=== PATIENT | female | born 1935 | race Caucasian/White ===

== ENCOUNTER → 2017-01-03 | Day surgery (SDC) | payer MEDICARE, OTHER ==
--- NOTE | 2017-01-03 08:25 | US ---
EXAMINATION TYPE: US chest DATE OF EXAM: 01/03/2017 `8:10 AM COMPARISON: XRay CLINICAL HISTORY: J91.8 Pleural effusion. Marking EXAM MEASUREMENTS: Right Pleural Effusion fluid pocket: 9.5 cm, with lung floating midway through tissue. Free fluid p ocket 2.1 cm to floating lung. Right skin to fluid thickness: 3.9 cm Right side marked for possible thoracentesis outside the dept. Pulmonologists are able to review the images in the patient?s EMR. Lung seen 4.5 cm from skinline Minimal pleural fluid on the left. IMPRESSIONS: Bilateral pleural effusion.
--- NOTE | 2017-01-03 08:50 | XR ---
EXAMINATION TYPE: XR chest 1V portable DATE OF EXAM: 01/03/2017 8:46 AM COMPARISON: NONE HISTORY: Post right thoracentesis TECHNIQUE: Single frontal view of the chest is obtained. FINDINGS: Small bilateral effusions greater on the right no definite sizable pneumothorax. Heart siz e stable. Arthropathy of the shoulders. IMPRESSION: 1. Interval reduction in pleural effusion with no definite sizable pneumothorax.
[2017-01-03 08:53] VITALS: BP 125/98; PULSE 100; RESP 16; TEMP 98.1
--- NOTE | 2017-01-03 09:14 | PCN ---
DATE OF PROCEDURE: INDICATION: Pleural effusion. A time-out was completed verifying correct patient, procedure, site, positioning, and implant (s) or special equipment if applicable. Ultrasound guidance was used and appropriate fluid pocket was identified and marked. Patient was positioned, prepped and draped in usual sterile fashion. Lidocaine was used to anesthetize the area. A Thoracentesis catheter was introduced into the right pleural space and fluid was removed. Blood loss was none. A chest x-ray was ordered to evaluate for pneumothorax. Total Fluid Removed: 900 mL Color of Fluid: Turbid, dark yellowish effusion. Patient tolerated the procedure well and there were no complications. No bedside complications. No bleeding.
[2017-01-03 12:40] LABS: RBC, Body Fluid 1450 /uL
[2017-01-03 17:47] LABS: Glucose, BF Source Pleural Fluid; LDH, Body Fluid Source Pleural Fluid; T. Protein, Body Fluid Source Pleural Fluid; Total Protein, Body Fluid 2500 mg/dL
== END ==
LOC: RADUSWWP 07:12
PROVIDERS: ATTEND Internal Medicine Critical Care Medicine
DX: J90 Pleural effusion, not elsewhere classified (principal); Z87.891 Personal history of nicotine dependence; I10 Essential (primary) hypertension; E78.5 Hyperlipidemia, unspecified; E11.9 Type 2 diabetes mellitus without complications; Z79.84 Long term (current) use of oral hypoglycemic drugs; K21.9 Gastro-esophageal reflux disease without esophagitis; H40.9 Unspecified glaucoma; G25.0 Essential tremor; E66.9 Obesity, unspecified; Z68.41 Body mass index [BMI] 40.0-44.9, adult; Z79.82 Long term (current) use of aspirin; Z79.51 Long term (current) use of inhaled steroids; Z79.899 Other long term (current) drug therapy
CPT/HCPCS: 32554; 71010; 76604; 82945; 83615; 84157; 87070; 87205; 88108; 88305; 89050

== ENCOUNTER → 2017-01-11 | Outpatient (CLI) | payer MEDICARE, OTHER ==
--- NOTE | 2017-01-11 08:07 | CT ---
EXAMINATION TYPE: CT chest w con DATE OF EXAM: 01/11/2017 COMPARISON: NONE HISTORY: Pleural effusion CT DLP: 441.6 mGycm Automated exposure control for dose reduction was used. CONTRAST: CT scan of the chest is performed with IV Contrast, patient injected with 80 mL of Visipaque 320. FINDINGS: There is a moderate right-sided pleural effusion is smaller left-sided pleural effusion. Th ere is some atelectatic change present in the right middle lobe. There is a questionable, 10.7 mm spi culated lesion in the medial aspect of the left upper lobe best seen on image 7. No other parenchymal lesion is seen. There is no significant axillary, internal mammary, mediastinal or hilar adenopathy. The heart is mildly enlarged. There is no pericardial fluid. There is an ill-defined, 2 cm lesion in the superior aspect of the spleen. There is a small splenule in the splenic hilum. There is extensive retrocrural adenopathy. 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 At the level of the renal arteries, the lymph node mass measures 11.3 cm a nd is displacing the aorta anteriorly and encasing the aorta. There is moderate hypertrophic spondylosis and degenerative change within the spine. IMPRESSION: 1. EXTENSIVE RETROCRURAL AND PARA-AORTIC ADENOPATHY SUSPICIOUS FOR LYMPHOMA. 2. LESION WITHIN THE UPPER POLE OF THE SPLEEN IS OF UNCERTAIN ETIOLOGY. SPLENIC ULTRASOUND MAY BE WOR THWHILE. 3. BILATERAL PLEURAL EFFUSIONS, LARGER ON THE RIGHT THAN THE LEFT. 4. CARDIOMEGALY. 5. QUESTIONABLE 10.7 MM LESION IN THE MEDIAL ASPECT OF THE LEFT UPPER LOBE. 6. DEGENERATIVE CHANGES WITHIN THE SPINE.
== END | disposition home or self-care (01) ==
LOC: RADCTMAIN 06:42
PROVIDERS: ATTEND Internal Medicine Critical Care Medicine
DX: J90 Pleural effusion, not elsewhere classified (principal); R59.0 Localized enlarged lymph nodes; I51.7 Cardiomegaly
CPT/HCPCS: 82565; 84520; 71260; 36415; Q9967

== ENCOUNTER 2017-01-16 12:19 | Inpatient (IN) | payer MEDICARE, OTHER ==
--- NOTE | 2017-01-16 14:27 | ED ---
General Adult HPI - General Chief complaint: Shortness of Breath Stated complaint: Difficulty Breathing Time Seen by Provider: 01/16/17 14:07 Source: patient, family, RN notes reviewed Mode of arrival: ambulatory Limitations: no limitations - History of Present Illness Initial comments: Patient is a pleasant 81-year-old female presenting to emergency department complaining of shortness of breath. Onset of symptoms was over the past week or so. Patient has had symptoms over the past couple months altogether. Patient did have thoracentesis done by Dr. Remy Whitten in 2 weeks ago. Patient did get better following this however symptoms have returned. Patient states her thoracocentesis was not concerning for cancerous and is unclear what the cause was. No chest pain. Patient is mild cough with occasional yellow sputum. - Related Data Home Medications Medication Instructions Recorded Confirmed Atorvastatin [Lipitor] 10 mg PO DAILY 01/03/17 01/16/17 Celecoxib [CeleBREX] 200 mg PO DAILY 01/03/17 01/16/17 Indapamide 2.5 mg PO DAILY 01/03/17 01/16/17 Latanoprost Ophth [Xalatan 0.005%] 1 drops BOTH EYES HS 01/03/17 01/16/17 Omeprazole 20 mg PO DAILY 01/03/17 01/16/17 Propranolol HCl [Propranolol HCl 120 mg PO DAILY 01/03/17 01/16/17 ER] amLODIPine BESYLATE/BENAZEPRIL 1 cap PO BID 01/03/17 01/16/17 [amLODIPine BESYLATE/BENAZEPRIL 5-20 mg] glipiZIDE XL [Glucotrol Xl] 5 mg PO DAILY 01/03/17 01/16/17 metFORMIN HCL [Metformin HCl] 500 mg PO BID 01/03/17 01/16/17 Aspirin EC [Ecotrin Low Dose] 81 mg PO HS 01/16/17 01/16/17 Calcium Carbonate/Vitamin D3 1 tab PO DAILY 01/16/17 01/16/17 [Calcium 600-Vit D3 400 Caplet] Multivitamins, Thera [Multivitamin 1 tab PO DAILY 01/16/17 01/16/17 (formulary)] Allergies Allergy/AdvReac Type Severity Reaction Status Date / Time No Known Allergies Allergy Verified 01/16/17 13:59 Review of Systems ROS Statement: Those systems with pertinent positive or pertinent negative responses have been documented in the HPI. ROS Other: All systems not noted in ROS Statement are negative. Constitutional: Denies: fever, chills Eyes: Denies: eye pain ENT: Denies: ear pain Respiratory: Reports: cough, dyspnea Cardiovascular: Denies: chest pain Endocrine: Denies: fatigue Gastrointestinal: Denies: abdominal pain Genitourinary: Denies: urgency Musculoskeletal: Denies: as per HPI Skin: Denies: rash Neurological: Denies: weakness Past Medical History Past Medical History: Diabetes Mellitus, Hypertension, Rheumatoid Arthritis (RA) Additional Past Medical History / Comment(s): tremors History of Any Multi-Drug Resistant Organisms: None Reported Past Surgical History: Joint Replacement, Tubal Ligation Additional Past Surgical History / Comment(s): bilateral knees, thoracentesis Past Psychological History: No Psychological Hx Reported Smoking Status: Former smoker Past Alcohol Use History: None Reported Past Drug Use History: None Reported General Exam Limitations: no limitations General appearance: alert, in no apparent distress Head exam: Present: atraumatic Eye exam: Present: normal appearance, PERRL ENT exam: Present: normal oropharynx Neck exam: Present: normal inspection Respiratory exam: Present: decreased breath sounds (Bilateral bases) Cardiovascular Exam: Present: irregular rhythm GI/Abdominal exam: Present: soft. Absent: tenderness Extremities exam: Present: normal inspection. Absent: pedal edema, calf tenderness Neurological exam: Present: alert Psychiatric exam: Present: normal affect, normal mood Skin exam: Present: normal color Course Vital Signs 01/16/17 01/16/17 01/16/17 12:35 13:14 14:34 Temperature 97.9 F Pulse Rate 89 81 Respiratory 20 26 H 24 Rate Blood Pressure 138/63 143/82 O2 Sat by Pulse 89 L 97 Oximetry EKG Findings - EKG Comments: EKG Findings:: A. fib with rate of 85. QRS 74. QT 336. QTc 39. Normal axis. Normal QRS. Normal ST-T. Medical Decision Making - Medical Decision Making Patient reevaluated and resting comfortably in bed. Patient updated on results and plan. Case discussed in detail with Dr. mcdaniel, who will admit for DrTommy romero'll. Cardiology and Dr. bishop will be consult. - Lab Data Result diagrams: 01/16/17 13:30 01/16/17 13:30 Lab Results 01/16/17 01/16/17 01/16/17 Range/Units 13:30 13:30 13:30 WBC 9.5 (3.8-10.6) k/uL RBC 4.62 (3.80-5.40) m/uL Hgb 14.5 (11.4-16.0) gm/dL Hct 42.9 (34.0-46.0) % MCV 93.0 (80.0-100.0) fL MCH 31.4 (25.0-35.0) pg MCHC 33.7 (31.0-37.0) g/dL RDW 13.3 (11.5-15.5) % Plt Count 303 (150-450) k/uL Neutrophils % 73 % Lymphocytes % 12 % Monocytes % 8 % Eosinophils % 5 % Basophils % 0 % Neutrophils # 6.9 (1.3-7.7) k/uL Lymphocytes # 1.1 (1.0-4.8) k/uL Monocytes # 0.7 (0-1.0) k/uL Eosinophils # 0.5 (0-0.7) k/uL Basophils # 0.0 (0-0.2) k/uL PT (9.0-12.0) sec INR (<1.1) APTT (22.0-30.0) sec Sodium 141 (137-145) mmol/L Potassium 5.3 H (3.5-5.1) mmol/L Chloride 107 (98-107) mmol/L Carbon Dioxide 26 (22-30) mmol/L Anion Gap 8 mmol/L BUN 27 H (7-17) mg/dL Creatinine 1.10 H (0.52-1.04) mg/dL Est GFR (MDRD) Af Amer 58 (>60 ml/min/1.73 sqM) Est GFR (MDRD) Non-Af 48 (>60 ml/min/1.73 sqM) Glucose 86 (74-99) mg/dL Calcium 10.3 H (8.4-10.2) mg/dL Total Bilirubin 0.6 (0.2-1.3) mg/dL AST 24 (14-36) U/L ALT 30 (9-52) U/L Alkaline Phosphatase 64 (38-126) U/L Total Creatine Kinase 21 L (30-135) U/L CK-MB (CK-2) 0.3 (0.0-2.4) ng/mL CK-MB (CK-2) Rel Index 1.4 Troponin I <0.012 (0.000-0.034) ng/mL NT-Pro-B Natriuret Pep pg/mL Total Protein 6.8 (6.3-8.2) g/dL Albumin 3.9 (3.5-5.0) g/dL 01/16/17 01/16/17 Range/Units 13:30 13:30 WBC (3.8-10.6) k/uL RBC (3.80-5.40) m/uL Hgb (11.4-16.0) gm/dL Hct (34.0-46.0) % MCV (80.0-100.0) fL MCH (25.0-35.0) pg MCHC (31.0-37.0) g/dL RDW (11.5-15.5) % Plt Count (150-450) k/uL Neutrophils % % Lymphocytes % % Monocytes % % Eosinophils % % Basophils % % Neutrophils # (1.3-7.7) k/uL Lymphocytes # (1.0-4.8) k/uL Monocytes # (0-1.0) k/uL Eosinophils # (0-0.7) k/uL Basophils # (0-0.2) k/uL PT 12.0 (9.0-12.0) sec INR 1.2 (<1.1) APTT 24.7 (22.0-30.0) sec Sodium (137-145) mmol/L Potassium (3.5-5.1) mmol/L Chloride (98-107) mmol/L Carbon Dioxide (22-30) mmol/L Anion Gap mmol/L BUN (7-17) mg/dL Creatinine (0.52-1.04) mg/dL Est GFR (MDRD) Af Amer (>60 ml/min/1.73 sqM) Est GFR (MDRD) Non-Af (>60 ml/min/1.73 sqM) Glucose (74-99) mg/dL Calcium (8.4-10.2) mg/dL Total Bilirubin (0.2-1.3) mg/dL AST (14-36) U/L ALT (9-52) U/L Alkaline Phosphatase (38-126) U/L Total Creatine Kinase (30-135) U/L CK-MB (CK-2) (0.0-2.4) ng/mL CK-MB (CK-2) Rel Index Troponin I (0.000-0.034) ng/mL NT-Pro-B Natriuret Pep 2220 pg/mL Total Protein (6.3-8.2) g/dL Albumin (3.5-5.0) g/dL - Radiology Data Radiology results: image reviewed (Chest x-ray shows right greater than left effusion.) Disposition Clinical Impression: Pleural effusion, New onset atrial fibrillation Disposition: ADMITTED IP TO THIS HOSP Referrals: Jennyfer Meyers, [Primary Care Provider] - 1-2 days
[2017-01-16 14:37] LABS: Basophils % (A) 0 %; CH 31.2; CHCM 33.7; Eosinophils # (A) 0.5 k/uL (0-0.7); Eosinophils % (A) 5 %; HCT 42.9 % (34.0-46.0); HDW 2.33; HGB 14.5 gm/dL (11.4-16.0); Luc # (Auto) 0.23; Luc % (Auto) 2; Lymphocytes # (A) 1.1 k/uL (1.0-4.8); Lymphocytes % (A) 12 %; MCH 31.4 pg (25.0-35.0); MCHC 33.7 g/dL (31.0-37.0); Mean Platelet Volume 7.5; Monocytes # (A) 0.7 k/uL (0-1.0); Monocytes % (A) 8 %; Neutrophils # (A) 6.9 k/uL (1.3-7.7); Neutrophils % (A) 73 %; RBC 4.62 m/uL (3.80-5.40); RDW 13.3 % (11.5-15.5); WBC 9.5 k/uL (3.8-10.6); WBC (Perox) 9.46
[2017-01-16 14:45] LABS: INR 1.2 (<1.1); Partial Thromboplastin Time 24.7 sec (22.0-30.0)
[2017-01-16 14:49] LABS: Calcium 10.3 mg/dL (8.4-10.2); Potassium 5.3 mmol/L (3.5-5.1); Total Bilirubin 0.6 mg/dL (0.2-1.3); Total Protein 6.8 g/dL (6.3-8.2)
[2017-01-16 14:58] LABS: Creatine Kinase 21 U/L (30-135)
--- NOTE | 2017-01-16 14:59 | XR ---
EXAMINATION TYPE: XR chest 2V DATE OF EXAM: 01/16/2017 HISTORY: difficulty breathing. REFERENCE: Previous study dated 01/03/2017. FINDINGS: There is a worsening right pleural effusion. Heart size is obscured. I suspect a tiny left effusion. There is some scarring or atelectasis in the left upper lobe. IMPRESSION: 1. WORSENING RIGHT-SIDED EFFUSION. 2. SCARRING VERSUS ATELECTASIS, LEFT UPPER LOBE. 3. TINY LEFT-SIDED EFFUSION.
[2017-01-16 15:11] LABS: Creatine Kinase MB 0.3 ng/mL (0.0-2.4); Troponin I <0.012 ng/mL (0.000-0.034)
[2017-01-16] MEDS ORDERED: ASPIRIN 325 MG TAB PO STA (16:32)
[2017-01-16] MEDS: FUROSEMIDE 10 MG/ML 4 ML VIAL IV SCH ×2 (17:56→20:38)
[2017-01-16] MEDS: NITROGLYCERIN OINT 1 INCH/GM PACKET TOPICAL SCH ×2 (18:03→20:47)
[2017-01-16] MEDS ORDERED: HEPARIN SODIUM,PORCINE 5,000 UNIT/ML 1 ML VIAL IV ONE (18:57)
[2017-01-16] MEDS ORDERED: HEPARIN SODIUM,PORCINE 5,000 UNIT/ML 1 ML VIAL IV PRN (18:57)
[2017-01-16] MEDS: HEPARIN SODIUM,PORCINE/D5W PMX 25,000 UNIT in DEXTROSE/WATER 1 500ML.BAG IV SCH (19:47)
[2017-01-16] MEDS: LATANOPROST 0.005% OPHTH DROPS 2.5 ML BTL BOTH EYES SCH (20:38)
[2017-01-16] MEDS: LISINOPRIL 20 MG TAB PO SCH (20:38)
[2017-01-16] MEDS: amLODIPine 5 MG TAB PO SCH (20:38)
[2017-01-16] MEDS: metFORMIN 500 MG TAB PO SCH (20:38)
[2017-01-16 20:51] LABS: Glucose,Whole Blood 117 mg/dL (75-99)
[2017-01-16 20:53] LABS: Basophils % (A) 0 %; CH 31.1; CHCM 33.1; Eosinophils # (A) 0.4 k/uL (0-0.7); Eosinophils % (A) 5 %; HCT 41.9 % (34.0-46.0); HDW 2.31; HGB 13.9 gm/dL (11.4-16.0); Luc # (Auto) 0.25; Luc % (Auto) 3; Lymphocytes % (A) 12 %; MCH 31.3 pg (25.0-35.0); MCHC 33.1 g/dL (31.0-37.0); MCV 94.5 fL (80.0-100.0); Mean Platelet Volume 7.3; Monocytes # (A) 0.8 k/uL (0-1.0); Monocytes % (A) 9 %; Neutrophils # (A) 6.1 k/uL (1.3-7.7); Neutrophils % (A) 71 %; RBC 4.43 m/uL (3.80-5.40); RDW 13.2 % (11.5-15.5); WBC 8.6 k/uL (3.8-10.6); WBC (Perox) 9.01
[2017-01-16 20:59] LABS: INR 1.1 (<1.1); Partial Thromboplastin Time 24.9 sec (22.0-30.0); Prothrombin Time 11.1 sec (9.0-12.0)
[2017-01-17 05:38] LABS: Glucose,Whole Blood 65 mg/dL (75-99)
[2017-01-17 06:05] LABS: Glucose,Whole Blood 87 mg/dL (75-99)
[2017-01-17] MEDS: PANTOPRAZOLE 40 MG TABLET PO SCH (06:33)
[2017-01-17 06:40] LABS: Basophils % (A) 0 %; CHCM 32.6; Eosinophils # (A) 0.6 k/uL (0-0.7); Eosinophils % (A) 8 %; HCT 39.1 % (34.0-46.0); HDW 2.28; HGB 12.8 gm/dL (11.4-16.0); Luc # (Auto) 0.25; Luc % (Auto) 4; Lymphocytes % (A) 14 %; MCH 31.5 pg (25.0-35.0); MCHC 32.9 g/dL (31.0-37.0); MCV 95.8 fL (80.0-100.0); Mean Platelet Volume 7.1; Monocytes # (A) 0.6 k/uL (0-1.0); Monocytes % (A) 8 %; Neutrophils # (A) 4.8 k/uL (1.3-7.7); Neutrophils % (A) 67 %; RBC 4.08 m/uL (3.80-5.40); RDW 13.3 % (11.5-15.5); WBC 7.2 k/uL (3.8-10.6)
[2017-01-17] MEDS: FUROSEMIDE 10 MG/ML 4 ML VIAL IV SCH ×3 (08:28→19:49)
[2017-01-17] MEDS: NITROGLYCERIN OINT 1 INCH/GM PACKET TOPICAL SCH ×4 (08:35→21:44)
[2017-01-17] MEDS: LISINOPRIL 20 MG TAB PO SCH ×2 (08:36→19:49)
[2017-01-17] MEDS: metFORMIN 500 MG TAB PO SCH (08:36)
[2017-01-17] MEDS: ATORVASTATIN 10 MG TAB PO SCH (08:36)
[2017-01-17] MEDS: amLODIPine 5 MG TAB PO SCH ×2 (08:36→19:50)
[2017-01-17] MEDS: PROPRANOLOL LA 60 MG CAP.SA.24H PO SCH (08:36)
[2017-01-17] MEDS: INDAPAMIDE 2.5 MG TAB PO SCH (08:37)
--- NOTE | 2017-01-17 09:23 | CONS ---
DATE OF CONSULTATION: 01/17/2017 CHIEF COMPLAINT: Shortness of breath. Sheila is a 81-year-old lady with history of hypertension, dyslipidemia, [id number]-qeyyvryks diabetes, who presented to the hospital complaining of progressively worsening shortness of breath of a few week's duration. She was investigated as outpatient with chest x-ray and was found to have a right-sided pleural effusion. She underwent thoracentesis and the fluid was negative for malignancy. She had a CT scan of the chest that showed mediastinal lymphadenopathy, pleural effusion, and mild cardiomegaly. She comes into hospital complaining of worsening shortness of breath. She complains of moderate to severe intensity dyspnea that comes on with exertion. There is no evidence of PND or leg edema. There is no prior history of congestive heart failure. There is no history of sustained palpitations, dizziness, or syncope. On this admission she was found to be in atrial fibrillation with controlled ventricular rate. BNP is elevated. Her clinical presentation is consistent with acute onset congestive heart failure. It is unclear whether it is systolic or diastolic at this time, but will obtain a 2-D echo to assess her LV function. She is being treated with intravenous diuretics, beta blockers, WISAM inhibitors, and intravenous heparin. If she is covered for normal anticoagulants, I am going to put her on Eliquis 5 mg b.i.d. Obtain a 2-D echo to assess her LV function. Chest x-rays shows significant right-sided pleural effusion. We will see if this improves with diuretics, if not she may need another attempt at thoracentesis. Past medical history is significant for hypertension, diabetes, dyslipidemia. Medications: 1. Aspirin. 2. Metformin 500 b.i.d. 3. Glucotrol XL 5 mg daily. 4. Lotrel. 5. Inderal LA. 6. Celebrex. 7. Lipitor. ALLERGIES: There are no known drug allergies. FAMILY HISTORY: Negative for premature coronary artery disease. SOCIAL HISTORY: Negative for current smoking, EtOH abuse or drug abuse. REVIEW OF SYSTEMS: HEENT: Unremarkable. CARDIAC: As described above. RESPIRATORY: As described above. GI: Negative. GENITOURINARY: Negative. ALLERGY/IMMUNOLOGY: Negative. SKIN: Negative. MUSCULOSKELETAL: Significant for arthritis. PSYCHOSOCIAL: Negative. ENDOCRINE: Negative. CONSTITUTIONAL: Negative. ONCOLOGICAL: Negative. The rest of the system review is not relevant. On exam, patient is comfortable at rest. O2 sat is 92% on 2 liters. Heart rate is 90 beats per minute, blood pressure is 125/71, respirations 18. Chest exam reveals diminished air entry at the right base. Heart exam reveals first and second heart sounds, irregular rhythm. No murmur. Abdomen is soft. Exam of the extremities did not reveal any edema. Peripheral pulses are palpable. Labs show that the creatinine is 1.1. Potassium is 5.3. Troponin is negative. BNP is elevated at 2220. ASSESSMENT: 1. Acute onset shortness of breath secondary to new onset congestive heart failure with right-sided pleural effusion. 2. Persistent atrial fibrillation, new onset. 3. Hypertension. 4. Dyslipidemia. 5. Noninsulin-dependent diabetes. PLAN: Will treat the patient with IV Lasix. Continue the beta blockers. Intravenous heparin if she is covered for the normal anticoagulants, we will start those maybe tomorrow once we get a sense of whether she is going to improve with diuresis or not. If not, she may need another thoracentesis. Heart rate is well controlled on beta nereida. We will leave her on the IV heparin. I will obtain a 2-D echo to evaluate her LV function. We will obtain a TSH on her.
--- NOTE | 2017-01-17 10:20 | HP ---
DATE OF ADMISSION: 01/16/2017 PRESENTING COMPLAINT: Short of breath. HISTORY OF PRESENTING COMPLAINT: This is a very pleasant female 81-year-old patient of Dr. Jennyfer Meyers whose chronic stable medical conditions include diabetes, hyperlipidemia, hypertension, rheumatoid arthritis. Patient has a diagnosis of pleural effusion, exact cause is unknown. She did have thoracentesis done by Dr. Ferrer about 2 weeks ago, again currently short of breath and now presents yet again with pleural effusion. She was due to get tapped. Patient denies losing any obvious weight and her appetite has not been too good. Denies any fever or cough. Just simply short of breath. REVIEW OF SYSTEMS: CONSTITUTIONAL: Weak, tired, loss of appetite. HEENT: None. RESPIRATORY: As above. CARDIOVASCULAR: None. GASTROINTESTINAL: Occasional constipation. GENITOURINARY: None. MUSCULOSKELETAL: Pain in multiple joints. Dermatological: None. HEMATOLOGICAL: None. LYMPHATICS: None. PSYCHIATRY: None. NEUROLOGICAL: None. PAST MEDICAL HISTORY: Diabetes, hyperlipidemia, hypertension, and rheumatoid arthritis, tremors. PAST SURGICAL HISTORY: Joint replacement, bilateral knees thoracenteses, cataract surgery. SOCIAL HISTORY: Does not smoke. No alcohol. . FAMILY HISTORY: Congestive heart failure, diabetes, hypertension. HOME MEDICATIONS: 1. Aspirin 81 mg a day. 2. Xalatan 0.005% one drop to both eyes at bedtime. 3. Metformin 5 mg p.o. b.i.d. 4. Glucotrol XL 5 mg p.o. daily. 5. Amlodipine. 6. Benazepril 5 mg p.o. b.i.d. 7. Propranolol ER 120 mg p.o. daily. 8. Omeprazole 20 mg p.o. daily. 9. Multivitamin 1 tablet p.o. daily. 10. Indapamide 2.5 p.o. daily. 11. Celebrex 200 mg p.o. daily. 12. Calcium 600 to 400, 1 tablet p.o. daily. 13. Lipitor 10 mg p.o. daily. ALLERGIES: None. On examination, temperature 97, pulse 76, respirations 18, blood pressure 140/76, pulse ox 95 on 2 liters. GENERAL APPEARANCE: Well built, BMI of 39.5 lying in bed, tired -appearing. EYES: Pupils equal. Conjunctivae normal. HEENT: External appearance of nose and ears normal. Oral cavity normal. NECK: JVD possibly raised. Mass not palpable. RESPIRATORY: Effort increased. LUNGS: Diminished breath sounds on the right side. CARDIOVASCULAR: Heart sounds irregular. Minimal edema. ABDOMEN: Soft, nontender. Liver and spleen not palpable. LYMPHATIC: No lymph nodes palpable in neck or axillae. PSYCHIATRY: Alert and oriented x3. Mood and affect normal. NEUROLOGICAL: Pupils equal. Cranial nerves grossly intact. Power and sensation are grossly intact. INVESTIGATIONS: White count 9.5, hemoglobin 14.5, potassium 5.3, BUN 27, creatinine 1.10. Troponin negative. ProBNP 2220. Chest x-ray shows worsening right-sided pleural effusion. ASSESSMENT: 1. Right pleural effusion, cause unknown, recurrent. Patient had pleural fluid tapped two weeks ago by Dr. Ferrer. 2. Diabetes mellitus, type II, on oral hypoglycemic. 3. Essential hypertension. 4. Hyperlipidemia. 5. Rheumatoid arthritis. 6. Obesity, body mass index 39.5. 7. Atrial fibrillation, rate controlled. PLAN: At this point the patient but on IV heparin. Home medications are reviewed. Will order a 2-D echocardiogram. Patient is being set up for thoracentesis. Care was discussed with the patient.
[2017-01-17] MEDS ORDERED: RX INFO: IV CONTRAST WAS GIVEN 1 EACH MISC MISCELLANE PRN (10:23)
[2017-01-17] MEDS: MULTIVITAMINS, THERA 1 EACH TAB PO SCH (10:58)
[2017-01-17] MEDS: ASPIRIN 325 MG TAB PO SCH (10:58)
[2017-01-17 11:38] LABS: Calcium 9.8 mg/dL (8.4-10.2); Potassium 4.5 mmol/L (3.5-5.1)
[2017-01-17 11:42] LABS: Hemoglobin A1C 5.1 % (4.2-6.1)
[2017-01-17 11:49] LABS: Glucose,Whole Blood 60 mg/dL (75-99)
[2017-01-17 12:02] LABS: Basophils # (A) 0.1 k/uL (0-0.2); Basophils % (A) 1 %; CHCM 32.2; Eosinophils # (A) 0.4 k/uL (0-0.7); Eosinophils % (A) 6 %; HCT 39.2 % (34.0-46.0); HDW 2.28; Luc # (Auto) 0.17; Luc % (Auto) 3; Lymphocytes # (A) 0.8 k/uL (1.0-4.8); Lymphocytes % (A) 12 %; MCH 32.1 pg (25.0-35.0); MCHC 33.1 g/dL (31.0-37.0); MCV 96.8 fL (80.0-100.0); Mean Platelet Volume 7.5; Monocytes # (A) 0.6 k/uL (0-1.0); Monocytes % (A) 8 %; Neutrophils # (A) 4.9 k/uL (1.3-7.7); Neutrophils % (A) 71 %; RBC 4.05 m/uL (3.80-5.40); RDW 13.2 % (11.5-15.5); WBC 6.9 k/uL (3.8-10.6); WBC (Perox) 7.38
[2017-01-17 12:23] LABS: Glucose,Whole Blood 67 mg/dL (75-99)
[2017-01-17 12:25] LABS: Glucose,Whole Blood 62 mg/dL (75-99)
[2017-01-17 12:30] LABS: Glucose,Whole Blood 64 mg/dL (75-99)
[2017-01-17 12:38] LABS: INR 1.2 (<1.1); Prothrombin Time 12.1 sec (9.0-12.0)
[2017-01-17 13:11] LABS: Glucose,Whole Blood 105 mg/dL (75-99)
[2017-01-17 13:11] LABS: Glucose,Whole Blood 63 mg/dL (75-99)
--- NOTE | 2017-01-17 13:16 | P.CNPUL ---
History of Present Illness Consult date: 01/17/17 Reason for consult: dyspnea, pleural effusion History of present illness: This is a 81-year-old female patient, diabetic along with hypertension and hyperlipidemia and essential tremors, was initially referred to me in mid December for increased shortness of breath that started approximately 4 weeks prior to that. The patient had seen her primary care physician and she was found to have a large right-sided pleural effusion and for that reason she got referred to me. The patient had increased cough and congestion and some wheezing in addition. She was having exertional dyspnea even with mild to moderate amount of activity. She had some mild orthopnea. She also complained of increased lower eczematous swelling. No pleurisy. No hemoptysis. No nausea or vomiting. Appetite was poor. She had no previous history of congestion heart failure. She had remote history of smoking. She was started by her primary care physician on Advair Diskus with no significant improvement. No history of DVT. Nausea pulmonary embolism. No malignancy. No valvular heart disease. Echocardiogram that was done in [facility] recently showed a normal left ventricular function without any segmental wall motion abnormalities and the patient's ejection fraction was 55-60% and right ventricular systolic pressure was around 55-60. The patient's proBNP level was 276. Liver function tests were within normal limits. Creatinine was mildly impaired at 1.2. I performed a thoracentesis on the patient's right lung and evacuated approximately a liter of fluid. Based on the fluid analysis, the patient's fluid LDH was 70 and the fluid protein was 2.5 and this was suggestive of the changes date. The fluid cytology came back negative for malignancy. Meanwhile, the patient had a condition of the right-sided pleural effusion. I ordered a CAT scan of the chest which confirmed the presence of a moderate-sized right-sided pleural effusion, a small left-sided pleural effusion , atelectatic changes in the right midlung however there was extensive retrocrural adenopathy and there was a conglomerate lymph node mass measuring 6.4 cm in size displacing the aorta anteriorly. At the level of the renal arteries, lymph node mass measured 11.3 cm in size and displacing the aorta and encasing the aorta. Based on that, there was a concern of an underlying lymphoma. Review of Systems All systems: negative Constitutional: Denies chills, Denies fever Eyes: denies blurred vision, denies pain Ears, nose, mouth and throat: Denies headache, Denies sore throat Cardiovascular: Reports decreased exercise tolerance, Reports dyspnea on exertion, Reports shortness of breath Respiratory: Reports dyspnea Gastrointestinal: Denies abdominal pain, Denies diarrhea, Denies nausea, Denies vomiting Genitourinary: Denies dysuria, Denies hematuria Musculoskeletal: Denies myalgias Integumentary: Denies pruritus, Denies rash Neurological: Denies numbness, Denies weakness Psychiatric: Denies anxiety, Denies depression Endocrine: Denies fatigue, Denies weight change Past Medical History Past Medical History: Diabetes Mellitus, Hyperlipidemia, Hypertension, Rheumatoid Arthritis (RA) Additional Past Medical History / Comment(s): Obesity, diabetes mellitus, bilateral pleural effusion more so on the right, glucoma, acid reflux, hyperlipidemia, essential tremors History of Any Multi-Drug Resistant Organisms: None Reported Past Surgical History: Joint Replacement, Tubal Ligation Additional Past Surgical History / Comment(s): bilateral knees, thoracentesis, Cataract Surgery Past Anesthesia/Blood Transfusion Reactions: No Reported Reaction Past Psychological History: No Psychological Hx Reported Smoking Status: Former smoker Past Alcohol Use History: None Reported Past Drug Use History: None Reported - Past Family History Mother Family Medical History: Congestive Heart Failure (CHF), Diabetes Mellitus, Eye Disorder, Hypertension, Osteoarthritis (OA) Father Family Medical History: Cancer Medications and Allergies Home Medications Medication Instructions Recorded Confirmed Type Atorvastatin [Lipitor] 10 mg PO DAILY 01/03/17 01/16/17 History Celecoxib [CeleBREX] 200 mg PO DAILY 01/03/17 01/16/17 History Indapamide 2.5 mg PO DAILY 01/03/17 01/16/17 History Latanoprost Ophth [Xalatan 0.005%] 1 drops BOTH EYES HS 01/03/17 01/16/17 History Omeprazole 20 mg PO DAILY 01/03/17 01/16/17 History Propranolol HCl [Propranolol HCl 120 mg PO DAILY 01/03/17 01/16/17 History ER] amLODIPine BESYLATE/BENAZEPRIL 1 cap PO BID 01/03/17 01/16/17 History [amLODIPine BESYLATE/BENAZEPRIL 5-20 mg] glipiZIDE XL [Glucotrol Xl] 5 mg PO DAILY 01/03/17 01/16/17 History metFORMIN HCL [Metformin HCl] 500 mg PO BID 01/03/17 01/16/17 History Aspirin EC [Ecotrin Low Dose] 81 mg PO AC-SUPPER 01/16/17 01/16/17 History Calcium Carbonate/Vitamin D3 1 tab PO DAILY 01/16/17 01/16/17 History [Calcium 600-Vit D3 400 Caplet] Multivitamins, Thera [Multivitamin 1 tab PO DAILY 01/16/17 01/16/17 History (formulary)] Allergies Allergy/AdvReac Type Severity Reaction Status Date / Time No Known Allergies Allergy Verified 01/16/17 13:59 Physical Exam Vitals: Vital Signs Temp Pulse Pulse Resp BP BP Pulse Ox 01/17/17 04:00 97.0 F L 92 18 146/84 92 L 01/16/17 23:35 78 18 01/16/17 23:16 78 18 125/71 92 L 01/16/17 20:00 79 16 01/16/17 19:39 96.8 F L 79 16 128/91 94 L 01/16/17 18:58 97.0 F L 76 18 148/76 95 01/16/17 18:05 97.0 F L 76 18 148/76 95 01/16/17 17:32 97.9 F 73 16 117/58 97 01/16/17 16:00 74 18 109/66 95 01/16/17 15:00 78 18 133/58 97 01/16/17 14:34 24 01/16/17 14:00 88 20 110/77 01/16/17 13:14 81 26 H 143/82 97 Intake and Output 01/16/17 01/17/17 01/17/17 22:59 06:59 14:59 Intake Total 114.333 200 Output Total 300 900 Balance -300 -785.667 200 Intake: Intake, IV Titration 114.333 Amount Heparin Sodium,Porcine/ 114.333 D5w Pmx 25,000 unit In Dextrose/Water 1 500ml. bag @ 10.207 UNITS/KG/HR 20 mls/hr IV .Q24H [facility] Rx #:[id number] Oral 200 Output: Urine 300 900 Other: Weight 97.976 kg 97.6 kg The patient appeared well nourished and normally developed. Vital signs as documented. Head exam is unremarkable. No scleral icterus or corneal arcus noted. Neck is without jugular venous distension, thyromegaly, or carotid bruits. Carotid upstrokes are brisk bilaterally. Lungs are diminished bilaterally as patient the right lung base along with some dullness to percussion. No wheezes or rhonchi.. Cardiac exam reveals the PMI to be normally sized and situated. Rhythm is regular. First and second heart sounds normal. No murmurs, rubs or gallops. Abdominal exam reveals normal bowel sounds , no masses, no organomegaly and no aortic enlargement. There is no abdominal distention. There is no ascites. There is no inguinal lymphadenopathy. Extremities are nonedematous and both femoral and pedal pulses are normal. Results - Laboratory Findings CBC and BMP: 01/17/17 08:54 01/17/17 08:54 PT/INR, D-dimer PT 12.1 sec (9.0-12.0) H 01/17/17 08:54 INR 1.2 (<1.1) 01/17/17 08:54 Abnormal lab findings: Abnormal Labs 01/16/17 01/16/17 01/16/17 13:30 13:30 20:50 Lymphocytes # PT APTT Potassium 5.3 H BUN 27 H Creatinine 1.10 H POC Glucose (mg/dL) 117 H Calcium 10.3 H Total Creatine Kinase 21 L 01/17/17 01/17/17 01/17/17 00:43 05:35 08:54 Lymphocytes # PT APTT 125.8 H* 42.5 H Potassium BUN Creatinine POC Glucose (mg/dL) 65 L Calcium Total Creatine Kinase 01/17/17 01/17/17 01/17/17 08:54 08:54 08:54 Lymphocytes # 0.8 L PT 12.1 H APTT Potassium BUN 32 H Creatinine 1.34 H POC Glucose (mg/dL) Calcium Total Creatine Kinase 01/17/17 01/17/17 01/17/17 11:45 12:03 12:24 Lymphocytes # PT APTT Potassium BUN Creatinine POC Glucose (mg/dL) 60 L 67 L 62 L Calcium Total Creatine Kinase 01/17/17 12:25 Lymphocytes # PT APTT Potassium BUN Creatinine POC Glucose (mg/dL) 64 L Calcium Total Creatine Kinase - Diagnostic Findings CT scan - chest: image reviewed Assessment and Plan Plan: Assessment 1 bilateral pleural effusion larger on the right. The patient underwent a diagnostic and therapeutic thoracentesis approximately 2 weeks ago and the fluid analysis is suggestive more so a transudate. The fluid cytology was negative for malignancy. Nevertheless the patient had recurrence and recuperation of the pleural effusion most on the right that is causing significant shortness of breath. 2 mass/lymph node conglomeration, intra-abdominal, para-aortic, retrocrural, suspicious for an underlying malignancy. The patient has a fairly large lymph node conglomeration this could potentially represent an underlying lymphoma 3 obesity 4 exertional dyspnea secondary to above 5 diabetes mellitus type 2 6 chronic renal insufficiency, stage III disease 7 hyperlipidemia 8 essential tremors Plan The patient is being diuresis with IV Lasix regarding the lateral pleural effusions. Rule out underlying CHF and repeat echocardiogram. Cardiology consultation. Obtain a CAT scan of the abdomen and pelvis regarding the intra- abdominal lymphadenopathy. There is a suspicion for lymphoma. May need a surgical consultation and this will largely depend on the CAT scan of the abdomen and pelvis results. We'll continue to follow.
[2017-01-17] MEDS ORDERED: SODIUM CHLORIDE 0.9% 1,000 ML in EMPTY BAG 1 BAG IV ONE (13:53)
[2017-01-17] MEDS: IOHEXOL 350 MG/ML 25 ML BOTTLE (ORAL USE) PO PRN ×2 (14:00→14:43)
[2017-01-17 15:35] VITALS: BMI 39.3
--- NOTE | 2017-01-17 16:20 | CT ---
EXAMINATION TYPE: CT abdomen pelvis w con DATE OF EXAM: 01/17/2017 REFERENCE: NONE HISTORY: abdominal LN HISTORY: Abdominal pain. REFERENCE: NONE CT DLP: 1498.00 mGy Automated exposure control for dose reduction was used. TECHNIQUE: Helical acquisition through the abdomen and pelvis was obtained following the oral ingesti on of with Oral Contrast and following intravenous administration of 80 mL of Visipaque 320. The data was reformatted in axial, coronal and sagittal projections. FINDINGS: There are bilateral effusions, greater on the right than the left. There is atelectatic ch alesha in the right middle lobe. Heart is enlarged. There is coronary artery and other vascular calcifi cations. Within the abdomen, the liver, spleen and gallbladder appear normal. There are faceted gallstones within the gallbladder and proximal common bile duct. The adrenal glands are unremarkable. Both kidneys demonstrate function and appear morphologically normal. The pancreas is unremarkable. There is extensive retrocrural, para-aortic paracaval adenopathy. Conglomerate lymph node mass at the level of the lower pole of the kidneys measures 10.5 x 4.7 cm. There is additional mesenteric adenop athy. There is no iliac or significant inguinal adenopathy. Uterus is unremarkable. The left ovary is normal. There is a 1.3 cm cyst involving the right ovary. There are scattered diverticula throughout the sigmoid colon. There is no radiographic evidence of di verticulitis. The appendix is normal. Small bowel loops appear normal. There is a ventral hernia containing fat only with a 3.4 cm mouth. No free fluid and no free air is seen. There is extensive degenerative disc disease and hypertrophic spondylosis throughout the spine. IMPRESSION: 1. BILATERAL EFFUSIONS, GREATER ON THE RIGHT THAN THE LEFT. 2. ATELECTATIC CHANGE, RIGHT MIDDLE LOBE. 3. CHOLELITHIASIS. 4. EXTENSIVE RETROCRURAL, PARA-AORTIC AND MESENTERIC ADENOPATHY. CONSIDER LYMPHOMA. 5. UNCOMPLICATED DIVERTICULOSIS OF THE LEFT SIDE OF THE COLON. 6. VENTRAL HERNIA CONTAINING FAT ONLY WITH A MOUTH MEASURING 3.4 CM. 7. EXTENSIVE DEGENERATIVE CHANGE WITHIN THE SPINE.
[2017-01-17 17:01] LABS: Glucose,Whole Blood 54 mg/dL (75-99)
[2017-01-17 17:17] LABS: Glucose,Whole Blood 174 mg/dL (75-99)
[2017-01-17] MEDS: ASPIRIN 81 MG CHEW PO SCH (17:28)
[2017-01-17] MEDS: HEPARIN SODIUM,PORCINE/D5W PMX 25,000 UNIT in DEXTROSE/WATER 1 500ML.BAG IV SCH (19:47)
[2017-01-17] MEDS: LATANOPROST 0.005% OPHTH DROPS 2.5 ML BTL BOTH EYES SCH (19:50)
[2017-01-17 20:59] LABS: Glucose,Whole Blood 90 mg/dL (75-99)
--- NOTE | 2017-01-17 22:01 | P.PN ---
Progress Note - Text DATE OF SERVICE: 01/17/2017 PRESENTING COMPLAINT: Shortness of breath INTERVAL HISTORY: This patient has recurrent pleural effusions . On exam, she is awake alert sitting in the bed, tolerating her diet, ambulatory in the room and ocrmier ways. Does not appear distressed in any way. REVIEW OF SYSTEMS: Done for constitutional ,cardiovascular, GI, pulmonary with relevant findings as above. CURRENT MEDICATIONS Norvasc, Lasix, aspirin, Glucotrol, Lozol, Zestril. PHYSICAL EXAM: VITAL SIGNS: Temperature 97.8, pulse 90, respirations 18, blood pressure 138/81 , oxygen saturation 93% on 2 L. GENERAL APPEARANCE: Average build. Lying in bed, not in distress. EYES: Pupils equal. Conjunctiva normal. NECK: JVD not raised. Mass not palpable. RESPIRATORY: Respiratory effort normal. Lungs diminished bilaterally. CARDIOVASCULAR: First and second sounds normal. No edema. ABDOMEN: Soft. Liver and spleen not palpable. No tenderness. No mass palpable. PSYCHIATRY: Alert and oriented x3. Mood and affect normal. NEUROLOGICAL: Cranial nerves grossly intact. No facial asymmetry. Power and sensation grossly intact INVESTIGATIONS: INR 1.2, sodium 141, potassium 4.5, BUNs 32, creatinine 1.34 ASSESSMENT: 1. Right pleural effusion, cause unknown, recurrent. Patient had pleural fluid tapped [address] Ferrer. 2. Diabetes mellitus type 2, on oral hypoglycemics. 3. Essential hypertension. 4. Hyperlipidemia. 5. Rheumatoid arthritis. 6. Obesity body mass index of 39.5. 7. Atrial fibrillation, controlled rate. PLAN: Receive a 2-D echocardiogram and thoracentesis with pulmonology. We'll continue with current medication and treatment plan. 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 Aaron
[2017-01-18 06:15] LABS: Glucose,Whole Blood 72 mg/dL (75-99)
[2017-01-18 06:38] LABS: Basophils % (A) 0 %; CH 31.1; Eosinophils # (A) 0.6 k/uL (0-0.7); Eosinophils % (A) 8 %; HCT 40.3 % (34.0-46.0); HDW 2.19; HGB 12.7 gm/dL (11.4-16.0); Luc # (Auto) 0.17; Luc % (Auto) 3; Lymphocytes # (A) 0.9 k/uL (1.0-4.8); Lymphocytes % (A) 14 %; MCH 30.8 pg (25.0-35.0); MCHC 31.5 g/dL (31.0-37.0); MCV 97.7 fL (80.0-100.0); Mean Platelet Volume 7.1; Monocytes # (A) 0.6 k/uL (0-1.0); Monocytes % (A) 9 %; Neutrophils # (A) 4.5 k/uL (1.3-7.7); Neutrophils % (A) 66 %; RBC 4.13 m/uL (3.80-5.40); RDW 13.6 % (11.5-15.5); WBC 6.8 k/uL (3.8-10.6)
[2017-01-18] MEDS: PANTOPRAZOLE 40 MG TABLET PO SCH (06:44)
[2017-01-18 06:50] LABS: Calcium 9.4 mg/dL (8.4-10.2); Potassium 4.2 mmol/L (3.5-5.1)
[2017-01-18] MEDS: amLODIPine 5 MG TAB PO SCH ×2 (07:27→21:58)
[2017-01-18] MEDS: ASPIRIN 325 MG TAB PO SCH (07:28)
[2017-01-18] MEDS: ATORVASTATIN 10 MG TAB PO SCH (07:28)
[2017-01-18] MEDS: INDAPAMIDE 2.5 MG TAB PO SCH (07:28)
[2017-01-18] MEDS: LISINOPRIL 20 MG TAB PO SCH ×2 (07:28→21:58)
[2017-01-18] MEDS: PROPRANOLOL LA 60 MG CAP.SA.24H PO SCH (07:29)
[2017-01-18] MEDS: MULTIVITAMINS, THERA 1 EACH TAB PO SCH (07:29)
[2017-01-18] MEDS: NITROGLYCERIN OINT 1 INCH/GM PACKET TOPICAL SCH ×4 (07:29→21:58)
[2017-01-18] MEDS: ASPIRIN 81 MG CHEW PO SCH (07:39)
--- NOTE | 2017-01-18 08:50 | PN ---
DATE OF SERVICE: 01/17/2017 ATTENDING NOTE: This patient was seen and examined by me earlier today. Patient presented with recurrent pleural effusion on the right side in 3 days. Earlier discussed with Dr. Ferrer. CT scan of the abdomen and pelvis was ordered that is showing quite a bit of intra-abdominal lymphadenopathy. Earlier today the patient was pending repeat thoracentesis. On examination, LUNGS: Decreased breath sounds. CARDIOVASCULAR: First and second sounds normal. PSYCH: Alert and oriented x3. INVESTIGATIONS: CT scan results noted. ASSESSMENT: Recurrent pleural effusion, suspect underlying lymphoma. PLAN: Consult Dr. Shea. We will determined based on CAT scan what would be the best approach to get a biopsy of the lymph nodes biopsy. I reviewed the note of my nurse practitioner, Ms. Tineo, discussed additional findings as per her notes.
--- NOTE | 2017-01-18 11:49 | P.PN ---
Subjective Principal diagnosis: CHF, atrial fibrillation This is a 81-year-old female with history of hypertension, hyperlipidemia, diabetes, who presented to the hospital with symptoms of progressively worsening shortness of breath. As an outpatient, patient did undergo a thoracentesis within the past couple of weeks by Dr. Ferrer. It was negative for malignancy, she had a CT of the chest that showed mediastinal lymphadenopathy, pleural effusion and mild cardiomegaly. Echocardiogram with Doppler study that was performed at [facility] recently revealed an ejection fraction of 55-60% and RVSP 55-60. EKG on admission also showed atrial fibrillation which appears to be new for this patient. We did check to see if the patient has coverage for [employer], she is covered but we will refrain from initiating that until we know for sure whether or not repeat thoracentesis and will need to be performed. Overall the patient states she doesn't feel well this morning, she does state that her breathing is mildly improved. Continues to be in atrial fibrillation with a controlled ventricular response, on IV heparin. Blood pressure this morning 122/60. CBC normal. Potassium 4.2 , BUN 34, creatinine 1.3. BNP level 1240. CT of the abdomen and pelvis performed here revealed bilateral effusions greater on the right than the left, atelectatic change in the right middle lobe, cholelithiasis, extensive retrocrural, para-aortic and mesenteric adenopathy. Objective - Vital Signs Vital signs: Vital Signs Temp 96.9 F L 01/18/17 07:30 Pulse 77 01/18/17 07:30 Resp 18 01/18/17 07:30 BP 123/59 01/18/17 07:30 Pulse Ox 92 L 01/18/17 07:30 Intake & Output 01/17/17 01/18/17 01/18/17 18:59 06:59 18:59 Intake Total 5289.165 2622.849 Output Total 2550 Balance 1001.776 -1456.151 Weight 97.6 kg 99.2 kg Intake: Intake, IV Titration 479.222 8884.849 Amount Heparin Sodium,Porcine/ 241.776 43.849 D5w Pmx 25,000 unit In Dextrose/Water 1 500ml. bag @ 10.207 UNITS/KG/HR 20 mls/hr IV .Q24H [facility] Rx #:[id number] Sodium Chloride 0.9% 1, 1050 000 ml In Empty Bag 1 bag @ 1 ML/KG/HR 97.6 mls/hr IV .[id number] Rx#: [id number] Oral 760 Output: Urine 2550 Other: # Voids 1 # Bowel Movements 1 - Exam PHYSICAL EXAMINATION: HEENT: Head is atraumatic, normocephalic. Pupils equal, round. Neck is supple. There is no elevated jugular venous pressure. HEART EXAMINATION: Heart S1 and S2 irregularly irregular a systolic murmur is heard. CHEST EXAMINATION: Lungs reveal diminished air entry to bilateral bases. ABDOMEN: Soft, nontender. Bowel sounds are heard. No organomegaly noted. EXTREMITIES: 2+ peripheral pulses with no evidence of peripheral edema and no calf tenderness noted. NEUROLOGIC patient is awake, alert and oriented -3. . - Labs CBC & Chem 7: 01/18/17 05:55 01/18/17 05:55 Labs: Abnormal Lab Results - Last 24 Hours (Table) 01/17/17 01/17/17 01/17/17 Range/Units 08:54 08:54 08:54 Lymphocytes # 0.8 L (1.0-4.8) k/uL PT 12.1 H (9.0-12.0) sec APTT (22.0-30.0) sec Carbon Dioxide (22-30) mmol/L BUN 32 H (7-17) mg/dL Creatinine 1.34 H (0.52-1.04) mg/dL Glucose (74-99) mg/dL POC Glucose (mg/dL) (75-99) mg/dL 01/17/17 01/17/17 01/17/17 Range/Units 11:45 12:03 12:24 Lymphocytes # (1.0-4.8) k/uL PT (9.0-12.0) sec APTT (22.0-30.0) sec Carbon Dioxide (22-30) mmol/L BUN (7-17) mg/dL Creatinine (0.52-1.04) mg/dL Glucose (74-99) mg/dL POC Glucose (mg/dL) 60 L 67 L 62 L (75-99) mg/dL 01/17/17 01/17/17 01/17/17 Range/Units 12:25 12:48 13:07 Lymphocytes # (1.0-4.8) k/uL PT (9.0-12.0) sec APTT (22.0-30.0) sec Carbon Dioxide (22-30) mmol/L BUN (7-17) mg/dL Creatinine (0.52-1.04) mg/dL Glucose (74-99) mg/dL POC Glucose (mg/dL) 64 L 63 L 105 H (75-99) mg/dL 01/17/17 01/17/17 01/17/17 Range/Units 16:32 16:56 17:15 Lymphocytes # (1.0-4.8) k/uL PT (9.0-12.0) sec APTT 54.4 H (22.0-30.0) sec Carbon Dioxide (22-30) mmol/L BUN (7-17) mg/dL Creatinine (0.52-1.04) mg/dL Glucose (74-99) mg/dL POC Glucose (mg/dL) 54 L 174 H (75-99) mg/dL 01/18/17 01/18/17 01/18/17 Range/Units 05:55 05:55 05:55 Lymphocytes # 0.9 L (1.0-4.8) k/uL PT (9.0-12.0) sec APTT 67.9 H (22.0-30.0) sec Carbon Dioxide 31 H (22-30) mmol/L BUN 34 H (7-17) mg/dL Creatinine 1.38 H (0.52-1.04) mg/dL Glucose 63 L (74-99) mg/dL POC Glucose (mg/dL) (75-99) mg/dL 01/18/17 Range/Units 06:12 Lymphocytes # (1.0-4.8) k/uL PT (9.0-12.0) sec APTT (22.0-30.0) sec Carbon Dioxide (22-30) mmol/L BUN (7-17) mg/dL Creatinine (0.52-1.04) mg/dL Glucose (74-99) mg/dL POC Glucose (mg/dL) 72 L (75-99) mg/dL Assessment and Plan (1) Chronic a-fib Status: Acute (2) Bilateral pleural effusion Status: Acute (3) Diabetes Status: Acute (4) HTN (hypertension) Status: Acute (5) Hyperlipemia Status: Acute (6) Essential tremor Status: Acute (7) Diastolic CHF, acute on chronic Status: Acute Plan: From cardiology's perspective, we'll recommend to continue current dose of IV Lasix. We will continue the IV heparin, patient does have coverage for Eliquis but we will not initiate this until we know for sure whether or not a repeat thoracentesis will be performed. DNP note has been reviewed, I agree with a documented findings and plan of care. Patient was seen and examined.
--- NOTE | 2017-01-18 12:01 | ECHOF ---
Referral Reason:afib MEASUREMENTS -------- HEIGHT: 157.5 cm WEIGHT: 97.5 kg BP: 146/84 RVIDd: 2.9 cm (< 3.3) IVSd: 1.3 cm (0.6 - 1.1) LVIDd: 4.0 cm (3.9 - 5.3) LVPWd: 1.3 cm (0.6 - 1.1) IVSs: 1.6 cm LVIDs: 2.6 cm LVPWs: 1.6 cm LAESV Index (A-L): 21.70 ml/m Ao Diam: 3.1 cm (2.0 - 3.7) AV Cusp: 0.9 cm (1.5 - 2.6) LA Diam: 4.6 cm (2.7 - 3.8) MV EXCURSION: 15.271 mm (> 18.000) MV EF SLOPE: 95 mm/s (70 - 150) EPSS: 0.6 cm AV maxP.98 mmHg AV meanP.29 mmHg RAP: 5.00 mmHg RVSP: 34.22 mmHg FINDINGS -------- Atrial fibrillation. This was a technically adequate study. There is mild concentric left ventricular hypertrophy. Overall left ventricular systolic function is normal with, an EF between 55 - 60 %. The right ventricle is normal in size and function. Normal LA size by volume 22+/-6 ml/m2. The right atrium is normal in size. There is mild aortic valve sclerosis. There is no evidence of aortic regurgitation. There is no evidence of aortic stenosis. Peak/mean gradient across the Aortic Valve is 15.98mmHg / 9.29mmHg. Assymetric septal hypertrophy noted. The mitral valve leaflets are mildly thickened. Mild mitral annular calcification present. There is trace to mild mitral regurgitation. Trace tricuspid regurgitation present. There is no evidence of pulmonary hypertension. The right ventricular systolic pressure, as measured by Doppler, is 34.22mmHg. The pulmonic valve is normal. The aortic root size is normal. Normal inferior vena cava with normal inspiratory collapse consistent with estimated right atrial pressure of 5 mmHg. Echo free space may represent effusion or a pericardial fat pad. There is no pericardial effusion. CONCLUSIONS -------- 1. Atrial fibrillation. 2. The mitral valve leaflets are mildly thickened. 3. Mild mitral annular calcification present. 4. There is trace to mild mitral regurgitation. 5. Trace tricuspid regurgitation present. 6. There is no evidence of pulmonary hypertension. 7. The right ventricular systolic pressure, as measured by Doppler, is 34.22mmHg. 8. The aortic root size is normal. 9. Echo free space may represent effusion or a pericardial fat pad. 10. There is no pericardial effusion. 11. There is mild concentric left ventricular hypertrophy. 12. Overall left ventricular systolic function is normal with, an EF between 55 - 60 %. 13. Normal LA size by volume 22+/-6 ml/m2. 14. There is mild aortic valve sclerosis. 15. There is no evidence of aortic regurgitation. 16. There is no evidence of aortic stenosis. 17. Peak/mean gradient across the Aortic Valve is 15.98mmHg / 9.29mmHg. 18. Assymetric septal hypertrophy noted. ACADEMIC SUPPORT ASSISTANT: Ramon Stephenson RDCS
[2017-01-18 12:03] LABS: Glucose,Whole Blood 81 mg/dL (75-99)
--- NOTE | 2017-01-18 15:56 | P.GSCN ---
History of Present Illness Consult date: 01/18/17 Reason for Consult: Left supraclavicular lymph node excision History of present illness: 81-year-old female being seen by surgical service at the request of the attending for left supraclavicular lymph node excision as part of the workup for intra-abdominal lymphadenopathy. . Patient has a past medical history significant for hypertension, hyperlipidemia, diabetes, presented with progressive symptomatic shortness of breath. Patient's been followed in the outpatient setting by pulmonology and did undergo 2 weeks prior thoracentesis . Of the fluid was negative for malignancy. Patient was followed up with a CAT scan of the chest which did show mediastinal lymphadenopathy. Additionally patient had an echocardiogram obtained showed an ejection fraction 55-60%. On admission patient's 12-lead EKG did show atrial fibrillation this was a new onset patient's currently being followed by cardiology and pulmonology service. Currently patient is on IV heparin anticoagulation being determined by cardiology service. Review of Systems Essentially unremarkable except as mentioned in the present illness Past Medical History Past Medical History: Diabetes Mellitus, Hyperlipidemia, Hypertension, Rheumatoid Arthritis (RA) Additional Past Medical History / Comment(s): Obesity, diabetes mellitus, bilateral pleural effusion more so on the right, glucoma, acid reflux, hyperlipidemia, essential tremors History of Any Multi-Drug Resistant Organisms: None Reported Past Surgical History: Joint Replacement, Tubal Ligation Additional Past Surgical History / Comment(s): bilateral knees, thoracentesis, Cataract Surgery Past Anesthesia/Blood Transfusion Reactions: No Reported Reaction Past Psychological History: No Psychological Hx Reported Smoking Status: Former smoker Past Alcohol Use History: None Reported Past Drug Use History: None Reported - Past Family History Mother Family Medical History: Congestive Heart Failure (CHF), Diabetes Mellitus, Eye Disorder, Hypertension, Osteoarthritis (OA) Father Family Medical History: Cancer Medications and Allergies Home Medications Medication Instructions Recorded Confirmed Type Atorvastatin [Lipitor] 10 mg PO DAILY 01/03/17 01/16/17 History Celecoxib [CeleBREX] 200 mg PO DAILY 01/03/17 01/16/17 History Indapamide 2.5 mg PO DAILY 01/03/17 01/16/17 History Latanoprost Ophth [Xalatan 0.005%] 1 drops BOTH EYES HS 01/03/17 01/16/17 History Omeprazole 20 mg PO DAILY 01/03/17 01/16/17 History Propranolol HCl [Propranolol HCl 120 mg PO DAILY 01/03/17 01/16/17 History ER] amLODIPine BESYLATE/BENAZEPRIL 1 cap PO BID 01/03/17 01/16/17 History [amLODIPine BESYLATE/BENAZEPRIL 5-20 mg] glipiZIDE XL [Glucotrol Xl] 5 mg PO DAILY 01/03/17 01/16/17 History metFORMIN HCL [Metformin HCl] 500 mg PO BID 01/03/17 01/16/17 History Aspirin EC [Ecotrin Low Dose] 81 mg PO AC-SUPPER 01/16/17 01/16/17 History Calcium Carbonate/Vitamin D3 1 tab PO DAILY 01/16/17 01/16/17 History [Calcium 600-Vit D3 400 Caplet] Multivitamins, Thera [Multivitamin 1 tab PO DAILY 01/16/17 01/16/17 History (formulary)] Allergies Allergy/AdvReac Type Severity Reaction Status Date / Time No Known Allergies Allergy Verified 01/16/17 13:59 Surgical - Exam Vital Signs Temp Pulse Resp BP Pulse Ox 97.9 F 89 20 138/63 89 L 01/16/17 12:35 01/16/17 12:35 01/16/17 12:35 01/16/17 12:35 01/16/17 12:35 GENERAL APPEARANCE: 81-year-old female sitting up in a chair pleasant cooperative oriented 3 is alert, , in no acute distress. VITAL SIGNS: Reviewed HEENT: Head is normocephalic and atraumatic. Pupils are equal and reactive. The nares are patent. Oropharynx is clear without lesions. NECK: Supple without lymphadenopathy. Traches midline. HEART: S1, S2. Irregular LUNGS: No crackles or wheezes are heard. No shortness of breath noted ABDOMEN: Soft, nontender, nondistended with good bowel sounds. No peritoneal signs. No palpable organomegaly or masses. EXTREMITIES: Normal skin color and turgor. No cyanosis, rash, ulceration, clubbing or edema. Radial pedal pulses are 2/4 bilaterally. NEUROLOGICAL: No focal deficits. Strength and sensation are grossly intact. Results - Labs 01/18/17 05:55 01/18/17 05:55 Abnormal Lab Results - Last 24 Hours (Table) 01/17/17 01/17/17 01/17/17 Range/Units 16:32 16:56 17:15 Lymphocytes # (1.0-4.8) k/uL APTT 54.4 H (22.0-30.0) sec Carbon Dioxide (22-30) mmol/L BUN (7-17) mg/dL Creatinine (0.52-1.04) mg/dL Glucose (74-99) mg/dL POC Glucose (mg/dL) 54 L 174 H (75-99) mg/dL 01/18/17 01/18/17 01/18/17 Range/Units 05:55 05:55 05:55 Lymphocytes # 0.9 L (1.0-4.8) k/uL APTT 67.9 H (22.0-30.0) sec Carbon Dioxide 31 H (22-30) mmol/L BUN 34 H (7-17) mg/dL Creatinine 1.38 H (0.52-1.04) mg/dL Glucose 63 L (74-99) mg/dL POC Glucose (mg/dL) (75-99) mg/dL 01/18/17 Range/Units 06:12 Lymphocytes # (1.0-4.8) k/uL APTT (22.0-30.0) sec Carbon Dioxide (22-30) mmol/L BUN (7-17) mg/dL Creatinine (0.52-1.04) mg/dL Glucose (74-99) mg/dL POC Glucose (mg/dL) 72 L (75-99) mg/dL Diabetes panel 01/18/17 Range/Units 05:55 Sodium 141 (137-145) mmol/L Potassium 4.2 (3.5-5.1) mmol/L Chloride 102 (98-107) mmol/L Carbon Dioxide 31 H (22-30) mmol/L BUN 34 H (7-17) mg/dL Creatinine 1.38 H (0.52-1.04) mg/dL Glucose 63 L (74-99) mg/dL Calcium 9.4 (8.4-10.2) mg/dL Calcium panel 01/18/17 Range/Units 05:55 Calcium 9.4 (8.4-10.2) mg/dL Pituitary panel 01/18/17 Range/Units 05:55 Sodium 141 (137-145) mmol/L Potassium 4.2 (3.5-5.1) mmol/L Chloride 102 (98-107) mmol/L Carbon Dioxide 31 H (22-30) mmol/L BUN 34 H (7-17) mg/dL Creatinine 1.38 H (0.52-1.04) mg/dL Glucose 63 L (74-99) mg/dL Calcium 9.4 (8.4-10.2) mg/dL Adrenal panel 01/18/17 Range/Units 05:55 Sodium 141 (137-145) mmol/L Potassium 4.2 (3.5-5.1) mmol/L Chloride 102 (98-107) mmol/L Carbon Dioxide 31 H (22-30) mmol/L BUN 34 H (7-17) mg/dL Creatinine 1.38 H (0.52-1.04) mg/dL Glucose 63 L (74-99) mg/dL Calcium 9.4 (8.4-10.2) mg/dL Assessment and Plan Plan: Impression Recurrent pleural effusions lymphoma not ruled out Type 2 diabetes Essential hypertension Hyperlipidemia Atrial fibrillation controlled ventricular response CAT scan abdomen and pelvis shows intraabdominal lymphadenopatthy Plan Will proceed with a left supraclavicular lymph node excision as part of workup to rule out lymphoma tomorrow January [address] rodrigues Continue with the recommendations per consulting services Continue medical management or the medicine service Thank you for this kind referral and the opportunity participate in the care of your patient depending on progress further recommendations will be made The above dictated assessment and findings were discussed with dr rodrigues . Impression and the plan of care have been dictated as directed. Unique Nath nurse practitioner acting as a scribe for dr rodrigues
--- NOTE | 2017-01-18 16:23 | P.PN ---
Subjective This is a 81-year-old female patient, diabetic along with hypertension and hyperlipidemia and essential tremors, was initially referred to me in mid December for increased shortness of breath that started approximately 4 weeks prior to that. The patient had seen her primary care physician and she was found to have a large right-sided pleural effusion and for that reason she got referred to me. The patient had increased cough and congestion and some wheezing in addition. She was having exertional dyspnea even with mild to moderate amount of activity. She had some mild orthopnea. She also complained of increased lower eczematous swelling. No pleurisy. No hemoptysis. No nausea or vomiting. Appetite was poor. She had no previous history of congestion heart failure. She had remote history of smoking. She was started by her primary care physician on Advair Diskus with no significant improvement. No history of DVT. Nausea pulmonary embolism. No malignancy. No valvular heart disease. Echocardiogram that was done in [facility] recently showed a normal left ventricular function without any segmental wall motion abnormalities and the patient's ejection fraction was 55-60% and right ventricular systolic pressure was around 55-60. The patient's proBNP level was 276. Liver function tests were within normal limits. Creatinine was mildly impaired at 1.2. I performed a thoracentesis on the patient's right lung and evacuated approximately a liter of fluid. Based on the fluid analysis, the patient's fluid LDH was 70 and the fluid protein was 2.5 and this was suggestive of the changes date. The fluid cytology came back negative for malignancy. Meanwhile, the patient had a condition of the right-sided pleural effusion. I ordered a CAT scan of the chest which confirmed the presence of a moderate-sized right-sided pleural effusion, a small left-sided pleural effusion , atelectatic changes in the right midlung however there was extensive retrocrural adenopathy and there was a conglomerate lymph node mass measuring 6.4 cm in size displacing the aorta anteriorly. At the level of the renal arteries, lymph node mass measured 11.3 cm in size and displacing the aorta and encasing the aorta. Based on that, there was a concern of an underlying lymphoma. The patient is seen again today in follow-up 01/18/2017 on the selective care unit. She is currently awake and alert and in no acute distress. She does have dyspnea on minimal exertion. Stable as compared to yesterday. She is maintaining O2 saturations in the mid 90s on 2 L/m per nasal cannula. She's been afebrile. She has been seen by surgical services and the plan is for left supra clavicular lymph node removal for diagnosis to be performed tomorrow. Objective - Vital Signs Vital signs: Vital Signs Temp 96.3 F L 01/18/17 11:50 Pulse 75 01/18/17 11:50 Resp 18 01/18/17 11:50 BP 105/66 01/18/17 11:50 Pulse Ox 94 L 01/18/17 11:50 Intake & Output 01/17/17 01/18/17 01/18/17 18:59 06:59 18:59 Intake Total 1420.062 1841.849 237 Output Total 2550 75 Balance 1001.776 -1456.151 162 Weight 97.6 kg 99.2 kg Intake: Intake, IV Titration 389.223 2595.849 Amount Heparin Sodium,Porcine/ 241.776 43.849 D5w Pmx 25,000 unit In Dextrose/Water 1 500ml. bag @ 10.207 UNITS/KG/HR 20 mls/hr IV .Q24H [facility] Rx #:[id number] Sodium Chloride 0.9% 1, 1050 000 ml In Empty Bag 1 bag @ 1 ML/KG/HR 97.6 mls/hr IV .[id number] ONE Rx#: [id number] Oral 760 237 Output: Urine 2550 75 Other: # Voids 1 # Bowel Movements 1 - Exam The patient appeared well nourished and normally developed. Vital signs as documented. Head exam is unremarkable. No scleral icterus or corneal arcus noted. Neck is without jugular venous distension, thyromegaly, or carotid bruits. There is a palpable left supraclavicular lymph node noted. Carotid upstrokes are brisk bilaterally. Lungs are diminished bilaterally as patient the right lung base along with some dullness to percussion. No wheezes or rhonchi.. Cardiac exam reveals the PMI to be normally sized and situated. Rhythm is regular. First and second heart sounds normal. No murmurs, rubs or gallops. Abdominal exam reveals normal bowel sounds, no masses, no organomegaly and no aortic enlargement. There is no abdominal distention. There is no ascites. There is no inguinal lymphadenopathy. Extremities are nonedematous and both femoral and pedal pulses are normal. - Labs CBC & Chem 7: 01/18/17 05:55 01/18/17 05:55 Labs: Abnormal Lab Results - Last 24 Hours (Table) 01/17/17 01/17/17 01/17/17 Range/Units 16:32 16:56 17:15 Lymphocytes # (1.0-4.8) k/uL APTT 54.4 H (22.0-30.0) sec Carbon Dioxide (22-30) mmol/L BUN (7-17) mg/dL Creatinine (0.52-1.04) mg/dL Glucose (74-99) mg/dL POC Glucose (mg/dL) 54 L 174 H (75-99) mg/dL 01/18/17 01/18/17 01/18/17 Range/Units 05:55 05:55 05:55 Lymphocytes # 0.9 L (1.0-4.8) k/uL APTT 67.9 H (22.0-30.0) sec Carbon Dioxide 31 H (22-30) mmol/L BUN 34 H (7-17) mg/dL Creatinine 1.38 H (0.52-1.04) mg/dL Glucose 63 L (74-99) mg/dL POC Glucose (mg/dL) (75-99) mg/dL 01/18/17 Range/Units 06:12 Lymphocytes # (1.0-4.8) k/uL APTT (22.0-30.0) sec Carbon Dioxide (22-30) mmol/L BUN (7-17) mg/dL Creatinine (0.52-1.04) mg/dL Glucose (74-99) mg/dL POC Glucose (mg/dL) 72 L (75-99) mg/dL Assessment and Plan Plan: Assessment 1 bilateral pleural effusion larger on the right. The patient underwent a diagnostic and therapeutic thoracentesis approximately 2 weeks ago and the fluid analysis is suggestive more so a transudate. The fluid cytology was negative for malignancy. Nevertheless the patient had recurrence and recuperation of the pleural effusion most on the right that is causing significant shortness of breath. 2 mass/lymph node conglomeration, intra-abdominal, para-aortic, retrocrural, suspicious for an underlying malignancy. The patient has a fairly large lymph node conglomeration this could potentially represent an underlying lymphoma area. Also, there is a enlarged left supraclavicular lymph node. 3 obesity 4 exertional dyspnea secondary to above 5 diabetes mellitus type 2 6 chronic renal insufficiency, stage III disease 7 hyperlipidemia 8 essential tremors Plan: The patient was seen and evaluated by Dr. Ferrer. The plan is for surgical services to remove the left supraclavicular lymph node for diagnosis of suspected lymphoma. We may also perform a right sided thoracentesis tomorrow to get her some relief of her dyspnea. She had been maintained on diuretics in the interim. We will continue to follow.
--- NOTE | 2017-01-18 16:42 | US ---
EXAMINATION TYPE: st tissue head/neck DATE OF EXAM: 01/18/2017 COMPARISON: NONE CLINICAL HISTORY: cervical lymphadenopathy. Fullness in neck felt by physician Right lateral neck = multiple lymph nodes seen, largest was 1.0cm Left lateral neck = 3.9cm enlarged lymph node seen IMPRESSION: There is demonstration of a 10 x 5 mm lymph node on the right side laterally. There are other smaller lymph nodes on the right side. On the left side there is a dominant solid mass consistent with an enlarged lymph node that measures 4 x 3.5 cm. Thyroid gland was not evaluated on this exam.
[2017-01-18 17:00] LABS: Glucose,Whole Blood 101 mg/dL (75-99)
--- NOTE | 2017-01-18 17:08 | P.PN ---
Progress Note - Text DATE OF SERVICE: 01/18/2017 PRESENTING COMPLAINT: Shortness of breath INTERVAL HISTORY: This patient presented with recurrent pleural effusions. And she is awake alert sitting in bed, tolerating her diet, ambulatory in the room and [address]orm[address] ways complaints of some tenderness in the midepigastric area. No distress. REVIEW OF SYSTEMS: Done for constitutional ,cardiovascular, GI, pulmonary with relevant findings as above. CURRENT MEDICATIONS: Norvasc, Lasix, aspirin, Glucotrol, Lozol, Zestril. PHYSICAL EXAM: VITAL SIGNS: Temperature: 96.9 pulse 77, respiratory rate 18, blood pressure 123 /59, oxygen saturation 92% on 2 L. GENERAL APPEARANCE: Obese, Lying in bed, calm cooperative. EYES: Pupils equal. Conjunctiva normal. NECK: JVD not raised. Mass not palpable. RESPIRATORY: Respiratory effort mildly short of breath at rest l. Lungs diminished breath sounds to the bases right lung field more so than left. CARDIOVASCULAR: First and second sounds normal. No edema. ABDOMEN: Soft. Tenderness to the midepigastric area, Liver and spleen not palpable. No mass palpable. PSYCHIATRY: Alert and oriented x3. Mood and affect normal. NEUROLOGICAL: Cranial nerves grossly intact. No facial asymmetry. Power and sensation grossly intact INVESTIGATIONS: BUNs 34, creatinine 1.38. Accu-Cheks noted ASSESSMENT: 1. Right pleural effusion, cause unknown, recurrent. Patient has plan pleural effusion tapped [address] Ferrer, possible thoracentesis tomorrow. 2. Diabetes mellitus type 2, on oral hypoglycemics. 3. Essential hypertension. 4. Hyperlipidemia. 5. Rheumatoid arthritis. 6. Obesity body mass index of 39.5. 7. Atrial fibrillation, controlled rate. PLAN: Possible right-sided thoracentesis tomorrow. Surgical services planned for supraclavicular clavicular lymph node removal tomorrow as well to rule out lymphoma. Cardiology remains on consult we'll continue IV Lasix and IV heparin. Hematology oncology also on consult. DIRECTOR OF MARKETING statement: Patient was seen and examined by nurse practitioner Codie Tineo in all elements of the case discussed with attending is Dr. Aaron 01/18/2017
--- NOTE | 2017-01-18 17:10 | P.CONS ---
History of Present Illness - Reason for Consult Consult date: 01/18/17 retroperitoneal adenopathy Requesting physician: Malcom Aaron - Chief Complaint Progressive SOB - History of Present Illness Ms. Palacio is a very pleasant female pt who we have been asked to see regarding retroperitoneal adenopathy. Pt presented to the hospital with c/o progressive SOB for the last 1-2 months, she had throacentesis about 2 weeks ago -pathology negative for malignancy-and did have some improvement in symptoms but they progressed over the last week again so she came back to hospital. She has occasional yellow sputum but no hemoptysis, denies fevers, she thinks she may have lost about 5lbs, denies any acute changes in appetite, nausea, vomiting , she has some epigastric discomfort, denies heartburn, dysuria, hematuria, diarrhea or constipation, denies back pain or leg swelling. CXR showed progressive right pleural effusion and she is being followed by Pulmonary, being medically managed at this time, ECHO was done and revealed A-fib so she is on heparin drip, being managed by Cardiology, CT AP done for abd pain and 10.5 x 4.7cm conglomeration of lymph nodes was found. Review of Systems All systems: negative Constitutional: Reports as per HPI Past Medical History Past Medical History: Diabetes Mellitus, Hyperlipidemia, Hypertension, Rheumatoid Arthritis (RA) Additional Past Medical History / Comment(s): Obesity, diabetes mellitus, bilateral pleural effusion more so on the right, glucoma, acid reflux, hyperlipidemia, essential tremors History of Any Multi-Drug Resistant Organisms: None Reported Past Surgical History: Joint Replacement, Tubal Ligation Additional Past Surgical History / Comment(s): bilateral knees, thoracentesis, Cataract Surgery Past Anesthesia/Blood Transfusion Reactions: No Reported Reaction Past Psychological History: No Psychological Hx Reported Smoking Status: Former smoker Past Alcohol Use History: None Reported Past Drug Use History: None Reported - Past Family History Mother Family Medical History: Congestive Heart Failure (CHF), Diabetes Mellitus, Eye Disorder, Hypertension, Osteoarthritis (OA) Father Family Medical History: Cancer Medications and Allergies Home Medications Medication Instructions Recorded Confirmed Type Atorvastatin [Lipitor] 10 mg PO DAILY 01/03/17 01/16/17 History Celecoxib [CeleBREX] 200 mg PO DAILY 01/03/17 01/16/17 History Indapamide 2.5 mg PO DAILY 01/03/17 01/16/17 History Latanoprost Ophth [Xalatan 0.005%] 1 drops BOTH EYES HS 01/03/17 01/16/17 History Omeprazole 20 mg PO DAILY 01/03/17 01/16/17 History Propranolol HCl [Propranolol HCl 120 mg PO DAILY 01/03/17 01/16/17 History ER] amLODIPine BESYLATE/BENAZEPRIL 1 cap PO BID 01/03/17 01/16/17 History [amLODIPine BESYLATE/BENAZEPRIL 5-20 mg] glipiZIDE XL [Glucotrol Xl] 5 mg PO DAILY 01/03/17 01/16/17 History metFORMIN HCL [Metformin HCl] 500 mg PO BID 01/03/17 01/16/17 History Aspirin EC [Ecotrin Low Dose] 81 mg PO AC-SUPPER 01/16/17 01/16/17 History Calcium Carbonate/Vitamin D3 1 tab PO DAILY 01/16/17 01/16/17 History [Calcium 600-Vit D3 400 Caplet] Multivitamins, Thera [Multivitamin 1 tab PO DAILY 01/16/17 01/16/17 History (formulary)] Allergies Allergy/AdvReac Type Severity Reaction Status Date / Time No Known Allergies Allergy Verified 01/16/17 13:59 Physical Exam Vitals: Vital Signs Temp Pulse Resp BP Pulse Ox 01/18/17 11:50 96.3 F L 75 18 105/66 94 L 01/18/17 07:30 96.9 F L 77 18 123/59 92 L 01/18/17 03:15 83 14 01/18/17 03:14 97.2 F L 83 14 119/59 90 L 01/18/17 00:00 84 18 01/17/17 23:59 84 18 107/43 92 L 01/17/17 19:44 62 18 01/17/17 19:36 96.8 F L 62 18 138/58 95 Intake and Output 01/18/17 01/18/17 01/18/17 06:59 14:59 22:59 Intake Total 1050 237 Output Total 2200 75 Balance -1150 162 Intake: Intake, IV Titration 1050 Amount Sodium Chloride 0.9% 1, 1050 000 ml In Empty Bag 1 bag @ 1 ML/KG/HR 97.6 mls/hr IV .[id number] ONE Rx#: [id number] Oral 237 Output: Urine 2200 75 Other: Weight 99.2 kg - Constitutional General appearance: cooperative, no acute distress, obese - EENT Eyes: anicteric sclerae, EOMI, normal appearance ENT: hearing grossly normal, normal oropharynx - Neck left supraclavicular lymph node palpated, 2-3 cm, firm, fixed Neck: lymphadenopathy - Respiratory Respiratory: bilateral: diminished - Cardiovascular Heart sounds: normal: S1, S2 leg Peripheral Edema: bilateral: None - Gastrointestinal General gastrointestinal: normal bowel sounds, soft, tenderness (epigastric and LUQ), umbilical hernia - Integumentary Integumentary: normal - Neurologic Neurologic: CNII-XII intact - Musculoskeletal Musculoskeletal: strength equal bilaterally - Psychiatric Psychiatric: A&O x's 3, appropriate affect, intact judgment & insight Results CBC & Chem 7: 01/18/17 05:55 01/18/17 05:55 Labs: Abnormal Lab Results - Last 24 Hours (Table) 01/17/17 01/17/17 01/17/17 Range/Units 16:32 16:56 17:15 Lymphocytes # (1.0-4.8) k/uL APTT 54.4 H (22.0-30.0) sec Carbon Dioxide (22-30) mmol/L BUN (7-17) mg/dL Creatinine (0.52-1.04) mg/dL Glucose (74-99) mg/dL POC Glucose (mg/dL) 54 L 174 H (75-99) mg/dL 01/18/17 01/18/17 01/18/17 Range/Units 05:55 05:55 05:55 Lymphocytes # 0.9 L (1.0-4.8) k/uL APTT 67.9 H (22.0-30.0) sec Carbon Dioxide 31 H (22-30) mmol/L BUN 34 H (7-17) mg/dL Creatinine 1.38 H (0.52-1.04) mg/dL Glucose 63 L (74-99) mg/dL POC Glucose (mg/dL) (75-99) mg/dL 01/18/17 Range/Units 06:12 Lymphocytes # (1.0-4.8) k/uL APTT (22.0-30.0) sec Carbon Dioxide (22-30) mmol/L BUN (7-17) mg/dL Creatinine (0.52-1.04) mg/dL Glucose (74-99) mg/dL POC Glucose (mg/dL) 72 L (75-99) mg/dL Comments: ECHO report reviewed CT scan - abdomen: report reviewed CT scan - pelvis: report reviewed Assessment and Plan (1) Lymphadenopathy Narrative/Plan: Retroperitoneal on imaging, palpable node in left supraclavicular area. Concerning for malignant process, lymphoma is high on differential. Surgery consulted, discussed case with Surgical [employer]LEMAN and requested LN excision and specimen to be sent fresh for flow cytometry. Await path/cytology results Status: Acute
[2017-01-18 20:53] LABS: Glucose,Whole Blood 160 mg/dL (75-99)
[2017-01-18] MEDS: LATANOPROST 0.005% OPHTH DROPS 2.5 ML BTL BOTH EYES SCH (21:58)
[2017-01-18] MEDS: HEPARIN SODIUM,PORCINE/D5W PMX 25,000 UNIT in DEXTROSE/WATER 1 500ML.BAG IV SCH (21:59)
[2017-01-19] MEDS: HEPARIN SODIUM,PORCINE/D5W PMX 25,000 UNIT in DEXTROSE/WATER 1 500ML.BAG IV SCH (04:55)
[2017-01-19 06:02] LABS: Glucose,Whole Blood 66 mg/dL (75-99)
[2017-01-19 06:30] LABS: Basophils % (A) 0 %; CHCM 31.6; Eosinophils # (A) 0.4 k/uL (0-0.7); Eosinophils % (A) 6 %; HCT 39.3 % (34.0-46.0); HDW 2.19; HGB 12.1 gm/dL (11.4-16.0); Luc # (Auto) 0.21; Luc % (Auto) 3; Lymphocytes % (A) 15 %; MCH 30.3 pg (25.0-35.0); MCHC 30.7 g/dL (31.0-37.0); MCV 98.6 fL (80.0-100.0); Mean Platelet Volume 7.1; Monocytes # (A) 0.7 k/uL (0-1.0); Monocytes % (A) 11 %; Neutrophils # (A) 4.2 k/uL (1.3-7.7); Neutrophils % (A) 65 %; RBC 3.99 m/uL (3.80-5.40); RDW 13.5 % (11.5-15.5); WBC 6.5 k/uL (3.8-10.6); WBC (Perox) 6.72
[2017-01-19 06:32] LABS: Glucose,Whole Blood 68 mg/dL (75-99)
[2017-01-19 06:34] LABS: Glucose,Whole Blood 112 mg/dL (75-99)
[2017-01-19 06:38] LABS: Calcium 9.1 mg/dL (8.4-10.2); INR 1.1 (<1.1); Partial Thromboplastin Time 41.1 sec (22.0-30.0); Potassium 4.4 mmol/L (3.5-5.1); Prothrombin Time 10.7 sec (9.0-12.0)
[2017-01-19] MEDS: PANTOPRAZOLE 40 MG TABLET PO SCH (06:46)
[2017-01-19] MEDS: NITROGLYCERIN OINT 1 INCH/GM PACKET TOPICAL SCH ×4 (08:19→23:26)
--- NOTE | 2017-01-19 11:33 | XR ---
EXAMINATION TYPE: XR chest 1V portable DATE OF EXAM: 01/19/2017 HISTORY: post thoracentesis. REFERENCE: Previous study dated 01/16/2017. FINDINGS: The patient has taken a relatively poor inspiration. There is a decrease in amount of pleur al fluid on the right. I do not see evidence of pneumothorax. Heart size is obscured. There appears t o be increased fluid on the left. IMPRESSION: I DO NOT SEE A POSTTHORACENTESIS COMPLICATION.
--- NOTE | 2017-01-19 12:04 | P.PN ---
Subjective Principal diagnosis: CHF, atrial fibrillation This is a 81-year-old female with history of hypertension, hyperlipidemia, diabetes, who presented to the hospital with symptoms of progressively worsening shortness of breath. As an outpatient, patient did undergo a thoracentesis within the past couple of weeks by Dr. Ferrer. It was negative for malignancy, she had a CT of the chest that showed mediastinal lymphadenopathy, pleural effusion and mild cardiomegaly. Echocardiogram with Doppler study that was performed at [facility] recently revealed an ejection fraction of 55-60% and RVSP 55-60. EKG on admission also showed atrial fibrillation which appears to be new for this patient. We did check to see if the patient has coverage for Eliquis, she is covered but we will refrain from initiating that until we know for sure whether or not repeat thoracentesis and will need to be performed. Overall the patient states she doesn't feel well this morning, she does state that her breathing is mildly improved. Continues to be in atrial fibrillation with a controlled ventricular response, on IV heparin. Blood pressure this morning 122/60. CBC normal. Potassium 4.2 , BUN 34, creatinine 1.3. BNP level 1240. CT of the abdomen and pelvis performed here revealed bilateral effusions greater on the right than the left, atelectatic change in the right middle lobe, cholelithiasis, extensive retrocrural, para-aortic and mesenteric adenopathy. 01/19/2017 Patient was seen and examined this morning, feeling better overall. Breathing is much improved. IV Lasix was discontinued and patient was not reinitiated on by mouth Lasix, we will start her on by mouth Lasix today. Patient is scheduled today to undergo biopsy and excision of the clavicular lymph node. She will also undergo thoracentesis today by Dr. Ferrer. Following that the patient will be initiated on Eliquis and she may be able to be discharged home. A follow-up appointment will be made in 4-[address] Norman in the office. Objective - Vital Signs Vital signs: Vital Signs Temp 98.3 F 01/19/17 04:00 Pulse 71 01/19/17 04:00 Resp 20 01/19/17 04:00 BP 99/49 01/19/17 04:00 Pulse Ox 95 01/19/17 04:00 Intake & Output 01/18/17 01/19/1701/19/17 18:59 06:59 18:59 Intake Total 237 36.4 Output Total 75 300 Balance 162 -263.6 Weight 99 kg Intake: IV 36.4 Heparin Sodium,Porcine/ 36.4 D5w Pmx 25,000 unit In Dextrose/Water 1 500ml. bag @ 10.207 UNITS/KG/HR 20 mls/hr IV .Q24H [facility] Rx #:[id number] Oral 237 Output: Urine 75 300 Other: Voiding Method Bedside Commode # Voids 1 - Exam PHYSICAL EXAMINATION: HEENT: Head is atraumatic, normocephalic. Pupils equal, round. Neck is supple. There is no elevated jugular venous pressure. HEART EXAMINATION: Heart S1 and S2 irregularly irregular a systolic murmur is heard. CHEST EXAMINATION: Lungs reveal diminished air entry to bilateral bases. ABDOMEN: Soft, nontender. Bowel sounds are heard. No organomegaly noted. EXTREMITIES: 2+ peripheral pulses with no evidence of peripheral edema and no calf tenderness noted. NEUROLOGIC patient is awake, alert and oriented -3. . - Labs CBC & Chem 7: 01/19/17 06:13 01/19/17 06:13 Labs: Abnormal Lab Results - Last 24 Hours (Table) 01/18/17 01/18/17 01/19/17 Range/Units 16:54 20:51 06:00 MCHC (31.0-37.0) g/dL APTT (22.0-30.0) sec Carbon Dioxide (22-30) mmol/L BUN (7-17) mg/dL Creatinine (0.52-1.04) mg/dL Glucose (74-99) mg/dL POC Glucose (mg/dL) 101 H 160 H 66 L (75-99) mg/dL 01/19/17 01/19/17 01/19/17 Range/Units 06:13 06:13 06:13 MCHC 30.7 L (31.0-37.0) g/dL APTT 41.1 H (22.0-30.0) sec Carbon Dioxide 31 H (22-30) mmol/L BUN 36 H (7-17) mg/dL Creatinine 1.50 H (0.52-1.04) mg/dL Glucose 66 L (74-99) mg/dL POC Glucose (mg/dL) (75-99) mg/dL 01/19/17 01/19/17 Range/Units 06:17 06:33 MCHC (31.0-37.0) g/dL APTT (22.0-30.0) sec Carbon Dioxide (22-30) mmol/L BUN (7-17) mg/dL Creatinine (0.52-1.04) mg/dL Glucose (74-99) mg/dL POC Glucose (mg/dL) 68 L 112 H (75-99) mg/dL Assessment and Plan (1) Chronic a-fib Status: Acute (2) Bilateral pleural effusion Status: Acute (3) Diabetes Status: Acute (4) HTN (hypertension) Status: Acute (5) Hyperlipemia Status: Acute (6) Essential tremor Status: Acute (7) Diastolic CHF, acute on chronic Status: Acute Plan: From cardiology's perspective, once the thoracentesis and biopsy have been performed, we will start the patient on her Eliquis. We will start the patient on oral Lasix today as well. She may be able to be discharged home from cardiology's perspective, to follow-up with Dr. Norman in the office in 4-5 weeks. DNP note has been reviewed, I agree with a documented findings and plan of care. Patient was seen and examined.
[2017-01-19 12:10] LABS: Glucose,Whole Blood 121 mg/dL (75-99)
--- NOTE | 2017-01-19 12:19 | PN ---
DATE OF SERVICE: 01/18/2017 ATTENDING NOTE: This patient was seen and examined by me today. Reviewed the note of my nurse practitioner, Ms. Tineo, and discussed initial findings as below. Patient was admitted with recurrent pleural effusion. CT of the abdomen is showing very prominent lymph nodes. I talked to ( ) from general surgery for a lymph node biopsy, could be exploratory laparotomy to do that. Patient also got some Lasix, to which she responded. On examination, blood pressure 120/59. LUNGS: Decreased breath sounds on the right side. Minimal edema. PSYCH: Awake. ASSESSMENT: 1. Right pleural effusion, recurrent, differential includes lymphoma. 2. Diabetes mellitus type 2. PLAN: Keep a close eye at the patient's renal function. The patient is on IV heparin. Await for the procedure to be done. Discussed with Dr. Ferrer too, and the patient.
[2017-01-19] MEDS ORDERED: LACTATED RINGERS 1,000 ML IV ONE ×2 (12:22→15:57)
--- NOTE | 2017-01-19 12:23 | P.PN ---
Subjective This is a 81-year-old female patient, diabetic along with hypertension and hyperlipidemia and essential tremors, was initially referred to me in mid December for increased shortness of breath that started approximately 4 weeks prior to that. The patient had seen her primary care physician and she was found to have a large right-sided pleural effusion and for that reason she got referred to me. The patient had increased cough and congestion and some wheezing in addition. She was having exertional dyspnea even with mild to moderate amount of activity. She had some mild orthopnea. She also complained of increased lower eczematous swelling. No pleurisy. No hemoptysis. No nausea or vomiting. Appetite was poor. She had no previous history of congestion heart failure. She had remote history of smoking. She was started by her primary care physician on Advair Diskus with no significant improvement. No history of DVT. Nausea pulmonary embolism. No malignancy. No valvular heart disease. Echocardiogram that was done in [facility] recently showed a normal left ventricular function without any segmental wall motion abnormalities and the patient's ejection fraction was 55-60% and right ventricular systolic pressure was around 55-60. The patient's proBNP level was 276. Liver function tests were within normal limits. Creatinine was mildly impaired at 1.2. I performed a thoracentesis on the patient's right lung and evacuated approximately a liter of fluid. Based on the fluid analysis, the patient's fluid LDH was 70 and the fluid protein was 2.5 and this was suggestive of the changes date. The fluid cytology came back negative for malignancy. Meanwhile, the patient had a condition of the right-sided pleural effusion. I ordered a CAT scan of the chest which confirmed the presence of a moderate-sized right-sided pleural effusion, a small left-sided pleural effusion , atelectatic changes in the right midlung however there was extensive retrocrural adenopathy and there was a conglomerate lymph node mass measuring 6.4 cm in size displacing the aorta anteriorly. At the level of the renal arteries, lymph node mass measured 11.3 cm in size and displacing the aorta and encasing the aorta. Based on that, there was a concern of an underlying lymphoma. The patient is seen again today in follow-up 01/18/2017 on the selective care unit. She is currently awake and alert and in no acute distress. She does have dyspnea on minimal exertion. Stable as compared to yesterday. She is maintaining O2 saturations in the mid 90s on 2 L/m per nasal cannula. She's been afebrile. She has been seen by surgical services and the plan is for left supra clavicular lymph node removal for diagnosis to be performed tomorrow. The patient is seen again today in follow-up 01/19/2017 on the selective care unit. She is awake and alert in no acute distress. She continues to have some dyspnea with minimal exertion. She was seen and evaluated by Dr. Ferrer who performed a right-sided thoracentesis removing 900 mL some fluid today. The fluid will be sent for flow cytometry. Postprocedure chest x-ray did not reveal any complications. No pneumothorax. We'll send this for fluid for cytometry she is scheduled to undergo a biopsy of the left supraclavicular lymph node today. Objective - Vital Signs Vital signs: Vital Signs Temp 98.3 F 01/19/17 04:00 Pulse 71 01/19/17 04:00 Resp 20 01/19/17 04:00 BP 99/49 01/19/17 04:00 Pulse Ox 95 01/19/17 04:00 Intake & Output 01/18/17 01/19/17 01/19/17 18:59 06:59 18:59 Intake Total 237 36.4 Output Total 75 300 Balance 162 -263.6 Weight 99 kg Intake: IV 36.4 Heparin Sodium,Porcine/ 36.4 D5w Pmx 25,000 unit In Dextrose/Water 1 500ml. bag @ 10.207 UNITS/KG/HR 20 mls/hr IV .Q24H [facility] Rx #:[id number] Oral 237 Output: Urine 75 300 Other: Voiding Method Bedside Commode # Voids 1 - Exam The patient appeared well nourished and normally developed. Vital signs as documented. Head exam is unremarkable. No scleral icterus or corneal arcus noted. Neck is without jugular venous distension, thyromegaly, or carotid bruits. There is a palpable left supraclavicular lymph node noted. Carotid upstrokes are brisk bilaterally. Lungs are diminished bilaterally as patient the right lung base along with some dullness to percussion. No wheezes or rhonchi.. Cardiac exam reveals the PMI to be normally sized and situated. Rhythm is regular. First and second heart sounds normal. No murmurs, rubs or gallops. Abdominal exam reveals normal bowel sounds, no masses, no organomegaly and no aortic enlargement. There is no abdominal distention. There is no ascites. There is no inguinal lymphadenopathy. Extremities are nonedematous and both femoral and pedal pulses are normal. - Labs CBC & Chem 7: 01/19/17 06:13 01/19/17 06:13 Labs: Abnormal Lab Results - Last 24 Hours (Table) 01/18/17 01/18/17 01/19/17 Range/Units 16:54 20:51 06:00 MCHC (31.0-37.0) g/dL APTT (22.0-30.0) sec Carbon Dioxide (22-30) mmol/L BUN (7-17) mg/dL Creatinine (0.52-1.04) mg/dL Glucose (74-99) mg/dL POC Glucose (mg/dL) 101 H 160 H 66 L (75-99) mg/dL 01/19/17 01/19/17 01/19/17 Range/Units 06:13 06:13 06:13 MCHC 30.7 L (31.0-37.0) g/dL APTT 41.1 H (22.0-30.0) sec Carbon Dioxide 31 H (22-30) mmol/L BUN 36 H (7-17) mg/dL Creatinine 1.50 H (0.52-1.04) mg/dL Glucose 66 L (74-99) mg/dL POC Glucose (mg/dL) (75-99) mg/dL 01/19/17 01/19/17 01/19/17 Range/Units 06:17 06:33 11:56 MCHC (31.0-37.0) g/dL APTT (22.0-30.0) sec Carbon Dioxide (22-30) mmol/L BUN (7-17) mg/dL Creatinine (0.52-1.04) mg/dL Glucose (74-99) mg/dL POC Glucose (mg/dL) 68 L 112 H 121 H (75-99) mg/dL Assessment and Plan Plan: Assessment 1 bilateral pleural effusion larger on the right. The patient underwent a diagnostic and therapeutic thoracentesis approximately 2 weeks ago and the fluid analysis is suggestive more so a transudate. The fluid cytology was negative for malignancy. Nevertheless the patient had recurrence and recuperation of the pleural effusion most on the right that is causing significant shortness of breath. We did go ahead and perform a right-sided thoracentesis today 01/19/17. 900mls of fluid was removed. 2 mass/lymph node conglomeration, intra-abdominal, para-aortic, retrocrural, suspicious for an underlying malignancy. The patient has a fairly large lymph node conglomeration this could potentially represent an underlying lymphoma area. Also, there is a enlarged left supraclavicular lymph node. 3 obesity 4 exertional dyspnea secondary to above 5 diabetes mellitus type 2 6 chronic renal insufficiency, stage III disease 7 hyperlipidemia 8 essential tremors Plan: The patient was seen and evaluated by Dr. Ferrer. A right-sided thoracentesis was performed today. 900 mls of fluid was removed. We'll send the fluid for flow cytometry. The plan is for surgical services to remove the left supraclavicular lymph node for diagnosis of suspected lymphoma later today. She is cleared for discharge from the pulmonary standpoint and will follow-up with her in our office in 1-2 weeks' time and repeat a chest x-ray done. She and her are both encouraged to call sooner with any recurrence of symptoms or other questions or concerns.
[2017-01-19] MEDS: APIXABAN 5 MG TAB PO SCH ×2 (12:53→21:11)
[2017-01-19] MEDS ORDERED: PHENYLEPHRINE-0.9% NACL SYG 1 MG/10 ML SYRINGE ONE (14:31)
[2017-01-19] MEDS ORDERED: ceFAZolin 1,000 MG VIAL ONE (14:31)
[2017-01-19] MEDS ORDERED: LIDOCAINE 1% INJ 10MG/ML (20 ML MDV) ONE (14:31)
[2017-01-19] MEDS ORDERED: SODIUM CHLORIDE 0.9% 50 ML with ceFAZolin 1,000 MG IV ONE ×2 (14:31)
[2017-01-19] MEDS ORDERED: SUCCINYLCHOLINE CHLORIDE 100 MG/5 ML SYR IV ONE (14:31)
[2017-01-19] MEDS ORDERED: MIDAZOLAM 2 MG/2 ML VIAL ONE (14:31)
[2017-01-19] MEDS ORDERED: PROPOFOL 10 MG/ML 20 ML VIAL IV ONE (14:31)
[2017-01-19] MEDS ORDERED: fentaNYL (PF) 50 MCG/ML 2 ML AMP ONE (14:31)
[2017-01-19] MEDS ORDERED: SODIUM CHLORIDE 0.9% 100 ML BAG ONE (14:31)
[2017-01-19] MEDS ORDERED: BUPIVACAIN-EPI 0.25%-1:200,000 30 ML VIAL SQ ONE (15:11)
[2017-01-19] MEDS: MULTIVITAMINS, THERA 1 EACH TAB PO SCH (15:23)
[2017-01-19] MEDS: ASPIRIN 325 MG TAB PO SCH (15:24)
[2017-01-19] MEDS ORDERED: ALBUTEROL NEBULIZED 2.5 MG/3 ML INHALATION ONE (16:10)
--- NOTE | 2017-01-19 16:30 | P.OP ---
Date of Procedure: 01/19/17 Preoperative Diagnosis: Diffuse lymphadenopathy with palpable cervical lymph nodes Postoperative Diagnosis: Diffuse lymphadenopathy with palpable cervical lymph nodes Procedure(s) Performed: Incisional biopsy of left supraclavicular lymph node Implants: Anesthesia: RAIMUNDO Surgeon: Lia Brand Pathology: other Condition: stable Disposition: PACU Indications for Procedure: Operative Findings: Patient multiple palpable lymph nodes in the neck. She last 4 cm matted area of lymph nodes in the left supraclavicular region was palpable. None on dissection this was found to be right underneath the transverse head of the omohyoid. It extended medially and deeply lying over the jugular and carotid vessels. Sinemet 4 cm x 4 cm x 3 cm. A 2 cm x 2 x 5 cm x 1.5 cm tissue sample was removed from this mass Mass was adherent to deeper structures \ Description of Procedure: Patient is a 81-year-old lady who came in with shortness of breath and was diagnosed as having a pleural effusion for which she went to thoracentesis. She also was found to have diffuse lymphadenopathy with cervical lymph nodes being palpable. Due to the concern of this being a lymphoma she was recommended supraclavicular lymph node biopsy. After holding the heparin for her atrial fibrillation for 24 hours the patient was consented for supraclavicular lymph node biopsy. She was a definite preoperative operating holding area questions were answered. She was taken the operating room placed in supine position given general anesthesia with endotracheal intubation. Shoulder was placed allowing extension of the neck and appropriate positioning of the neck. The patient was prepped and draped in the usual sterile surgical fashion. Appropriate timeout was called. After infiltration with local anesthesia a transverse incision in the skin crease was made with the help of a scalpel and deepened skin and subcutaneous tissue with the help of electrocautery. Platysma was incised and cervical fascia was dissected free. A wide margin was retracted out of the way under which this mass was found. Blunt dissection was performed around it as exposing enough of the matted lymph nodes to be able to incise. Left cautery was used to remove a 2.5 cm x 2 cm x 1.5 cm tissue sample. The mass itself was deeply adherent to structures around it and was lying over the blood vessels. Since the mass was so adherent decision was made just into this incision biopsy and not to do anything further or excised the whole mass. Electrocautery was used to secure the hemostasis. Subcutanus tissues were closed in layers with 2 and 3-0 Vicryl. Skin was closed from a Maxon. After dressing and pressure dressing was applied. Patient procedure well there were no complications she was extubated and taken to recovery room in stable condition. I recommend holding the heparin until tomorrow morning. After which she may be started on liquids. She may be discharged in the morning.
[2017-01-19 16:31] LABS: Glucose,Whole Blood 90 mg/dL (75-99)
--- NOTE | 2017-01-19 16:32 | P.DS ---
Providers Date of admission: 01/16/17 16:32 Date of discharge: 01/19/2017 Expected date of discharge: 01/19/17 Attending physician: Malcom Aaron Consults: 01/16/17 16:32 Consult Physician Routine Consulting Provider: Keesha Ferrer Consult Reason/Comments: Pleural effusion Do you want consulting provider notified?: Yes Consult Physician Routine Consulting Provider: Yobany Cote Consult Reason/Comments: a fib, chf Do you want consulting provider notified?: Yes 01/17/17 21:49 Consult Physician Routine Consulting Provider: Eugene Shea Consult Reason/Comments: intraabdominal lymphadenopathy Do you want consulting provider notified?: Yes 01/18/17 09:33 Consult Physician Routine Consulting Provider: Lia Brand Consult Reason/Comments: left supraclavicular lymph node excision. Specimen fresh for flow cytometr Do you want consulting provider notified?: Yes Primary care physician: Jennyfer Meyers [facility] Course: FINAL DIAGNOSES: 1. Right pleural effusion, cause unknown, recurrent. Patient has plan pleural effusion tapped [address] Ferrre, possible thoracentesis tomorrow. 2. Acute congestive heart failure secondary to diastolic dysfunction secondary to hypertension 2. Diabetes mellitus type 2, on oral hypoglycemics. 4. Hypoglycemia secondary to oral antidiabetic agent. 3. Essential hypertension secondary to kidney disease 4. Hyperlipidemia. 5. Rheumatoid arthritis. 6. Obesity body mass index of 39.5. 7. Atrial fibrillation, controlled rate. 8. Essential tremor 9. Acute renal failure secondary to diuresis Hospital course: This is 81-year-old female who presented with recurrent pleural effusions requiring thoracentesis. Had been seen by Dr. Mcknight in the office 3 weeks ago and was tapped at that time. She was seen in the office again and had a redemonstration of these pleural effusions and she was sent to the hospital for therapeutic thoracentesis. She received Lasix, oxygen. Also noted to have lymphadenopathy, hematology oncology consulted, lymph node biopsy performed. Thoracentesis to the right lung also completed today. BUN and creatinine noted to be elevated, Celebrex stopped. Postprocedure, patient feels good, tolerating her diet, breathing easier, ambulatory in the room. Plan is to discharge patient home today. Patient seen and examined by nurse practitioner Codie Tineo in all elements of the case discussed with attending Dr. Aaron. Procedures: PROCEDURES: Lymph node biopsy, thoracentesis 900 mL's of fluid extracted. Plan - Discharge Summary New Discharge Prescriptions: New oxyCODONE-APAP 5-325MG [Percocet 5-325 mg] 1 tab PO Q6HR PRN #30 tab PRN Reason: Pain Apixaban [Eliquis] 5 mg PO BID #60 tab Continue metFORMIN HCL [Metformin HCl] 500 mg PO BID amLODIPine BESYLATE/BENAZEPRIL [amLODIPine BESYLATE/BENAZEPRIL 5-20 mg] 1 cap PO BID Propranolol HCl [Propranolol HCl ER] 120 mg PO DAILY Omeprazole 20 mg PO DAILY Latanoprost Ophth [Xalatan 0.005%] 1 drops BOTH EYES HS Indapamide 2.5 mg PO DAILY Atorvastatin [Lipitor] 10 mg PO DAILY Multivitamins, Thera [Multivitamin (formulary)] 1 tab PO DAILY Calcium Carbonate/Vitamin D3 [Calcium 600-Vit D3 400 Caplet] 1 tab PO DAILY Aspirin EC [Ecotrin Low Dose] 81 mg PO AC-SUPPER Discontinued glipiZIDE XL [Glucotrol Xl] 5 mg PO DAILY Celecoxib [CeleBREX] 200 mg PO DAILY Discharge Medication List Atorvastatin [Lipitor] 10 mg PO DAILY 01/03/17 [History] Indapamide 2.5 mg PO DAILY 01/03/17 [History] Latanoprost Ophth [Xalatan 0.005%] 1 drops BOTH EYES HS 01/03/17 [History] Omeprazole 20 mg PO DAILY 01/03/17 [History] Propranolol HCl [Propranolol HCl ER] 120 mg PO DAILY 01/03/17 [History] amLODIPine BESYLATE/BENAZEPRIL [amLODIPine BESYLATE/BENAZEPRIL 5-20 mg] 1 cap PO BID 01/03/17 [History] metFORMIN HCL [Metformin HCl] 500 mg PO BID 01/03/17 [History] Aspirin EC [Ecotrin Low Dose] 81 mg PO AC-SUPPER 01/16/17 [History] Calcium Carbonate/Vitamin D3 [Calcium 600-Vit D3 400 Caplet] 1 tab PO DAILY 01/27 [History] Multivitamins, Thera [Multivitamin (formulary)] 1 tab PO DAILY 01/16/17 [History ] Apixaban [Eliquis] 5 mg PO BID #60 tab 01/19/17 [Rx] oxyCODONE-APAP 5-325MG [Percocet 5-325 mg] 1 tab PO Q6HR PRN #30 tab 01/19/17 [ Rx] Follow up Appointment(s)/Referral(s): Eugene Shea MD [STAFF PHYSICIAN] - 01/26/17 9:30 am Jennyfer Meyers DO [Primary Care Provider] - 1-2 days (Please call and schedule follow up during normal business hours. ) [facility], [NON-STAFF] - Med Norman MD [STAFF PHYSICIAN] - 02/27/17 3:15 pm Keesha Ferrer MD [STAFF PHYSICIAN] - 02/14/17 1:00 pm Ambulatory/Diagnostic Orders: Basic Metabolic Panel [LAB.AMB] Location: Determined By Patient Complete Blood Count w/diff [LAB.AMB] Location: Determined By Patient Patient Instructions/Handouts: Atrial Fibrillation (DC), Thoracentesis (DC), Pleural Effusion (DC), Lymph Node Biopsy (DC) Activity/Diet/Wound Care/Special Instructions: 30 day free supply of Eliquis filled in OP pharmacy.
[2017-01-19] MEDS ORDERED: BENZOCAINE/MENTHOL LOZENG 1 EACH LOZENGE MUCOUS MEM PRN (16:57)
[2017-01-19 17:32] LABS: Glucose,Whole Blood 97 mg/dL (75-99)
[2017-01-19] MEDS: PROPRANOLOL LA 60 MG CAP.SA.24H PO SCH (17:57)
[2017-01-19] MEDS: ATORVASTATIN 10 MG TAB PO SCH (17:57)
[2017-01-19] MEDS: INDAPAMIDE 2.5 MG TAB PO SCH (17:57)
[2017-01-19] MEDS: LISINOPRIL 20 MG TAB PO SCH ×2 (17:58→21:11)
[2017-01-19] MEDS: amLODIPine 5 MG TAB PO SCH ×2 (17:58→21:11)
[2017-01-19 19:49] LABS: RBC, Body Fluid 4000 /uL
[2017-01-19] MEDS: LATANOPROST 0.005% OPHTH DROPS 2.5 ML BTL BOTH EYES SCH (21:10)
[2017-01-19] MEDS: ASPIRIN 81 MG CHEW PO SCH (21:11)
[2017-01-19 21:19] LABS: Glucose,Whole Blood 157 mg/dL (75-99)
[2017-01-19 22:59] VITALS: RESP 18
--- NOTE | 2017-01-19 23:07 | PCN ---
DATE OF PROCEDURE: THORACENTESIS Indication: Pleural effusion. A time-out was completed verifying correct patient, procedure, site, positioning, and implant (s) or special equipment if applicable. Ultrasound guidance was not used and appropriate fluid pocket was identified and marked. Patient was positioned, prepped and draped in usual sterile fashion. Lidocaine was used to anesthetize the area. A Thoracentesis catheter was introduced into the pleural space and fluid was removed. Blood loss was none. A chest x-ray was ordered to evaluate for pneumothorax. Total Fluid Removed: 1 L Color of Fluid: Fluid was/was not sent for appropriate laboratory tests. Patient tolerated the procedure well and there were no complications. This was done without ultrasound markings. This was done on right side. Total fluid removed: Was around 1 liter. No bedside complications or bleeding. At this point, chest x-ray showed no evidence of pneumothorax.
[2017-01-20 00:46] LABS: T. Protein, Body Fluid Source Pleural Fluid; Total Protein, Body Fluid 2360 mg/dL
[2017-01-20 00:55] LABS: LDH, Body Fluid Source Pleural Fluid
[2017-01-20] MEDS ORDERED: ACETAMINOPHEN TAB 325 MG TAB PO PRN (04:03)
[2017-01-20 05:29] VITALS: PULSE 79
[2017-01-20 06:17] LABS: Glucose,Whole Blood 119 mg/dL (75-99)
[2017-01-20 06:17] LABS: Basophils % (A) 0 %; CH 30.9; Eosinophils # (A) 0.2 k/uL (0-0.7); Eosinophils % (A) 3 %; HCT 36.4 % (34.0-46.0); HDW 2.12; HGB 11.7 gm/dL (11.4-16.0); Luc # (Auto) 0.18; Luc % (Auto) 3; Lymphocytes # (A) 0.7 k/uL (1.0-4.8); Lymphocytes % (A) 10 %; MCH 31.1 pg (25.0-35.0); MCHC 32.1 g/dL (31.0-37.0); MCV 96.9 fL (80.0-100.0); Mean Platelet Volume 7.2; Monocytes # (A) 0.7 k/uL (0-1.0); Monocytes % (A) 9 %; Neutrophils # (A) 5.1 k/uL (1.3-7.7); Neutrophils % (A) 74 %; RBC 3.75 m/uL (3.80-5.40); RDW 13.4 % (11.5-15.5); WBC 6.9 k/uL (3.8-10.6); WBC (Perox) 7.71
[2017-01-20 06:26] LABS: Calcium 9.3 mg/dL (8.4-10.2); Potassium 4.8 mmol/L (3.5-5.1)
[2017-01-20] MEDS: amLODIPine 5 MG TAB PO SCH (08:44)
[2017-01-20] MEDS: APIXABAN 5 MG TAB PO SCH (08:45)
[2017-01-20] MEDS: ATORVASTATIN 10 MG TAB PO SCH (08:45)
[2017-01-20] MEDS: LISINOPRIL 20 MG TAB PO SCH (08:45)
[2017-01-20] MEDS: PROPRANOLOL LA 60 MG CAP.SA.24H PO SCH (08:46)
[2017-01-20] MEDS: INDAPAMIDE 2.5 MG TAB PO SCH (08:46)
[2017-01-20] MEDS: NITROGLYCERIN OINT 1 INCH/GM PACKET TOPICAL SCH ×2 (08:47→11:21)
--- NOTE | 2017-01-20 10:50 | P.PN ---
Progress Note - Text Patient is 81-year-old female who underwent has a left cervical lymph node incisional biopsy. The procedure went well without any issues. The wound itself is covered with dressing and is clean dry and intact morning. She's not complaining of any pain. She is having some shortness of breath and is on oxygen. On examination she is afebrile vital signs stable with nasal cannula oxygen. The dressing was not taken down and the wound was clean dry and intact. Assessment and plan: patient is status post incisional biopsy of the lymph nodes. She's tolerated the procedure well and no apparent complication she may be discharged home from the surgical standpoint and to follow-up in my clinic in a week's time.
[2017-01-20 11:04] VITALS: BP 116/56; TEMP 97.2
[2017-01-20] MEDS: MULTIVITAMINS, THERA 1 EACH TAB PO SCH (11:21)
--- NOTE | 2017-01-20 11:56 | P.PN ---
Subjective Principal diagnosis: CHF, atrial fibrillation This is a 81-year-old female with history of hypertension, hyperlipidemia, diabetes, who presented to the hospital with symptoms of progressively worsening shortness of breath. As an outpatient, patient did undergo a thoracentesis within the past couple of weeks by Dr. Ferrer. It was negative for malignancy, she had a CT of the chest that showed mediastinal lymphadenopathy, pleural effusion and mild cardiomegaly. Echocardiogram with Doppler study that was performed at [facility] recently revealed an ejection fraction of 55-60% and RVSP 55-60. EKG on admission also showed atrial fibrillation which appears to be new for this patient. We did check to see if the patient has coverage for Eliquis, she is covered but we will refrain from initiating that until we know for sure whether or not repeat thoracentesis and will need to be performed. Overall the patient states she doesn't feel well this morning, she does state that her breathing is mildly improved. Continues to be in atrial fibrillation with a controlled ventricular response, on IV heparin. Blood pressure this morning 122/60. CBC normal. Potassium 4.2 , BUN 34, creatinine 1.3. BNP level 1240. CT of the abdomen and pelvis performed here revealed bilateral effusions greater on the right than the left, atelectatic change in the right middle lobe, cholelithiasis, extensive retrocrural, para-aortic and mesenteric adenopathy. 01/19/2017 Patient was seen and examined this morning, feeling better overall. Breathing is much improved. IV Lasix was discontinued and patient was not reinitiated on by mouth Lasix, we will start her on by mouth Lasix today. Patient is scheduled today to undergo biopsy and excision of the clavicular lymph node. She will also undergo thoracentesis today by Dr. Ferrer. Following that the patient will be initiated on Eliquis and she may be able to be discharged home. A follow-up appointment will be made in 4-[address] Norman in the office. 01/20/2017 She was seen and examined this morning, feeling well overall. Anticipating discharge home today. Objective - Vital Signs Vital signs: Vital Signs Temp 97.2 F L 01/20/17 08:00 Pulse 79 01/20/17 08:00 Resp 18 01/20/17 08:00 BP 116/56 01/20/17 08:00 Pulse Ox 93 L 01/20/17 08:00 Intake & Output 01/19/17 01/20/17 01/20/17 18:59 06:59 18:59 Intake Total 1737 2600 Output Total 405 300 Balance 1332 2600 -300 Weight 99.7 kg Intake: IV 1500 Oral 237 2600 Output: Urine 400 300 Estimated Blood Loss 5 Other: Voiding Method Bedside Commode Bedside Commode Bedside Commode # Voids 1 2 - Exam PHYSICAL EXAMINATION: HEENT: Head is atraumatic, normocephalic. Pupils equal, round. Neck is supple. There is no elevated jugular venous pressure. HEART EXAMINATION: Heart S1 and S2 irregularly irregular a systolic murmur is heard. CHEST EXAMINATION: Lungs reveal improvement in air entry to bilateral bases. ABDOMEN: Soft, nontender. Bowel sounds are heard. No organomegaly noted. EXTREMITIES: 2+ peripheral pulses with no evidence of peripheral edema and no calf tenderness noted. NEUROLOGIC patient is awake, alert and oriented -3. . - Labs CBC & Chem 7: 01/20/17 05:33 01/20/17 05:33 Labs: Abnormal Lab Results - Last 24 Hours (Table) 01/19/17 01/19/17 01/20/17 Range/Units 11:56 20:59 05:33 RBC 3.75 L (3.80-5.40) m/uL Lymphocytes # 0.7 L (1.0-4.8) k/uL BUN (7-17) mg/dL Creatinine (0.52-1.04) mg/dL Glucose (74-99) mg/dL POC Glucose (mg/dL) 121 H 157 H (75-99) mg/dL 01/20/17 01/20/17 Range/Units 05:33 06:16 RBC (3.80-5.40) m/uL Lymphocytes # (1.0-4.8) k/uL BUN 30 H (7-17) mg/dL Creatinine 1.17 H (0.52-1.04) mg/dL Glucose 112 H (74-99) mg/dL POC Glucose (mg/dL) 119 H (75-99) mg/dL Assessment and Plan (1) Chronic a-fib Status: Acute (2) Bilateral pleural effusion Status: Acute (3) Diabetes Status: Acute (4) HTN (hypertension) Status: Acute (5) Hyperlipemia Status: Acute (6) Essential tremor Status: Acute (7) Diastolic CHF, acute on chronic Status: Acute Plan: From cardiology's perspective, patient may be able to be discharged home once cleared by the primary. We'll make her follow-up appointment to see Dr. Del Toro back in the office post discharge. DNP note has been reviewed, I agree with a documented findings and plan of care. Patient was seen and examined.
--- NOTE | 2017-01-20 12:58 | P.PN ---
Subjective This is a 81-year-old female patient, diabetic along with hypertension and hyperlipidemia and essential tremors, was initially referred to me in mid December for increased shortness of breath that started approximately 4 weeks prior to that. The patient had seen her primary care physician and she was found to have a large right-sided pleural effusion and for that reason she got referred to me. The patient had increased cough and congestion and some wheezing in addition. She was having exertional dyspnea even with mild to moderate amount of activity. She had some mild orthopnea. She also complained of increased lower eczematous swelling. No pleurisy. No hemoptysis. No nausea or vomiting. Appetite was poor. She had no previous history of congestion heart failure. She had remote history of smoking. She was started by her primary care physician on Advair Diskus with no significant improvement. No history of DVT. Nausea pulmonary embolism. No malignancy. No valvular heart disease. Echocardiogram that was done in [facility] recently showed a normal left ventricular function without any segmental wall motion abnormalities and the patient's ejection fraction was 55-60% and right ventricular systolic pressure was around 55-60. The patient's proBNP level was 276. Liver function tests were within normal limits. Creatinine was mildly impaired at 1.2. I performed a thoracentesis on the patient's right lung and evacuated approximately a liter of fluid. Based on the fluid analysis, the patient's fluid LDH was 70 and the fluid protein was 2.5 and this was suggestive of the changes date. The fluid cytology came back negative for malignancy. Meanwhile, the patient had a condition of the right-sided pleural effusion. I ordered a CAT scan of the chest which confirmed the presence of a moderate-sized right-sided pleural effusion, a small left-sided pleural effusion , atelectatic changes in the right midlung however there was extensive retrocrural adenopathy and there was a conglomerate lymph node mass measuring 6.4 cm in size displacing the aorta anteriorly. At the level of the renal arteries, lymph node mass measured 11.3 cm in size and displacing the aorta and encasing the aorta. Based on that, there was a concern of an underlying lymphoma. The patient is seen again today in follow-up 01/18/2017 on the selective care unit. She is currently awake and alert and in no acute distress. She does have dyspnea on minimal exertion. Stable as compared to yesterday. She is maintaining O2 saturations in the mid 90s on 2 L/m per nasal cannula. She's been afebrile. She has been seen by surgical services and the plan is for left supra clavicular lymph node removal for diagnosis to be performed tomorrow. The patient is seen again today in follow-up 01/19/2017 on the selective care unit. She is awake and alert in no acute distress. She continues to have some dyspnea with minimal exertion. She was seen and evaluated by Dr. Ferrer who performed a right-sided thoracentesis removing 900 mL some fluid today. The fluid will be sent for flow cytometry. Postprocedure chest x-ray did not reveal any complications. No pneumothorax. We'll send this for fluid for cytometry she is scheduled to undergo a biopsy of the left supraclavicular lymph node today. Patient is seen again today 01/20/2017 in follow-up on the selective care unit. She did undergo a right-sided thoracentesis yesterday with 900 and muscles of fluid removed. She had subsequently undergone a left supraclavicular lymph node biopsy as well. She is presently sitting up in bed she is awake and alert in no acute distress. She is anxious to go home. She is still requiring 4 L of oxygen per nasal cannula to maintain O2 saturations in the 90s. She was not oxygen dependent prior to her arrival here. Her follow-up chest x-ray did show a decrease amount of pleural fluid on the right however there is still some fluid there as well as the left lung base. This is what is most likely the cause her high oxygen requirements. Unfortunately, the fluid will most likely continue to return. We are suspicious of probable lymphoma. Objective - Vital Signs Vital signs: Vital Signs Temp 97.2 F L 01/20/17 08:00 Pulse 79 01/20/17 08:00 Resp 18 01/20/17 08:00 BP 116/56 01/20/17 08:00 Pulse Ox 93 L 01/20/17 08:00 Intake & Output 01/19/17 01/20/17 01/20/17 18:59 06:59 18:59 Intake Total 1737 2600 Output Total 405 300 Balance 1332 2600 -300 Weight 99.7 kg Intake: IV 1500 Oral 237 2600 Output: Urine 400 300 Estimated Blood Loss 5 Other: Voiding Method Bedside Commode Bedside Commode Bedside Commode # Voids 1 2 - Exam The patient appeared well nourished and normally developed. Vital signs as documented. Head exam is unremarkable. No scleral icterus or corneal arcus noted. Neck is without jugular venous distension, thyromegaly, or carotid bruits. There is a palpable left supraclavicular lymph node noted. Carotid upstrokes are brisk bilaterally. Lungs are diminished bilaterally as patient the right lung base along with some dullness to percussion. No wheezes or rhonchi.. Cardiac exam reveals the PMI to be normally sized and situated. Rhythm is regular. First and second heart sounds normal. No murmurs, rubs or gallops. Abdominal exam reveals normal bowel sounds, no masses, no organomegaly and no aortic enlargement. There is no abdominal distention. There is no ascites. There is no inguinal lymphadenopathy. Extremities are nonedematous and both femoral and pedal pulses are normal. - Labs CBC & Chem 7: 01/20/17 05:33 01/20/17 05:33 Labs: Abnormal Lab Results - Last 24 Hours (Table) 01/19/17 01/20/17 01/20/17 Range/Units 20:59 05:33 05:33 RBC 3.75 L (3.80-5.40) m/uL Lymphocytes # 0.7 L (1.0-4.8) k/uL BUN 30 H (7-17) mg/dL Creatinine 1.17 H (0.52-1.04) mg/dL Glucose 112 H (74-99) mg/dL POC Glucose (mg/dL) 157 H (75-99) mg/dL 01/20/17 Range/Units 06:16 RBC (3.80-5.40) m/uL Lymphocytes # (1.0-4.8) k/uL BUN (7-17) mg/dL Creatinine (0.52-1.04) mg/dL Glucose (74-99) mg/dL POC Glucose (mg/dL) 119 H (75-99) mg/dL Assessment and Plan Plan: Assessment 1 bilateral pleural effusion larger on the right. The patient underwent a diagnostic and therapeutic thoracentesis approximately 2 weeks ago and the fluid analysis is suggestive more so a transudate. The fluid cytology was negative for malignancy. Nevertheless the patient had recurrence and recuperation of the pleural effusion most on the right that is causing significant shortness of breath. We did go ahead and perform a right-sided thoracentesis today 01/19/17. 900mls of fluid was removed. 2 mass/lymph node conglomeration, intra-abdominal, para-aortic, retrocrural, suspicious for an underlying malignancy. The patient has a fairly large lymph node conglomeration this could potentially represent an underlying lymphoma area. She did undergo a left supra clavicular lymph node biopsy and 2016. 3 obesity 4 exertional dyspnea secondary to above 5 diabetes mellitus type 2 6 chronic renal insufficiency, stage III disease 7 hyperlipidemia 8 essential tremors Plan: The patient was seen and evaluated by Dr. Ferrer. She does continue to require 4 L of nasal cannula oxygen to maintain O2 saturations in the 90s. She continues with small to moderate bilateral pleural effusions. Unfortunately the fluid will most likely keep returning. We'll await diagnosis from the lymph node biopsy. She is anxious to go home. She could go home with home oxygen in follow-up in our office in 1 week's time.
--- NOTE | 2017-01-20 15:01 | P.DS ---
Providers Date of admission: 01/16/17 16:32 Expected date of discharge: 01/20/17 Attending physician: Malcom Aaron Consults: 01/16/17 16:32 Consult Physician Routine Consulting Provider: Keesha Ferrer Consult Reason/Comments: Pleural effusion Do you want consulting provider notified?: Yes Consult Physician Routine Consulting Provider: Yobany Cote Consult Reason/Comments: a fib, chf Do you want consulting provider notified?: Yes 01/17/17 21:49 Consult Physician Routine Consulting Provider: Eugene Shea Consult Reason/Comments: intraabdominal lymphadenopathy Do you want consulting provider notified?: Yes 01/18/17 09:33 Consult Physician Routine Consulting Provider: Lia Brand Consult Reason/Comments: left supraclavicular lymph node excision. Specimen fresh for flow cytometr Do you want consulting provider notified?: Yes Primary care physician: Jennyfer Meyers [facility] Course: FINAL DIAGNOSES: 1. Right pleural effusion, cause unknown, recurrent s/p thoracentesis. 2. Acute congestive heart failure secondary to diastolic dysfunction secondary to hypertension 2. Diabetes mellitus type 2, on oral hypoglycemics. 4. Hypoglycemia secondary to oral antidiabetic agent. 3. Essential hypertension secondary to kidney disease 4. Hyperlipidemia. 5. Rheumatoid arthritis. 6. Obesity body mass index of 39.5. 7. Persistent Atrial fibrillation, controlled rate, on eliquis. 8. Essential tremor 9. Acute renal failure secondary to diuresis HOSPITAL COURSE: This is 81-year-old female who presented with recurrent pleural effusions requiring thoracentesis. Had been seen by Dr. Mcknight in the office 3 weeks ago and was tapped at that time. She was seen in the office again and had a redemonstration of these pleural effusions and she was sent to the hospital for therapeutic thoracentesis. She received Lasix, oxygen. CT scan of the abdomen and pelvis revealed lymphadenopathy, Dr Shea of hematology oncology consulted, because suspect. Therefore, a lymph node biopsy performed. Thoracentesis to the right lung also completed. BUN and creatinine noted to be elevated 36 and 1.50 respectively, Celebrex stopped and dieuresis held, and Creatinine 1.17 BUN 30 improved. Postprocedure, patient feels good, tolerating her diet, breathing easier, ambulatory in the room. Plan is to discharge patient home today. Patient seen and examined by nurse practitioner Codie Tineo in all elements of the case discussed with attending Dr. Aaron. Procedures: PROCEDURES: Supraclavicular Lymph node biopsy done by Dr Brand, thoracentesis 900 mL's of fluid obtained, performed by Dr Ferrer. Patient Condition at Discharge: Stable Plan - Discharge Summary New Discharge Prescriptions: New oxyCODONE-APAP 5-325MG [Percocet 5-325 mg] 1 tab PO Q6HR PRN #30 tab PRN Reason: Pain Apixaban [Eliquis] 5 mg PO BID #60 tab Continue metFORMIN HCL [Metformin HCl] 500 mg PO BID amLODIPine BESYLATE/BENAZEPRIL [amLODIPine BESYLATE/BENAZEPRIL 5-20 mg] 1 cap PO BID Propranolol HCl [Propranolol HCl ER] 120 mg PO DAILY Omeprazole 20 mg PO DAILY Latanoprost Ophth [Xalatan 0.005%] 1 drops BOTH EYES HS Indapamide 2.5 mg PO DAILY Atorvastatin [Lipitor] 10 mg PO DAILY Multivitamins, Thera [Multivitamin (formulary)] 1 tab PO DAILY Calcium Carbonate/Vitamin D3 [Calcium 600-Vit D3 400 Caplet] 1 tab PO DAILY Aspirin EC [Ecotrin Low Dose] 81 mg PO AC-SUPPER Discontinued glipiZIDE XL [Glucotrol Xl] 5 mg PO DAILY Celecoxib [CeleBREX] 200 mg PO DAILY Discharge Medication List Atorvastatin [Lipitor] 10 mg PO DAILY 01/03/17 [History] Indapamide 2.5 mg PO DAILY 01/03/17 [History] Latanoprost Ophth [Xalatan 0.005%] 1 drops BOTH EYES HS 01/03/17 [History] Omeprazole 20 mg PO DAILY 01/03/17 [History] Propranolol HCl [Propranolol HCl ER] 120 mg PO DAILY 01/03/17 [History] amLODIPine BESYLATE/BENAZEPRIL [amLODIPine BESYLATE/BENAZEPRIL 5-20 mg] 1 cap PO BID 01/03/17 [History] metFORMIN HCL [Metformin HCl] 500 mg PO BID 01/03/17 [History] Aspirin EC [Ecotrin Low Dose] 81 mg PO AC-SUPPER 01/16/17 [History] Calcium Carbonate/Vitamin D3 [Calcium 600-Vit D3 400 Caplet] 1 tab PO DAILY 01/27 [History] Multivitamins, Thera [Multivitamin (formulary)] 1 tab PO DAILY 01/16/17 [History ] Apixaban [Eliquis] 5 mg PO BID #60 tab 01/19/17 [Rx] oxyCODONE-APAP 5-325MG [Percocet 5-325 mg] 1 tab PO Q6HR PRN #30 tab 01/19/17 [ Rx] Follow up Appointment(s)/Referral(s): Eugene Shea MD [STAFF PHYSICIAN] - 01/26/17 9:30 am Jennyfer Meyers DO [Primary Care Provider] - 1-2 days (Please call and schedule follow up during normal business hours. ) [facility], [NON-STAFF] - Med Norman MD [STAFF PHYSICIAN] - 02/27/17 3:15 pm Keesha Ferrer MD [STAFF PHYSICIAN] - 02/14/17 1:00 pm Ambulatory/Diagnostic Orders: Basic Metabolic Panel [LAB.AMB] Location: Determined By Patient Complete Blood Count w/diff [LAB.AMB] Location: Determined By Patient Patient Instructions/Handouts: Atrial Fibrillation (DC), Thoracentesis (DC), Pleural Effusion (DC), Lymph Node Biopsy (DC) Activity/Diet/Wound Care/Special Instructions: 30 day free supply of Eliquis filled in OP pharmacy. Discharge Disposition: HOME SELF-CARE
--- NOTE | 2017-01-20 15:17 | P.PN ---
Progress Note - Text DATE OF SERVICE: 01/19/2017 PRESENTING COMPLAINT: Shortness of breath INTERVAL HISTORY: This patient presented with recurrent pleural effusions. And she is awake alert sitting in bed, tolerating her diet, ambulatory in the room and corm[address] ways complaints of some tenderness in the midepigastric area. Patient awaiting thoracentesis and lymph node biopsy. No distress. REVIEW OF SYSTEMS: Done for constitutional ,cardiovascular, GI, pulmonary with relevant findings as above. CURRENT MEDICATIONS: Norvasc, Lasix, aspirin, Glucotrol, Lozol, Zestril. PHYSICAL EXAM: VITAL SIGNS: Temperature: 96.9 pulse 77, respiratory rate 18, blood pressure 123 /59, oxygen saturation 92% on 2 L. GENERAL APPEARANCE: Obese, Lying in bed, calm cooperative. EYES: Pupils equal. Conjunctiva normal. NECK: JVD not raised. Mass not palpable. RESPIRATORY: Respiratory effort mildly short of breath at rest l. Lungs diminished breath sounds to the bases right lung field more so than left. CARDIOVASCULAR: First and second sounds normal. No edema. ABDOMEN: Soft. Tenderness to the midepigastric area, Liver and spleen not palpable. No mass palpable. PSYCHIATRY: Alert and oriented x3. Mood and affect normal. NEUROLOGICAL: Cranial nerves grossly intact. No facial asymmetry. Power and sensation grossly intact INVESTIGATIONS: BUNs 34, creatinine 1.38. Accu-Cheks noted ASSESSMENT: 1. Right pleural effusion, cause unknown, recurrent. Patient has plan pleural effusion tapped [address] Ferrer, possible thoracentesis tomorrow. 2. Diabetes mellitus type 2, on oral hypoglycemics. 3. Essential hypertension. 4. Hyperlipidemia. 5. Rheumatoid arthritis. 6. Obesity body mass index of 39.5. 7. Atrial fibrillation, EF of 55-60%, rate controlled. PLAN: Possible right-sided thoracentesis today. Surgical services planned for supraclavicular clavicular lymph node removal today as well to rule out lymphoma. Cardiology remains on consult we'll continue IV Lasix and IV heparin. Hematology oncology also on consult. STONE RUBBER statement: Patient was seen and examined by nurse practitioner Codie Tineo in all elements of the case discussed with attending is Dr. Aaron
--- NOTE | 2017-01-20 18:04 | PN ---
DATE OF SERVICE: 01/19/2017 PRESENTING COMPLAINT: Short of breath. INTERVAL HISTORY: This is a patient with recurrent pleural effusion, status post thoracentesis today, awaiting a lymph node biopsy. is at the bedside. Review of systems done for constitutional, cardiovascular, GI, pulmonary; relevant findings as above. Current medications are reviewed. On examination, temperature 96.9, pulse 58, respirations 18, blood pressure 116/70, pulse ox 94% on 2L. GENERAL APPEARANCE: Sitting up, not in distress. EYES: Pupils equal. Conjunctivae normal. NECK: JVD not raised palpable. RESPIRATORY: Effort normal. LUNGS: Slightly decreased breath sounds. CARDIOVASCULAR: First and second sounds normal. No edema. ABDOMEN: Soft, nontender. Liver and spleen not palpable. PSYCHIATRY: Alert and oriented x3. Mood and affect normal. INVESTIGATIONS: White count 6.5, hemoglobin 12.1. Potassium 4.4. BUN 36, creatinine 1.5. ASSESSMENT: 1. Recurrent right pleural effusion, suspect could be lymphoma. 2. Diabetes mellitus type 2 on oral hypoglycemics. 3. Essential hypertension. 4. Hyperlipidemia. 5. Rheumatoid arthritis. 6. Obesity, body mass index of 39.5. 7. Persistent atrial fibrillation, rate controlled. 8. Acute renal failure from diuresis. 9. Hypoglycemia from oral hypoglycemic. PLAN: Initially patient was to be discharged, but then Surgery wants to watch the patient. Patient's Celebrex will be held off because of renal function and also patient's Glucotrol will be held off because of low sugars. Care was discussed with the patient and . Awaiting lymph node biopsy.
--- NOTE | 2017-01-21 18:33 | DS ---
DATE OF ADMISSION: 01/16/2017 DATE OF DISCHARGE: 01/20/2017 Attending note: This patient was seen and examined by me today. I reviewed the discharge summary of my nurse practitioner Ms. Tineo. Discussed. This patient with recurrent pleural effusion status post thoracentesis. Strongly suspected to have lymphoma as per the CT scan. Supra( ) lymph node biopsies was done by Dr. Brand. The patient will follow as an outpatient. Patient also had acute renal failure. The creatinine did drop back again after the Lasix was discontinued. Suspected to underlying congestive heart failure with diastolic dysfunction, ejection fraction 55% to 60%. Care of discussed with patient and . Questions were answered. On exam, lungs decreased breath sounds. CARDIOVASCULAR: Heart sounds irregular. More details in my RD MANAGER discharge note.
== END 2017-01-20 15:47 | disposition home health service (06) | DRG 264 ==
LOC: EC 12:19 → 6SEL 16:32
PROVIDERS: ADMIT Hospitalist; ATTEND Hospitalist
PROC: 0W993ZZ Drainage of Right Pleural Cavity, Percutaneous Approach (ICD-10-PCS; 2017-01-19)
PROC: 07B20ZX Excision of Left Neck Lymphatic, Open Approach, Diagnostic (ICD-10-PCS; principal; 2017-01-19 07:30)
DX: I13.0 Hypertensive heart and chronic kidney disease with heart failure and stage 1 through stage 4 chronic kidney disease, or unspecified chronic kidney disease (principal); N17.9 Acute kidney failure, unspecified; J90 Pleural effusion, not elsewhere classified; I48.1 Persistent atrial fibrillation; E11.22 Type 2 diabetes mellitus with diabetic chronic kidney disease; E11.649 Type 2 diabetes mellitus with hypoglycemia without coma; C85.91 Non-Hodgkin lymphoma, unspecified, lymph nodes of head, face, and neck; I48.2 Chronic atrial fibrillation; G25.0 Essential tremor; I50.33 Acute on chronic diastolic (congestive) heart failure; E78.5 Hyperlipidemia, unspecified; E66.9 Obesity, unspecified; K21.9 Gastro-esophageal reflux disease without esophagitis; K80.20 Calculus of gallbladder without cholecystitis without obstruction; M06.9 Rheumatoid arthritis, unspecified; N18.3 Chronic kidney disease, stage 3 (moderate); T50.2X5A Adverse effect of carbonic-anhydrase inhibitors, benzothiadiazides and other diuretics, initial encounter; Z68.39 Body mass index [BMI] 39.0-39.9, adult; Z79.82 Long term (current) use of aspirin; Z79.84 Long term (current) use of oral hypoglycemic drugs; Z79.899 Other long term (current) drug therapy; Z82.49 Family history of ischemic heart disease and other diseases of the circulatory system; Z87.891 Personal history of nicotine dependence; R59.0 Localized enlarged lymph nodes
CPT/HCPCS: 36415; 71010; 71020; 74177; 76536; 80048; 80053; 82550; 82553; 83036; 83615; 83880; 84157; 84484; 85025; 85610; 85730; 88305; 88341; 88342; 89050; 93005; 93306; 99285

== ENCOUNTER → 2017-01-29 | Outpatient (CLI) | payer MEDICARE, OTHER ==
[2017-01-29 14:11] LABS: Blood Urea Nitrogen 28 mg/dL (7-17); Non-African American GFR(MDRD) 53 (>60 ml/min/1.73 sqM)
--- NOTE | 2017-01-29 15:56 | CT ---
EXAMINATION TYPE: CT abdomen pelvis w con DATE OF EXAM: 01/29/2017 REFERENCE: Previous study dated 01/17/2017. HISTORY: R10.9 abd/pel pain HISTORY: Generalized pain with history of lymphoma REFERENCE: NONE CT DLP: 1891.3 mGy Automated exposure control for dose reduction was used. TECHNIQUE: Helical acquisition through the abdomen and pelvis was obtained following the oral ingesti on of with Oral Contrast and following intravenous administration of 80 mL of Omnipaque 300. The data was reformatted in axial, coronal and sagittal projections. FINDINGS: There are enlarging, bilateral effusions, greater on the right than the left. There is ass ociated atelectatic change, worse on the right and the left. The heart is not enlarged. There is calc ification of the mitral annulus. Retrocrural lymph node mass encompassing the aorta which previously measured 6.1 x 4.1 cm now measure s 6.7 x 3.7 cm. Periaortic and pericaval adenopathy which previously measured 10.3 x 4.2 cm now measu res 10.9 x 4.2 cm. There is no significant iliac or inguinal adenopathy. There is a ring calcified, 1.7 cm gallstone in the neck of the gallbladder. The liver and spleen are otherwise unremarkable. The liver is normal in size. The spleen is unremarkable. Both adrenal glands are normal. Both kidneys demonstrate function and appear morphologically normal. The pancreas is unremarkable. There is a periumbilical hernia containing fat only with a 1.7 cm mouth. The bladder is unremarkable. The uterus is unremarkable. The left ovary is unremarkable. The right ovary is not seen with certaint y. There is extensive diverticulosis of the sigmoid colon with scattered diverticula elsewhere along the left side of the colon. There is no radiographic evidence of diverticulitis. The appendix is not vis ualized. Small bowel loops are normal. There is no free fluid and no free air. There is degenerative change within the hips bilaterally. There is extensive degenerative disc diseas e with vacuum phenomena present at T12-L1, L3-4, L4-5 and L5-S1. There is minor wedging of the T11 ve rtebral body which appears chronic. There is hypertrophic spondylosis in the dorsal spine. There is f acet arthropathy in the lower lumbar spine. No bony destructive lesion is seen.. There is minor wedgi ng IMPRESSION: 1. REASONABLY STABLE RETROCRURAL AND RETROPERITONEAL ADENOPATHY. 2. CHOLELITHIASIS. 3. UNCOMPLICATED DIVERTICULOSIS OF THE COLON. 4. ENLARGING PLEURAL EFFUSIONS. 5. PERIUMBILICAL HERNIA CONTAINING FAT ONLY WITH A MOUTH MEASURING 1.7 CM. 6. DEGENERATIVE CHANGES IN THE HIPS AND SPINE.
== END | disposition home or self-care (01) ==
LOC: RADCTMAIN 13:20
PROVIDERS: ATTEND Internal Medicine Critical Care Medicine
DX: K80.20 Calculus of gallbladder without cholecystitis without obstruction (principal); J90 Pleural effusion, not elsewhere classified; R59.9 Enlarged lymph nodes, unspecified; K42.9 Umbilical hernia without obstruction or gangrene; K57.30 Diverticulosis of large intestine without perforation or abscess without bleeding; M47.9 Spondylosis, unspecified
CPT/HCPCS: 82565; 84520; 74177; 36415; Q9967

== ENCOUNTER 2017-02-05 14:08 | Inpatient (IN) | payer MEDICARE, OTHER ==
--- NOTE | 2017-02-05 15:03 | ED ---
General Adult HPI - General Chief complaint: Shortness of Breath Stated complaint: Diff breathing Time Seen by Provider: 02/05/17 14:31 Source: patient, family, RN notes reviewed, old records reviewed Mode of arrival: wheelchair Limitations: physical limitation - History of Present Illness Initial comments: This is a 81-year-old male the ER. ER for evaluation. Patient presented here today for evaluation of shortness of breath. Patient has multifactorial causes for shortness of breath, no chest pain, patient does have history of fluid on her lungs, states this is a similar issue as she has now. Denies any chest pain , denies any abdominal pain. No back pain. Patient is currently scheduled for chemotherapy, states she gets his fluid are lungs in the past and has needed to have thoracentesis or draining of the fluid off her lungs. No fevers cough or congestion. No change in medications - Related Data Home Medications Medication Instructions Recorded Confirmed Atorvastatin [Lipitor] 10 mg PO DAILY 01/03/17 02/05/17 Indapamide 2.5 mg PO DAILY 01/03/17 02/05/17 Latanoprost Ophth [Xalatan 0.005%] 1 drops BOTH EYES HS 01/03/17 02/05/17 Omeprazole 20 mg PO DAILY 01/03/17 02/05/17 Propranolol HCl [Propranolol HCl 120 mg PO DAILY 01/03/17 02/05/17 ER] amLODIPine BESYLATE/BENAZEPRIL 1 cap PO BID 01/03/17 02/05/17 [amLODIPine BESYLATE/BENAZEPRIL 5-20 mg] metFORMIN HCL [Metformin HCl] 500 mg PO BID 01/03/17 02/05/17 Aspirin EC [Ecotrin Low Dose] 81 mg PO AC-SUPPER 01/16/17 02/05/17 Calcium Carbonate/Vitamin D3 1 tab PO DAILY 01/16/17 02/05/17 [Calcium 600-Vit D3 400 Caplet] Multivitamins, Thera [Multivitamin 1 tab PO DAILY 01/16/17 02/05/17 (formulary)] Previous Rx's Medication Instructions Recorded Apixaban [Eliquis] 5 mg PO BID #60 tab 01/19/17 Allergies Allergy/AdvReac Type Severity Reaction Status Date / Time No Known Allergies Allergy Verified 02/05/17 15:07 Review of Systems ROS Statement: Those systems with pertinent positive or pertinent negative responses have been documented in the HPI. ROS Other: All systems not noted in ROS Statement are negative. Past Medical History Past Medical History: Cancer, Diabetes Mellitus, Hyperlipidemia, Hypertension, Rheumatoid Arthritis (RA) Additional Past Medical History / Comment(s): Obesity, diabetes mellitus, bilateral pleural effusion more so on the right, glucoma, acid reflux, hyperlipidemia, essential tremors, lymphoma History of Any Multi-Drug Resistant Organisms: None Reported Past Surgical History: Joint Replacement, Tubal Ligation Additional Past Surgical History / Comment(s): bilateral knees, thoracentesis, Cataract Surgery Past Anesthesia/Blood Transfusion Reactions: No Reported Reaction Past Psychological History: No Psychological Hx Reported Smoking Status: Former smoker Past Alcohol Use History: None Reported Past Drug Use History: None Reported - Past Family History Mother Family Medical History: Congestive Heart Failure (CHF), Diabetes Mellitus, Eye Disorder, Hypertension, Osteoarthritis (OA) Father Family Medical History: Cancer General Exam Limitations: physical limitation General appearance: alert, in no apparent distress Head exam: Present: atraumatic, normocephalic, normal inspection Eye exam: Present: normal appearance, PERRL, EOMI. Absent: scleral icterus, conjunctival injection, periorbital swelling ENT exam: Present: normal exam, mucous membranes moist Neck exam: Present: normal inspection. Absent: tenderness, meningismus, lymphadenopathy Respiratory exam: Present: normal lung sounds bilaterally. Absent: respiratory distress, wheezes, rales, rhonchi, stridor Cardiovascular Exam: Present: regular rate, normal rhythm, normal heart sounds. Absent: systolic murmur, diastolic murmur, rubs, gallop, clicks GI/Abdominal exam: Present: soft, normal bowel sounds. Absent: distended, tenderness, guarding, rebound, rigid Extremities exam: Present: normal inspection, full ROM, normal capillary refill. Absent: tenderness, pedal edema, joint swelling, calf tenderness Back exam: Present: normal inspection Neurological exam: Present: alert, oriented X3, CN II-XII intact Psychiatric exam: Present: normal affect, normal mood Skin exam: Present: warm, dry, intact, normal color. Absent: rash Course Vital Signs 02/05/17 14:10 Temperature 97.9 F Pulse Rate 78 Respiratory 20 Rate Blood Pressure 112/60 O2 Sat by Pulse 94 L Oximetry - Reevaluation(s) Reevaluation #1: 02/05/17 15:41 Patient with no real clinical improvement, no pain EKG Findings - EKG Comments: EKG Findings:: EKG shows atrial fibrillation rate of 79, QRS 70, QTC 378 Medical Decision Making - Medical Decision Making History 21-year-old here for evaluation of shortness of breath, patient with significant source of breath is with exertion and laying down, patient has bilateral pleural effusions, does follow with pulmonology regarding that. Patient also scheduled to have chemotherapy, patient be admitted for continued evaluation and treatment, - Lab Data Result diagrams: 02/05/17 14:52 02/05/17 14:52 Lab Results 02/05/17 02/05/17 Range/Units 14:52 14:52 WBC 8.7 (3.8-10.6) k/uL RBC 3.87 (3.80-5.40) m/uL Hgb 11.8 (11.4-16.0) gm/dL Hct 38.3 (34.0-46.0) % MCV 98.9 (80.0-100.0) fL MCH 30.6 (25.0-35.0) pg MCHC 30.9 L (31.0-37.0) g/dL RDW 13.2 (11.5-15.5) % Plt Count 257 (150-450) k/uL Neutrophils % 76 % Lymphocytes % 9 % Monocytes % 7 % Eosinophils % 5 % Basophils % 0 % Neutrophils # 6.6 (1.3-7.7) k/uL Lymphocytes # 0.8 L (1.0-4.8) k/uL Monocytes # 0.6 (0-1.0) k/uL Eosinophils # 0.5 (0-0.7) k/uL Basophils # 0.0 (0-0.2) k/uL Sodium 140 (137-145) mmol/L Potassium 5.3 H (3.5-5.1) mmol/L Chloride 103 (98-107) mmol/L Carbon Dioxide 31 H (22-30) mmol/L Anion Gap 6 mmol/L BUN 43 H (7-17) mg/dL Creatinine 1.03 (0.52-1.04) mg/dL Est GFR (MDRD) Af Amer >60 (>60 ml/min/1.73 sqM) Est GFR (MDRD) Non-Af 52 (>60 ml/min/1.73 sqM) Glucose 122 H (74-99) mg/dL Calcium 9.3 (8.4-10.2) mg/dL Magnesium 1.6 (1.6-2.3) mg/dL Total Bilirubin 0.6 (0.2-1.3) mg/dL AST 22 (14-36) U/L ALT 26 (9-52) U/L Alkaline Phosphatase 51 (38-126) U/L Total Protein 6.4 (6.3-8.2) g/dL Albumin 3.6 (3.5-5.0) g/dL - Radiology Data Radiology results: report reviewed (Chest x-ray shows significant pleural effusions), image reviewed Disposition Clinical Impression: Systolic CHF, acute on chronic, Bilateral pleural effusion Disposition: ADMITTED IP TO THIS [facility] Condition: Fair Referrals: Jennyfer Meyers DO [Primary Care Provider] - 1-2 days
--- NOTE | 2017-02-05 15:15 | XR ---
EXAMINATION TYPE: XR chest 2V DATE OF EXAM: 02/05/2017 COMPARISON: 01/19/2017 HISTORY: Shortness of breath FINDINGS: Noted is pulmonary venous congestion with scattered infiltrates. There is also cardiomegaly and small effusions. IMPRESSION: Findings suggest congestive failure however basilar pneumonia is not excluded. Follow-up until resolu tion is recommended. Clinical correlation and progress studies are recommended.
[2017-02-05 15:20] LABS: Basophils % (A) 0 %; CH 31.1; CHCM 31.6; Eosinophils # (A) 0.5 k/uL (0-0.7); Eosinophils % (A) 5 %; HCT 38.3 % (34.0-46.0); HDW 2.26; HGB 11.8 gm/dL (11.4-16.0); Luc # (Auto) 0.19; Luc % (Auto) 2; Lymphocytes # (A) 0.8 k/uL (1.0-4.8); Lymphocytes % (A) 9 %; MCH 30.6 pg (25.0-35.0); MCHC 30.9 g/dL (31.0-37.0); MCV 98.9 fL (80.0-100.0); Mean Platelet Volume 7.8; Monocytes # (A) 0.6 k/uL (0-1.0); Monocytes % (A) 7 %; Neutrophils # (A) 6.6 k/uL (1.3-7.7); Neutrophils % (A) 76 %; RBC 3.87 m/uL (3.80-5.40); RDW 13.2 % (11.5-15.5); WBC 8.7 k/uL (3.8-10.6); WBC (Perox) 9.11
[2017-02-05 15:28] LABS: ALT 26 U/L (9-52); AST 22 U/L (14-36); Alkaline Phosphatase 51 U/L (38-126); Anion Gap 6 mmol/L; Blood Urea Nitrogen 43 mg/dL (7-17); Calcium 9.3 mg/dL (8.4-10.2); Carbon Dioxide 31 mmol/L (22-30); Chloride 103 mmol/L (98-107); Glucose 122 mg/dL (74-99); Magnesium 1.6 mg/dL (1.6-2.3); Non-African American GFR(MDRD) 52 (>60 ml/min/1.73 sqM); Potassium 5.3 mmol/L (3.5-5.1); Sodium 140 mmol/L (137-145); Total Bilirubin 0.6 mg/dL (0.2-1.3); Total Protein 6.4 g/dL (6.3-8.2)
[2017-02-05 15:49] LABS: Creatine Kinase <20 U/L (30-135)
[2017-02-05 16:02] LABS: INR 1.1 (<1.1); Prothrombin Time 11.2 sec (9.0-12.0)
[2017-02-05 16:03] LABS: Creatine Kinase MB 0.3 ng/mL (0.0-2.4); Troponin I <0.012 ng/mL (0.000-0.034)
[2017-02-05] MEDS: FUROSEMIDE 10 MG/ML 4 ML VIAL IV SCH ×2 (17:14→23:37)
[2017-02-05 20:26] LABS: Glucose,Whole Blood 169 mg/dL (75-99)
[2017-02-05] MEDS ORDERED: LATANOPROST 0.005% OPHTH DROPS 2.5 ML BTL BOTH EYES SCH (21:00)
[2017-02-05] MEDS: amLODIPine 5 MG TAB PO SCH (21:28)
[2017-02-05] MEDS: metFORMIN 500 MG TAB PO SCH (21:28)
[2017-02-05] MEDS: APIXABAN 5 MG TAB PO SCH (21:28)
[2017-02-05] MEDS: ATORVASTATIN 10 MG TAB PO SCH (21:28)
[2017-02-05] MEDS: LISINOPRIL 20 MG TAB PO SCH (21:28)
[2017-02-05] MEDS: INSULIN LISPRO (humaLOG) 300 UNIT/3 ML VIAL SQ SCH (21:33)
[2017-02-06 07:06] LABS: Glucose,Whole Blood 109 mg/dL (75-99)
[2017-02-06] MEDS ORDERED: PANTOPRAZOLE 40 MG TABLET PO SCH (07:30)
[2017-02-06 08:46] VITALS: RESP 18
[2017-02-06] MEDS ORDERED: INDAPAMIDE 2.5 MG TAB PO SCH (09:00)
[2017-02-06] MEDS: INSULIN LISPRO (humaLOG) 300 UNIT/3 ML VIAL SQ SCH ×2 (09:00→12:55)
[2017-02-06] MEDS ORDERED: PROPRANOLOL LA 60 MG CAP.SA.24H PO SCH (09:00)
[2017-02-06] MEDS ORDERED: ENOXAPARIN 40 MG/0.4 ML SYRINGE SQ SCH (09:00)
[2017-02-06] MEDS ORDERED: CALCIUM CARB-VIT D 500MG-200UN 1 EACH TAB PO SCH (09:00)
[2017-02-06] MEDS: amLODIPine 5 MG TAB PO SCH (09:04)
[2017-02-06] MEDS: LISINOPRIL 20 MG TAB PO SCH (09:05)
[2017-02-06] MEDS: FUROSEMIDE 10 MG/ML 4 ML VIAL IV SCH (09:05)
[2017-02-06] MEDS: metFORMIN 500 MG TAB PO SCH (09:05)
[2017-02-06] MEDS: ATORVASTATIN 10 MG TAB PO SCH (09:05)
[2017-02-06] MEDS: APIXABAN 5 MG TAB PO SCH (09:06)
[2017-02-06 09:55] LABS: Hemoglobin A1C 5.6 % (4.2-6.1)
--- NOTE | 2017-02-06 11:35 | P.CNPUL ---
History of Present Illness Consult date: 02/06/17 Reason for consult: dyspnea, pleural effusion History of present illness: 81-year-old female patient who was recently diagnosed having non-Hodgkin's lymphoma. The patient was initially referred to me for progressive shortness of breath and she was found to have pleural effusion initially on the right and subsequently the stable bilateral. Her echocardiogram that showed no 70 significant heart failure. The patient had a preserved LV function with an ejection fraction of 55-60% and a right-sided systolic pulmonary artery pressure of 55-60 without any significant wall motion abnormalities or valvular heart disease. The patient also had history of diabetes hypertension and hyperlipidemia and essential tremors. I performed an initial diagnostic and therapeutic thoracentesis on the right and subsequently the fluid via cannulated. The second thoracentesis was done on 01/16/2017. Note that the initial thoracentesis that was done showed no evidence of any malignancy and the pleural fluid cytology was negative yet no flow cytometry was done. Upon subsequent follow-up, a CAT scan of the chest and abdomen and pelvis was done and the patient was found to have significant intra-abdominal lymphadenopathy. 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 The patient was referred to oncology and the patient was supposed to start treatment with Rituxan on outpatient basis. However, over the past 24 hours she became progressively more short of breath and for that reason she presents to the hospital. Chest x-ray was repeated and it showed recurrence and enlargement of the bilateral pleural effusion more so on the right. I performed a bedside thoracentesis and total of 7 50 mL of pleural fluid was aspirated. The patient is feeling much better for now. In fact she is requesting to get released home. No chest pain. No fever. No chills. No sputum production. No hemoptysis. The procedure was done without any complication. In fact this is the patient's third thoracentesis. I discussed the findings with Dr. queen. We'll send the fluid for flow cytometry. This likely that this may be a lymphomatous effusion in the lungs bilaterally. She also has some edema in lower extremities and she is on IV Lasix. The patient was taken indapamide on outpatient basis. Review of Systems All systems: negative Constitutional: Denies chills, Denies fever Eyes: denies blurred vision, denies pain Ears, nose, mouth and throat: Denies headache, Denies sore throat Cardiovascular: Denies chest pain, Denies shortness of breath Respiratory: Denies cough Gastrointestinal: Denies abdominal pain, Denies diarrhea, Denies nausea, Denies vomiting Genitourinary: Denies dysuria, Denies hematuria Musculoskeletal: Denies myalgias Integumentary: Denies pruritus, Denies rash Neurological: Denies numbness, Denies weakness Psychiatric: Denies anxiety, Denies depression Endocrine: Denies fatigue, Denies weight change Past Medical History Past Medical History: Atrial Fibrillation, Cancer, Diabetes Mellitus, GERD/ Reflux, Hyperlipidemia, Hypertension, Rheumatoid Arthritis (RA) Additional Past Medical History / Comment(s): Obesity, recurrent bilateral pleural effusion, CHF with diastolic dysfunction secondary pulmonary hypertension, previous thoracentesis of the right lung, non-Hodgkin's lymphoma, diabetes mellitus type 2, hypertension, hyperlipidemia, rheumatoid arthritis, paroxysmal atrial fibrillation, essential tremors History of Any Multi-Drug Resistant Organisms: None Reported Past Surgical History: Joint Replacement, Tubal Ligation Additional Past Surgical History / Comment(s): bilateral knees, thoracentesis, Cataract Surgery Past Anesthesia/Blood Transfusion Reactions: No Reported Reaction Past Psychological History: No Psychological Hx Reported Smoking Status: Former smoker Past Alcohol Use History: None Reported Past Drug Use History: None Reported - Past Family History Mother Family Medical History: Congestive Heart Failure (CHF), Diabetes Mellitus, Eye Disorder, Hypertension, Osteoarthritis (OA) Father Family Medical History: Cancer Medications and Allergies Home Medications Medication Instructions Recorded Confirmed Type Atorvastatin [Lipitor] 10 mg PO DAILY 01/03/17 02/05/17 History Indapamide 2.5 mg PO DAILY 01/03/17 02/05/17 History Latanoprost Ophth [Xalatan 0.005%] 1 drops BOTH EYES HS 01/03/17 02/05/17 History Omeprazole 20 mg PO DAILY 01/03/17 02/05/17 History Propranolol HCl [Propranolol HCl 120 mg PO DAILY 01/03/17 02/05/17 History ER] amLODIPine BESYLATE/BENAZEPRIL 1 cap PO BID 01/03/17 02/05/17 History [amLODIPine BESYLATE/BENAZEPRIL 5-20 mg] metFORMIN HCL [Metformin HCl] 500 mg PO BID 01/03/17 02/05/17 History Aspirin EC [Ecotrin Low Dose] 81 mg PO AC-SUPPER 01/16/17 02/05/17 History Calcium Carbonate/Vitamin D3 1 tab PO DAILY 01/16/17 02/05/17 History [Calcium 600-Vit D3 400 Caplet] Multivitamins, Thera [Multivitamin 1 tab PO DAILY 01/16/17 02/05/17 History (formulary)] Allergies Allergy/AdvReac Type Severity Reaction Status Date / Time No Known Allergies Allergy Verified 02/05/17 15:07 Physical Exam Vitals: Vital Signs Temp Pulse Pulse Resp BP BP Pulse Ox 02/06/17 07:00 97.4 F L 101 H 18 118/55 95 02/05/17 23:35 85 16 02/05/17 21:45 96.8 F L 85 16 113/69 93 L 02/05/17 16:13 97.1 F L 79 17 137/64 97 02/05/17 14:10 97.9 F 78 20 112/60 94 L Intake and Output 02/05/17 02/06/17 02/06/17 22:59 06:59 14:59 Intake Total 200 Balance 200 Intake: Oral 200 Other: # Voids 2 3 1 Weight 102.512 kg 100.5 kg Head exam was generally normal. There was no scleral icterus or corneal arcus. Mucous membranes were moist.Neck was supple and without jugular venous distension, thyromegaly, or carotid bruits. Carotids were easily palpable bilaterally. There was no adenopathy. The patient has a palpable left supraclavicular lymph node and the surgical biopsy site is dry clean and intact at this point. Lung sounds are diminished in lung bases bilaterally and there is also dullness to percussion.Cardiac exam revealed the PMI to be normally situated and sized. The rhythm was regular and no extrasystoles were noted during several minutes of auscultation. The first and second heart sounds were normal and physiologic splitting of the second heart sound was noted. There were no murmurs, rubs, clicks, or gallops.Abdominal exam revealed normal bowel sounds. The abdomen was soft, non-tender, and without masses, organomegaly, or appreciable enlargement of the abdominal aorta. No direct tenderness or rebound tenderness or guarding.Examination of the extremities revealed easily palpable radial, femoral and pedal pulses. There was no cyanosis, clubbing and there is trace +1 pitting edema lower extremities bilaterally. Results - Laboratory Findings CBC and BMP: 02/05/17 14:52 02/05/17 14:52 PT/INR, D-dimer PT 11.2 sec (9.0-12.0) 02/05/17 14:52 INR 1.1 (<1.1) 02/05/17 14:52 D-Dimer 1.58 mg/L FEU (<0.60) H 02/05/17 14:52 Abnormal lab findings: Abnormal Labs 02/05/17 02/05/17 02/05/17 14:52 14:52 14:52 MCHC 30.9 L Lymphocytes # 0.8 L D-Dimer Potassium 5.3 H Carbon Dioxide 31 H BUN 43 H Glucose 122 H POC Glucose (mg/dL) Total Creatine Kinase <20 L 02/05/17 02/05/17 02/06/17 14:52 20:24 07:04 MCHC Lymphocytes # D-Dimer 1.58 H Potassium Carbon Dioxide BUN Glucose POC Glucose (mg/dL) 169 H 109 H Total Creatine Kinase - Diagnostic Findings Chest x-ray: image reviewed Assessment and Plan Plan: Assessment 1 recurrent bilateral pleural effusion right more than left with secondary hypoxic respiratory failure. The patient has had 2 thoracenteses in the past the pleural effusions become recurrent. Rule out lymphomatous effusion. CHF is felt to be less likely. 2 non-Hodgkin's lymphoma. A recent diagnosis that was made upon biopsy of a left supraclavicular lymph node. The patient also has intra-abdominal lymphadenopathy. Treatment has not been initiated. 3 chronic atrial fibrillation on long-term anticoagulation 4 CHF probably of a diastolic dysfunction secondary pulmonary hypertension 5 diabetes mellitus type 2 6 hypertension 7 hyperlipidemia 8 essential tremors 9 rheumatoid arthritis Plan The patient needs to be started on treatment for her non-Hodgkin's lymphoma. She is feeling well. Her shortness of breath was essentially due to reactivation of pleural effusion. I performed a right-sided thoracentesis on this patient a total of 7 50 mL of fluid was aspirated without any major complications. She felt better. She wanted to go home on oxygen. I think it' s reasonable. Would suggest also giving this patient Lasix 40 mg by mouth once a day and cutting on her salt and fluid intake. Rest of the outpatient medication will be resumed. The patient is on long-term anticoagulation. The patient will be following up with for systemic treatment regarding her lymphoma.
--- NOTE | 2017-02-06 11:38 | XR ---
EXAMINATION TYPE: XR chest 1V portable DATE OF EXAM: 02/06/2017 Comparison: 02/05/2017 Clinical History: 81-year-old female Findings: Lungs volumes are low with small bilateral pleural effusions and strandy areas of atelectasis at the right midlung. Heart size is accentuated due to low lung volumes. The previous right pleural effusion has decreased in size. No appreciable pneumothorax. Impression: Hypoventilatory changes with bilateral pleural effusions, decreased on the right side. No appreciable pneumothorax.
[2017-02-06 11:44] LABS: Glucose,Whole Blood 114 mg/dL (75-99)
[2017-02-06 11:59] VITALS: BP 127/59; PULSE 88; TEMP 97.5
[2017-02-06] MEDS ORDERED: MULTIVITAMINS, THERA 1 EACH TAB PO SCH (12:00)
[2017-02-06 14:37] VITALS: BMI 40.5
[2017-02-06] MEDS ORDERED: ASPIRIN 81 MG CHEW PO SCH (17:30)
--- NOTE | 2017-02-06 18:33 | P.HPIM ---
History of Present Illness H&P Date: 02/06/17 (dc summary as well) 81-year-old female patient who was recently diagnosed having non-Hodgkin's lymphoma. The patient was initially referred to me for progressive shortness of breath and she was found to have pleural effusion initially on the right and subsequently the stable bilateral. Her echocardiogram that showed no 70 significant heart failure. The patient had a preserved LV function with an ejection fraction of 55-60% and a right-sided systolic pulmonary artery pressure of 55-60 without any significant wall motion abnormalities or valvular heart disease. The patient also had history of diabetes hypertension and hyperlipidemia and essential tremors. Note that the initial thoracentesis that was done showed no evidence of any malignancy and the pleural fluid cytology was negative yet no flow cytometry was done. Upon subsequent follow-up, a CAT scan of the chest and abdomen and pelvis was done and the patient was found to have significant intra-abdominal lymphadenopathy. 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 The patient was referred to oncology and the patient was supposed to start treatment with Rituxan on outpatient basis. However, over the past 24 hours she became progressively more short of breath and for that reason she presents to the hospital. Chest x-ray was repeated and it showed recurrence and enlargement of the bilateral pleural effusion more so on the right. Patient denies having any headaches chest pain nausea vomiting diarrhea urinary urgency or frequency her main symptoms are difficulty breathing Review of Systems All systems: negative (Noted in HPI) Past Medical History Past Medical History: Atrial Fibrillation, Cancer, Diabetes Mellitus, GERD/ Reflux, Hyperlipidemia, Hypertension, Rheumatoid Arthritis (RA) Additional Past Medical History / Comment(s): Obesity, bilateral pleural effusion more so on the right, essential tremors, B cell lymphoma History of Any Multi-Drug Resistant Organisms: None Reported Past Surgical History: Joint Replacement, Tubal Ligation Additional Past Surgical History / Comment(s): bilateral knees, thoracentesis, Cataract Surgery Past Anesthesia/Blood Transfusion Reactions: No Reported Reaction Past Psychological History: No Psychological Hx Reported Smoking Status: Former smoker Past Alcohol Use History: None Reported Past Drug Use History: None Reported - Past Family History Mother Family Medical History: Congestive Heart Failure (CHF), Diabetes Mellitus, Eye Disorder, Hypertension, Osteoarthritis (OA) Father Family Medical History: Cancer Medications and Allergies Home Medications Medication Instructions Recorded Confirmed Type Atorvastatin [Lipitor] 10 mg PO DAILY 01/03/17 02/05/17 History Latanoprost Ophth [Xalatan 0.005%] 1 drops BOTH EYES HS 01/03/17 02/05/17 History Omeprazole 20 mg PO DAILY 01/03/17 02/05/17 History Propranolol HCl [Propranolol HCl 120 mg PO DAILY 01/03/17 02/05/17 History ER] metFORMIN HCL [Metformin HCl] 500 mg PO BID 01/03/17 02/05/17 History Aspirin EC [Ecotrin Low Dose] 81 mg PO AC-SUPPER 01/16/17 02/05/17 History Calcium Carbonate/Vitamin D3 1 tab PO DAILY 01/16/17 02/05/17 History [Calcium 600-Vit D3 400 Caplet] Multivitamins, Thera [Multivitamin 1 tab PO DAILY 01/16/17 02/05/17 History (formulary)] Allergies Allergy/AdvReac Type Severity Reaction Status Date / Time No Known Allergies Allergy Verified 02/05/17 15:07 Physical Exam Vitals: Vital Signs Temp Pulse Resp BP Pulse Ox 02/06/17 11:30 97.5 F L 88 18 127/59 95 02/06/17 11:10 84 18 115/58 94 L 02/06/17 07:00 97.4 F L 101 H 18 118/55 95 02/05/17 23:35 85 16 02/05/17 21:45 96.8 F L 85 16 113/69 93 L Intake and Output 02/06/17 02/06/17 02/06/17 06:59 14:59 22:59 Other: # Voids 3 2 Weight 100.5 kg 100.5 kg Patient Weight 02/07/17 06:59 Weight 100.5 kg Physical exam Gen. appearance oriented 3 in no distress Neck is supple no JVD Lungs diminished breath sounds at the bilateral bases 2+ pitting edema bilaterally Heart S1-S2 heard regular rate and rhythm no murmurs appreciated Abdomen is soft nontender no organomegaly bowel sounds are intact Neurologically cranial nerves II-12 grossly intact no focal motor or sensory deficits noted Skin no abnormalities appreciated Results CBC & Chem 7: 02/05/17 14:52 02/05/17 14:52 Labs: Abnormal Lab Results - Last 24 Hours (Table) 0602/06/17 02/06/17 Range/Units 20:24 07:04 11:41 POC Glucose (mg/dL) 169 H 109 H 114 H (75-99) mg/dL Thrombosis Risk Factor Assmnt - Choose All That Apply Any of the Below Risk Factors Present?: Yes Each Factor Represents 1 point: Heart failure (<1month), Obesity (BMI >25) Each Risk Factor Represents 3 Points: Age 75 years or older Thrombosis Risk Factor Assessment Total Risk Factor Score: 5 Thrombosis Risk Factor Assessment Level: High Risk Assessment and Plan Plan: Dyspnea secondary to bilateral pleural effusions #2 lymphoma #3 hypertension #4 essential tremors #5 acute hypoxic respiratory failure secondary to above #6 Dyslipideima VTE Mild hyperkalemia plan Patient underwent right-sided thoracentesis 7 50 mL of serous having this fluid was removed patient will be discharged home to follow up with oncology to undergo Rituxan infusion He stable patient be discharged on Lasix 40 minutes by mouth twice a day
--- NOTE | 2017-02-07 00:26 | P.CONS ---
History of Present Illness - Reason for Consult Consult date: 02/06/17 SOB, NHL - History of Present Illness Ms Palacio is a pleasant WF, initially seen in consult at [facility] on 01/18/17. She had presented with progressive SOB over about 2 mths. She was found to have a right sided pleural effusion and had a thoracentesis in 12/27, with cytology negative. She was admitted with recurrent SOB. CXR showed progressive rt pleural effusion. She was also c/o some abdominal discomfort leading to a CT AP , showing marked conglomerate retroperitoneal adenopathy, 10.5 x 4.7 cm. On exam she was noted to have a palpable left SC node. She was discharged after repeat thoracentesis. Surgery were consulted, and did an excisional biopsy on 01/19/17. This revealed follicular lymphoma, overall grade I, with focal diffuse features. She was seen for her 1st OV on 01/26/17. Due to her symptoms, active treatment was recommended, and she was to start Bendamustine- Rituxan on 02/06/17. The pt is on O2 at home. She came in with c/o progressive SOB over the past 5- 6 days. This was associated with some orthopnea, and b/l LE swelling. She denied any f/c/or chest pain. CXR revealed b/l pleural effusions ( small per the report) and pulmonary venous congestion. Review of Systems Constitutional: Reports fatigue, Reports weakness Eyes: denies blurred vision, denies pain Ears: deny: decreased hearing, ear discharge, earache, tinnitus Ears, nose, mouth and throat: Denies headache, Denies sore throat Cardiovascular: Reports leg edema, Reports orthopnea, Reports shortness of breath Respiratory: Reports dyspnea Gastrointestinal: Denies abdominal pain, Denies diarrhea, Denies nausea, Denies vomiting Genitourinary: Denies dysuria, Denies hematuria Menstruation: Reports postmenopausal Musculoskeletal: Reports muscle weakness Integumentary: Denies pruritus, Denies rash Neurological: Reports weakness Psychiatric: Denies anxiety, Denies depression Endocrine: Denies fatigue, Denies weight change Hematologic/Lymphatic: Reports lymphadenopathy Past Medical History Past Medical History: Atrial Fibrillation, Cancer, Diabetes Mellitus, GERD/ Reflux, Hyperlipidemia, Hypertension, Rheumatoid Arthritis (RA) Additional Past Medical History / Comment(s): Obesity, bilateral pleural effusion more so on the right, essential tremors, B cell lymphoma History of Any Multi-Drug Resistant Organisms: None Reported Past Surgical History: Joint Replacement, Tubal Ligation Additional Past Surgical History / Comment(s): bilateral knees, thoracentesis, Cataract Surgery Past Anesthesia/Blood Transfusion Reactions: No Reported Reaction Past Psychological History: No Psychological Hx Reported Smoking Status: Former smoker Past Alcohol Use History: None Reported Past Drug Use History: None Reported - Past Family History Mother Family Medical History: Congestive Heart Failure (CHF), Diabetes Mellitus, Eye Disorder, Hypertension, Osteoarthritis (OA) Father Family Medical History: Cancer Medications and Allergies Home Medications Medication Instructions Recorded Confirmed Type Atorvastatin [Lipitor] 10 mg PO DAILY 01/03/17 02/05/17 History Latanoprost Ophth [Xalatan 0.005%] 1 drops BOTH EYES HS 01/03/17 02/05/17 History Omeprazole 20 mg PO DAILY 01/03/17 02/05/17 History Propranolol HCl [Propranolol HCl 120 mg PO DAILY 01/03/17 02/05/17 History ER] metFORMIN HCL [Metformin HCl] 500 mg PO BID 01/03/17 02/05/17 History Aspirin EC [Ecotrin Low Dose] 81 mg PO AC-SUPPER 01/16/17 02/05/17 History Calcium Carbonate/Vitamin D3 1 tab PO DAILY 01/16/17 02/05/17 History [Calcium 600-Vit D3 400 Caplet] Multivitamins, Thera [Multivitamin 1 tab PO DAILY 01/16/17 02/05/17 History (formulary)] Allergies Allergy/AdvReac Type Severity Reaction Status Date / Time No Known Allergies Allergy Verified 02/05/17 15:07 Physical Exam Vitals: Vital Signs Temp Pulse Pulse Resp BP BP Pulse Ox 02/06/17 07:00 97.4 F L 101 H 18 118/55 95 02/05/17 23:35 85 16 02/05/17 21:45 96.8 F L 85 16 113/69 93 L 02/05/17 16:13 97.1 F L 79 17 137/64 97 02/05/17 14:10 97.9 F 78 20 112/60 94 L Intake and Output 02/05/17 02/06/17 02/06/17 22:59 06:59 14:59 Intake Total 200 Balance 200 Intake: Oral 200 Other: # Voids 2 3 1 Weight 102.512 kg 100.5 kg - Constitutional General appearance: mild distress - EENT Eyes: EOMI, PERRLA ENT: hearing grossly normal, normal oropharynx - Neck Neck: lymphadenopathy (left medial SC) Thyroid: bilateral: normal size - Respiratory Respiratory: bilateral: diminished - Cardiovascular Rhythm: regular Heart sounds: normal: S1, S2 - Gastrointestinal General gastrointestinal: normal bowel sounds, soft - Integumentary Integumentary: normal - Neurologic Neurologic: CNII-XII intact - Musculoskeletal Musculoskeletal: generalized weakness, strength equal bilaterally - Psychiatric Psychiatric: A&O x's 3, appropriate affect Results CBC & Chem 7: 02/05/17 14:52 02/05/17 14:52 Labs: Abnormal Lab Results - Last 24 Hours (Table) 02/05/17 02/05/17 02/05/17 Range/Units 14:52 14:52 14:52 MCHC 30.9 L (31.0-37.0) g/dL Lymphocytes # 0.8 L (1.0-4.8) k/uL D-Dimer (<0.60) mg/L FEU Potassium 5.3 H (3.5-5.1) mmol/L Carbon Dioxide 31 H (22-30) mmol/L BUN 43 H (7-17) mg/dL Glucose 122 H (74-99) mg/dL POC Glucose (mg/dL) (75-99) mg/dL Total Creatine Kinase <20 L (30-135) U/L 02/05/17 02/05/17 02/06/17 Range/Units 14:52 20:24 07:04 MCHC (31.0-37.0) g/dL Lymphocytes # (1.0-4.8) k/uL D-Dimer 1.58 H (<0.60) mg/L FEU Potassium (3.5-5.1) mmol/L Carbon Dioxide (22-30) mmol/L BUN (7-17) mg/dL Glucose (74-99) mg/dL POC Glucose (mg/dL) 169 H 109 H (75-99) mg/dL Total Creatine Kinase (30-135) U/L Comments: ECHO report from 01/17/17 reviewed Chest x-ray: report reviewed Assessment and Plan (1) Shortness of breath Narrative/Plan: The case was discussed extensively with the admitting service and pulmonary medicine. Though the CXR mentions small effusions, by clinical exam, and by Pulmonary's evaluation of the CXR, they appear to be more significant. In addition, there may be a component of diastolic CHF , based on her ECHo from 01/17 Status: Acute (2) Bilateral pleural effusion Narrative/Plan: These are felt to be related to her lymphoma mainly ( either lymphomatous effusion or due to lymphatic obstruction). This is expected to improve, once she starts lymphoma treatment. Thus pulmonary will repeat thoracentesis to provide acute relief Status: Acute (3) Diastolic CHF, acute on chronic Narrative/Plan: This is felt to be a possible contributor. Defer to IM for further treatment Status: Acute (4) Non-Hodgkin lymphoma Narrative/Plan: Pt will start treatment with Bendamustine - Rituxan ( B-R) after discharge Status: Acute
--- NOTE | 2017-02-09 08:57 | PCN ---
THORACENTESIS: PREOPERATIVE DIAGNOSIS: Bilateral pleural effusion. POSTOPERATIVE DIAGNOSIS: Bilateral pleural effusion. This is a right-sided thoracentesis. ( ) This was done without ultrasound guidance. Total amount of fluid removed was 750 mL of turbid, dark red pleural effusion. No bedside complications. Chest x-ray is to follow. MTDD
== END 2017-02-06 13:50 | disposition home health service (06) | DRG 186 ==
LOC: EC 14:08 → 5ONC 15:38
PROVIDERS: ADMIT Hospitalist; ATTEND Hospitalist
DX: J90 Pleural effusion, not elsewhere classified (principal); J96.01 Acute respiratory failure with hypoxia; I50.32 Chronic diastolic (congestive) heart failure; I11.0 Hypertensive heart disease with heart failure; C82.00 Follicular lymphoma grade I, unspecified site; I48.0 Paroxysmal atrial fibrillation; I27.2 Other secondary pulmonary hypertension; G25.0 Essential tremor; E87.5 Hyperkalemia; I48.2 Chronic atrial fibrillation; E11.9 Type 2 diabetes mellitus without complications; E78.5 Hyperlipidemia, unspecified; K21.9 Gastro-esophageal reflux disease without esophagitis; M06.9 Rheumatoid arthritis, unspecified; E66.9 Obesity, unspecified; Z79.01 Long term (current) use of anticoagulants; Z79.84 Long term (current) use of oral hypoglycemic drugs; Z79.899 Other long term (current) drug therapy; Z79.82 Long term (current) use of aspirin; Z99.81 Dependence on supplemental oxygen; Z87.891 Personal history of nicotine dependence; Z96.60 Presence of unspecified orthopedic joint implant; Z82.49 Family history of ischemic heart disease and other diseases of the circulatory system
CPT/HCPCS: 36415; 71010; 71020; 80053; 82550; 82553; 83036; 83735; 83880; 84484; 85025; 85379; 85610; 85730; 88184; 88185; 93005; 99285

== ENCOUNTER 2017-03-21 11:42 | Emergency (ER) | payer MEDICARE, OTHER ==
[2017-03-21 12:42] LABS: ALT 28 U/L (9-52); AST 23 U/L (14-36); Alkaline Phosphatase 55 U/L (38-126); Anion Gap 7 mmol/L; Blood Urea Nitrogen 33 mg/dL (7-17); Calcium 8.7 mg/dL (8.4-10.2); Carbon Dioxide 39 mmol/L (22-30); Chloride 92 mmol/L (98-107); Glucose 171 mg/dL (74-99); Magnesium 1.1 mg/dL (1.6-2.3); Non-African American GFR(MDRD) 54 (>60 ml/min/1.73 sqM); Potassium 4.3 mmol/L (3.5-5.1); Sodium 138 mmol/L (137-145); Total Bilirubin 0.6 mg/dL (0.2-1.3); Total Protein 5.6 g/dL (6.3-8.2)
[2017-03-21 12:50] LABS: Aty Lym Flag Slight; CH 31.9; CHCM 33.9; HCT 31.5 % (34.0-46.0); HDW 3.13; HGB 10.6 gm/dL (11.4-16.0); MCH 31.8 pg (25.0-35.0); MCHC 33.7 g/dL (31.0-37.0); MCV 94.6 fL (80.0-100.0); Mean Platelet Volume 7.1; RBC 3.33 m/uL (3.80-5.40); RDW 15.1 % (11.5-15.5); WBC (Perox) 4.86
[2017-03-21 12:51] LABS: Creatine Kinase <20 U/L (30-135)
--- NOTE | 2017-03-21 12:59 | XR ---
EXAMINATION TYPE: XR chest 2V DATE OF EXAM: 03/21/2017 COMPARISON: 02/14/2017 HISTORY: 81-year-old female difficulty breathing TECHNIQUE: Frontal and lateral views FINDINGS: Right heart margin obscured by adjacent pleuroparenchymal disease. Small left and moderate right pleu ral effusions with adjacent opacity. This is increased on the right compared to 02/14/2017. Upper lungs appear clear. IMPRESSION: Similar small right but increased, now moderate left pleural effusions with adjacent atelectasis and/ or consolidation.
[2017-03-21 13:03] LABS: Creatine Kinase MB 0.3 ng/mL (0.0-2.4); INR 1.3 (<1.2); Partial Thromboplastin Time 25.1 sec (22.0-30.0); Prothrombin Time 12.6 sec (9.0-12.0); Troponin I <0.012 ng/mL (0.000-0.034)
[2017-03-21 13:34] LABS: Add Differential Manual Differential
[2017-03-21 13:36] LABS: Nucleated Red Blood Cells 0 /100 WBC (0-0); Total Cells Counted 100
[2017-03-21 13:37] LABS: RBC Morphology Normal
[2017-03-21 14:23] VITALS: RESP 18
--- NOTE | 2017-03-21 15:18 | XR ---
EXAMINATION TYPE: XR chest 2V DATE OF EXAM: 03/21/2017 COMPARISON: 03/21/2017 TECHNIQUE: PA and lateral views submitted. HISTORY: Difficulty breathing FINDINGS: Bilateral areas of consolidation and pleural effusion are noted. Heart size is stable. Arthropathy of the shoulders. Surgical clips overlying the left apex. Interstitium unchanged. IMPRESSION: 1. Interval reduction in amount of pleural fluid on the right with no diagnostic evidence of pneumoth orax.
--- NOTE | 2017-03-21 15:32 | ED ---
General Adult HPI - General Chief complaint: Shortness of Breath Stated complaint: Hx CHF, INDIRA Time Seen by Provider: 03/21/17 11:56 Source: patient, family, RN notes reviewed Mode of arrival: wheelchair Limitations: physical limitation - History of Present Illness Initial comments: 81-year-old female with history of chest heart failure, hypertension, diabetes and recent diagnosis of lymphoma currently on chemotherapy. Patient's last dose of chemotherapy was on March 05. She is complaining 3 days of worsening dyspnea. She also reports a mild cough with clear sputum. No fever. No chest pain. Also has noted some intermittent bilateral lower extremity swelling. Patient has had recurrent pleural effusion with thoracentesis in the past. - Related Data Home Medications Medication Instructions Recorded Confirmed Atorvastatin [Lipitor] 10 mg PO DAILY 01/03/17 03/21/17 Latanoprost Ophth [Xalatan 0.005%] 1 drops BOTH EYES HS 01/03/17 03/21/17 Omeprazole 20 mg PO DAILY 01/03/17 03/21/17 Propranolol HCl [Propranolol HCl 120 mg PO DAILY 01/03/17 03/21/17 ER] metFORMIN HCL [Metformin HCl] 500 mg PO BID 01/03/17 03/21/17 Aspirin EC [Ecotrin Low Dose] 81 mg PO AC-SUPPER 01/16/17 03/21/17 Calcium Carbonate/Vitamin D3 1 tab PO DAILY 01/16/17 03/21/17 [Calcium 600-Vit D3 400 Caplet] Multivitamins, Thera [Multivitamin 1 tab PO DAILY 01/16/17 03/21/17 (formulary)] Previous Rx's Medication Instructions Recorded Apixaban [Eliquis] 5 mg PO BID #60 tab 01/19/17 Furosemide [Lasix] 40 mg PO BID #60 tablet 02/06/17 Allergies Allergy/AdvReac Type Severity Reaction Status Date / Time No Known Allergies Allergy Verified 03/21/17 12:13 Review of Systems ROS Statement: Those systems with pertinent positive or pertinent negative responses have been documented in the HPI. ROS Other: All systems not noted in ROS Statement are negative. Past Medical History Past Medical History: Atrial Fibrillation, Cancer, Heart Failure, Diabetes Mellitus, GERD/Reflux, Hyperlipidemia, Hypertension, Rheumatoid Arthritis (RA) Additional Past Medical History / Comment(s): Obesity, bilateral pleural effusion more so on the right, essential tremors, B cell lymphoma History of Any Multi-Drug Resistant Organisms: None Reported Past Surgical History: Joint Replacement, Tubal Ligation Additional Past Surgical History / Comment(s): bilateral knees, thoracentesis, Cataract Surgery Past Anesthesia/Blood Transfusion Reactions: No Reported Reaction Past Psychological History: No Psychological Hx Reported Smoking Status: Former smoker Past Alcohol Use History: None Reported Past Drug Use History: None Reported - Past Family History Mother Family Medical History: Congestive Heart Failure (CHF), Diabetes Mellitus, Eye Disorder, Hypertension, Osteoarthritis (OA) Father Family Medical History: Cancer General Exam Limitations: physical limitation General appearance: alert, in distress Head exam: Present: atraumatic, normocephalic Eye exam: Present: normal appearance, PERRL ENT exam: Present: normal exam, mucous membranes moist Neck exam: Present: normal inspection. Absent: tenderness, meningismus Respiratory exam: Present: respiratory distress, decreased breath sounds ( Decreased lung sounds at the bilateral bases) Cardiovascular Exam: Present: tachycardia, irregular rhythm GI/Abdominal exam: Present: soft. Absent: distended, tenderness Extremities exam: Present: normal inspection, normal capillary refill, pedal edema Back exam: Present: normal inspection Neurological exam: Present: alert, oriented X3 Psychiatric exam: Present: normal affect, normal mood Skin exam: Present: warm, dry. Absent: cyanosis, diaphoretic Course Vital Signs 03/21/17 03/21/17 03/21/17 11:46 12:47 14:19 Temperature 97.8 F Pulse Rate 106 H 104 H 106 H Respiratory 24 22 18 Rate Blood Pressure 140/64 134/73 103/56 O2 Sat by Pulse 91 L 96 96 Oximetry 03/21/17 14:21 Temperature Pulse Rate 99 Respiratory 18 Rate Blood Pressure 134/73 O2 Sat by Pulse 98 Oximetry - Reevaluation(s) Reevaluation #1: 03/21/17 15:29 Patient is evaluated by pulmonology in the emergency Department and undergoes thoracentesis. EKG Findings - EKG Comments: EKG Findings:: EKG shows atrial fibrillation with rapid ventricular response, ventricular rate of 108, castration 74, QTC 369, no signs of acute ischemia Medical Decision Making - Medical Decision Making 81-year-old female with history of congestive heart failure, lymphoma, and recurrent pleural effusions. Patient is found to have a large right-sided pleural effusion on chest x-ray. Laboratory studies including CBC, CMP and cardiac enzymes are unremarkable, BNP is mildly elevated. Hemoglobin stable. EKG is nonischemic, there is atrial fibrillation with a ventricular rate of 108. Patient is normally on 4 L of home O2, she is maintaining her oxygen saturation at her baseline level of supplemental oxygen. Patient is evaluated by pulmonology in the emergency department. She does undergo thoracentesis with approximately 1.5 L of pleural fluid removed. After this procedure the patient's respiratory status improved significantly. Repeat chest x-ray shows reduced pleural effusion, no pneumothorax. Patient is eager to be discharged. She will follow-up with her primary care physician and Dr. Ferrer Diagnosis: Recurrent effusion, status post thoracentesis. - Lab Data Result diagrams: 03/21/17 11:58 03/21/17 11:58 Lab Results 03/21/17 03/21/17 03/21/17 Range/Units 11:58 11:58 11:58 WBC 5.0 (3.8-10.6) k/uL RBC 3.33 L (3.80-5.40) m/uL Hgb 10.6 L (11.4-16.0) gm/dL Hct 31.5 L (34.0-46.0) % MCV 94.6 (80.0-100.0) fL MCH 31.8 (25.0-35.0) pg MCHC 33.7 (31.0-37.0) g/dL RDW 15.1 (11.5-15.5) % Plt Count 195 (150-450) k/uL Neutrophils % (Manual) 38 % Lymphocytes % (Manual) 48 % Monocytes % (Manual) 11 % Eosinophils % (Manual) 3 % Neutrophils # (Manual) 1.90 (1.3-7.7) k/uL Lymphocytes # (Manual) 2.40 (1.0-4.8) k/uL Monocytes # (Manual) 0.55 (0-1.0) k/uL Eosinophils # (Manual) 0.15 (0-0.7) k/uL Nucleated RBCs 0 (0-0) /100 WBC RBC Morphology Normal PT (9.0-12.0) sec INR (<1.2) APTT (22.0-30.0) sec Sodium 138 (137-145) mmol/L Potassium 4.3 (3.5-5.1) mmol/L Chloride 92 L (98-107) mmol/L Carbon Dioxide 39 H (22-30) mmol/L Anion Gap 7 mmol/L BUN 33 H (7-17) mg/dL Creatinine 0.99 (0.52-1.04) mg/dL Est GFR (MDRD) Af Amer >60 (>60 ml/min/1.73 sqM) Est GFR (MDRD) Non-Af 54 (>60 ml/min/1.73 sqM) Glucose 171 H (74-99) mg/dL Calcium 8.7 (8.4-10.2) mg/dL Magnesium 1.1 L (1.6-2.3) mg/dL Total Bilirubin 0.6 (0.2-1.3) mg/dL AST 23 (14-36) U/L ALT 28 (9-52) U/L Alkaline Phosphatase 55 (38-126) U/L Total Creatine Kinase <20 L (30-135) U/L CK-MB (CK-2) 0.3 (0.0-2.4) ng/mL CK-MB (CK-2) Rel Index 0.0 Troponin I <0.012 (0.000-0.034) ng/mL NT-Pro-B Natriuret Pep pg/mL Total Protein 5.6 L (6.3-8.2) g/dL Albumin 3.2 L (3.5-5.0) g/dL 03/21/17 03/21/17 Range/Units 11:58 11:58 WBC (3.8-10.6) k/uL RBC (3.80-5.40) m/uL Hgb (11.4-16.0) gm/dL Hct (34.0-46.0) % MCV (80.0-100.0) fL MCH (25.0-35.0) pg MCHC (31.0-37.0) g/dL RDW (11.5-15.5) % Plt Count (150-450) k/uL Neutrophils % (Manual) % Lymphocytes % (Manual) % Monocytes % (Manual) % Eosinophils % (Manual) % Neutrophils # (Manual) (1.3-7.7) k/uL Lymphocytes # (Manual) (1.0-4.8) k/uL Monocytes # (Manual) (0-1.0) k/uL Eosinophils # (Manual) (0-0.7) k/uL Nucleated RBCs (0-0) /100 WBC RBC Morphology PT 12.6 H (9.0-12.0) sec INR 1.3 H (<1.2) APTT 25.1 (22.0-30.0) sec Sodium (137-145) mmol/L Potassium (3.5-5.1) mmol/L Chloride (98-107) mmol/L Carbon Dioxide (22-30) mmol/L Anion Gap mmol/L BUN (7-17) mg/dL Creatinine (0.52-1.04) mg/dL Est GFR (MDRD) Af Amer (>60 ml/min/1.73 sqM) Est GFR (MDRD) Non-Af (>60 ml/min/1.73 sqM) Glucose (74-99) mg/dL Calcium (8.4-10.2) mg/dL Magnesium (1.6-2.3) mg/dL Total Bilirubin (0.2-1.3) mg/dL AST (14-36) U/L ALT (9-52) U/L Alkaline Phosphatase (38-126) U/L Total Creatine Kinase (30-135) U/L CK-MB (CK-2) (0.0-2.4) ng/mL CK-MB (CK-2) Rel Index Troponin I (0.000-0.034) ng/mL NT-Pro-B Natriuret Pep 2310 pg/mL Total Protein (6.3-8.2) g/dL Albumin (3.5-5.0) g/dL Critical Care Time Critical Care Time: Yes Total Critical Care Time: 35 Disposition Clinical Impression: Bilateral pleural effusion Disposition: HOME SELF-CARE Condition: Good Referrals: Jennyfer Meyers DO [Primary Care Provider] - 1-2 days Time of Disposition: 15:31
[2017-03-21 16:05] VITALS: BP 172/83; PULSE 91; TEMP 98.2
--- NOTE | 2017-03-21 17:53 | P.CNPUL ---
History of Present Illness Consult date: 03/21/17 Reason for consult: dyspnea, pleural effusion History of present illness: 81-year-old female patient, diabetic with known history of hypertension and hyperlipidemia and essential tremors was initially referred to me for increased shortness of breath. She was found to have a large right-sided pleural effusion. The patient had no signs of congestion heart failure. Echocardiogram showed a preserved LV function. Subsequently diagnostic and therapeutic thoracentesis of the right lung was done. The fluid was an exudate. The fluid cytology came back negative for malignancy. The pleural effusion was recurrent. The patient had to be drained on several occasions for symptomatic relief. Further workup included a CAT scan of the chest that showed evidence of extensive retrocrural adenopathy and conglomeration of lymph nodes measuring 6.4 cm inside the splitting the a wart anteriorly. The patient also knows noted to have a probable left subclavian lymph nodes. 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 The patient was referred to medical oncology and the patient was started on systemic treatment and she is currently on bendamustine/Cytoxan treatment it was started on 02/06/2017. During this time, the patient was getting also short of breath and she was noted to be hypoxic and shows placed on oxygen at 2 L/m nasal cannula. She was managing well as she was receiving her treatment. She came into the emergency department for worsening shortness of breath and she was found to have recurrent pleural effusion on the right. I was asked even with this patient and drain the pleural effusion for symptomatic relief. No swelling in the lower extremities. Her last thoracentesis of the right lung was on 02/06/2017 when a total of 7 50 mL of fluid was removed from the right lung. No fever. No chills. No chest pain. No other complaints otherwise. Review of Systems Constitutional: Reports fatigue, Reports weakness Eyes: denies blurred vision, denies bulging eye, denies decreased vision Ears: deny: decreased hearing, ear discharge, earache, tinnitus Ears, nose, mouth and throat: Denies headache, Denies sore throat Cardiovascular: Reports decreased exercise tolerance, Reports dyspnea on exertion, Reports shortness of breath Respiratory: Reports dyspnea Gastrointestinal: Reports as per HPI Genitourinary: Denies dysuria, Denies hematuria Musculoskeletal: absent: ankle pain, ankle stiffness, ankle swelling Integumentary: Denies pruritus, Denies rash Neurological: Denies numbness, Denies weakness Endocrine: Denies fatigue, Denies weight change Past Medical History Past Medical History: Atrial Fibrillation, Cancer, Heart Failure, Diabetes Mellitus, GERD/Reflux, Hyperlipidemia, Hypertension, Rheumatoid Arthritis (RA) Additional Past Medical History / Comment(s): Obesity, Non-Hodgkin's lymphoma, recurrent right-sided pleural effusion, chronic hypoxic respiratory failure, chronic atrial fibrillation, CHF with diastolic dysfunction secondary pulmonary hypertension, diabetes mellitus type 2, hypertension, hyperlipidemia, essential tremors, rheumatoid arthritis History of Any Multi-Drug Resistant Organisms: None Reported Past Surgical History: Joint Replacement, Tubal Ligation Additional Past Surgical History / Comment(s): bilateral knees, thoracentesis, Cataract Surgery Past Anesthesia/Blood Transfusion Reactions: No Reported Reaction Past Psychological History: No Psychological Hx Reported Smoking Status: Former smoker Past Alcohol Use History: None Reported Past Drug Use History: None Reported - Past Family History Mother Family Medical History: Congestive Heart Failure (CHF), Diabetes Mellitus, Eye Disorder, Hypertension, Osteoarthritis (OA) Father Family Medical History: Cancer Medications and Allergies Home Medications Medication Instructions Recorded Confirmed Type Atorvastatin [Lipitor] 10 mg PO DAILY 01/03/17 03/21/17 History Latanoprost Ophth [Xalatan 0.005%] 1 drops BOTH EYES HS 01/03/17 03/21/17 History Omeprazole 20 mg PO DAILY 01/03/17 03/21/17 History Propranolol HCl [Propranolol HCl 120 mg PO DAILY 01/03/17 03/21/17 History ER] metFORMIN HCL [Metformin HCl] 500 mg PO BID 01/03/17 03/21/17 History Aspirin EC [Ecotrin Low Dose] 81 mg PO AC-SUPPER 01/16/17 03/21/17 History Calcium Carbonate/Vitamin D3 1 tab PO DAILY 01/16/17 03/21/17 History [Calcium 600-Vit D3 400 Caplet] Multivitamins, Thera [Multivitamin 1 tab PO DAILY 01/16/17 03/21/17 History (formulary)] Allergies Allergy/AdvReac Type Severity Reaction Status Date / Time No Known Allergies Allergy Verified 03/21/17 12:13 Physical Exam Vitals: Vital Signs Temp Pulse Resp BP Pulse Ox 03/21/17 16:04 98.2 F 91 18 172/83 97 03/21/17 14:21 99 18 134/73 98 03/21/17 14:19 106 H 18 103/56 96 03/21/17 12:47 104 H 22 134/73 96 03/21/17 11:46 97.8 F 106 H 24 140/64 91 L Intake and Output 03/21/17 03/21/17 03/21/17 06:59 14:59 22:59 Other: Weight 93.894 kg Patient Weight 03/22/17 06:59 Weight 93.894 kg Head exam was generally normal. There was no scleral icterus or corneal arcus. Mucous membranes were moist.Neck was supple and without jugular venous distension, thyromegaly, or carotid bruits. Carotids were easily palpable bilaterally. There was no adenopathy. The patient has a palpable left supraclavicular lymph node and the surgical biopsy site is dry clean and intact at this point. Lung sounds are diminished in lung bases bilaterally especially in the right lung base and there is also dullness to percussion.Cardiac exam revealed the PMI to be normally situated and sized. The rhythm was regular and no extrasystoles were noted during several minutes of auscultation. The first and second heart sounds were normal and physiologic splitting of the second heart sound was noted. There were no murmurs, rubs, clicks, or gallops.Abdominal exam revealed normal bowel sounds. The abdomen was soft, non- tender, and without masses, organomegaly, or appreciable enlargement of the abdominal aorta. No direct tenderness or rebound tenderness or guarding.Examination of the extremities revealed easily palpable radial, femoral and pedal pulses. There was no cyanosis, clubbing and there is trace +1 pitting edema lower extremities bilaterally. Results - Laboratory Findings CBC and BMP: 03/21/17 11:58 03/21/17 11:58 PT/INR, D-dimer PT 12.6 sec (9.0-12.0) H 03/21/17 11:58 INR 1.3 (<1.2) H 03/21/17 11:58 Abnormal lab findings: Abnormal Labs 03/21/17 03/21/17 03/21/17 11:58 11:58 11:58 RBC 3.33 L Hgb 10.6 L Hct 31.5 L PT INR Chloride 92 L Carbon Dioxide 39 H BUN 33 H Glucose 171 H Magnesium 1.1 L Total Creatine Kinase <20 L Total Protein 5.6 L Albumin 3.2 L 03/21/17 11:58 RBC Hgb Hct PT 12.6 H INR 1.3 H Chloride Carbon Dioxide BUN Glucose Magnesium Total Creatine Kinase Total Protein Albumin - Diagnostic Findings Chest x-ray: image reviewed Assessment and Plan Plan: Assessment 1 large recurrent right-sided pleural effusion. Thoracentesis was done and the burst department a total of 1.5 L of pleural fluid was aspirated without any major difficulties. The fluid was more milky suggestive of an underlying chylous effusion. 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 2 non-Hodgkin's lymphoma. Currently on the systemic treatment 3 chronic atrial fibrillation on long-term anticoagulation 4 CHF probably of a diastolic dysfunction secondary pulmonary hypertension 5 diabetes mellitus type 2 6 hypertension 7 hyperlipidemia 8 essential tremors 9 rheumatoid arthritis Plan The procedure was done successfully. 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 The fluid will be sent for analysis. This will be discussed with Dr. Shea. The postprocedure chest x-ray showed interval resolution of the pleural effusion on the right without evidence of any pneumothorax. The patient felt symptomatically improved. She was discharged home to be followed up with me in the office. This will be discussed further with oncology.
--- NOTE | 2017-03-21 17:55 | P.PCN ---
Date of Procedure: 03/21/17 Preoperative Diagnosis: Right-sided pleural effusion Postoperative Diagnosis: Chylothorax Procedure(s) Performed: Thoracentesis Implants: Anesthesia: regional Surgeon: Keesha Ferrer Estimated Blood Loss (ml): 0 Pathology: other Condition: stable Disposition: same day Indications for Procedure: Shortness of breath Operative Findings: Description of Procedure: The patient was positioned in the usual fashion with arm extended and the bedside table. The skin was cleaned using ChloraPrep it is on a study using 1% lidocaine. After achieving adequate local anesthesia, a thoracentesis catheter was inserted into the right hemithorax and a total of 1.5 L of milky fluid is aspirated from the right lung. 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 Total amount of fluid removed was 1.5 L. No complications. No respiratory distress. Pulse ox and minimal right percent. The thoracentesis catheter was removed and the patient had a follow-up chest x-ray that showed no evidence of any pneumothorax. There was adequate expansion of the right lung. This was done without ultrasound guidance. No complications.
== END 2017-03-21 16:05 | disposition home or self-care (01) ==
LOC: EC 11:42
DX: J90 Pleural effusion, not elsewhere classified (principal); I10 Essential (primary) hypertension; E78.5 Hyperlipidemia, unspecified; I48.91 Unspecified atrial fibrillation; E11.9 Type 2 diabetes mellitus without complications; K21.9 Gastro-esophageal reflux disease without esophagitis; M06.9 Rheumatoid arthritis, unspecified; E66.9 Obesity, unspecified; C85.90 Non-Hodgkin lymphoma, unspecified, unspecified site; Z87.891 Personal history of nicotine dependence; Z79.82 Long term (current) use of aspirin; Z79.84 Long term (current) use of oral hypoglycemic drugs; Z79.899 Other long term (current) drug therapy
CPT/HCPCS: 32554; 36415; 71020; 80053; 82550; 82553; 83735; 83880; 84484; 85025; 85610; 85730; 93005; 99285

== ENCOUNTER 2017-04-06 15:52 | Inpatient (IN) | payer MEDICARE, OTHER ==
--- NOTE | 2017-04-06 16:00 | ED ---
General Adult HPI - General Stated complaint: Weakness Time Seen by Provider: 04/06/17 15:57 Source: RN notes reviewed, old records reviewed - History of Present Illness Initial comments: This is a 41-year-old female ER for evaluation of severe shortness of breath, Brill extremity secondary to lower. Patient's abdomen difficulty breathing for about 2 days at home. Home care can Also patient was hypoxic at home. Patient has multiple medical issues and also going through treatment for CVA. Patient denies fever denies chest pain and a significant source of breath especially with exertion - Related Data Home Medications Medication Instructions Recorded Confirmed Atorvastatin [Lipitor] 10 mg PO DAILY 01/03/17 04/06/17 Latanoprost Ophth [Xalatan 0.005%] 1 drops BOTH EYES HS 01/03/17 04/06/17 Omeprazole 20 mg PO DAILY 01/03/17 04/06/17 Propranolol HCl [Propranolol HCl 120 mg PO DAILY 01/03/17 04/06/17 ER] metFORMIN HCL [Metformin HCl] 500 mg PO BID 01/03/17 04/06/17 Aspirin EC [Ecotrin Low Dose] 81 mg PO AC-SUPPER 01/16/17 04/06/17 Calcium Carbonate/Vitamin D3 1 tab PO DAILY 01/16/17 04/06/17 [Calcium 600-Vit D3 400 Caplet] Multivitamins, Thera [Multivitamin 1 tab PO DAILY 01/16/17 04/06/17 (formulary)] Previous Rx's Medication Instructions Recorded Apixaban [Eliquis] 5 mg PO BID #60 tab 01/19/17 Furosemide [Lasix] 40 mg PO BID #60 tablet 02/06/17 Allergies Allergy/AdvReac Type Severity Reaction Status Date / Time No Known Allergies Allergy Verified 04/06/17 17:17 Review of Systems ROS Statement: Those systems with pertinent positive or pertinent negative responses have been documented in the HPI. ROS Other: All systems not noted in ROS Statement are negative. Past Medical History Past Medical History: Atrial Fibrillation, Cancer, Heart Failure, Diabetes Mellitus, GERD/Reflux, Hyperlipidemia, Hypertension, Rheumatoid Arthritis (RA) Additional Past Medical History / Comment(s): Obesity, Non-Hodgkin's lymphoma, recurrent right-sided pleural effusion, chronic hypoxic respiratory failure, chronic atrial fibrillation, CHF with diastolic dysfunction secondary pulmonary hypertension, diabetes mellitus type 2, hypertension, hyperlipidemia, essential tremors, rheumatoid arthritis History of Any Multi-Drug Resistant Organisms: None Reported Past Surgical History: Joint Replacement, Tubal Ligation Additional Past Surgical History / Comment(s): bilateral knees, thoracentesis, Cataract Surgery Past Anesthesia/Blood Transfusion Reactions: No Reported Reaction Past Psychological History: No Psychological Hx Reported Smoking Status: Former smoker Past Alcohol Use History: None Reported Past Drug Use History: None Reported - Past Family History Mother Family Medical History: Congestive Heart Failure (CHF), Diabetes Mellitus, Eye Disorder, Hypertension, Osteoarthritis (OA) Father Family Medical History: Cancer General Exam General appearance: alert, in no apparent distress Head exam: Present: atraumatic, normocephalic, normal inspection Eye exam: Present: normal appearance, PERRL, EOMI. Absent: scleral icterus, conjunctival injection, periorbital swelling ENT exam: Present: normal exam, mucous membranes moist Neck exam: Present: normal inspection. Absent: tenderness, meningismus, lymphadenopathy Respiratory exam: Present: normal lung sounds bilaterally, respiratory distress , accessory muscle use, decreased breath sounds, prolonged expiratory. Absent: wheezes, rales, rhonchi, stridor Cardiovascular Exam: Present: regular rate, normal rhythm, normal heart sounds. Absent: systolic murmur, diastolic murmur, rubs, gallop, clicks GI/Abdominal exam: Present: soft, normal bowel sounds. Absent: distended, tenderness, guarding, rebound, rigid Extremities exam: Present: normal inspection, full ROM, normal capillary refill. Absent: tenderness, pedal edema, joint swelling, calf tenderness Back exam: Present: normal inspection Neurological exam: Present: alert, oriented X3, CN II-XII intact Psychiatric exam: Present: normal affect, normal mood Skin exam: Present: warm, dry, intact, normal color. Absent: rash Course Vital Signs 04/06/17 04/06/17 04/06/17 16:06 16:49 17:07 Temperature 97.4 F L Pulse Rate 103 H 102 H 106 H Respiratory 19 Rate Blood Pressure 170/75 O2 Sat by Pulse 96 Oximetry - Reevaluation(s) Reevaluation #1: 04/06/17 18:15 Patient is improving with breathing treatment, supplemental oxygen EKG Findings - EKG Comments: EKG Findings:: EKG shows A. fib with RVR rate 103, QRS 86, QTC 372 Medical Decision Making - Medical Decision Making Seronegativity for evaluation urination was about hypoxia weakness, patient with significant CHF will admit for diaphoresis, likely pneumonia we'll place on antibiotics and.. Patient to be admitted for cardiopulmonary support - Lab Data Result diagrams: 04/06/17 16:24 04/06/17 16:24 Lab Results 04/06/17 04/06/17 04/06/17 Range/Units 16:24 16:24 16:24 WBC 8.2 (3.8-10.6) k/uL RBC 2.96 L (3.80-5.40) m/uL Hgb 9.6 L (11.4-16.0) gm/dL Hct 30.2 L (34.0-46.0) % MCV 101.9 H D (80.0-100.0) fL MCH 32.6 (25.0-35.0) pg MCHC 32.0 (31.0-37.0) g/dL RDW 16.3 H (11.5-15.5) % Plt Count 204 (150-450) k/uL Neutrophils % 89 % Lymphocytes % 3 % Monocytes % 5 % Eosinophils % 1 % Basophils % 0 % Neutrophils # 7.3 (1.3-7.7) k/uL Lymphocytes # 0.3 L (1.0-4.8) k/uL Monocytes # 0.4 (0-1.0) k/uL Eosinophils # 0.1 (0-0.7) k/uL Basophils # 0.0 (0-0.2) k/uL Hypochromasia Slight Anisocytosis Slight Macrocytosis Moderate PT (9.0-12.0) sec INR (<1.2) APTT (22.0-30.0) sec Sodium 142 (137-145) mmol/L Potassium 5.0 (3.5-5.1) mmol/L Chloride 94 L (98-107) mmol/L Carbon Dioxide 43 H* (22-30) mmol/L Anion Gap 5 mmol/L BUN 72 H (7-17) mg/dL Creatinine 1.76 H (0.52-1.04) mg/dL Est GFR (MDRD) Af Amer 34 (>60 ml/min/1.73 sqM) Est GFR (MDRD) Non-Af 28 (>60 ml/min/1.73 sqM) Glucose 127 H (74-99) mg/dL Plasma Lactic Acid Shan (0.7-2.0) mmol/L Calcium 8.8 (8.4-10.2) mg/dL Phosphorus 4.8 H (2.5-4.5) mg/dL Magnesium 1.6 (1.6-2.3) mg/dL Total Bilirubin 0.7 (0.2-1.3) mg/dL AST 28 (14-36) U/L ALT 35 (9-52) U/L Alkaline Phosphatase 44 (38-126) U/L Total Creatine Kinase <20 L (30-135) U/L CK-MB (CK-2) 0.7 (0.0-2.4) ng/mL CK-MB (CK-2) Rel Index Troponin I <0.012 (0.000-0.034) ng/mL NT-Pro-B Natriuret Pep pg/mL Total Protein 5.5 L (6.3-8.2) g/dL Albumin 3.2 L (3.5-5.0) g/dL 04/06/17 04/06/17 04/06/17 Range/Units 16:24 16:24 16:24 WBC (3.8-10.6) k/uL RBC (3.80-5.40) m/uL Hgb (11.4-16.0) gm/dL Hct (34.0-46.0) % MCV (80.0-100.0) fL MCH (25.0-35.0) pg MCHC (31.0-37.0) g/dL RDW (11.5-15.5) % Plt Count (150-450) k/uL Neutrophils % % Lymphocytes % % Monocytes % % Eosinophils % % Basophils % % Neutrophils # (1.3-7.7) k/uL Lymphocytes # (1.0-4.8) k/uL Monocytes # (0-1.0) k/uL Eosinophils # (0-0.7) k/uL Basophils # (0-0.2) k/uL Hypochromasia Anisocytosis Macrocytosis PT 11.8 (9.0-12.0) sec INR 1.2 H (<1.2) APTT 22.6 (22.0-30.0) sec Sodium (137-145) mmol/L Potassium (3.5-5.1) mmol/L Chloride (98-107) mmol/L Carbon Dioxide (22-30) mmol/L Anion Gap mmol/L BUN (7-17) mg/dL Creatinine (0.52-1.04) mg/dL Est GFR (MDRD) Af Amer (>60 ml/min/1.73 sqM) Est GFR (MDRD) Non-Af (>60 ml/min/1.73 sqM) Glucose (74-99) mg/dL Plasma Lactic Acid Shan 1.2 (0.7-2.0) mmol/L Calcium (8.4-10.2) mg/dL Phosphorus (2.5-4.5) mg/dL Magnesium (1.6-2.3) mg/dL Total Bilirubin (0.2-1.3) mg/dL AST (14-36) U/L ALT (9-52) U/L Alkaline Phosphatase (38-126) U/L Total Creatine Kinase (30-135) U/L CK-MB (CK-2) (0.0-2.4) ng/mL CK-MB (CK-2) Rel Index Troponin I (0.000-0.034) ng/mL NT-Pro-B Natriuret Pep 8010 pg/mL Total Protein (6.3-8.2) g/dL Albumin (3.5-5.0) g/dL - Radiology Data Radiology results: report reviewed (Chest x-ray positive for CHF, likely pneumonia), image reviewed Disposition Clinical Impression: Pleural effusion, Bilateral pleural effusion, Pulmonary edema, Pneumonia, community acquired Disposition: ADMITTED IP TO THIS [facility] Condition: Fair Referrals: None,Stated [Primary Care Provider] - 1-2 days
[2017-04-06] MEDS ORDERED: ALBUTEROL NEBULIZED 2.5 MG/3 ML INHALATION STA (16:35)
[2017-04-06] MEDS ORDERED: IPRATROPIUM 0.5 MG/2.5 ML NEBU INHALATION STA (16:35)
[2017-04-06 16:59] LABS: Anisocytosis Slight; Basophils % (A) 0 %; CH 32.2; CHCM 31.9; Eosinophils # (A) 0.1 k/uL (0-0.7); Eosinophils % (A) 1 %; HCT 30.2 % (34.0-46.0); HDW 3.21; HGB 9.6 gm/dL (11.4-16.0); Hypochromasia Slight; Luc # (Auto) 0.06; Luc % (Auto) 1; Lymphocytes # (A) 0.3 k/uL (1.0-4.8); Lymphocytes % (A) 3 %; MCH 32.6 pg (25.0-35.0); Macrocytosis Moderate; Mean Platelet Volume 6.9; Monocytes # (A) 0.4 k/uL (0-1.0); Monocytes % (A) 5 %; Neutrophils # (A) 7.3 k/uL (1.3-7.7); Neutrophils % (A) 89 %; RBC 2.96 m/uL (3.80-5.40); RDW 16.3 % (11.5-15.5); WBC 8.2 k/uL (3.8-10.6); WBC (Perox) 7.96
[2017-04-06 17:07] LABS: Calcium 8.8 mg/dL (8.4-10.2); Magnesium 1.6 mg/dL (1.6-2.3); Phosphorous 4.8 mg/dL (2.5-4.5); Total Bilirubin 0.7 mg/dL (0.2-1.3); Total Protein 5.5 g/dL (6.3-8.2)
[2017-04-06 17:12] LABS: INR 1.2 (<1.2)
[2017-04-06 17:13] LABS: Partial Thromboplastin Time 22.6 sec (22.0-30.0); Prothrombin Time 11.8 sec (9.0-12.0)
[2017-04-06 17:17] LABS: MCV 101.9 fL (80.0-100.0)
[2017-04-06 17:25] LABS: Creatine Kinase <20 U/L (30-135)
[2017-04-06 17:36] LABS: Creatine Kinase MB 0.7 ng/mL (0.0-2.4); Troponin I <0.012 ng/mL (0.000-0.034)
--- NOTE | 2017-04-06 17:53 | XR ---
EXAMINATION TYPE: XR chest 2V DATE OF EXAM: 04/06/2017 COMPARISON: 03/21/2017 HISTORY: Weakness TECHNIQUE: Frontal and lateral views of the chest are obtained. FINDINGS: There is pulmonary vascular congestion. There is blunting of both costophrenic angles are more on the right side. Right lower lobe consolidation cannot be excluded. Heart is enlarged. IMPRESSION: Congestive heart failure with bilateral pleural effusions. Pleural fluid is increased co mpared to last exam. Right lower lobe pneumonia cannot be excluded. Heart failure appears worse.
[2017-04-06] MEDS ORDERED: PNEUMONIA PROTOCOL UTILIZED 1 EACH MISC PO PRN (18:12)
[2017-04-06] MEDS ORDERED: LEVOFLOXACIN 750MG-D5W PMX 750 MG in DEXTROSE/WATER 1 150ML.BAG IVPB STA (18:12)
[2017-04-06] MEDS: FUROSEMIDE 10 MG/ML 4 ML VIAL IV SCH (18:48)
[2017-04-06 20:03] LABS: Glucose,Whole Blood 164 mg/dL (75-99)
[2017-04-06] MEDS: IPRATROPIUM-ALBUTEROL 3 ML NEB INHALATION SCH (20:11)
[2017-04-06] MEDS ORDERED: metFORMIN 500 MG TAB PO SCH (21:30)
[2017-04-06] MEDS: ASPIRIN 81 MG CHEW PO SCH ×2 (22:17→22:20)
[2017-04-06] MEDS: ATORVASTATIN 10 MG TAB PO SCH ×2 (22:17→22:20)
[2017-04-06] MEDS: LATANOPROST 0.005% OPHTH DROPS 2.5 ML BTL BOTH EYES SCH (22:17)
[2017-04-06] MEDS: INSULIN LISPRO (humaLOG) 300 UNIT/3 ML VIAL SQ SCH (22:36)
[2017-04-07 00:21] LABS: Appearance,Urine Cloudy (Clear); Bacteria,Urine Rare /hpf; Bilirubin,Urine Negative (Negative); Glucose,Urine (UA) Negative (Negative); Ketones,Urine Negative (Negative); Leukocyte Esterase,Urine Small (Negative); Mucus,Urine Rare /hpf; Nitrite,Urine Negative (Negative); Particle Count 4285; Protein,Urine Negative (Negative); RBC,Urine 5 /hpf (0-5); Specific Gravity,Urine 1.009 (1.001-1.035); Squamous Epithelial Cell,Urine <1 /hpf (0-4); UA Billing (MACRO vs. MICRO) MICRO; Urobilinogen,Urine <2.0 mg/dL (<2.0); WBC,Urine 3 /hpf (0-5)
[2017-04-07] MEDS: FUROSEMIDE 10 MG/ML 4 ML VIAL IV SCH ×3 (05:56→17:13)
[2017-04-07] MEDS: PANTOPRAZOLE 40 MG TABLET PO SCH (05:56)
[2017-04-07 06:16] LABS: Glucose,Whole Blood 166 mg/dL (75-99)
[2017-04-07] MEDS: INSULIN LISPRO (humaLOG) 300 UNIT/3 ML VIAL SQ SCH ×4 (07:10→21:19)
--- NOTE | 2017-04-07 07:28 | XR ---
EXAMINATION TYPE: XR chest 2V DATE OF EXAM: 04/07/2017 COMPARISON: 04/06/2017 TECHNIQUE: PA and lateral views submitted. HISTORY: Shortness of breath FINDINGS: Persistent bilateral areas of consolidation pleural effusion noted. No pneumothorax. Arthropathy of t he shoulders. Postsurgical change overlying left apex. IMPRESSION: 1. Diffuse airspace disease and pleural effusion may been the basis of CHF. Underlying pneumonia also in the differential diagnosis.
[2017-04-07] MEDS: ATORVASTATIN 10 MG TAB PO SCH (08:18)
[2017-04-07] MEDS: CALCIUM CARB-VIT D 500MG-200UN 1 EACH TAB PO SCH (08:18)
[2017-04-07] MEDS: PROPRANOLOL LA 60 MG CAP.SA.24H PO SCH (08:18)
[2017-04-07] MEDS ORDERED: ENOXAPARIN 40 MG/0.4 ML SYRINGE SQ SCH (09:00)
[2017-04-07] MEDS: IPRATROPIUM-ALBUTEROL 3 ML NEB INHALATION SCH ×4 (09:08→19:52)
--- NOTE | 2017-04-07 10:38 | CT ---
EXAMINATION TYPE: CT brain wo con DATE OF EXAM: 04/07/2017 COMPARISON: NONE HISTORY: Mental status changes CT DLP: 990.80 mGycm Automated exposure control for dose reduction was used. FINDINGS: Mild to moderate generalized degenerative change. Small area of hypodensity within the basal ganglia or anterior limb internal capsule on the right most typical of tiny remote infarction.. There is hypo attenuation within the white matter bilaterally greater on the right which is nonspecific. Component involving the basal ganglia suggested. No acute intracranial hemorrhage. No midline shift. Calvarium intact. Changes of chronic sinusitis and right mastoiditis noted. IMPRESSION: 1. No acute hemorrhage. 2. Degenerative and nonspecific white matter changes with asymmetric hypoattenuation involving the ri ght deep white matter and basal ganglia. If there is concern for acute ischemia correlate with MRI.
[2017-04-07 11:07] LABS: Glucose,Whole Blood 225 mg/dL (75-99)
[2017-04-07 11:45] LABS: % Iron Saturation 39.4 % (20-50)
[2017-04-07] MEDS: MULTIVITAMINS, THERA 1 EACH TAB PO SCH (12:04)
--- NOTE | 2017-04-07 12:09 | P.CNPUL ---
History of Present Illness Consult date: 04/07/17 Reason for consult: dyspnea, hypoxemia, abnormal CXR/CT, other Chief complaint: Weakness and shortness of breath History of present illness: Consult dated 04/07/2017 This is a 81-year-old female who comes in complaining of weakness. She's been weak for a number of days. In addition she complains of being very short of breath. She's also developed some lower extremity edema. The patient has been getting worse and worse and decided to come into the emergency room for evaluation. The patient was seen in the ER with the ER physicians. She was admitted to the hospital I believe with a diagnosis of heart failure. Her medical problem list includes atrial fibrillation lymphoma CHF diabetes GERD hyperlipidemia hypertension rheumatoid arthritis. Her lymphoma is non- Hodgkin's lymphoma. She sees Dr. Shea for this problem. He recently had chemotherapy. She has a number of medical problems as listed in the ER ramona in addition to what I mentioned. Review of Systems A 12 point review of system is positive for weakness and shortness of breath and lower extremity edema. The rest of the 12 point review of system is unremarkable. She may have also had some mental status changes secondary to her chemotherapy. She's had at one point she became disoriented wasn't quite sure what she was. She was sitting at home at that time. Past Medical History Past Medical History: Atrial Fibrillation, Cancer, Heart Failure, Diabetes Mellitus, GERD/Reflux, Hyperlipidemia, Hypertension, Rheumatoid Arthritis (RA) Additional Past Medical History / Comment(s): Obesity, Non-Hodgkin's lymphoma, recurrent right-sided pleural effusion, chronic hypoxic respiratory failure, chronic atrial fibrillation, CHF with diastolic dysfunction secondary pulmonary hypertension, diabetes mellitus type 2, hypertension, hyperlipidemia, essential tremors, rheumatoid arthritis, home 02 4 liters n/c History of Any Multi-Drug Resistant Organisms: None Reported Past Surgical History: Joint Replacement, Tubal Ligation Additional Past Surgical History / Comment(s): bilateral knees, thoracentesis, Cataract Surgery-lens implants Past Anesthesia/Blood Transfusion Reactions: No Reported Reaction Smoking Status: Former smoker - Past Family History Mother Family Medical History: Congestive Heart Failure (CHF), Diabetes Mellitus, Eye Disorder, Hypertension, Osteoarthritis (OA) Father Family Medical History: Cancer Medications and Allergies Home Medications Medication Instructions Recorded Confirmed Type Atorvastatin [Lipitor] 10 mg PO DAILY 01/03/17 04/06/17 History Latanoprost Ophth [Xalatan 0.005%] 1 drops BOTH EYES HS 01/03/17 04/06/17 History Omeprazole 20 mg PO DAILY 01/03/17 04/06/17 History Propranolol HCl [Propranolol HCl 120 mg PO DAILY 01/03/17 04/06/17 History ER] metFORMIN HCL [Metformin HCl] 500 mg PO BID 01/03/17 04/06/17 History Aspirin EC [Ecotrin Low Dose] 81 mg PO AC-SUPPER 01/16/17 04/06/17 History Calcium Carbonate/Vitamin D3 1 tab PO DAILY 01/16/17 04/06/17 History [Calcium 600-Vit D3 400 Caplet] Multivitamins, Thera [Multivitamin 1 tab PO DAILY 01/16/17 04/06/17 History (formulary)] Allergies Allergy/AdvReac Type Severity Reaction Status Date / Time No Known Allergies Allergy Verified 04/06/17 17:17 Physical Exam Osteopathic Statement: *. No significant issues noted on an osteopathic structural exam other than those noted in the History and Physical/Consult. Vitals: Vital Signs Temp Pulse Pulse Resp BP BP Pulse Ox 04/07/17 11:52 98.2 F 108 H 20 117/58 95 04/07/17 09:23 90 04/07/17 09:08 92 04/07/17 08:00 97 F L 129 H 20 117/57 93 L 04/07/17 04:00 96.8 F L 94 18 109/70 94 L 04/07/17 00:44 95 19 04/07/17 00:43 96.5 F L 95 19 127/58 92 L 04/06/17 20:20 93 04/06/17 20:11 88 04/06/17 20:00 96.5 F L 113 H 19 111/59 94 L 04/06/17 18:28 97.5 F L 110 H 18 122/83 97 04/06/17 17:07 106 H 04/06/17 16:49 102 H 04/06/17 16:06 97.4 F L 103 H 19 170/75 96 Intake and Output 04/06/17 04/07/17 04/07/17 22:59 06:59 14:59 Intake Total 150 300 Output Total 300 850 200 Balance -150 -850 100 Intake: Intake, IV Titration 150 Amount Levofloxacin 750Mg-D5w 150 Pmx 750 mg In Dextrose/ Water 1 150ml.bag @ 100 mls/hr IVPB Q48H [facility] Rx#: [id number] Oral 300 Output: Urine 300 850 200 Other: Voiding Method Bedpan Bedpan # Voids 1 3 0 # Bowel Movements 1 Weight 92.079 kg 101 kg No acute distress, sitting in bed. HEENT examination is grossly unremarkable. Mixed membranes are moist. No oral lesions. Neck supple. Full range of motion. No adenopathy or thyromegaly. Neck veins are flat. Cardiovascular examination reveals regular rhythm rate. Soft systolic murmurs heard. S1-S2 normal. Lungs reveal bibasilar rhonchi. There is some crackles noted bilaterally. Breath sounds are diminished. Abdomen soft. Is obese. Extremities reveal edema. There is no cyanosis or clubbing. Skin without rash. Neurologic examination is nonfocal. Cranial nerves intact. Reflexes are normal. Results - Laboratory Findings CBC and BMP: 04/06/17 16:24 04/06/17 16:24 PT/INR, D-dimer PT 11.8 sec (9.0-12.0) 04/06/17 16:24 INR 1.2 (<1.2) H 04/06/17 16:24 Abnormal lab findings: Abnormal Labs 04/06/17 04/06/17 04/06/17 16:24 16:24 16:24 RBC 2.96 L Hgb 9.6 L Hct 30.2 L MCV 101.9 H D RDW 16.3 H Lymphocytes # 0.3 L INR Chloride 94 L Carbon Dioxide 43 H* BUN 72 H Creatinine 1.76 H Glucose 127 H POC Glucose (mg/dL) Phosphorus 4.8 H Total Creatine Kinase <20 L Total Protein 5.5 L Albumin 3.2 L Urine Appearance Ur Leukocyte Esterase Urine Bacteria Urine Mucus 04/06/17 04/06/17 04/06/17 16:24 20:01 23:50 RBC Hgb Hct MCV RDW Lymphocytes # INR 1.2 H Chloride Carbon Dioxide BUN Creatinine Glucose POC Glucose (mg/dL) 164 H Phosphorus Total Creatine Kinase Total Protein Albumin Urine Appearance Cloudy H Ur Leukocyte Esterase Small H Urine Bacteria Rare H Urine Mucus Rare H 04/07/17 04/07/17 06:15 11:01 RBC Hgb Hct MCV RDW Lymphocytes # INR Chloride Carbon Dioxide BUN Creatinine Glucose POC Glucose (mg/dL) 166 H 225 H Phosphorus Total Creatine Kinase Total Protein Albumin Urine Appearance Ur Leukocyte Esterase Urine Bacteria Urine Mucus - Diagnostic Findings Chest x-ray: image reviewed (Labs x-rays a medications are all reviewed.) Assessment and Plan (1) Bilateral pleural effusion Status: Acute (2) Pulmonary edema Status: Acute (3) Chronic a-fib Status: Acute (4) Diabetes Status: Acute (5) Diastolic CHF, acute on chronic Status: Acute (6) HTN (hypertension) Status: Acute (7) Hyperlipemia Status: Acute (8) Non-Hodgkin lymphoma Status: Acute (9) Systolic CHF, acute on chronic Status: Acute Plan: Plan dated 04/07/2017 The patient's medications labs and x-rays are all reviewed. We'll make she's on make sure she is on breathing treatments and diuretics. She may need a ultrasound the chest with possible thoracentesis. It is been done in the past. Additional recommendations and suggestions are forthcoming. Prognosis is guarded. Repeat chest x-ray tomorrow. Time with Patient: Greater than 30
--- NOTE | 2017-04-07 13:31 | HP ---
A 81-year-old female who presented with shortness of breath on minimal exertion. Chest x-ray showed bilateral pleural effusions. She denied any chest discomfort. No dizziness or lightheadedness. She says she had the same problem in December. In January a 2-D echo showed preserved LV systolic function. Past medical history includes atrial fibrillation, lymphoma, CHF, diabetes, GERD , dyslipidemia, hypertension, rheumatoid arthritis. She has ( ). She recently had chemotherapy. REVIEW OF SYSTEMS: No fever, chills, rigors, cough or expectoration. No nausea, vomiting, diarrhea. No hematuria, dysuria. No strokes or seizures. She has shortness of breath with minimal exertion and is mildly tachypneic at rest. SOCIAL HISTORY: Past smoker, no alcohol use at this time. PAST SURGERY: Joint replacement and thoracentesis. ALLERGIES: No known drug allergies. MEDICATIONS: Reviewed and are documented in the chart. On examination, she was afebrile on admission. Heart rate was 90 to 110 beats per minute. Respirations about 20 per minute. Blood pressure 122/83 mmHg. Pulse ox 95%. Breath sounds are reduced bilaterally with dullness at percussion half way up the lung camp posteriorly. Heart sounds are soft with soft systolic murmur. Abdomen is soft nontender. Extremities are warm. No skin rash. No clubbing. No cyanosis. Her labs are reviewed. Hemoglobin is 9.6, BUN 72, creatinine 1.8, potassium 5.0. IMPRESSION: 1. Shortness of breath related to bilateral pleural effusions. 2. Chronic atrial fibrillation. 3. Diabetes. 4. History of diastolic heart failure chronic. 5. Hypertension. SUGGEST: Continue IV Lasix and thoracentesis should be considered. This lady has large pleural effusions clinically. In terms of atrial fibrillation is reasonably well rate controlled and takes Eliquis 5 mg twice daily for stroke prevention for a high SAMIA VASC score. MTDD
--- NOTE | 2017-04-07 13:40 | ECHOF ---
Referral Reason:chf MEASUREMENTS -------- HEIGHT: 157.5 cm WEIGHT: 100.7 kg BP: RVIDd: 3.6 cm (< 3.3) IVSd: 1.3 cm (0.6 - 1.1) LVIDd: 2.0 cm (3.9 - 5.3) LVPWd: 1.4 cm (0.6 - 1.1) IVSs: 1.4 cm LVIDs: 1.3 cm LVPWs: 1.6 cm LAESV Index (A-L): 38.45 ml/m Ao Diam: 3.5 cm (2.0 - 3.7) AV Cusp: 1.7 cm (1.5 - 2.6) LA Diam: 4.3 cm (2.7 - 3.8) MV EXCURSION: 18.048 mm (> 18.000) MV EF SLOPE: 114 mm/s (70 - 150) EPSS: 1.2 cm MV E Vincenzo: 0.82 m/s MV DecT: 155 ms MV A Vincenzo: 0.70 m/s MV E/A Ratio: 1.17 RAP: 5.00 mmHg RVSP: 84.19 mmHg FINDINGS -------- This was a technically good study. There is mild concentric left ventricular hypertrophy. Overall left ventricular systolic function is normal with, an EF between 55 - 60 %. The right ventricle is mildly enlarged. LA is moderately dilated 34-39 ml/m2 The right atrium is normal in size. Aortic valve is trileaflet and is mildly thickened. The mitral valve leaflets are mildly thickened. Mild mitral annular calcification present. Mild mitral regurgitation is present. Moderate to severe tricuspid regurgitation present. There is severe pulmonary hypertension. The right ventricular systolic pressure, as measured by Doppler, is 84.19mmHg. Pulmonic valve appears structurally normal. The aortic root size is normal. The pericardium is normal. CONCLUSIONS -------- 1. This was a technically good study. 2. Mild mitral regurgitation is present. 3. Moderate to severe tricuspid regurgitation present. 4. There is severe pulmonary hypertension. 5. The right ventricular systolic pressure, as measured by Doppler, is 84.19mmHg. 6. Pulmonic valve appears structurally normal. 7. The aortic root size is normal. 8. The pericardium is normal. 9. There is mild concentric left ventricular hypertrophy. 10. Overall left ventricular systolic function is normal with, an EF between 55 - 60 %. 11. The right ventricle is mildly enlarged. 12. LA is moderately dilated 34-39 ml/m2 13. The right atrium is normal in size. 14. Aortic valve is trileaflet and is mildly thickened. 15. The mitral valve leaflets are mildly thickened. 16. Mild mitral annular calcification present. PORTER HEAD: Erika Cristina RDCS
[2017-04-07 13:59] VITALS: BMI 40.7
[2017-04-07 17:09] LABS: Glucose,Whole Blood 203 mg/dL (75-99)
[2017-04-07] MEDS: ASPIRIN 81 MG CHEW PO SCH (17:13)
[2017-04-07] MEDS ORDERED: NALOXONE 0.4 MG/ML 1 ML VIAL IV PRN (18:38)
--- NOTE | 2017-04-07 18:44 | P.HPIM ---
History of Present Illness H&P Date: 04/07/17 Chief Complaint: difficulty in breathing and hypoxia 81-year-old female with past medical history of non-Hodgkin lymphoma currently on chemotherapy, history of diastolic heart failure, diabetes mellitus, and atrial fibrillation liquids. Patient came in from home due to worsening difficulty in breathing and generalized weakness and confusion. She reports slight that Sunday morning when she woke up she felt confused and wasn't sure where she was and was experiencing some difficulty in breathing without any chest pain, by the time her nurse aide came she checked her vital signs and found that she was hypoxic despite being on home oxygen for which he recommended for her to go to the hospital. She reports that she has been receiving chemotherapy and received 2 or 3 sessions she wasn't sure she reports that every time she receives the sessions she gets weak which she has received recently. In the emergency department she was found to be hypoxic with difficulty in breathing chest x-ray showed bilateral pleural effusions. Patient reported that she had frequent effusions requiring thoracentesis and this has been a recurrent problem most likely due to her lymphoma. Currently patient seen in her room she seems to be comfortable on 3 L oxygen through nasal cannula denies any chest pain however she reports feeling extremely weak and tired she was able to talk full sentences, denies any coughing fevers or chills. Review of Systems Constitutional: Patient reports no fever, no chills, no night sweating, patient does report some weight loss over this year Eyes: Patient reports no visual changes, no eye pain ENT: Patient reports no ear pain, no rhinorrhea, no sore throat Cardiovascular: Patient reports no chest pain, no exertional dyspnea, but reports orthopnea and peripheral edema Respiratory:Patient reports no cough, no wheezing, but admits to shortness of breath despite using home oxygen Gastrointestinal: Patient reports no diarrhea, no constipation, no nausea no vomiting, no abdominal pain Genitourinary: Patient reports no dysuria, no hematuria, no changes in urinary habits, no genital lesions Musculoskeletal: Patient reports no muscle pain, no joint pain Psychiatric: Patient reports no changes in mood or memory, no suicidal ideation , no anxiety Endocrine: Patient reports no heat intolerance, no cold intolerance, no excessive thirst, no polyuria Neurological: Patient reports no focal neurologic deficits, no weakness, no numbness, no tingling Hem/Lymphatic: Patient reports no bleeding tendency, no bruising, reports swollen lymph glands in her neck Allergic/Immun: Patient reports no recent allergic reactions Skin: Patient reports no rashes, no pruritis, no ulcers Past Medical History Past Medical History: Atrial Fibrillation (on eliquis), Cancer, Heart Failure, Diabetes Mellitus, GERD/Reflux, Hyperlipidemia, Hypertension, Rheumatoid Arthritis (RA) Additional Past Medical History / Comment(s): Obesity, Non-Hodgkin's lymphoma, recurrent right-sided pleural effusion, chronic hypoxic respiratory failure, chronic atrial fibrillation, CHF with diastolic dysfunction secondary pulmonary hypertension, diabetes mellitus type 2, hypertension, hyperlipidemia, essential tremors, rheumatoid arthritis, home 02 4 liters n/c History of Any Multi-Drug Resistant Organisms: None Reported Past Surgical History: Joint Replacement, Tubal Ligation Additional Past Surgical History / Comment(s): bilateral knees, thoracentesis, Cataract Surgery-lens implants Past Anesthesia/Blood Transfusion Reactions: No Reported Reaction Smoking Status: Former smoker - Past Family History Mother Family Medical History: Congestive Heart Failure (CHF), Diabetes Mellitus, Eye Disorder, Hypertension, Osteoarthritis (OA) Father Family Medical History: Cancer Medications and Allergies Home Medications and Allergies Comment(s): home meds reviewed Home Medications Medication Instructions Recorded Confirmed Type Atorvastatin [Lipitor] 10 mg PO DAILY 01/03/17 04/06/17 History Latanoprost Ophth [Xalatan 0.005%] 1 drops BOTH EYES HS 01/03/17 04/06/17 History Omeprazole 20 mg PO DAILY 01/03/17 04/06/17 History Propranolol HCl [Propranolol HCl 120 mg PO DAILY 01/03/17 04/06/17 History ER] metFORMIN HCL [Metformin HCl] 500 mg PO BID 01/03/17 04/06/17 History Aspirin EC [Ecotrin Low Dose] 81 mg PO AC-SUPPER 01/16/17 04/06/17 History Calcium Carbonate/Vitamin D3 1 tab PO DAILY 01/16/17 04/06/17 History [Calcium 600-Vit D3 400 Caplet] Multivitamins, Thera [Multivitamin 1 tab PO DAILY 01/16/17 04/06/17 History (formulary)] Allergies Allergy/AdvReac Type Severity Reaction Status Date / Time No Known Allergies Allergy Verified 04/06/17 17:17 Physical Exam Vitals: Vital Signs Temp Pulse Pulse Resp BP BP Pulse Ox 04/07/17 15:53 98.6 F 106 H 20 109/64 94 L 04/07/17 14:10 92 04/07/17 13:45 92 20 04/07/17 11:52 98.2 F 108 H 20 117/58 95 04/07/17 09:23 90 04/07/17 09:08 92 04/07/17 08:00 97 F L 129 H 20 117/57 93 L 04/07/17 04:00 96.8 F L 94 18 109/70 94 L 04/07/17 00:44 95 19 04/07/17 00:43 96.5 F L 95 19 127/58 92 L 04/06/17 20:20 93 04/06/17 20:11 88 04/06/17 20:00 96.5 F L 113 H 19 111/59 94 L 04/06/17 18:28 97.5 F L 110 H 18 122/83 97 Intake and Output 04/07/17 04/07/17 04/07/17 06:59 14:59 22:59 Intake Total 600 200 Output Total 850 200 150 Balance -850 400 50 Intake: Oral 600 200 Output: Urine 850 200 150 Other: Voiding Method Bedpan # Voids 3 0 # Bowel Movements 1 Weight 101 kg 101 kg Patient Weight 04/08/17 06:59 Weight 101 kg Constitutional: No acute distress, conversant, pleasant Eyes: Anicteric sclerae, moist conjunctiva, no lid-lag Pupils equal round reactive to light ENMT: NC/AT Oropharynx clear, no erythema, exudates Neck: Supple, FROM, , or JVD palpable fullness in her left anterior neck base No carotid bruits No thyromegaly Lungs: breath sounds only audible over upper part of the chest bilaterally , dull to percussion over mid and lower aspect of the lungs, no wheezing or crackles Normal respiratory effort, no accessory muscle use Cardiovascular: Heart irregular in rate and rhythm, slight murmurs, but no gallops, or rubs bilateral pedal edema Abdominal: Soft Nontender, no guarding, rebound or rigidity Abdomen moving with respiration Normoactive bowel sounds No hepatomegaly, No splenomegaly No palpable mass abdominal wall hernia noted over the epigastric and umbilical region Skin: Normal temperature, tone, texture, turgor No induration No subcutaneous nodules No rash, lesions No ulcers Extremities: No digital cyanosis No clubbing Pedal pulses not palpable bilaterally due to edema Radial pulses intact and symmetrical No calf tenderness all 4 extremities with full range of motion Psychiatric: Alert and oriented to person, place and time Appropriate affect Intact judgement Neuro Muscles Strength 5/5 in all 4 extremities Sensation to light touch grossly present throughout Cranial nerves II-XII grossly intact No focal sensory deficits Lymphatics: palpable fullness over the Left supraclavicular region Results CBC & Chem 7: 04/06/17 16:24 04/06/17 16:24 Labs: Abnormal Lab Results - Last 24 Hours (Table) 04/06/17 04/06/17 04/07/17 Range/Units 20:01 23:50 03:47 D-Dimer (<0.60) mg/L FEU POC Glucose (mg/dL) 164 H (75-99) mg/dL TIBC 218 L (265-497) ug/dL Urine Appearance Cloudy H (Clear) Ur Leukocyte Esterase Small H (Negative) Urine Bacteria Rare H (None) /hpf Urine Mucus Rare H (None) /hpf 04/07/17 04/07/17 04/07/17 Range/Units 06:15 11:01 12:59 D-Dimer 2.63 H (<0.60) mg/L FEU POC Glucose (mg/dL) 166 H 225 H (75-99) mg/dL TIBC (265-497) ug/dL Urine Appearance (Clear) Ur Leukocyte Esterase (Negative) Urine Bacteria (None) /hpf Urine Mucus (None) /hpf 04/07/17 Range/Units 17:01 D-Dimer (<0.60) mg/L FEU POC Glucose (mg/dL) 203 H (75-99) mg/dL TIBC (265-497) ug/dL Urine Appearance (Clear) Ur Leukocyte Esterase (Negative) Urine Bacteria (None) /hpf Urine Mucus (None) /hpf Microbiology - Last 24 Hours (Table) 04/07/17 04:07 Urine Culture - Preliminary Urine,Voided Assessment and Plan (1) Acute on chronic respiratory failure with hypoxia Status: Acute (2) Bilateral pleural effusion Status: Acute (3) Acute metabolic encephalopathy Status: Resolved (4) Acute kidney injury Status: Acute (5) Chronic a-fib Narrative/Plan: On liquids at home currently on hold due to possible procedure Status: Chronic (6) Diabetes Status: Chronic (7) Diastolic CHF, acute on chronic Narrative/Plan: acute exacerbation 2 D echo showed preserved left ventricular ejection fraction Status: Acute (8) Essential tremor Status: Chronic (9) HTN (hypertension) Status: Chronic (10) Hyperlipemia Status: Chronic Plan: Aggressive IV diuresis Repeat chest x-ray in the morning to follow-up on bilateral pleural effusion if no significant improvement consideration should be made for thoracentesis or even Pleurx insertion due to recurrent pleural effusion Continue home medications Eliquis on hold due to possibility of procedure Continue with heparin subcu for DVT prophylaxis (avoid lovenox due to reduced creatinine clearance with PASQUALE) DC antibiotics , doubt pneumonia
[2017-04-07] MEDS ORDERED: LEVOFLOXACIN 500 MG TAB PO SCH (19:00)
[2017-04-07] MEDS: LATANOPROST 0.005% OPHTH DROPS 2.5 ML BTL BOTH EYES SCH (20:21)
[2017-04-07 21:21] LABS: Glucose,Whole Blood 153 mg/dL (75-99)
[2017-04-07] MEDS ORDERED: INSULIN LISPRO (humaLOG) 300 UNIT/3 ML VIAL SQ SCH (21:23)
[2017-04-07] MEDS: HEPARIN SODIUM,PORCINE 5,000 UNIT/ML 1 ML VIAL SQ SCH (23:32)
[2017-04-08] MEDS: FUROSEMIDE 10 MG/ML 4 ML VIAL IV SCH ×2 (02:20→12:18)
[2017-04-08 05:58] LABS: Glucose,Whole Blood 158 mg/dL (75-99)
[2017-04-08] MEDS: INSULIN LISPRO (humaLOG) 300 UNIT/3 ML VIAL SQ SCH ×2 (06:19→12:20)
[2017-04-08] MEDS: PANTOPRAZOLE 40 MG TABLET PO SCH (06:19)
[2017-04-08 06:49] LABS: Anisocytosis Slight; Basophils % (A) 0 %; CH 32.7; CHCM 32.1; Eosinophils # (A) 0.1 k/uL (0-0.7); Eosinophils % (A) 3 %; HDW 2.96; HGB 8.6 gm/dL (11.4-16.0); Hypochromasia Slight; Luc # (Auto) 0.02; Luc % (Auto) 1; Lymphocytes # (A) 0.1 k/uL (1.0-4.8); Lymphocytes % (A) 2 %; MCH 31.6 pg (25.0-35.0); MCHC 30.7 g/dL (31.0-37.0); MCV 102.9 fL (80.0-100.0); Macrocytosis Moderate; Monocytes # (A) 0.1 k/uL (0-1.0); Monocytes % (A) 4 %; Neutrophils # (A) 2.7 k/uL (1.3-7.7); Neutrophils % (A) 89 %; RBC 2.73 m/uL (3.80-5.40); RDW 16.2 % (11.5-15.5); WBC 3.1 k/uL (3.8-10.6)
[2017-04-08 07:02] LABS: Calcium 9.1 mg/dL (8.4-10.2); Magnesium 1.4 mg/dL (1.6-2.3); Potassium 4.4 mmol/L (3.5-5.1); Total Bilirubin 0.5 mg/dL (0.2-1.3); Total Protein 5.1 g/dL (6.3-8.2)
[2017-04-08] MEDS: IPRATROPIUM-ALBUTEROL 3 ML NEB INHALATION SCH ×2 (08:45→11:36)
[2017-04-08] MEDS ORDERED: LEVOFLOXACIN 750MG-D5W PMX 750 MG in DEXTROSE/WATER 1 150ML.BAG IVPB SCH (09:00)
--- NOTE | 2017-04-08 09:02 | XR ---
EXAMINATION TYPE: XR chest 1V portable DATE OF EXAM: 04/08/2017 COMPARISON: 04/07/2017 HISTORY: Shortness of breath FINDINGS: There are bilateral pleural effusions with cardiomegaly and bibasilar infiltrate. There is a diffuse interstitial pattern. Surgical clips overlying left apex. IMPRESSION: 1. Stable bilateral infiltrate and pleural effusion correlate for CHF. Underlying pneumonia not exclu ded.
[2017-04-08] MEDS: PROPRANOLOL LA 60 MG CAP.SA.24H PO SCH (09:25)
[2017-04-08] MEDS: HEPARIN SODIUM,PORCINE 5,000 UNIT/ML 1 ML VIAL SQ SCH (09:25)
[2017-04-08] MEDS: ATORVASTATIN 10 MG TAB PO SCH (09:25)
[2017-04-08] MEDS: CALCIUM CARB-VIT D 500MG-200UN 1 EACH TAB PO SCH (09:25)
--- NOTE | 2017-04-08 09:28 | US ---
EXAMINATION TYPE: US venous doppler duplex LE DATE OF EXAM: 04/08/2017 8:34 AM COMPARISON: NONE CLINICAL HISTORY: DVT. Edema bilateral legs, SOB, patient on blood thinner for AFIB SIDE PERFORMED: Bilateral TECHNIQUE: The lower extremity deep venous system is examined utilizing real time linear array sonog kristen with graded compression, doppler sonography and color-flow sonography. VESSELS IMAGED: External Iliac Vein (EIV) Common Femoral Vein Deep Femoral Vein Greater Saphenous Vein * Femoral Vein Popliteal Vein Small Saphenous Vein * Proximal Calf Veins (* superficial vessels) Right Leg: No evidence of DVT Left Leg: No evidence of DVT IMPRESSION: 1. No diagnostic evidence of DVT as visualized.
[2017-04-08 09:31] VITALS: RESP 20
[2017-04-08 09:52] LABS: ABG HCO3 41 mmol/L (21-25); ABG PCO2 61 mmHg (35-45); ABG PH 7.44 (7.35-7.45); ABG PO2 91 mmHg (83-108); ABG TCO2 43 mmol/L (19-24)
[2017-04-08 09:53] LABS: ABG Base Excess 15.5 mmol/L
--- NOTE | 2017-04-08 10:47 | P.PN ---
Subjective Progress note dated 04/08/2017 81-year-old no code patient who comes into the hospital admitted on April 06 complaining of weakness. She been weak for a number of days. In addition, she complains of being short of breath. Chest x-ray was consistent with fluid overload and bilateral effusions. She has had thoracentesis in the past I believe 4 different times. Anyway she apparently is telling the hospitalist today that she wants to be discharged home because she feels she is at baseline. She does have a history of non-Hodgkin's lymphoma atrial fibrillation heart failure diabetes GERD hyperlipidemia hypertension rheumatoid arthritis and pleural effusions requiring thoracentesis in the past. Her oncologist is Dr. Shea. Objective - Vital Signs Vital signs: Vital Signs Temp 96.7 F L 04/08/17 08:00 Pulse 113 H 04/08/17 08:00 Resp 20 04/08/17 08:00 BP 104/65 04/08/17 08:00 Pulse Ox 99 04/08/17 08:00 Intake & Output 04/07/17 04/08/17 04/08/17 18:59 06:59 18:59 Intake Total 1040 125 Output Total 550 750 400 Balance 490 -750 -275 Weight 101 kg 98.5 kg Intake: Oral 1040 125 Output: Urine 550 750 400 Other: Voiding Method Bedpan # Voids 0 0 # Bowel Movements 1 - Exam No acute distress, oriented 3. Sitting up in the bed. Wearing her nasal oxygen. HEENT examination is grossly unremarkable. Nasal O2 in place. Mucous membranes are moist. Neck supple. Full range of motion. No adenopathy or thyromegaly. Neck veins are not distended. Cardiovascular examination reveals regular rhythm rate. Heart sounds are distant. Soft systolic murmurs heard. S1-S2 normal. Lungs reveal bibasilar crackles. There is dullness at both bases. No rhonchi or wheezes. Abdomen soft bowel sounds are heard. No masses or tenderness. Extremities are intact. Slight edema. No cyanosis or clubbing. Skin without rash. Neurologic examination is nonfocal. - Labs CBC & Chem 7: 04/08/17 05:44 04/08/17 05:44 Labs: Abnormal Lab Results - Last 24 Hours (Table) 04/07/17 04/07/17 04/07/17 Range/Units 03:47 11:01 12:59 WBC (3.8-10.6) k/uL RBC (3.80-5.40) m/uL Hgb (11.4-16.0) gm/dL Hct (34.0-46.0) % MCV (80.0-100.0) fL MCHC (31.0-37.0) g/dL RDW (11.5-15.5) % Plt Count (150-450) k/uL Lymphocytes # (1.0-4.8) k/uL D-Dimer 2.63 H (<0.60) mg/L FEU ABG pCO2 (35-45) mmHg ABG HCO3 (21-25) mmol/L ABG Total CO2 (19-24) mmol/L Chloride (98-107) mmol/L Carbon Dioxide (22-30) mmol/L BUN (7-17) mg/dL Creatinine (0.52-1.04) mg/dL Glucose (74-99) mg/dL POC Glucose (mg/dL) 225 H (75-99) mg/dL Magnesium (1.6-2.3) mg/dL TIBC 218 L (265-497) ug/dL Total Protein (6.3-8.2) g/dL Albumin (3.5-5.0) g/dL 04/07/17 04/07/17 04/07/17 Range/Units 17:01 21:13 21:13 WBC (3.8-10.6) k/uL RBC (3.80-5.40) m/uL Hgb (11.4-16.0) gm/dL Hct (34.0-46.0) % MCV (80.0-100.0) fL MCHC (31.0-37.0) g/dL RDW (11.5-15.5) % Plt Count (150-450) k/uL Lymphocytes # (1.0-4.8) k/uL D-Dimer (<0.60) mg/L FEU ABG pCO2 (35-45) mmHg ABG HCO3 (21-25) mmol/L ABG Total CO2 (19-24) mmol/L Chloride (98-107) mmol/L Carbon Dioxide (22-30) mmol/L BUN (7-17) mg/dL Creatinine (0.52-1.04) mg/dL Glucose (74-99) mg/dL POC Glucose (mg/dL) 203 H 153 H 153 H (75-99) mg/dL Magnesium (1.6-2.3) mg/dL TIBC (265-497) ug/dL Total Protein (6.3-8.2) g/dL Albumin (3.5-5.0) g/dL 04/08/17 04/08/17 04/08/17 Range/Units 05:44 05:44 05:56 WBC 3.1 L (3.8-10.6) k/uL RBC 2.73 L (3.80-5.40) m/uL Hgb 8.6 L (11.4-16.0) gm/dL Hct 28.0 L (34.0-46.0) % MCV 102.9 H (80.0-100.0) fL MCHC 30.7 L (31.0-37.0) g/dL RDW 16.2 H (11.5-15.5) % Plt Count 130 L (150-450) k/uL Lymphocytes # 0.1 L (1.0-4.8) k/uL D-Dimer (<0.60) mg/L FEU ABG pCO2 (35-45) mmHg ABG HCO3 (21-25) mmol/L ABG Total CO2 (19-24) mmol/L Chloride 92 L (98-107) mmol/L Carbon Dioxide 44 H* (22-30) mmol/L BUN 71 H (7-17) mg/dL Creatinine 1.90 H (0.52-1.04) mg/dL Glucose 154 H (74-99) mg/dL POC Glucose (mg/dL) 158 H (75-99) mg/dL Magnesium 1.4 L (1.6-2.3) mg/dL TIBC (265-497) ug/dL Total Protein 5.1 L (6.3-8.2) g/dL Albumin 2.9 L (3.5-5.0) g/dL 04/08/17 Range/Units 09:40 WBC (3.8-10.6) k/uL RBC (3.80-5.40) m/uL Hgb (11.4-16.0) gm/dL Hct (34.0-46.0) % MCV (80.0-100.0) fL MCHC (31.0-37.0) g/dL RDW (11.5-15.5) % Plt Count (150-450) k/uL Lymphocytes # (1.0-4.8) k/uL D-Dimer (<0.60) mg/L FEU ABG pCO2 61 H (35-45) mmHg ABG HCO3 41 H* (21-25) mmol/L ABG Total CO2 43 H (19-24) mmol/L Chloride (98-107) mmol/L Carbon Dioxide (22-30) mmol/L BUN (7-17) mg/dL Creatinine (0.52-1.04) mg/dL Glucose (74-99) mg/dL POC Glucose (mg/dL) (75-99) mg/dL Magnesium (1.6-2.3) mg/dL TIBC (265-497) ug/dL Total Protein (6.3-8.2) g/dL Albumin (3.5-5.0) g/dL Microbiology - Last 24 Hours (Table) 04/06/17 16:24 Blood Culture - Preliminary Blood No Growth after 24 hours 04/07/17 04:07 Urine Culture - Preliminary Urine,Voided Assessment and Plan (1) Bilateral pleural effusion Status: Acute (2) Pulmonary edema Status: Acute (3) Chronic a-fib Status: Chronic (4) Diabetes Status: Chronic (5) Diastolic CHF, acute on chronic Status: Acute (6) HTN (hypertension) Status: Chronic (7) Hyperlipemia Status: Chronic (8) Non-Hodgkin lymphoma Status: Acute (9) Systolic CHF, acute on chronic Status: Acute Plan: Plan dated 04/07/2017 The patient's medications labs and x-rays are all reviewed. We'll make she's on make sure she is on breathing treatments and diuretics. She may need a ultrasound the chest with possible thoracentesis. It is been done in the past. Additional recommendations and suggestions are forthcoming. Prognosis is guarded. Repeat chest x-ray tomorrow. Plan dated 04/08/2017 The patient apparently wants to be discharged home. She does not want to have a thoracentesis at this time. We discussed a Pleurx catheter with her. The patient feels better. She feels she is at baseline. She would like to be discharged home. Denies any chest pain or chest discomfort. No fever or chills. Denies although the complaints. Time with Patient: Less than 30
--- NOTE | 2017-04-08 11:20 | P.CONS ---
History of Present Illness - Reason for Consult Consult date: 04/07/17 AMS, shortness of breath. NHL on chemo - History of Present Illness Ms Palacio is a pleasant WF, initially seen in consult at [facility] on 01/18/17. She had presented with progressive SOB over about 2 mths. She was found to have a right sided pleural effusion and had a thoracentesis in 12/27, with cytology negative. She was admitted with recurrent SOB. CXR showed progressive rt pleural effusion. She was also c/o some abdominal discomfort leading to a CT AP , showing marked conglomerate retroperitoneal adenopathy, 10.5 x 4.7 cm. On exam she was noted to have a palpable left SC node. She was discharged after repeat thoracentesis. Surgery were consulted, and did an excisional biopsy on 01/19/17. This revealed follicular lymphoma, overall grade I, with focal diffuse features. She was seen for her 1st OV on 01/26/17. Due to her symptoms, active treatment was recommended, and she started Bendamustine- Rituxan on 02/06/17. She was readmitted, prior to his start date, with recurrent complains of the shortness of breath with findings of pulmonary venous congestion and bilateral pleural effusions. She improved with diuresis. The patient is now status post 3 cycles, with the most recent one administered on 04/04-04/05. She had another thoracentesis, earlier this month. Her family had called the office, on the day of admission, stating that the patient was confused and did not know where she was, when she woke up that a.m. This slowly improved. Her visiting nurse and found her heart rate to be high , in the 120+ range, and noted some cyanosis in her feet. The patient appeared to be quite weak, with increased shortness of breath. There therefore advised to come into the emergency room, where she was admitted for further management. At the time of admission, mental status was noted to be overall normal. Chest x-rays again showed pulmonary venous congestion, with bilateral pleural effusions. She was therefore admitted for further management The patient states that she partially recalls having a difficult time finding words to answer questions, on the morning of admission. She feels that this problem has mostly resolved though she is still slightly slower than normal. Review of Systems Constitutional: Reports fatigue, Reports weakness Eyes: denies blurred vision, denies pain Ears: deny: decreased hearing, ear discharge, earache, tinnitus Ears, nose, mouth and throat: Denies headache, Denies sore throat Cardiovascular: Reports orthopnea, Reports shortness of breath Respiratory: Reports as per HPI (Recurrent pleural effusions), Reports dyspnea, Reports home oxygen Gastrointestinal: Denies abdominal pain, Denies diarrhea, Denies nausea, Denies vomiting Genitourinary: Denies dysuria, Denies hematuria Menstruation: Reports postmenopausal Musculoskeletal: Reports as per HPI (Lower extremity swelling) Integumentary: Denies pruritus, Denies rash Neurological: Reports as per HPI, Reports aphasia, Reports change in mentation Psychiatric: Denies anxiety, Denies depression Endocrine: Reports fatigue Hematologic/Lymphatic: Reports as per HPI, Reports lymphadenopathy Past Medical History Past Medical History: Atrial Fibrillation (on eliquis), Cancer, Heart Failure, Diabetes Mellitus, GERD/Reflux, Hyperlipidemia, Hypertension, Rheumatoid Arthritis (RA) Additional Past Medical History / Comment(s): Obesity, Non-Hodgkin's lymphoma, recurrent right-sided pleural effusion, chronic hypoxic respiratory failure, chronic atrial fibrillation, CHF with diastolic dysfunction secondary pulmonary hypertension, diabetes mellitus type 2, hypertension, hyperlipidemia, essential tremors, rheumatoid arthritis, home 02 4 liters n/c History of Any Multi-Drug Resistant Organisms: None Reported Past Surgical History: Joint Replacement, Tubal Ligation Additional Past Surgical History / Comment(s): bilateral knees, thoracentesis, Cataract Surgery-lens implants Past Anesthesia/Blood Transfusion Reactions: No Reported Reaction Smoking Status: Former smoker - Past Family History Mother Family Medical History: Congestive Heart Failure (CHF), Diabetes Mellitus, Eye Disorder, Hypertension, Osteoarthritis (OA) Father Family Medical History: Cancer Medications and Allergies Home Medications Medication Instructions Recorded Confirmed Type Atorvastatin [Lipitor] 10 mg PO DAILY 01/03/17 04/06/17 History Latanoprost Ophth [Xalatan 0.005%] 1 drops BOTH EYES HS 01/03/17 04/06/17 History Omeprazole 20 mg PO DAILY 01/03/17 04/06/17 History Propranolol HCl [Propranolol HCl 120 mg PO DAILY 01/03/17 04/06/17 History ER] metFORMIN HCL [Metformin HCl] 500 mg PO BID 01/03/17 04/06/17 History Aspirin EC [Ecotrin Low Dose] 81 mg PO AC-SUPPER 01/16/17 04/06/17 History Calcium Carbonate/Vitamin D3 1 tab PO DAILY 01/16/17 04/06/17 History [Calcium 600-Vit D3 400 Caplet] Multivitamins, Thera [Multivitamin 1 tab PO DAILY 01/16/17 04/06/17 History (formulary)] Allergies Allergy/AdvReac Type Severity Reaction Status Date / Time No Known Allergies Allergy Verified 04/06/17 17:17 Physical Exam Vitals: Vital Signs Temp Pulse Pulse Resp BP Pulse Ox 04/08/17 08:00 96.7 F L 113 H 20 104/65 99 04/08/17 04:00 97.5 F L 103 H 18 141/73 96 04/08/17 00:00 96.5 F L 104 H 18 134/63 93 L 04/07/17 20:09 90 04/07/17 20:00 97.5 F L 92 18 154/80 92 L 04/07/17 19:52 88 04/07/17 15:53 98.6 F 106 H 20 109/64 94 L 04/07/17 14:10 92 04/07/17 13:45 92 20 04/07/17 11:52 98.2 F 108 H 20 117/58 95 Intake and Output 04/07/17 04/08/17 04/08/17 22:59 06:59 14:59 Intake Total 440 125 Output Total 600 500 400 Balance -160 -500 -275 Intake: Oral 440 125 Output: Urine 600 500 400 Other: Voiding Method Bedpan Bedpan # Voids 0 0 Weight 98.5 kg - Constitutional General appearance: mild distress - EENT Eyes: EOMI, PERRLA ENT: hearing grossly normal, normal oropharynx - Neck Neck: no lymphadenopathy - Respiratory Respiratory: right: dullness, bilateral: diminished (Right greater than left) - Cardiovascular Rhythm: regular Heart sounds: normal: S1, S2 - Gastrointestinal General gastrointestinal: normal bowel sounds, soft - Integumentary Integumentary: normal - Neurologic Neurologic: CNII-XII intact - Musculoskeletal 2+ bilateral lower extremity edema Musculoskeletal: generalized weakness, strength equal bilaterally Results CBC & Chem 7: 04/08/17 05:44 04/08/17 05:44 Labs: Abnormal Lab Results - Last 24 Hours (Table) 04/07/17 04/07/17 04/07/17 Range/Units 03:47 11:01 12:59 WBC (3.8-10.6) k/uL RBC (3.80-5.40) m/uL Hgb (11.4-16.0) gm/dL Hct (34.0-46.0) % MCV (80.0-100.0) fL MCHC (31.0-37.0) g/dL RDW (11.5-15.5) % Plt Count (150-450) k/uL Lymphocytes # (1.0-4.8) k/uL D-Dimer 2.63 H (<0.60) mg/L FEU ABG pCO2 (35-45) mmHg ABG HCO3 (21-25) mmol/L ABG Total CO2 (19-24) mmol/L Chloride (98-107) mmol/L Carbon Dioxide (22-30) mmol/L BUN (7-17) mg/dL Creatinine (0.52-1.04) mg/dL Glucose (74-99) mg/dL POC Glucose (mg/dL) 225 H (75-99) mg/dL Magnesium (1.6-2.3) mg/dL TIBC 218 L (265-497) ug/dL Total Protein (6.3-8.2) g/dL Albumin (3.5-5.0) g/dL 04/07/17 04/07/17 04/07/17 Range/Units 17:01 21:13 21:13 WBC (3.8-10.6) k/uL RBC (3.80-5.40) m/uL Hgb (11.4-16.0) gm/dL Hct (34.0-46.0) % MCV (80.0-100.0) fL MCHC (31.0-37.0) g/dL RDW (11.5-15.5) % Plt Count (150-450) k/uL Lymphocytes # (1.0-4.8) k/uL D-Dimer (<0.60) mg/L FEU ABG pCO2 (35-45) mmHg ABG HCO3 (21-25) mmol/L ABG Total CO2 (19-24) mmol/L Chloride (98-107) mmol/L Carbon Dioxide (22-30) mmol/L BUN (7-17) mg/dL Creatinine (0.52-1.04) mg/dL Glucose (74-99) mg/dL POC Glucose (mg/dL) 203 H 153 H 153 H (75-99) mg/dL Magnesium (1.6-2.3) mg/dL TIBC (265-497) ug/dL Total Protein (6.3-8.2) g/dL Albumin (3.5-5.0) g/dL 04/08/17 04/08/17 04/08/17 Range/Units 05:44 05:44 05:56 WBC 3.1 L (3.8-10.6) k/uL RBC 2.73 L (3.80-5.40) m/uL Hgb 8.6 L (11.4-16.0) gm/dL Hct 28.0 L (34.0-46.0) % MCV 102.9 H (80.0-100.0) fL MCHC 30.7 L (31.0-37.0) g/dL RDW 16.2 H (11.5-15.5) % Plt Count 130 L (150-450) k/uL Lymphocytes # 0.1 L (1.0-4.8) k/uL D-Dimer (<0.60) mg/L FEU ABG pCO2 (35-45) mmHg ABG HCO3 (21-25) mmol/L ABG Total CO2 (19-24) mmol/L Chloride 92 L (98-107) mmol/L Carbon Dioxide 44 H* (22-30) mmol/L BUN 71 H (7-17) mg/dL Creatinine 1.90 H (0.52-1.04) mg/dL Glucose 154 H (74-99) mg/dL POC Glucose (mg/dL) 158 H (75-99) mg/dL Magnesium 1.4 L (1.6-2.3) mg/dL TIBC (265-497) ug/dL Total Protein 5.1 L (6.3-8.2) g/dL Albumin 2.9 L (3.5-5.0) g/dL 04/08/17 Range/Units 09:40 WBC (3.8-10.6) k/uL RBC (3.80-5.40) m/uL Hgb (11.4-16.0) gm/dL Hct (34.0-46.0) % MCV (80.0-100.0) fL MCHC (31.0-37.0) g/dL RDW (11.5-15.5) % Plt Count (150-450) k/uL Lymphocytes # (1.0-4.8) k/uL D-Dimer (<0.60) mg/L FEU ABG pCO2 61 H (35-45) mmHg ABG HCO3 41 H* (21-25) mmol/L ABG Total CO2 43 H (19-24) mmol/L Chloride (98-107) mmol/L Carbon Dioxide (22-30) mmol/L BUN (7-17) mg/dL Creatinine (0.52-1.04) mg/dL Glucose (74-99) mg/dL POC Glucose (mg/dL) (75-99) mg/dL Magnesium (1.6-2.3) mg/dL TIBC (265-497) ug/dL Total Protein (6.3-8.2) g/dL Albumin (3.5-5.0) g/dL Microbiology - Last 24 Hours (Table) 04/06/17 16:24 Blood Culture - Preliminary Blood No Growth after 24 hours 04/07/17 04:07 Urine Culture - Preliminary Urine,Voided Chest x-ray: report reviewed, image reviewed (Reports and images of chest x-ray done this admission, as well as from all your this month post her thoracentesis were reviewed. On my review of the images, there does appear to be possibly increased vascular congestion as well as some increased fluid on the right side. ) Assessment and Plan (1) Altered mental status Narrative/Plan: This is a new problem for this patient. This appears to have mostly resolved on my exam she was slightly slower in terms of response than normal. The etiology is not clear. It could be hypoxia related, or metabolic. However, a new neurologic event such as a TIA is also possible. CT of the brain without contrast will be ordered for further evaluation. Status: Acute (2) Acute on chronic respiratory failure with hypoxia Narrative/Plan: The patient has had previous admissions, with the congestive heart failure, and pleural effusions. As noted, she has required periodic thoracenteses, though the frequency has decreased since starting chemotherapy. Fluid cytology has been negative for malignancy. During this admission, as noted above, chest x-ray shows worsening pulmonary venous congestion, as well as likely increase in size of the right pleural effusion. There was also possibility of superimposed pneumonia. The patient is continuing on oxygen, and is undergoing diuresis. She is on antibiotics for possible pneumonia. Pulmonary has been consulted. We will defer to them regarding the need for repeat thoracentesis. Status: Acute (3) Non-Hodgkin lymphoma Narrative/Plan: The patient has completed 3 cycles of chemo immunotherapy with bendamustine and Rituxan. Tolerance has been quite good of the treatment itself so far. She is set up to have follow-up CT scans to assess response. Status: Acute
[2017-04-08 12:02] LABS: Glucose,Whole Blood 197 mg/dL (75-99)
[2017-04-08] MEDS: MULTIVITAMINS, THERA 1 EACH TAB PO SCH (12:20)
[2017-04-08 12:39] VITALS: BP 121/73; PULSE 105; TEMP 98.2
--- NOTE | 2017-04-08 18:14 | P.DS ---
Providers Date of admission: 04/06/17 18:13 Expected date of discharge: 04/08/17 Attending physician: Dee Feliciano, DO Consults: 04/06/17 18:12 Consult Physician Routine Consulting Provider: Keesha Ferrer Consult Reason/Comments: knowqn Do you want consulting provider notified?: Yes 04/06/17 18:14 Consult Physician Routine Consulting Provider: Alice Waller Consult Reason/Comments: chf Do you want consulting provider notified?: Yes 04/06/17 18:16 Consult Physician Routine Consulting Provider: Eugene Shea Consult Reason/Comments: known Do you want consulting provider notified?: Yes Primary care physician: Stated None - Discharge Diagnosis(es) (1) Acute metabolic encephalopathy Status: Resolved (2) Acute on chronic respiratory failure with hypoxia Status: Acute (3) Bilateral pleural effusion Status: Acute (4) Acute kidney injury Status: Acute (5) Chronic a-fib Status: Chronic (6) Diabetes Status: Chronic (7) Diastolic CHF, acute on chronic Status: Acute (8) Essential tremor Status: Chronic (9) HTN (hypertension) Status: Chronic (10) Hyperlipemia Status: Chronic Hospital Course: 81-year-old female with past medical history of non-Hodgkin lymphoma currently on chemotherapy, history of diastolic heart failure, diabetes mellitus, and atrial fibrillation on eliquis. Patient came in from home due to worsening difficulty in breathing and generalized weakness and confusion. She reports slight that Damian morning when she woke up she felt confused and wasn't sure where she was and was experiencing some difficulty in breathing without any chest pain, by the time her nurse aide came she checked her vital signs and found that she was hypoxic despite being on home oxygen for which he recommended for her to go to the hospital. She reports that she has been receiving chemotherapy and received 2 or 3 sessions she wasn't sure she reports that every time she receives the sessions she gets weak which she has received recently. In the emergency department she was found to be hypoxic with difficulty in breathing chest x-ray showed bilateral pleural effusions. Patient reported that she had frequent effusions requiring thoracentesis and this has been a recurrent problem most likely due to her lymphoma. Today patient feels that she is back to her baseline she is able to maintain oxygen saturation above 92% while on 3-4 L of supplemental oxygen through nasal cannula she denies any chest pain and reports that her breathing pattern is at her baseline. She is not willing to have thoracentesis done during this stay and eager to go home to her overall clinical condition was explained to her, I do highly recommend that she gets a Pleurx inserted to help with serial thoracentesis which I believe is multifactorial due to her underlying non- Hodgkin lymphoma, and diastolic heart failure. Patient will be kept on oral diuresis, and will be kept on short course of antibiotic to finish 1 week of levofloxacin. Patient will need close monitoring of her renal function currently with acute kidney injury and slightly elevated creatinine. Above recommendations were discussed with the patient and Dr. Mcknight from pulmonary patient verbalized understanding and insisted on being discharged home she will follow-up with pulmonary service for further workup. Constitutional: vital signs stable, Not in acute distress, pleasant, conversant Lungs: Dullness to percussion from midlungs and below bilaterally, breath sounds are only appreciated on the upper portions of the lungs. normal respiratory effort no use of accessory muscles Cardiovascular: irregular rate and rhythm, no murmurs, no gallops, no rubs, trace leg edema bilaterally Extremities: No digital cyanosis or clubbing, no calf muscle tenderness Psych: Alert, oriented to place, person and time, fair judgment Patient was instructed to use oxygen 24/7, activity as tolerated, if patient to feel confused again or develops more difficulty in breathing to go back to the nearest emergency department. More than 35 minutes were spent discharging this patient, and more than 50% of the time was spent in counseling the patient and family and in coordinating care. Pertinent Studies: Chest x-ray showing bilateral significant pleural effusions midlungs Venous duplex ultrasound of bilateral lower extremity showed no evidence of acute DVT Brain CAT scan which was performed due to acute mental status change showed no acute intracranial process Patient Condition at Discharge: Fair Plan - Discharge Summary New Discharge Prescriptions: New Levofloxacin [Levaquin] 500 mg PO Q24H #5 tab Continue metFORMIN HCL [Metformin HCl] 500 mg PO BID Propranolol HCl [Propranolol HCl ER] 120 mg PO DAILY Omeprazole 20 mg PO DAILY Latanoprost Ophth [Xalatan 0.005%] 1 drops BOTH EYES HS Atorvastatin [Lipitor] 10 mg PO DAILY Multivitamins, Thera [Multivitamin (formulary)] 1 tab PO DAILY Calcium Carbonate/Vitamin D3 [Calcium 600-Vit D3 400 Caplet] 1 tab PO DAILY Aspirin EC [Ecotrin Low Dose] 81 mg PO AC-SUPPER Furosemide [Lasix] 40 mg PO BID #60 tablet Apixaban [Eliquis] 5 mg PO BID #60 tab Discharge Medication List Atorvastatin [Lipitor] 10 mg PO DAILY 01/03/17 [History] Latanoprost Ophth [Xalatan 0.005%] 1 drops BOTH EYES HS 01/03/17 [History] Omeprazole 20 mg PO DAILY 01/03/17 [History] Propranolol HCl [Propranolol HCl ER] 120 mg PO DAILY 01/03/17 [History] metFORMIN HCL [Metformin HCl] 500 mg PO BID 01/03/17 [History] Aspirin EC [Ecotrin Low Dose] 81 mg PO AC-SUPPER 01/16/17 [History] Calcium Carbonate/Vitamin D3 [Calcium 600-Vit D3 400 Caplet] 1 tab PO DAILY 01/27 [History] Multivitamins, Thera [Multivitamin (formulary)] 1 tab PO DAILY 01/16/17 [History ] Furosemide [Lasix] 40 mg PO BID #60 tablet 02/06/17 [Rx] Apixaban [Eliquis] 5 mg PO BID #60 tab 04/08/17 [Rx] Levofloxacin [Levaquin] 500 mg PO Q24H #5 tab 04/08/17 [Rx] Follow up Appointment(s)/Referral(s): Luis Angel Juárez MD [STAFF PHYSICIAN] - 1 Week (PLEASE CALL WHEN OFFICE OPEN TO MAKE FOLLOW UP APPOINTMENT) Adriel Mcknight DO [Doctor of Osteopathic Medicine] - 1 Week (PLEASE CALL OFFICE TO MAKE FOLLOW UP APPOINTMENT WHEN OPEN) None,Stated [Primary Care Provider] - 1-2 days Patient Instructions/Handouts: Thoracentesis (DC), Pleural Effusion (DC), Pleural Effusion (GEN) Activity/Diet/Wound Care/Special Instructions: as tolerated activity use home oxygen at all times Care Plan Goals (MU): follow up with pulmonary for pleurex insertion if your experience confusion or worsening shortness of breath , go to the nearest emergency room Discharge Disposition: HOME SELF-CARE
== END 2017-04-08 15:07 | disposition home or self-care (01) | DRG 291 ==
LOC: EC 15:52 → 6SEL 18:13
PROVIDERS: ADMIT Internal Medicine; ATTEND Internal Medicine
DX: I11.0 Hypertensive heart disease with heart failure (principal); J96.21 Acute and chronic respiratory failure with hypoxia; N17.9 Acute kidney failure, unspecified; G93.41 Metabolic encephalopathy; J96.12 Chronic respiratory failure with hypercapnia; C82.50 Diffuse follicle center lymphoma, unspecified site; I48.2 Chronic atrial fibrillation; I27.2 Other secondary pulmonary hypertension; Z99.81 Dependence on supplemental oxygen; G25.0 Essential tremor; I50.33 Acute on chronic diastolic (congestive) heart failure; E78.5 Hyperlipidemia, unspecified; Z66 Do not resuscitate; E11.9 Type 2 diabetes mellitus without complications; K21.9 Gastro-esophageal reflux disease without esophagitis; R01.1 Cardiac murmur, unspecified; R53.1 Weakness; R23.0 Cyanosis; E66.9 Obesity, unspecified; M06.9 Rheumatoid arthritis, unspecified; Z79.899 Other long term (current) drug therapy; Z79.84 Long term (current) use of oral hypoglycemic drugs; Z79.01 Long term (current) use of anticoagulants; Z87.891 Personal history of nicotine dependence; Z82.49 Family history of ischemic heart disease and other diseases of the circulatory system; Z83.3 Family history of diabetes mellitus; Z71.3 Dietary counseling and surveillance; Z78.0 Asymptomatic menopausal state; Z80.9 Family history of malignant neoplasm, unspecified; Z96.653 Presence of artificial knee joint, bilateral; Z98.51 Tubal ligation status; Z98.49 Cataract extraction status, unspecified eye; Z96.1 Presence of intraocular lens; Z98.890 Other specified postprocedural states; Z92.21 Personal history of antineoplastic chemotherapy; Z79.82 Long term (current) use of aspirin
CPT/HCPCS: 36415; 36600; 70450; 71010; 71020; 80053; 81001; 82550; 82553; 82607; 82805; 83540; 83550; 83605; 83735; 83880; 84100; 84484; 85025; 85379; 85610; 85730; 87040; 87086; 93005; 93306; 93970; 94640; 96365; 96375; 99285

== ENCOUNTER 2017-04-12 23:21 | Inpatient (IN) | payer MEDICARE, OTHER ==
[2017-04-12 23:48] LABS: Anisocytosis Slight; Basophils % (A) 0 %; CH 31.9; CHCM 32.1; Eosinophils # (A) 0.1 k/uL (0-0.7); Eosinophils % (A) 3 %; HCT 28.2 % (34.0-46.0); HDW 3.14; HGB 9.1 gm/dL (11.4-16.0); Hypochromasia Slight; Luc # (Auto) 0.14; Luc % (Auto) 3; Lymphocytes % (A) 21 %; MCH 32.4 pg (25.0-35.0); MCHC 32.3 g/dL (31.0-37.0); MCV 100.1 fL (80.0-100.0); Macrocytosis Slight; Mean Platelet Volume 7.6; Monocytes # (A) 0.4 k/uL (0-1.0); Monocytes % (A) 8 %; Neutrophils % (A) 65 %; RBC 2.81 m/uL (3.80-5.40); RDW 16.5 % (11.5-15.5); WBC 4.6 k/uL (3.8-10.6)
[2017-04-12 23:56] LABS: INR 1.3 (<1.2); Partial Thromboplastin Time 25.6 sec (22.0-30.0); Prothrombin Time 12.7 sec (9.0-12.0)
[2017-04-12 23:57] LABS: VBG PH 7.43 (7.31-7.41)
[2017-04-12 23:58] LABS: Magnesium 1.2 mg/dL (1.6-2.3); Potassium 4.4 mmol/L (3.5-5.1); Total Bilirubin 0.8 mg/dL (0.2-1.3); Total Protein 5.5 g/dL (6.3-8.2)
[2017-04-13 00:09] LABS: Creatine Kinase <20 U/L (30-135)
--- NOTE | 2017-04-13 00:14 | XR ---
INDICATION: Difficulty breathing COMPARISON: CXR 04/08/17 FINDINGS: AP and lateral views of the chest are provided. Lung volumes are reduced. Again demonstrated are moderate right and small left pleural effusions, slightly increased from prior exam. Bibasilar airspace disease may represent atelectasis or infiltrate. There is cardiomegaly. There is pulmonary vascular congestion and interstitial pulmonary edema, increased from prior. No pneumothorax. No evidence of acute osseous abnormality. IMPRESSION: 1. Cardiomegaly with worsening pulmonary congestion and edema. 2. Moderate right and small left pleural effusions, increased from prior exam. 3. Bibasilar airspace disease, atelectasis versus infiltrates.
[2017-04-13 00:22] LABS: Creatine Kinase MB 0.5 ng/mL (0.0-2.4); Troponin I <0.012 ng/mL (0.000-0.034)
[2017-04-13] MEDS ORDERED: ASPIRIN 325 MG TAB PO STA (00:24)
[2017-04-13] MEDS ORDERED: FUROSEMIDE 10 MG/ML 4 ML VIAL IV STA (00:24)
[2017-04-13] MEDS ORDERED: NITROGLYCERIN SL TABS 0.4 MG TAB SUBLINGUAL STA (00:24)
[2017-04-13] MEDS ORDERED: METOPROLOL TARTRATE 25 MG TAB PO STA (00:34)
[2017-04-13] MEDS ORDERED: NALOXONE 0.4 MG/ML 1 ML VIAL IV PRN (00:37)
[2017-04-13] MEDS ORDERED: ACETAMINOPHEN TAB 325 MG TAB PO PRN (00:37)
[2017-04-13] MEDS ORDERED: LEVOFLOXACIN 500 MG TAB PO SCH (00:45)
[2017-04-13] MEDS ORDERED: MAGNESIUM SULFATE-D5W PMX 1 GM in DEXTROSE/WATER 1 100ML.BAG IVPB ONE (00:50)
--- NOTE | 2017-04-13 00:54 | ED ---
General Adult HPI - General Chief complaint: Shortness of Breath Stated complaint: SOB Time Seen by Provider: 04/12/17 23:22 Source: patient, family, EMS, RN notes reviewed, old records reviewed Mode of arrival: EMS Limitations: no limitations - History of Present Illness Initial comments: 81-year-old female with history of congestive heart failure, A. fib, lymphoma, and recurrent pleural effusion presents with chief complaint of difficulty breathing. Patient states her breathing has been worsening over the past 3 weeks. She was recently admitted to the hospital for congestive heart failure and difficulty breathing. She was discharged home, over the next several days her breathing began to worsen again. She denies missing any medication. There is no changes in her medication. Patient has had multiple thoracentesis for pleural effusions in the past. She states she did not have any fluid drained on her previous admission. Denies cough. Denies fever or chills. Denies chest pain. - Related Data Home Medications Medication Instructions Recorded Confirmed Atorvastatin [Lipitor] 10 mg PO DAILY 01/03/17 04/06/17 Latanoprost Ophth [Xalatan 0.005%] 1 drops BOTH EYES HS 01/03/17 04/06/17 Omeprazole 20 mg PO DAILY 01/03/17 04/06/17 Propranolol HCl [Propranolol HCl 120 mg PO DAILY 01/03/17 04/06/17 ER] metFORMIN HCL [Metformin HCl] 500 mg PO BID 01/03/17 04/06/17 Aspirin EC [Ecotrin Low Dose] 81 mg PO AC-SUPPER 01/16/17 04/06/17 Calcium Carbonate/Vitamin D3 1 tab PO DAILY 01/16/17 04/06/17 [Calcium 600-Vit D3 400 Caplet] Multivitamins, Thera [Multivitamin 1 tab PO DAILY 01/16/17 04/06/17 (formulary)] Previous Rx's Medication Instructions Recorded Furosemide [Lasix] 40 mg PO BID #60 tablet 02/06/17 Apixaban [Eliquis] 5 mg PO BID #60 tab 04/08/17 Levofloxacin [Levaquin] 500 mg PO Q24H #5 tab 04/08/17 Allergies Allergy/AdvReac Type Severity Reaction Status Date / Time No Known Allergies Allergy Verified 04/12/17 23:26 Review of Systems ROS Statement: Those systems with pertinent positive or pertinent negative responses have been documented in the HPI. ROS Other: All systems not noted in ROS Statement are negative. Past Medical History Past Medical History: Atrial Fibrillation, Cancer, Heart Failure, Diabetes Mellitus, GERD/Reflux, Hyperlipidemia, Hypertension, Rheumatoid Arthritis (RA) Additional Past Medical History / Comment(s): Obesity, Non-Hodgkin's lymphoma, recurrent right-sided pleural effusion, chronic hypoxic respiratory failure, chronic atrial fibrillation, CHF with diastolic dysfunction secondary pulmonary hypertension, diabetes mellitus type 2, hypertension, hyperlipidemia, essential tremors, rheumatoid arthritis, home 02 4 liters n/c History of Any Multi-Drug Resistant Organisms: None Reported Past Surgical History: Joint Replacement, Tubal Ligation Additional Past Surgical History / Comment(s): bilateral knees, thoracentesis, Cataract Surgery-lens implants Past Anesthesia/Blood Transfusion Reactions: No Reported Reaction Past Psychological History: No Psychological Hx Reported Smoking Status: Former smoker Past Alcohol Use History: None Reported Past Drug Use History: None Reported - Past Family History Mother Family Medical History: Congestive Heart Failure (CHF), Diabetes Mellitus, Eye Disorder, Hypertension, Osteoarthritis (OA) Father Family Medical History: Cancer General Exam Limitations: no limitations General appearance: alert, in distress Head exam: Present: atraumatic, normocephalic Eye exam: Present: normal appearance, PERRL ENT exam: Present: normal exam Neck exam: Present: normal inspection, full ROM. Absent: tenderness Respiratory exam: Present: respiratory distress, rales, accessory muscle use, decreased breath sounds (Decreased breath sounds bilaterally) Cardiovascular Exam: Present: tachycardia, irregular rhythm GI/Abdominal exam: Present: soft. Absent: distended, tenderness Extremities exam: Present: pedal edema (2+ pitting edema) Psychiatric exam: Present: normal affect, normal mood Skin exam: Present: warm, dry. Absent: cyanosis, diaphoretic Course Vital Signs 04/12/17 04/12/17 23:26 23:34 Temperature 97.8 F Pulse Rate 108 H 59 L Respiratory 22 22 Rate Blood Pressure 144/105 153/87 O2 Sat by Pulse 83 L 98 Oximetry - Reevaluation(s) Reevaluation #1: 04/13/17 00:48 Patient does improve with increased supplemental oxygen, Lasix, and nitroglycerin. However, Still remains quite dyspneic. EKG Findings - EKG Comments: EKG Findings:: EKG shows atrial fibrillation with rapid ventricular response, ventricular rate 116, QRS duration 80, QTc 419, no signs of ischemia Medical Decision Making - Medical Decision Making 81-year-old female presents with worsening dyspnea. On examination patient does appear fluid overloaded, there is bilateral Rales, decreased breath sounds bilaterally, 2+ pitting edema. Patient denies any changes to her medication. She has been taking her Lasix. She denies chest pain, denies cough, denies fever or chills. Chest x-ray shows bilateral pleural effusions, worse on the right. Laboratory studies reveal hemoglobin 9.1 which is improved from recent hemoglobin of 8.6. Creatinine is 1.3 from previous baseline 1.9. Magnesium 1.2 which is replaced. Troponin is negative. EKG is nonischemic, there is atrial fibrillation with rapid ventricular response. Patient is given a dose of metoprolol in the emergency department. Case is discussed with the patient's powerhouse electrician Dr. Ferrer. She will be admitted to internal medicine Dr. Heaton. She'll be placed in the ICU for severe dyspnea, and hypoxia. Diagnosis: Congestive heart failure, bilateral pleural effusions, lymphoma, hypomagnesemia. - Lab Data Result diagrams: 04/12/17 23:40 04/12/17 23:40 Lab Results 04/12/17 04/12/17 04/12/17 Range/Units 23:40 23:40 23:40 WBC 4.6 (3.8-10.6) k/uL RBC 2.81 L (3.80-5.40) m/uL Hgb 9.1 L (11.4-16.0) gm/dL Hct 28.2 L (34.0-46.0) % MCV 100.1 H (80.0-100.0) fL MCH 32.4 (25.0-35.0) pg MCHC 32.3 (31.0-37.0) g/dL RDW 16.5 H (11.5-15.5) % Plt Count 165 (150-450) k/uL Neutrophils % 65 % Lymphocytes % 21 % Monocytes % 8 % Eosinophils % 3 % Basophils % 0 % Neutrophils # 3.0 (1.3-7.7) k/uL Lymphocytes # 1.0 (1.0-4.8) k/uL Monocytes # 0.4 (0-1.0) k/uL Eosinophils # 0.1 (0-0.7) k/uL Basophils # 0.0 (0-0.2) k/uL Hypochromasia Slight Anisocytosis Slight Macrocytosis Slight PT (9.0-12.0) sec INR (<1.2) APTT (22.0-30.0) sec VBG pH 7.43 H (7.31-7.41) VBG pCO2 76 H* (37-51) mmHg VBG HCO3 49 H (24-28) mmol/L Sodium (137-145) mmol/L Potassium (3.5-5.1) mmol/L Chloride (98-107) mmol/L Carbon Dioxide (22-30) mmol/L Anion Gap mmol/L BUN (7-17) mg/dL Creatinine (0.52-1.04) mg/dL Est GFR (MDRD) Af Amer (>60 ml/min/1.73 sqM) Est GFR (MDRD) Non-Af (>60 ml/min/1.73 sqM) Glucose (74-99) mg/dL Plasma Lactic Acid Shan (0.7-2.0) mmol/L Calcium (8.4-10.2) mg/dL Magnesium (1.6-2.3) mg/dL Total Bilirubin (0.2-1.3) mg/dL AST (14-36) U/L ALT (9-52) U/L Alkaline Phosphatase (38-126) U/L Total Creatine Kinase <20 L (30-135) U/L CK-MB (CK-2) 0.5 (0.0-2.4) ng/mL CK-MB (CK-2) Rel Index Troponin I <0.012 (0.000-0.034) ng/mL NT-Pro-B Natriuret Pep pg/mL Total Protein (6.3-8.2) g/dL Albumin (3.5-5.0) g/dL 04/12/17 04/12/17 04/12/17 Range/Units 23:40 23:40 23:40 WBC (3.8-10.6) k/uL RBC (3.80-5.40) m/uL Hgb (11.4-16.0) gm/dL Hct (34.0-46.0) % MCV (80.0-100.0) fL MCH (25.0-35.0) pg MCHC (31.0-37.0) g/dL RDW (11.5-15.5) % Plt Count (150-450) k/uL Neutrophils % % Lymphocytes % % Monocytes % % Eosinophils % % Basophils % % Neutrophils # (1.3-7.7) k/uL Lymphocytes # (1.0-4.8) k/uL Monocytes # (0-1.0) k/uL Eosinophils # (0-0.7) k/uL Basophils # (0-0.2) k/uL Hypochromasia Anisocytosis Macrocytosis PT 12.7 H (9.0-12.0) sec INR 1.3 H (<1.2) APTT 25.6 (22.0-30.0) sec VBG pH (7.31-7.41) VBG pCO2 (37-51) mmHg VBG HCO3 (24-28) mmol/L Sodium 144 (137-145) mmol/L Potassium 4.4 (3.5-5.1) mmol/L Chloride 90 L (98-107) mmol/L Carbon Dioxide 48 H* (22-30) mmol/L Anion Gap 6 mmol/L BUN 51 H (7-17) mg/dL Creatinine 1.30 H (0.52-1.04) mg/dL Est GFR (MDRD) Af Amer 48 (>60 ml/min/1.73 sqM) Est GFR (MDRD) Non-Af 40 (>60 ml/min/1.73 sqM) Glucose 189 H (74-99) mg/dL Plasma Lactic Acid Shan (0.7-2.0) mmol/L Calcium 9.0 (8.4-10.2) mg/dL Magnesium 1.2 L (1.6-2.3) mg/dL Total Bilirubin 0.8 (0.2-1.3) mg/dL AST 29 (14-36) U/L ALT 38 (9-52) U/L Alkaline Phosphatase 54 (38-126) U/L Total Creatine Kinase (30-135) U/L CK-MB (CK-2) (0.0-2.4) ng/mL CK-MB (CK-2) Rel Index Troponin I (0.000-0.034) ng/mL NT-Pro-B Natriuret Pep 4000 pg/mL Total Protein 5.5 L (6.3-8.2) g/dL Albumin 3.2 L (3.5-5.0) g/dL 04/12/17 Range/Units 23:40 WBC (3.8-10.6) k/uL RBC (3.80-5.40) m/uL Hgb (11.4-16.0) gm/dL Hct (34.0-46.0) % MCV (80.0-100.0) fL MCH (25.0-35.0) pg MCHC (31.0-37.0) g/dL RDW (11.5-15.5) % Plt Count (150-450) k/uL Neutrophils % % Lymphocytes % % Monocytes % % Eosinophils % % Basophils % % Neutrophils # (1.3-7.7) k/uL Lymphocytes # (1.0-4.8) k/uL Monocytes # (0-1.0) k/uL Eosinophils # (0-0.7) k/uL Basophils # (0-0.2) k/uL Hypochromasia Anisocytosis Macrocytosis PT (9.0-12.0) sec INR (<1.2) APTT (22.0-30.0) sec VBG pH (7.31-7.41) VBG pCO2 (37-51) mmHg VBG HCO3 (24-28) mmol/L Sodium (137-145) mmol/L Potassium (3.5-5.1) mmol/L Chloride (98-107) mmol/L Carbon Dioxide (22-30) mmol/L Anion Gap mmol/L BUN (7-17) mg/dL Creatinine (0.52-1.04) mg/dL Est GFR (MDRD) Af Amer (>60 ml/min/1.73 sqM) Est GFR (MDRD) Non-Af (>60 ml/min/1.73 sqM) Glucose (74-99) mg/dL Plasma Lactic Acid Shan 1.6 (0.7-2.0) mmol/L Calcium (8.4-10.2) mg/dL Magnesium (1.6-2.3) mg/dL Total Bilirubin (0.2-1.3) mg/dL AST (14-36) U/L ALT (9-52) U/L Alkaline Phosphatase (38-126) U/L Total Creatine Kinase (30-135) U/L CK-MB (CK-2) (0.0-2.4) ng/mL CK-MB (CK-2) Rel Index Troponin I (0.000-0.034) ng/mL NT-Pro-B Natriuret Pep pg/mL Total Protein (6.3-8.2) g/dL Albumin (3.5-5.0) g/dL Critical Care Time Critical Care Time: Yes Total Critical Care Time: 35 Disposition Clinical Impression: Congestive heart failure, Pleural effusion, Non-Hodgkin lymphoma Disposition: ADMITTED IP TO THIS [facility] Condition: Serious Referrals: Keesha Ferrer MD [Primary Care Provider] - 1-2 days Decision to Admit Reason: Admit from EC Decision Date: 04/13/17 Decision Time: 00:53
[2017-04-13] MEDS: DILTIAZEM 125 MG in SODIUM CHLORIDE 0.9% 100 ML IV ONE ×2 (01:22→23:25)
[2017-04-13] MEDS: IPRATROPIUM-ALBUTEROL 3 ML NEB INHALATION SCH ×4 (07:21→19:53)
[2017-04-13] MEDS ORDERED: PROPRANOLOL LA 60 MG CAP.SA.24H PO SCH (09:00)
[2017-04-13] MEDS: ASPIRIN 81 MG PO SCH ×2 (10:38→19:34)
[2017-04-13] MEDS: ATORVASTATIN 10 MG TAB PO SCH (10:38)
[2017-04-13] MEDS: APIXABAN 5 MG TAB PO SCH ×2 (10:38→20:30)
[2017-04-13] MEDS: metFORMIN 500 MG TAB PO SCH ×2 (10:38→20:54)
[2017-04-13] MEDS: FUROSEMIDE 10 MG/ML 4 ML VIAL IV SCH ×2 (10:39→20:37)
[2017-04-13 15:29] VITALS: BMI 37.3
--- NOTE | 2017-04-13 17:07 | XR ---
EXAMINATION TYPE: XR chest 1V portable DATE OF EXAM: 04/13/2017 COMPARISON: EXAMINATION TYPE: XR chest 1V portable DATE OF EXAM: 04/13/2017 COMPARISON: Yesterday HISTORY: Thoracentesis TECHNIQUE: Single view FINDINGS: There is some blunting of costophrenic angles. There is coarsening of the lung markings. Th ere are chest leads. IMPRESSION: Bilateral small pleural effusions. Mild pulmonary vascular congestion. There is decrease in the right pleural fluid compared to yesterday. No pneumothorax. There is probably mild heart failure.
[2017-04-13 17:23] LABS: Glucose,Whole Blood 123 mg/dL (75-99)
--- NOTE | 2017-04-13 18:38 | P.CNPUL ---
History of Present Illness Consult date: 04/13/17 Reason for consult: dyspnea, pleural effusion History of present illness: 81-year-old female patient, diabetic with known history of hypertension and hyperlipidemia and essential tremors was initially referred to me for increased shortness of breath. She was found to have a large right-sided pleural effusion. The patient had no signs of congestion heart failure. Echocardiogram showed a preserved LV function. Subsequently diagnostic and therapeutic thoracentesis of the right lung was done. The fluid was an exudate. The fluid cytology came back negative for malignancy. The pleural effusion was recurrent. The patient had to be drained on several occasions for symptomatic relief. Further workup included a CAT scan of the chest that showed evidence of extensive retrocrural adenopathy and conglomeration of lymph nodes measuring 6.4 cm inside the splitting the a wart anteriorly. The patient also knows noted to have a probable left subclavian lymph nodes. 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 The patient was referred to medical oncology and the patient was started on systemic treatment and she is currently on bendamustine/Cytoxan treatment it was started on 02/06/2017. During this time, the patient was getting also short of breath and she was noted to be hypoxic and shows placed on oxygen at 2 L/m nasal cannula. Note that this patient has received multiple thoracentesis of the lungs. I initial drain in her lungs on 01/03/2017, subsequently same procedure was done on 01/19/2017, 02/06/2017 and 03/21/2017. The last thoracentesis that was done in March raises the suspicion for chylothorax knowing that the aspirated fluid was quite milky and this is expected and anticipated and patients with lymphoma. The patient underwent the procedure the patient was discharged home. She came back to the hospital yesterday because of worsening shortness of breath and the right-sided pleural effusion was recurrent and there is a large sizable pleural effusion on the right with a smaller pleural effusion on the left. I performed a thoracentesis and total of 1.3 L of fluid was aspirated this afternoon. The pleural fluid was not looking chylous as before and this will be sent for triglyceride analysis and evaluation. The procedure was done the bedside as the patient was getting quite short of breath. She was having difficulties with minimal amount of activity. She was also having increased edema in lower extremities bilaterally. A follow-up CAT scan of the chest abdomen and pelvis will be done in regards to her non-Hodgkin's lymphoma. The echocardiogram that was done on 04/07/2017 showed moderate to severe degree of tricuspid regurgitation, severe pulmonary hypertension, right-sided failure with right ventricular pressure of around 84 mmHg, Levaquin and ejection fraction was 55-60%. The patient remains in atrial fibrillation on long-term anticoagulation, on Eliquis Review of Systems Constitutional: Reports fatigue, Reports weakness Eyes: denies blurred vision, denies bulging eye, denies decreased vision Ears: deny: decreased hearing, ear discharge, earache, tinnitus Ears, nose, mouth and throat: Denies headache, Denies sore throat Cardiovascular: Reports decreased exercise tolerance, Reports dyspnea on exertion, Reports shortness of breath, there is also increased lower oximetry edema. Respiratory: Reports dyspnea Gastrointestinal: Reports as per HPI Genitourinary: Denies dysuria, Denies hematuria Musculoskeletal: absent: ankle pain, ankle stiffness, ankle swelling Integumentary: Denies pruritus, Denies rash Neurological: Denies numbness, Denies weakness Endocrine: Denies fatigue, Denies weight change Past Medical History Past Medical History: Atrial Fibrillation, Cancer, Heart Failure, Diabetes Mellitus, Eye Disorder, GERD/Reflux, Hyperlipidemia, Hypertension, Respiratory Disorder, Rheumatoid Arthritis (RA) Additional Past Medical History / Comment(s): Pt recently admitted to [facility] on with acute metabolic encephalopathy, acute on chronic respiratory failure , bilateral pleural effusions, acute on chronic CHF. Other Hx: Non-Hodgkin's lymphoma-chemo, recurrent right-sided pleural effusion, chronic hypoxic respiratory failure, O2 at 4L/NC ATC, chronic atrial fibrillation, CHF with diastolic dysfunction secondary pulmonary hypertension, diabetes mellitus type 2 , essential tremor, bilateral glaucoma. History of Any Multi-Drug Resistant Organisms: None Reported Past Surgical History: Joint Replacement, Tubal Ligation Additional Past Surgical History / Comment(s): bilateral total knees, multiple thoracentesis, bilateral cataract surgery-lens implants Past Anesthesia/Blood Transfusion Reactions: No Reported Reaction Smoking Status: Former smoker - Past Family History Mother Family Medical History: Congestive Heart Failure (CHF), Diabetes Mellitus, Hypertension, Osteoarthritis (OA) Father Family Medical History: Cancer Additional Family Medical History / Comment(s): Unknown type of cancer-pt was very little. Medications and Allergies Home Medications Medication Instructions Recorded Confirmed Type Atorvastatin [Lipitor] 10 mg PO DAILY 01/03/17 04/13/17 History Latanoprost Ophth [Xalatan 0.005%] 1 drops BOTH EYES HS 01/03/17 04/13/17 History Omeprazole 20 mg PO DAILY 01/03/17 04/13/17 History Propranolol HCl [Propranolol HCl 120 mg PO DAILY 01/03/17 04/13/17 History ER] metFORMIN HCL [Metformin HCl] 500 mg PO BID 01/03/17 04/13/17 History Aspirin EC [Ecotrin Low Dose] 81 mg PO AC-SUPPER 01/16/17 04/13/17 History Calcium Carbonate/Vitamin D3 1 tab PO DAILY 01/16/17 04/13/17 History [Calcium 600-Vit D3 400 Caplet] Multivitamins, Thera [Multivitamin 1 tab PO DAILY 01/16/17 04/13/17 History (formulary)] Furosemide [Lasix] 40 mg PO BID #60 tablet 02/06/17 04/13/17 Rx Apixaban [Eliquis] 5 mg PO BID #60 tab 04/08/17 04/13/17 Rx Allergies Allergy/AdvReac Type Severity Reaction Status Date / Time No Known Allergies Allergy Verified 04/13/17 07:43 Physical Exam Vitals: Vital Signs Temp Pulse Pulse Pulse Resp BP BP 04/13/17 16:47 108 H 04/13/17 16:34 100 04/13/17 16:15 96.3 F L 112 H 112 H 24 125/70 04/13/17 15:12 97.7 F 92 18 146/66 04/13/17 13:00 96 18 133/63 04/13/17 12:00 92 18 133/60 04/13/17 11:33 94 04/13/17 11:00 18 04/13/17 10:00 119 H 20 129/59 04/13/17 09:00 96 19 148/93 04/13/17 08:00 100 19 134/68 04/13/17 07:35 110 H 04/13/17 07:24 96 04/13/17 03:00 107 H 18 150/63 04/13/17 02:00 107 H 18 124/93 04/13/17 01:16 123 H 20 117/59 04/13/17 01:03 117 H 18 145/82 04/12/17 23:34 59 L 22 153/87 04/12/17 23:26 97.8 F 108 H 22 144/105 Pulse Ox 04/13/17 16:47 04/13/17 16:34 04/13/17 16:15 90 L 04/13/17 15:12 94 L 04/13/17 13:00 92 L 04/13/17 12:00 97 04/13/17 11:33 04/13/17 11:00 04/13/17 10:00 98 04/13/17 09:00 93 L 04/13/17 08:00 93 L 04/13/17 07:35 04/13/17 07:24 100 04/13/17 03:00 94 L 04/13/17 02:00 98 04/13/17 01:16 99 04/13/17 01:03 93 L 04/12/17 23:34 98 04/12/17 23:26 83 L Intake and Output 04/13/17 04/13/17 04/13/17 06:59 14:59 22:59 Other: Voiding Method Indwelling Catheter Weight 92.533 kg 92.533 kg Patient Weight 04/14/17 06:59 Weight 92.533 kg Head exam was generally normal. There was no scleral icterus or corneal arcus. Mucous membranes were moist. The patient is in [id number] degree of Jodi distress and this was noted preoperatively. She did improve following the procedure.Neck was supple and with jugular venous distension, thyromegaly, or carotid bruits. Carotids were easily palpable bilaterally. There was no adenopathy. There is positive JVDs and there is no goiter or neck masses at this point. Lung sounds are diminished bilaterally with diminished breath sounds and dullness to percussion.Cardiac exam revealed the PMI to be normally situated and sized. The rhythm was regular and no extrasystoles were noted during several minutes of auscultation. The first and second heart sounds were irregular and physiologic splitting of the second heart sound was noted. There were no murmurs, rubs, clicks, or gallops. Abdomen is obese soft nontender. No direct tenderness rebound tensile guarding. Extremities show +1 edema and there is no signs of clubbing at this point. Results - Laboratory Findings CBC and BMP: 04/12/17 23:40 04/12/17 23:40 PT/INR, D-dimer PT 12.7 sec (9.0-12.0) H 04/12/17 23:40 INR 1.3 (<1.2) H 04/12/17 23:40 Abnormal lab findings: Abnormal Labs 04/12/17 04/12/17 04/12/17 23:40 23:40 23:40 RBC 2.81 L Hgb 9.1 L Hct 28.2 L MCV 100.1 H RDW 16.5 H PT INR VBG pH 7.43 H VBG pCO2 76 H* VBG HCO3 49 H Chloride Carbon Dioxide BUN Creatinine Glucose POC Glucose (mg/dL) Magnesium Total Creatine Kinase <20 L Total Protein Albumin 04/12/17 04/12/17 04/13/17 23:40 23:40 17:02 RBC Hgb Hct MCV RDW PT 12.7 H INR 1.3 H VBG pH VBG pCO2 VBG HCO3 Chloride 90 L Carbon Dioxide 48 H* BUN 51 H Creatinine 1.30 H Glucose 189 H POC Glucose (mg/dL) 123 H Magnesium 1.2 L Total Creatine Kinase Total Protein 5.5 L Albumin 3.2 L - Diagnostic Findings Chest x-ray: image reviewed Assessment and Plan Plan: Assessment 1 large recurrent bilateral pleural effusion, worse on the right with secondary hypoxic respiratory failure and increased shortness of breath. A therapeutic thoracentesis was done a total of 1.3 L of fluid was aspirated. There is a suspicion for a chylothorax based on the previous thoracentesis however the fluid that was aspirated during this current procedure was not milky and it looks more exudate in nature. In any rate, the total be sent for triglycerides evaluation in addition to LDH and protein. Clinically improved in terms of her shortness of breath, postprocedure 2 non-Hodgkin's lymphoma currently on systemic chemotherapy will need a follow- up CAT scan of the chest and abdomen. 3 chronic atrial fibrillation, currently on a Cardizem drip for rate control. Anticipate improvement in her rate with postthoracentesis relieve of dyspnea. 4 right-sided heart failure with severe pulmonary hypertension and chronic lower some edema 5 diabetes mellitus type 2 6 hypertension 7 hyperlipidemia 8 rheumatoid arthritis 9 essential tremors 10 morbid obesity 11 chronic hypercapnic respiratory failure possibly related to chronic pleural effusion and her morbid obesity with a component of a breast hypoventilation syndrome. Plan We'll send the pleural fluid for analysis. We will obtain a CAT scan of the chest and abdomen and pelvis as a follow-up for her lymphoma. I would like to have her creatinine is stabilized. I would like to do the CAT scan with contrast. Her creatinine is at 1.3. We'll repeat evaluation tomorrow we'll decide accordingly. We'll discuss with Dr. Shea from oncology. Postprocedure chest x-ray shows adequate expansion of the right lung without evidence of any pneumothorax. We'll continue to follow.
[2017-04-13] MEDS: METOPROLOL TARTRATE 50 MG TAB PO SCH (20:37)
[2017-04-13 20:46] LABS: Glucose,Whole Blood 193 mg/dL (75-99)
[2017-04-14 02:07] LABS: Glucose,Whole Blood 141 mg/dL (75-99)
[2017-04-14 05:56] LABS: Glucose,Whole Blood 120 mg/dL (75-99)
--- NOTE | 2017-04-14 08:38 | HP ---
HISTORY AND PHYSICAL PRIMARY CARE PHYSICIAN: Dr. Ferrer REASON FOR ADMISSION AND CHIEF COMPLAINT: Shortness of breath and generalized weakness. HISTORY OF PRESENTING ILLNESS: This is a 81-year-old female with history of diastolic heart failure, atrial fibrillation, lymphoma, and malignant pleural effusions who was recently discharged from the hospital. Patient was seen by another hospitalist group on the previous admission. Patient comes in the hospital with difficulty in breathing. Patient was initially seen in the emergency room. A chest x-ray was noted to have bilateral pleural effusions. The patient has had multiple thoracenteses in the past. 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 The patient was seen in the emergency room today. States that she continues to have difficulty breathing with minimal ambulation. However, the patient is not very active even at home. The patient underwent 3 cycles of chemotherapy with bendamustine and rituximab and sees Hematology Oncology group in [facility]. She is currently on 4 L supplemental oxygen, which is chronic. Denies any headache, change in vision, chest pain, abdominal pain, nausea, vomiting. The patient does complain of some swelling in her legs, however, is not significantly worse. Patient was noted to have a BNP around 4000. Initially, the patient was noted to be in atrial fibrillation with rapid ventricular rate. The patient was on Inderal 120 mg CD and states to be compliant with the medication. Patient was started on a Cardizem drip in the ER. HOME MEDICATIONS: 1. Lipitor. 2. . 3. Omeprazole. 4. Inderal. 5. Metformin. 6. Aspirin. 7. Calcium vitamin D3. 8. Multivitamin. Those were appropriately reviewed and reconciled. The patient was also on Lasix and Eliquis. ALLERGIES: No known drug allergies. PAST MEDICAL HISTORY: 1. Atrial fibrillation. 2. Lymphoma. 3. Diastolic heart failure. 4. Diabetes mellitus. 5. Dyslipidemia. 6. Hypertension. 7. Rheumatoid arthritis. SURGICAL HISTORY: 1. Thoracentesis. 2. Cataract surgeries. 3. Bilateral knee arthroplasties. SOCIAL HISTORY: Former smoker. Denies alcohol or illicit drug use. The patient is currently pretty much dependent on ADL support as well. FAMILY HISTORY: Not pertinent to current admission. Vitals include a heart rate anywhere from 59-130, blood pressure 153/87, saturating 98% on 4 L supplemental oxygen. GENERAL APPEARANCE: Alert, does not appear to be in distress. HEENT: Atraumatic, normocephalic. Pupils equal, round, reactive to light and accommodation. RESPIRATORY EXAM: Dull breath sounds at the bases. No rhonchi or wheezing. CARDIOVASCULAR EXAM: Irregular. No significant murmurs are appreciated. LOWER EXTREMITIES: 1+ pitting edema noted. NEURO: No focal deficits noted. Moves all 4 extremities. ABDOMEN: Soft, nontender. No organomegaly. LABORATORY DATA: Includes hemoglobin 9.1, hematocrit 28.2, white count 4.6, platelets 165. Sodium 144, potassium 4.4, chloride 90, bicarb 48, BUN 51, creatinine 1.3. ASSESSMENT: 1. Acute exacerbation of HFPEF. 2. Malignant bilateral pleural effusion. 3. Non-Hodgkin's lymphoma. 4. Acute on chronic hypoxemic respiratory failure. 5. Anemia of chronic disease. 6. Acute on chronic hypercapnic respiratory failure. 7. Diabetes mellitus. 8. Chronic kidney disease stage 3. PLAN: Continue diuretics. The patient does not need to be admitted to the intensive care unit. We will transfer the patient to the selective care unit The pulmonary consultation will be requested with a malignant pleural effusion. The patient has completed 3 cycles of immunotherapy: Will defer this to her oncologist on an outpatient basis. Levaquin, which was given to the patient on prior discharge will be continued. We will follow the patient. Fall precautions to be noted. MMODL / SAMN: [id number] /
[2017-04-14] MEDS: APIXABAN 5 MG TAB PO SCH ×2 (08:46→20:36)
[2017-04-14] MEDS: METOPROLOL TARTRATE 50 MG TAB PO SCH ×2 (08:46→20:37)
[2017-04-14] MEDS: LEVOFLOXACIN 250 MG TAB PO SCH (08:46)
[2017-04-14] MEDS: ATORVASTATIN 10 MG TAB PO SCH (08:46)
[2017-04-14] MEDS: metFORMIN 500 MG TAB PO SCH ×2 (08:46→20:41)
[2017-04-14] MEDS: FUROSEMIDE 10 MG/ML 4 ML VIAL IV SCH ×2 (08:47→20:37)
[2017-04-14] MEDS: IPRATROPIUM-ALBUTEROL 3 ML NEB INHALATION SCH ×4 (08:50→19:59)
--- NOTE | 2017-04-14 10:41 | OP ---
OPERATIVE REPORT THORACENTESIS Indication: Pleural effusion. A time-out was completed verifying correct patient, procedure, site, positioning , and implant (s) or special equipment if applicable. Ultrasound guidance was not used and appropriate fluid pocket was identified and marked. Patient was positioned, prepped and draped in usual sterile fashion. Lidocaine was used to anesthetize the area. A Thoracentesis catheter was introduced into the pleural space and fluid was removed. Blood loss was none. A chest x-ray was ordered to evaluate for pneumothorax. Site: Right side Total Fluid Removed: 1.3 L Color of Fluid: The pleural fluid was nonchylous. It was turbid, dark yellowish to red in color. Fluid was/was not sent for appropriate laboratory tests. Patient tolerated the procedure well and there were no complications. The fluid was nonchylous per appearance. We will check a triglyceride in the pleural fluid analysis MMODL / IJN: [id number] /
[2017-04-14 11:51] LABS: Glucose,Whole Blood 124 mg/dL (75-99)
--- NOTE | 2017-04-14 13:43 | P.PN ---
Subjective 81-year-old female patient, diabetic with known history of hypertension and hyperlipidemia and essential tremors was initially referred to me for increased shortness of breath. She was found to have a large right-sided pleural effusion. The patient had no signs of congestion heart failure. Echocardiogram showed a preserved LV function. Subsequently diagnostic and therapeutic thoracentesis of the right lung was done. The fluid was an exudate. The fluid cytology came back negative for malignancy. The pleural effusion was recurrent. The patient had to be drained on several occasions for symptomatic relief. Further workup included a CAT scan of the chest that showed evidence of extensive retrocrural adenopathy and conglomeration of lymph nodes measuring 6.4 cm inside the splitting the a wart anteriorly. The patient also knows noted to have a probable left subclavian lymph nodes. 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 The patient was referred to medical oncology and the patient was started on systemic treatment and she is currently on bendamustine/Cytoxan treatment it was started on 02/06/2017. During this time, the patient was getting also short of breath and she was noted to be hypoxic and shows placed on oxygen at 2 L/m nasal cannula. Note that this patient has received multiple thoracentesis of the lungs. I initial drain in her lungs on 01/03/2017, subsequently same procedure was done on 01/19/2017, 02/06/2017 and 03/21/2017. The last thoracentesis that was done in March raises the suspicion for chylothorax knowing that the aspirated fluid was quite milky and this is expected and anticipated and patients with lymphoma. The patient underwent the procedure the patient was discharged home. She came back to the hospital yesterday because of worsening shortness of breath and the right-sided pleural effusion was recurrent and there is a large sizable pleural effusion on the right with a smaller pleural effusion on the left. I performed a thoracentesis and total of 1.3 L of fluid was aspirated this afternoon. The pleural fluid was not looking chylous as before and this will be sent for triglyceride analysis and evaluation. The procedure was done the bedside as the patient was getting quite short of breath. She was having difficulties with minimal amount of activity. She was also having increased edema in lower extremities bilaterally. A follow-up CAT scan of the chest abdomen and pelvis will be done in regards to her non-Hodgkin's lymphoma. The echocardiogram that was done on 04/07/2017 showed moderate to severe degree of tricuspid regurgitation, severe pulmonary hypertension, right-sided failure with right ventricular pressure of around 84 mmHg, Levaquin and ejection fraction was 55-60%. The patient remains in atrial fibrillation on long-term anticoagulation, on Eliquis On 2016 the patient is being seen in follow-up. The patient is doing well. The patient has no specific complaints pH is less short of breath compared to yesterday. The large volume thoracentesis of the right lung was done yesterday and a total of 1.3 L of fluid was aspirated. Fluid triglyceride is still pending for now. The patient is still on oxygen at 5 L/m nasal cannula. The patient is being diuresis with IV Lasix. Creatinine from yesterday was at 1.3 and repeat value is pending. The patient has a right-sided heart failure with severe pulmonary hypertension preserved LV function. The patient also has chronic atrial fibrillation. The patient is anticoagulated. No other new complaints for now. I was going to obtain a CAT scan of the chest abdomen and pelvis with contrast however I'm still awaiting the blood work prior to committing to this CAT scan. Objective - Vital Signs Vital signs: Vital Signs Temp 97.0 F L 04/14/17 11:51 Pulse 100 04/14/17 12:06 Resp 18 04/14/17 11:52 BP 124/75 04/14/17 11:51 Pulse Ox 96 04/14/17 11:54 Intake & Output 04/13/17 04/14/17 04/14/17 18:59 06:59 18:59 Intake Total 210.25 Output Total 1400 Balance -1189.75 Weight 92.533 kg 99 kg 99 kg Intake: Intake, IV Titration 110.25 Amount Diltiazem 125 mg In 110.25 Sodium Chloride 0.9% 100 ml @ 5 MG/HR 5 mls/hr IV .Q24H ONE Rx#:[id number] Oral 100 Output: Urine 1400 Other: Voiding Method Indwelling Catheter Indwelling Catheter Indwelling Catheter - Exam Obese, comfortable likely distress.Head exam was generally normal. There was no scleral icterus or corneal arcus. Mucous membranes were moist.Neck was supple and with jugular venous distension, thyromegaly, or carotid bruits. Carotids were easily palpable bilaterally. There was no adenopathy. Lung sounds are diminished in lung bases bilaterally along with dullness to percussion. Heart sounds are irregular, there is accentuation of second heart sound and there is a faint systolic ejection murmur grade 2/6 heard throughout the precordium.Abdominal exam revealed normal bowel sounds. The abdomen was soft, non-tender, and without masses, organomegaly, or appreciable enlargement of the abdominal aorta. Patient is obese and orders cannot be accurately palpated. Extremities show +1 edema and there is no cyanosis or clubbing at this point. - Labs CBC & Chem 7: 04/12/17 23:40 04/12/17 23:40 Labs: Abnormal Lab Results - Last 24 Hours (Table) 04/13/17 04/13/17 04/14/17 Range/Units 17:02 20:45 02:05 POC Glucose (mg/dL) 123 H 193 H 141 H (75-99) mg/dL 04/14/17 04/14/17 Range/Units 05:55 11:49 POC Glucose (mg/dL) 120 H 124 H (75-99) mg/dL Microbiology - Last 24 Hours (Table) 04/12/17 23:40 Blood Culture - Preliminary Blood No Growth after 24 hours Assessment and Plan Plan: Assessment 1 large recurrent bilateral pleural effusion, worse on the right with secondary hypoxic respiratory failure and increased shortness of breath. A therapeutic thoracentesis was done a total of 1.3 L of fluid was aspirated. There is a suspicion for a chylothorax based on the previous thoracentesis however the fluid that was aspirated during this current procedure was not milky and it looks more exudate in nature. In any rate, the total be sent for triglycerides evaluation in addition to LDH and protein. Clinically improved in terms of her shortness of breath, postprocedure On 04/14/2017 the patient is less short of breath. The patient underwent a thoracentesis in the fluid would be analyzed for possibility of chylothorax. Meanwhile a CAT scan of the chest abdomen and pelvis will be needed to follow- up on the lymphoma. Oncology is on the case. May consider another thoracentesis on the left if the patient continues to have ongoing shortness of breath. Nevertheless the patient has history of right-sided heart failure and chronic atrial fibrillation. The patient is being diuresis IV Lasix. 2 non-Hodgkin's lymphoma currently on systemic chemotherapy will need a follow- up CAT scan of the chest and abdomen. 3 chronic atrial fibrillation, currently on a Cardizem drip for rate control. Anticipate improvement in her rate with postthoracentesis relieve of dyspnea. 4 right-sided heart failure with severe pulmonary hypertension and chronic lower some edema 5 diabetes mellitus type 2 6 hypertension 7 hyperlipidemia 8 rheumatoid arthritis 9 essential tremors 10 morbid obesity 11 chronic hypercapnic respiratory failure possibly related to chronic pleural effusion and her morbid obesity with a component of a breast hypoventilation syndrome. Plan Awaiting fluid analysis. Awaiting renal function today. We'll proceed with a CAT scan of the chest abdomen and pelvis if the renal function is stable. We will also consult oncology, Dr. Shea. We'll continue Lasix for now to keep the patient negative fluid balance. Wean down the FiO2 as tolerated to maintain a saturation above 90%.
[2017-04-14 16:37] LABS: Glucose,Whole Blood 123 mg/dL (75-99)
[2017-04-14] MEDS: ASPIRIN 81 MG PO SCH (17:24)
--- NOTE | 2017-04-14 17:41 | P.PN ---
Subjective PRIMARY CARE PHYSICIAN: Dr. Ferrer REASON FOR ADMISSION AND CHIEF COMPLAINT: Shortness of breath and generalized weakness. HISTORY OF PRESENTING ILLNESS: This is a 81-year-old female with history of diastolic heart failure, atrial fibrillation, lymphoma, and malignant pleural effusions who was recently discharged from the hospital. Patient was seen by another hospitalist group on the previous admission. Patient comes in the hospital with difficulty in breathing. Patient was initially seen in the emergency room. A chest x-ray was noted to have bilateral pleural effusions. The patient has had multiple thoracenteses in the past. 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 The patient was seen in the emergency room today. States that she continues to have difficulty breathing with minimal ambulation. However, the patient is not very active even at home. The patient underwent 3 cycles of chemotherapy with bendamustine and rituximab and sees Hematology Oncology group in [facility]. She is currently on 4 L supplemental oxygen, which is chronic. Denies any headache, change in vision, chest pain, abdominal pain, nausea, vomiting. The patient does complain of some swelling in her legs, however, is not significantly worse. Patient was noted to have a BNP around 4000. Initially, the patient was noted to be in atrial fibrillation with rapid ventricular rate. The patient was on Inderal 120 mg CD and states to be compliant with the medication. No new overnight events. Patient appears to be slightly improved status post thoracentesis Denies having any fevers chills nausea vomiting abdominal pain. Back to baseline on her oxygen requirement. GENERAL APPEARANCE: Alert, does not appear to be in distress. HEENT: Atraumatic, normocephalic. Pupils equal, round, reactive to light and accommodation. RESPIRATORY EXAM: Dull breath sounds at the bases. No rhonchi or wheezing. CARDIOVASCULAR EXAM: Irregular. No significant murmurs are appreciated. LOWER EXTREMITIES: 1+ pitting edema noted. NEURO: No focal deficits noted. Moves all 4 extremities. ABDOMEN: Soft, nontender. No organomegaly. ASSESSMENT: 1. Acute exacerbation of HFPEF. 2. Malignant bilateral pleural effusion. 3. Non-Hodgkin's lymphoma. 4. Acute on chronic hypoxemic respiratory failure. 5. Anemia of chronic disease. 6. Acute on chronic hypercapnic respiratory failure. 7. Diabetes mellitus. 8. Chronic kidney disease stage 3. PLAN: Status post thoracentesis. There is some concern for chylothorax. Await triglyceride levels Recurrent pleural effusion. Input from oncology need to consider a Pleurx catheter will be beneficial Diuretics IV Strict I's and O's Continue monitoring renal function Fall precautions. Objective - Vital Signs Vital signs: Vital Signs Temp 97.0 F L 04/14/17 11:51 Pulse 98 04/14/17 16:56 Resp 20 04/14/17 15:34 BP 110/50 04/14/17 15:34 Pulse Ox 96 04/14/17 11:54 Intake & Output 04/13/17 04/14/17 04/14/17 18:59 06:59 18:59 Intake Total 210.25 Output Total 1400 950 Balance -1189.75 -950 Weight 92.533 kg 99 kg 99 kg Intake: Intake, IV Titration 110.25 Amount Diltiazem 125 mg In 110.25 Sodium Chloride 0.9% 100 ml @ 5 MG/HR 5 mls/hr IV .Q24H ONE Rx#:[id number] Oral 100 Output: Urine 1400 950 Other: Voiding Method Indwelling Catheter Indwelling Catheter Indwelling Catheter - Labs CBC & Chem 7: 04/12/17 23:40 04/12/17 23:40 Labs: Abnormal Lab Results - Last 24 Hours (Table) 04/13/17 04/14/17 04/14/17 Range/Units 20:45 02:05 05:55 POC Glucose (mg/dL) 193 H 141 H 120 H (75-99) mg/dL 04/14/17 04/14/17 Range/Units 11:49 16:35 POC Glucose (mg/dL) 124 H 123 H (75-99) mg/dL Microbiology - Last 24 Hours (Table) 04/12/17 23:40 Blood Culture - Preliminary Blood No Growth after 24 hours
[2017-04-14 19:09] LABS: ABG HCO3 45 mmol/L (21-25); ABG PCO2 54 mmHg (35-45); ABG PH 7.53 (7.35-7.45); ABG PO2 77 mmHg (83-108); ABG TCO2 46 mmol/L (19-24)
[2017-04-14 19:10] LABS: ABG Base Excess 19.9 mmol/L
--- NOTE | 2017-04-14 19:12 | XR ---
EXAMINATION TYPE: XR chest 1V portable DATE OF EXAM: 04/14/2017 CLINICAL HISTORY: Difficulty breathing progress study. TECHNIQUE: Single AP portable upright view of the chest is obtained. COMPARISON: Chest x-ray from one day earlier FINDINGS: There is persistent mild cardiomegaly with atherosclerotic thoracic aorta. There is persis tent low lung volumes with small bilateral pleural effusions and diffuse left lung opacity bulge refl ect edema and/or less likely infiltrate. No pneumothorax is seen bilaterally. Osseous structures are intact. IMPRESSION: Overall stable findings, suspect CHF exacerbation as there is cardiomegaly with small b ilateral pleural effusions, in addition there is diffuse left lung edema and/or infiltrate all redemo nstrated.
[2017-04-14] MEDS: DILTIAZEM 125 MG in SODIUM CHLORIDE 0.9% 100 ML IV SCH (20:36)
[2017-04-14 20:39] LABS: RBC, Body Fluid 26000 /uL
[2017-04-14 20:41] LABS: Glucose,Whole Blood 146 mg/dL (75-99)
[2017-04-14] MEDS ORDERED: FUROSEMIDE 10 MG/ML 4 ML VIAL IV ONE (23:00)
[2017-04-15 02:05] LABS: Glucose,Whole Blood 160 mg/dL (75-99)
[2017-04-15 04:24] LABS: Glucose,Whole Blood 160 mg/dL (75-99)
[2017-04-15 05:05] LABS: Anisocytosis Slight; Basophils % (A) 0 %; CH 32.5; CHCM 33.3; Eosinophils # (A) 0.1 k/uL (0-0.7); Eosinophils % (A) 2 %; HCT 25.8 % (34.0-46.0); HDW 3.15; HGB 8.8 gm/dL (11.4-16.0); Luc % (Auto) 3; Lymphocytes # (A) 0.6 k/uL (1.0-4.8); Lymphocytes % (A) 16 %; MCH 33.5 pg (25.0-35.0); MCHC 34.1 g/dL (31.0-37.0); MCV 98.2 fL (80.0-100.0); Macrocytosis Slight; Mean Platelet Volume 7.3; Monocytes # (A) 0.3 k/uL (0-1.0); Monocytes % (A) 8 %; Neutrophils # (A) 2.8 k/uL (1.3-7.7); Neutrophils % (A) 71 %; RBC 2.63 m/uL (3.80-5.40); RDW 16.9 % (11.5-15.5); WBC 3.9 k/uL (3.8-10.6); WBC (Perox) 3.95
[2017-04-15 05:51] LABS: ABG HCO3 48 mmol/L (21-25); ABG PCO2 57 mmHg (35-45); ABG PH 7.53 (7.35-7.45); ABG PO2 58 mmHg (83-108); ABG TCO2 49 mmol/L (19-24)
[2017-04-15 05:52] LABS: ABG Base Excess 22.3 mmol/L
[2017-04-15 07:22] LABS: Calcium 8.6 mg/dL (8.4-10.2); Potassium 3.6 mmol/L (3.5-5.1); Total Bilirubin 0.9 mg/dL (0.2-1.3); Total Protein 4.8 g/dL (6.3-8.2)
--- NOTE | 2017-04-15 07:35 | XR ---
EXAMINATION TYPE: XR chest 1V portable DATE OF EXAM: 04/15/2017 CLINICAL HISTORY: Difficulty breathing progress study. TECHNIQUE: Single AP portable upright view of the chest is obtained. COMPARISON: Chest x-ray from one day earlier and older studies. FINDINGS: There is persistent mild cardiomegaly with atherosclerotic thoracic aorta. There is persis tent low lung volumes and diffuse worsening diffuse bilateral opacities consistent with worsening beata ma and/or less likely infiltrates and likely worsening small to moderate-sized bilateral pleural effu sions. No pneumothorax is seen bilaterally. Osseous structures are intact. IMPRESSION: Consider worsening CHF exacerbation or developing ARDS as there is cardiomegaly with low lung volumes redemonstrated but there is increasing bilateral opacities suggesting worsening bilatera l alveolar edema and progressing small to moderate-sized bilateral pleural effusions. Consider ultras ound or CT chest follow-up.
[2017-04-15] MEDS: IPRATROPIUM-ALBUTEROL 3 ML NEB INHALATION SCH ×4 (08:05→20:21)
[2017-04-15 08:31] LABS: Glucose,Whole Blood 155 mg/dL (75-99)
[2017-04-15] MEDS: ATORVASTATIN 10 MG TAB PO SCH (08:57)
[2017-04-15] MEDS: LEVOFLOXACIN 250 MG TAB PO SCH (08:57)
[2017-04-15] MEDS: metFORMIN 500 MG TAB PO SCH ×2 (08:58→22:07)
[2017-04-15] MEDS: APIXABAN 5 MG TAB PO SCH ×2 (08:58→22:07)
[2017-04-15] MEDS: METOPROLOL TARTRATE 50 MG TAB PO SCH ×2 (08:58→22:07)
--- NOTE | 2017-04-15 10:39 | P.PN ---
Subjective 81-year-old female patient, diabetic with known history of hypertension and hyperlipidemia and essential tremors was initially referred to me for increased shortness of breath. She was found to have a large right-sided pleural effusion. The patient had no signs of congestion heart failure. Echocardiogram showed a preserved LV function. Subsequently diagnostic and therapeutic thoracentesis of the right lung was done. The fluid was an exudate. The fluid cytology came back negative for malignancy. The pleural effusion was recurrent. The patient had to be drained on several occasions for symptomatic relief. Further workup included a CAT scan of the chest that showed evidence of extensive retrocrural adenopathy and conglomeration of lymph nodes measuring 6.4 cm inside the splitting the a wart anteriorly. The patient also knows noted to have a probable left subclavian lymph nodes. 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 The patient was referred to medical oncology and the patient was started on systemic treatment and she is currently on bendamustine/Cytoxan treatment it was started on 02/06/2017. During this time, the patient was getting also short of breath and she was noted to be hypoxic and shows placed on oxygen at 2 L/m nasal cannula. Note that this patient has received multiple thoracentesis of the lungs. I initial drain in her lungs on 01/03/2017, subsequently same procedure was done on 01/19/2017, 02/06/2017 and 03/21/2017. The last thoracentesis that was done in March raises the suspicion for chylothorax knowing that the aspirated fluid was quite milky and this is expected and anticipated and patients with lymphoma. The patient underwent the procedure the patient was discharged home. She came back to the hospital yesterday because of worsening shortness of breath and the right-sided pleural effusion was recurrent and there is a large sizable pleural effusion on the right with a smaller pleural effusion on the left. I performed a thoracentesis and total of 1.3 L of fluid was aspirated this afternoon. The pleural fluid was not looking chylous as before and this will be sent for triglyceride analysis and evaluation. The procedure was done the bedside as the patient was getting quite short of breath. She was having difficulties with minimal amount of activity. She was also having increased edema in lower extremities bilaterally. A follow-up CAT scan of the chest abdomen and pelvis will be done in regards to her non-Hodgkin's lymphoma. The echocardiogram that was done on 04/07/2017 showed moderate to severe degree of tricuspid regurgitation, severe pulmonary hypertension, right-sided failure with right ventricular pressure of around 84 mmHg, Levaquin and ejection fraction was 55-60%. The patient remains in atrial fibrillation on long-term anticoagulation, on Eliquis On 2016 the patient is being seen in follow-up. The patient is doing well. The patient has no specific complaints pH is less short of breath compared to yesterday. The large volume thoracentesis of the right lung was done yesterday and a total of 1.3 L of fluid was aspirated. Fluid triglyceride is still pending for now. The patient is still on oxygen at 5 L/m nasal cannula. The patient is being diuresis with IV Lasix. Creatinine from yesterday was at 1.3 and repeat value is pending. The patient has a right- sided heart failure with severe pulmonary hypertension preserved LV function. The patient also has chronic atrial fibrillation. The patient is anticoagulated. No other new complaints for now. I was going to obtain a CAT scan of the chest abdomen and pelvis with contrast however I'm still awaiting the blood work prior to committing to this CAT scan. On 04/15/2017 the patient got moved to the intensive care unit. The patient's condition decompensated overnight and she was getting progressively more short of breath, hypoxic, and confused. Based on this, I move this patient to the intensive care unit. She was placed on OptiFlow oxygen at 40 L to maintain a saturation above 90%. I reviewed the chest x-ray from this morning and there is cardiomegaly and bilateral pleural effusion right more than left. At a time of my evaluation, the patient was still confused, restless, having difficulty in breathing, asynchronous breathing and using some accessory muscles of breathing in addition. She was still in atrial fibrillation with Cardizem drip at 5 mg an hour. The blood work showed an acute on top of the chronic renal failure, prerenal azotemia with a creatinine of 1.6. She was becoming alkalotic and the blood gas showed a component of metabolic alkalosis with some chronic hypercapnic respiratory failure. The pH however was at 7.53 with a pCO2 of 57 and pO2 of 58 and this was done on high flow oxygen. Based on this, I performed an emergency bilateral thoracentesis. I a and the right lung and a total of 800 mL was aspirated from the right hemithorax. Another 400 mL of fluid was aspirated from the left lung. Following the procedure the patient became less short of breath. Note that the patient has considerably low lung volumes on both of these chest x-rays. I'll leukocytosis. Urine output is diminished. As mentioned earlier, the patient has severe pulmonary hypertension and history of right-sided heart failure. No cough. No sputum production. No focal neurological deficit this point. Objective - Vital Signs Vital signs: Vital Signs Temp 97.7 F 04/15/17 05:00 Pulse 105 H 04/15/17 08:17 Resp 36 H 04/15/17 07:00 BP 159/83 04/15/17 07:00 Pulse Ox 95 04/15/17 08:06 Intake & Output 04/14/17 04/15/17 04/15/17 18:59 06:59 18:59 Intake Total 100 55 5 Output Total 951 152 75 Balance -851 -97 -70 Weight 99 kg 94.8 kg Intake: IV 5 5 0.9NaCl 5 5 Oral 100 50 Output: Urine 950 150 75 Stool 1 2 Other: Voiding Method Indwelling Catheter Indwelling Catheter - Exam Obese, and significant degree of respiratory distress. At times morning. Confused at baseline.. There was no scleral icterus or corneal arcus. Mucous membranes were moist.Neck was supple and with jugular venous distension, thyromegaly, or carotid bruits. Carotids were easily palpable bilaterally. There was no adenopathy. Lung sounds are diminished in lung bases bilaterally along with dullness to percussion. Rest although markedly diminished in lung bases bilaterally prior to the thoracentesis. Heart sounds are irregular, there is accentuation of second heart sound and there is a faint systolic ejection murmur grade 2/6 heard throughout the precordium.Abdominal exam revealed normal bowel sounds. The abdomen was soft, non-tender, and without masses, organomegaly, or appreciable enlargement of the abdominal aorta. Patient is obese and orders cannot be accurately palpated. Extremities no edema at this point. No cyanosis or clubbing. Neurologically him a the patient is able to handle a short conversation pH she can follow some simple commands. Yet she is alert and oriented 1-2. She is moving all 4 extremities. No seizure activity has been noted. - Labs CBC & Chem 7: 04/15/17 04:56 04/15/17 06:34 Labs: Abnormal Lab Results - Last 24 Hours (Table) 04/14/17 04/14/17 04/14/17 Range/Units 11:49 16:35 19:01 RBC (3.80-5.40) m/uL Hgb (11.4-16.0) gm/dL Hct (34.0-46.0) % RDW (11.5-15.5) % Plt Count (150-450) k/uL Lymphocytes # (1.0-4.8) k/uL ABG pH 7.53 H (7.35-7.45) ABG pCO2 54 H (35-45) mmHg ABG pO2 77 L (83-108) mmHg ABG HCO3 45 H* (21-25) mmol/L ABG Total CO2 46 H (19-24) mmol/L ABG O2 Saturation (94-97) % Chloride (98-107) mmol/L Carbon Dioxide (22-30) mmol/L BUN (7-17) mg/dL Creatinine (0.52-1.04) mg/dL Glucose (74-99) mg/dL POC Glucose (mg/dL) 124 H 123 H (75-99) mg/dL Total Protein (6.3-8.2) g/dL Albumin (3.5-5.0) g/dL 04/14/17 04/15/17 04/15/17 Range/Units 20:37 02:03 04:22 RBC (3.80-5.40) m/uL Hgb (11.4-16.0) gm/dL Hct (34.0-46.0) % RDW (11.5-15.5) % Plt Count (150-450) k/uL Lymphocytes # (1.0-4.8) k/uL ABG pH (7.35-7.45) ABG pCO2 (35-45) mmHg ABG pO2 (83-108) mmHg ABG HCO3 (21-25) mmol/L ABG Total CO2 (19-24) mmol/L ABG O2 Saturation (94-97) % Chloride (98-107) mmol/L Carbon Dioxide (22-30) mmol/L BUN (7-17) mg/dL Creatinine (0.52-1.04) mg/dL Glucose (74-99) mg/dL POC Glucose (mg/dL) 146 H 160 H 160 H (75-99) mg/dL Total Protein (6.3-8.2) g/dL Albumin (3.5-5.0) g/dL 04/15/17 04/15/17 04/15/17 Range/Units 04:38 04:56 06:34 RBC 2.63 L (3.80-5.40) m/uL Hgb 8.8 L (11.4-16.0) gm/dL Hct 25.8 L (34.0-46.0) % RDW 16.9 H (11.5-15.5) % Plt Count 117 L (150-450) k/uL Lymphocytes # 0.6 L (1.0-4.8) k/uL ABG pH 7.53 H (7.35-7.45) ABG pCO2 57 H (35-45) mmHg ABG pO2 58 L (83-108) mmHg ABG HCO3 48 H* (21-25) mmol/L ABG Total CO2 49 H (19-24) mmol/L ABG O2 Saturation 91.0 L (94-97) % Chloride 90 L (98-107) mmol/L Carbon Dioxide 49 H* (22-30) mmol/L BUN 59 H (7-17) mg/dL Creatinine 1.62 H (0.52-1.04) mg/dL Glucose 152 H (74-99) mg/dL POC Glucose (mg/dL) (75-99) mg/dL Total Protein 4.8 L (6.3-8.2) g/dL Albumin 2.8 L (3.5-5.0) g/dL 04/15/17 Range/Units 08:28 RBC (3.80-5.40) m/uL Hgb (11.4-16.0) gm/dL Hct (34.0-46.0) % RDW (11.5-15.5) % Plt Count (150-450) k/uL Lymphocytes # (1.0-4.8) k/uL ABG pH (7.35-7.45) ABG pCO2 (35-45) mmHg ABG pO2 (83-108) mmHg ABG HCO3 (21-25) mmol/L ABG Total CO2 (19-24) mmol/L ABG O2 Saturation (94-97) % Chloride (98-107) mmol/L Carbon Dioxide (22-30) mmol/L BUN (7-17) mg/dL Creatinine (0.52-1.04) mg/dL Glucose (74-99) mg/dL POC Glucose (mg/dL) 155 H (75-99) mg/dL Total Protein (6.3-8.2) g/dL Albumin (3.5-5.0) g/dL Microbiology - Last 24 Hours (Table) 04/12/17 23:40 Blood Culture - Preliminary Blood No Growth after 48 hours Assessment and Plan Plan: Assessment 1 acute hypoxic respiratory failure with CHF and development of large bilateral pleural effusions, right more than left. The right-sided pleural effusion is recurrent. The patient got drained recently a total of 1.3 L of fluid was aspirated. On the this emergency setting, I performed bilateral thoracentesis. I aspirated another 800 mL from the right lung and 400 mL from the left lung. Is a concern of chylothorax. Still awaiting the fluid chemistry and triglyceride level. No postprocedure complications. The patient was getting diuretics aggressively and she developed a component of metabolic alkalosis up renal azotemia. Diuretics will be stopped. Some of the fluid will be given back and the patient will be given 500 mL of bolus of normal saline. We'll use Diamox to counteract the metabolic alkalosis. Blood gases was reviewed. The patient is currently on high flow oxygen, using OptiFlow at 40 L. Condition is critical. High chance of going into ventilator-dependent respiratory failure. 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 3 chronic atrial fibrillation, currently on a Cardizem drip for rate control. The patient remains on Cardizem drip at 5 mg an hour for rate control. 4 right-sided heart failure with severe pulmonary hypertension and chronic lower some edema improved with diuretics and the patient is currently dry without any major edema in lower extremities. 5 diabetes mellitus type 2 6 hypertension 7 hyperlipidemia 8 rheumatoid arthritis 9 essential tremors 10 morbid obesity 11 chronic hypercapnic respiratory failure possibly related to chronic pleural effusion and her morbid obesity with a component of obesity hypoventilation syndrome 12 acute kidney injury/. Still azotemia secondary to diuresis 13 metabolic alkalosis. Plan We'll resend the fluid for analysis. Keep the high flow oxygen. Wean the FiO2 down gradually to maintain a saturation above 90%. May use the BiPAP if needed. Anticipate some improvement in the breathing with the bilateral thoracentesis. Stopped IV Lasix. Give the patient 500 mL of normal saline bolus. Give the patient Diamox to 50 mg every 12 hours to counteract the metabolic alkalosis. Obtain a blood gases in the morning. Obtain a chest x- ray in the morning. Keep the patient ICU. Monitor renal function. Too unstable for a CAT scan of the chest abdomen for now. Will proceed with a CAT scan without contrast once her breathing is more stabilized. At higher chance of going into ventilator-dependent respiratory failure. Critically care evaluation. This was done in 40 minutes excluding time to do any procedures. Time with Patient: Greater than 30
--- NOTE | 2017-04-15 11:11 | XR ---
EXAMINATION TYPE: XR chest 1V portable DATE OF EXAM: 04/15/2017 CLINICAL HISTORY: Status post thoracentesis. TECHNIQUE: Single AP portable supine view of the chest is obtained. COMPARISON: Chest x-ray from earlier today FINDINGS: There is interval improvement in right lung opacity after thoracentesis. There is persiste nt diffuse left lung opacity and cardiomegaly. No sizable pneumothorax is evident after thoracentesis . Artifact from overlying material makes evaluation slightly suboptimal. Low lung volumes are redemon strated. Osseous structures are demineralized. Surgical clips left apical level are redemonstrated. IMPRESSION: No evidence of sizable pneumothorax after right-sided thoracentesis. Interval improvement in diffuse right lung opacity consistent with improved effusion.
--- NOTE | 2017-04-15 11:16 | XR ---
EXAMINATION TYPE: XR chest 1V portable DATE OF EXAM: 04/15/2017 CLINICAL HISTORY: Status post second thoracentesis. TECHNIQUE: Single AP portable supine view of the chest is obtained. COMPARISON: Chest x-ray from earlier today FINDINGS: There is redemonstration of surgical clips over left lung apex. There is persistent low amparo ng volumes and cardiomegaly. There is persistent left mid to lower lung opacity silhouetting left hem idiaphragm consistent with small left pleural effusion and associated left lung atelectasis and/or in filtrate. There is more patchy right basilar atelectasis and/or infiltrate and small right pleural ef fusion. No sizable pneumothorax is evident bilaterally after second thoracentesis. Visualized osseous structures are intact. IMPRESSION: Cardiomegaly and low lung volumes with left greater than right residual small bilateral p leural effusions and associated lower lung atelectasis and/or infiltrates. No sizable pneumothorax af ter recent thoracentesis.
[2017-04-15] MEDS ORDERED: SODIUM CHLORIDE 0.9% 500 ML IV ONE ×2 (12:13→12:14)
[2017-04-15] MEDS ORDERED: SODIUM CHLORIDE 0.9% 1,000 ML IV SCH (12:30)
[2017-04-15] MEDS ORDERED: NOREPINEPHRIN 4 MG-0.9% NS PMX 4 MG/250 ML ML IV ONE (13:15)
[2017-04-15] MEDS ORDERED: NOREPINEPHRIN 4 MG-0.9% NS PMX 4 MG/250 ML ML IV SCH (16:00)
--- NOTE | 2017-04-15 16:39 | P.PN ---
Subjective PRIMARY CARE PHYSICIAN: Dr. Ferrer HISTORY OF PRESENTING ILLNESS: This is a 81-year-old female with history of diastolic heart failure, atrial fibrillation, lymphoma, and malignant pleural effusions who was recently discharged from the hospital. Patient was seen by another hospitalist group on the previous admission. Patient comes in the hospital with difficulty in breathing. Patient was initially seen in the emergency room. A chest x-ray was noted to have bilateral pleural effusions. The patient has had multiple thoracenteses in the past. 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 The patient was seen in the emergency room today. States that she continues to have difficulty breathing with minimal ambulation. However, the patient is not very active even at home. The patient underwent 3 cycles of chemotherapy with bendamustine and rituximab and sees [facility] [place] [facility]. She is currently on 4 L supplemental oxygen, which is chronic. Denies any headache, change in vision, chest pain, abdominal pain, nausea, vomiting. The patient does complain of some swelling in her legs, however, is not significantly worse. Patient was noted to have a BNP around 4000. Initially, the patient was noted to be in atrial fibrillation with rapid ventricular rate. The patient was on Inderal 120 mg CD and states to be compliant with the medication. No new overnight events. Patient appears to be slightly improved status post thoracentesis Denies having any fevers chills nausea vomiting abdominal pain. Back to baseline on her oxygen requirement. 92,017 Patient declines significantly overnight Underwent bilateral thoracentesis Repeat analysis is pending Patient is currently hypotensive also received 1 L of crystalloids. There is currently on 50 mL of normal saline Inpatient blood pressure did not improve may need vasopressor support as well as currently on OptiFlow it to 40 L flow rate and 40% FiO2 No other overnight events are reported is also on a Cardizem drip at 5 mg/h GENERAL APPEARANCE: Alert, does not appear to be in distress. HEENT: Atraumatic, normocephalic. Pupils equal, round, reactive to light and accommodation. RESPIRATORY EXAM: Dull breath sounds at the bases. No rhonchi or wheezing. CARDIOVASCULAR EXAM: Irregular. No significant murmurs are appreciated. LOWER EXTREMITIES: 1+ pitting edema noted. NEURO: No focal deficits noted. Moves all 4 extremities. ABDOMEN: Soft, nontender. No organomegaly. ASSESSMENT: 1. Acute exacerbation of HFPEF. 2. Malignant bilateral pleural effusion. 3. Non-Hodgkin's lymphoma. 4. Acute on chronic hypoxemic respiratory failure. 5. Anemia of chronic disease. 6. Acute on chronic hypercapnic respiratory failure. 7. Diabetes mellitus. 8. Chronic kidney disease stage 3. PLAN: Continue ongoing care patient is currently on OptiFlow with the 40 L at 40% FiO2 Continues her critically ill patient is also slightly hypotensive there is some concern for patient needing to be on vasopressor support as well pulmonary recommendations are appreciated Did discuss the case with the patient's son who also stated he understands that is that she is critically ill and to keep her comfortable however I did discuss that patient did have some chemotherapy recently will need a discussion with all subspecialists prior to given up on her care This will also be communicated to the senior firmware engineer as well Objective - Vital Signs Vital signs: Vital Signs Temp 97.4 F L 04/15/17 16:00 Pulse 104 H 04/15/17 16:33 Resp 22 04/15/17 16:00 BP 82/56 04/15/17 16:00 Pulse Ox 100 04/15/17 16:33 Intake & Output 04/14/17 04/15/17 04/15/17 18:59 06:59 18:59 Intake Total 280 82 8091.563 Output Total 951 152 653 Balance -851 -97 728.563 Weight 99 kg 94.8 kg Intake: IV 5 35 0.9NaCl 5 35 Intake, IV Titration 1346.563 Amount Diltiazem 125 mg In 20 Sodium Chloride 0.9% 100 ml @ 5 MG/HR 5 mls/hr IV .Q24H RUFINO Rx#:[id number] Norepinephrin 4 mg-0.9% 26.563 Ns Pmx 4 mg In 250 ml @ Titrate IV .Q0M RUFINO Rx#: [id number] Sodium Chloride 0.9% 1, 300 000 ml @ 50 mls/hr IV . Q20H RUFINO Rx#:[id number] Sodium Chloride 0.9% 500 500 ml @ 999 mls/hr IV .Q31M ONE Rx#:[id number] Sodium Chloride 0.9% 500 500 ml @ 999 mls/hr IV .Q31M ONE Rx#:[id number] Oral 100 50 Output: Urine 950 150 650 Stool 1 2 3 Other: Voiding Method Indwelling Catheter Indwelling Catheter Indwelling Catheter - Labs CBC & Chem 7: 04/15/17 04:56 04/15/17 06:34 Labs: Abnormal Lab Results - Last 24 Hours (Table) 04/14/17 04/14/17 04/14/17 Range/Units 16:35 19:01 20:37 RBC (3.80-5.40) m/uL Hgb (11.4-16.0) gm/dL Hct (34.0-46.0) % RDW (11.5-15.5) % Plt Count (150-450) k/uL Lymphocytes # (1.0-4.8) k/uL ABG pH 7.53 H (7.35-7.45) ABG pCO2 54 H (35-45) mmHg ABG pO2 77 L (83-108) mmHg ABG HCO3 45 H* (21-25) mmol/L ABG Total CO2 46 H (19-24) mmol/L ABG O2 Saturation (94-97) % Chloride (98-107) mmol/L Carbon Dioxide (22-30) mmol/L BUN (7-17) mg/dL Creatinine (0.52-1.04) mg/dL Glucose (74-99) mg/dL POC Glucose (mg/dL) 123 H 146 H (75-99) mg/dL Total Protein (6.3-8.2) g/dL Albumin (3.5-5.0) g/dL 04/15/17 04/15/17 04/15/17 Range/Units 02:03 04:22 04:38 RBC (3.80-5.40) m/uL Hgb (11.4-16.0) gm/dL Hct (34.0-46.0) % RDW (11.5-15.5) % Plt Count (150-450) k/uL Lymphocytes # (1.0-4.8) k/uL ABG pH 7.53 H (7.35-7.45) ABG pCO2 57 H (35-45) mmHg ABG pO2 58 L (83-108) mmHg ABG HCO3 48 H* (21-25) mmol/L ABG Total CO2 49 H (19-24) mmol/L ABG O2 Saturation 91.0 L (94-97) % Chloride (98-107) mmol/L Carbon Dioxide (22-30) mmol/L BUN (7-17) mg/dL Creatinine (0.52-1.04) mg/dL Glucose (74-99) mg/dL POC Glucose (mg/dL) 160 H 160 H (75-99) mg/dL Total Protein (6.3-8.2) g/dL Albumin (3.5-5.0) g/dL 04/15/17 04/15/17 04/15/17 Range/Units 04:56 06:34 08:28 RBC 2.63 L (3.80-5.40) m/uL Hgb 8.8 L (11.4-16.0) gm/dL Hct 25.8 L (34.0-46.0) % RDW 16.9 H (11.5-15.5) % Plt Count 117 L (150-450) k/uL Lymphocytes # 0.6 L (1.0-4.8) k/uL ABG pH (7.35-7.45) ABG pCO2 (35-45) mmHg ABG pO2 (83-108) mmHg ABG HCO3 (21-25) mmol/L ABG Total CO2 (19-24) mmol/L ABG O2 Saturation (94-97) % Chloride 90 L (98-107) mmol/L Carbon Dioxide 49 H* (22-30) mmol/L BUN 59 H (7-17) mg/dL Creatinine 1.62 H (0.52-1.04) mg/dL Glucose 152 H (74-99) mg/dL POC Glucose (mg/dL) 155 H (75-99) mg/dL Total Protein 4.8 L (6.3-8.2) g/dL Albumin 2.8 L (3.5-5.0) g/dL Microbiology - Last 24 Hours (Table) 04/13/17 16:30 Gram Stain - Preliminary Pleural Fluid Body Fluid Culture - Preliminary 04/12/17 23:40 Blood Culture - Preliminary Blood No Growth after 48 hours
[2017-04-15] MEDS: ASPIRIN 81 MG PO SCH (17:46)
[2017-04-15 17:53] LABS: Glucose,Whole Blood 153 mg/dL (75-99)
[2017-04-15] MEDS: NOREPINEPHRIN 16 MG-0.9%NS PMX 16 MG/250 ML ML IV SCH (18:11)
[2017-04-15] MEDS: DILTIAZEM 125 MG in SODIUM CHLORIDE 0.9% 100 ML IV SCH (20:17)
--- NOTE | 2017-04-15 20:36 | CONS ---
CONSULTATION DATE OF CONSULTATION: April 15, 2007. REASON FOR CONSULTATION: The reason for consultation is none. CHIEF COMPLAINT: Short of breath. HISTORY OF PRESENT ILLNESS: Sheila is a very pleasant 81 years old lady who is known to our practice. She is under the care of Dr. Shea and she initially presented with progressive dyspnea of 2 months duration and then she was found to have a right-sided pleural effusion. She had initial thoracentesis in December 2016 and cytology was negative. Subsequently, she had recurrent pleural effusion and she ended up having another thoracentesis in January of 2017, and the cytology and flow cytometry were positive for involvement there was a B- cell lymphoma, consistent with follicular lymphoma. In between the 2 thoracentesis she had a biopsy of the left cervical node and which confirmed the diagnosis of grade 1 follicular lymphoma, and because of the pleural effusion and she did have a CT scan of the abdomen and pelvis, which revealed a significant retroperitoneal adenopathy measuring up to 10.5 cm in size. The patient was started on systemic chemotherapy with a combination of bendamustine and Cytoxan. She had the 1st cycle on 02/07/2017 and she had a total of 3 cycles so far. The last treatment was provided on 04/05/2017. The patient today presented to the hospital at this time with recurrent dyspnea and she has had some intermittent confusion at home. However, over the last 2 days dyspnea was so significant, even with slight exertion. In the emergency department, she was found to have bilateral pleural effusion. She ended up being admitted to the hospital. She was seen by pulmonary service and she underwent bilateral thoracentesis. She is currently in the intensive care unit, appears to be a little more comfortable, but she is still very tired and she has extreme exertional dyspnea. No fever or chills. Her confusion is better. Her and her granddaughter were at bedside, but she is better. She has had significant weakness. No fever or chills. No nausea or vomiting. No reported melena, hematochezia, hematuria, hemoptysis, hematemesis, or epistaxis. The patient was also noted to have significant right-sided heart failure and significant pulmonary hypertension. PAST MEDICAL HISTORY: Is significant for pulmonary hypertension and right-sided heart failure, diabetes, gastroesophageal reflux disease, hyperlipidemia, and essential hypertension and atrial fibrillation, and as stated above she has a recent diagnosis of follicular lymphoma with bulky intraabdominal disease and malignant pleural effusion. PAST SURGICAL HISTORY: She had thoracentesis twice in the past, cataract surgery, bilateral knee surgery. SOCIAL HISTORY: She had no history of smoking, alcohol abuse. FAMILY HISTORY: For malignancy. Her brother had multiple myeloma. REVIEW OF SYSTEMS: Significant weakness, significant exertional dyspnea, intermittent confusion at home. No fever or chills. No nausea or vomiting. No melena, hematuria, hemoptysis, hematemesis or epistaxis. MEDICATIONS: Her current medication includes: 1. Tylenol as needed. 2. Diamox 250 mg IV every 12 hours. 3. Albuterol inhaler q.i.d. 4. Eliquis 500 mg b.i.d. 5. Aspirin 81 mg daily. 6. Lipitor 10 mg daily. 7. Cardizem. She is on Cardizem drip at 5 mL/hours. 8. Levaquin 250 mg p.o. q.12 hours. 9. Glucophage 500 mg b.i.d. 10.Lopressor 50 mg b.i.d. ALLERGIES: No known drug allergies. PHYSICAL EXAMINATION: She is alert. She appears to be oriented and at this point in time, elderly lady. She does not appear to be in distress. Her vital signs temperature 97.5. Afebrile. Pulse is 110 and regular, respirations 20, blood pressure 83/64. HEENT: Normocephalic, atraumatic. No obvious icterus. NECK: Supple. Chest coarse breath sounds bilaterally. LUNGS: Decreased breath sounds both bases about one third up. Heart is regular. ABDOMEN: Soft. No tenderness. Bowel sounds present. Extremities reveal 1+ edema. Skin reveals a few bruises on upper extremities. Lymphatics: She has a palpable left supraclavicular node. LABORATORY DATA: WBC of 3.9, hemoglobin 8.8, hematocrit 25.8, platelet count 117. Sodium 145, potassium 3.7, chloride is 90, CO2 is 49, BUN is 59, creatinine 1.65. IMPRESSION: 1. Follicular lymphoma as stated above. The patient is known to have bulky retroperitoneal disease and also malignant pleural effusion. The last thoracentesis in January of 2017 was positive for a pleural involvement with disease. Her last thoracentesis in January of 2017 revealed pleural involvement with her lymphoma. 2. Recurrent profusion in part could be related to her lymphoma, but also she has significant right-sided heart failure as well. 3. Multiple other comorbidities as stated above. RECOMMENDATION: 1. The patient currently underwent bilateral thoracentesis. The cytology, fluid will be sent for cytology and flow cytometry. 2. Consider repeating her CT scan of her chest, abdomen and pelvis to assess her response to systemic chemotherapy. The patient already has received 3 cycles of bendamustine and Rituxan. 3. Monitor blood count and electrolytes very closely. 4. I did discuss her care with Dr. Ferrer and the ICU nursing staff. MMODL / IJN: [id number] /
[2017-04-16] MEDS ORDERED: HALOPERIDOL LACTATE 5 MG/ML 1 ML VIAL IVP PRN (04:45)
[2017-04-16 05:18] LABS: Anisocytosis Slight; CH 33.2; CHCM 31.8; HDW 3.12; Hypochromasia Slight; MCH 33.4 pg (25.0-35.0); MCHC 31.7 g/dL (31.0-37.0); Macrocytosis Moderate; Mean Platelet Volume 8.7; RBC 2.18 m/uL (3.80-5.40); RDW 17.6 % (11.5-15.5); WBC 6.4 k/uL (3.8-10.6)
[2017-04-16 05:27] LABS: HGB 7.3 gm/dL (11.4-16.0); Magnesium 1.3 mg/dL (1.6-2.3); Phosphorous 3.4 mg/dL (2.5-4.5); Potassium 3.3 mmol/L (3.5-5.1)
[2017-04-16 05:28] LABS: MCV 105.3 fL (80.0-100.0)
[2017-04-16] MEDS ORDERED: POTASSIUM CHLORIDE 10 MEQ in WATER FOR INJECTION 1 100ML.BAG IVPB ONE (06:48)
[2017-04-16] MEDS ORDERED: Potassium Replacement Protocol 1 EACH MISC MISCELLANE PRN (06:48)
[2017-04-16] MEDS ORDERED: Magnesium Replacement Protocol 1 EACH MISC MISCELLANE PRN (06:49)
[2017-04-16] MEDS: MAGNESIUM SULFATE-D5W PMX 1 GM in DEXTROSE/WATER 1 100ML.BAG IVPB SCH ×3 (07:18→10:39)
[2017-04-16 07:36] LABS: Glucose,Whole Blood 177 mg/dL (75-99)
[2017-04-16] MEDS: DILTIAZEM 125 MG in SODIUM CHLORIDE 0.9% 100 ML IV SCH ×4 (08:26→19:40)
--- NOTE | 2017-04-16 08:35 | P.PN ---
Subjective 81-year-old female patient, diabetic with known history of hypertension and hyperlipidemia and essential tremors was initially referred to me for increased shortness of breath. She was found to have a large right-sided pleural effusion. The patient had no signs of congestion heart failure. Echocardiogram showed a preserved LV function. Subsequently diagnostic and therapeutic thoracentesis of the right lung was done. The fluid was an exudate. The fluid cytology came back negative for malignancy. The pleural effusion was recurrent. The patient had to be drained on several occasions for symptomatic relief. Further workup included a CAT scan of the chest that showed evidence of extensive retrocrural adenopathy and conglomeration of lymph nodes measuring 6.4 cm inside the splitting the a wart anteriorly. The patient also knows noted to have a probable left subclavian lymph nodes. 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 The patient was referred to medical oncology and the patient was started on systemic treatment and she is currently on bendamustine/Cytoxan treatment it was started on 02/06/2017. During this time, the patient was getting also short of breath and she was noted to be hypoxic and shows placed on oxygen at 2 L/m nasal cannula. Note that this patient has received multiple thoracentesis of the lungs. I initial drain in her lungs on 01/03/2017, subsequently same procedure was done on 01/19/2017, 02/06/2017 and 03/21/2017. The last thoracentesis that was done in March raises the suspicion for chylothorax knowing that the aspirated fluid was quite milky and this is expected and anticipated and patients with lymphoma. The patient underwent the procedure the patient was discharged home. She came back to the hospital yesterday because of worsening shortness of breath and the right-sided pleural effusion was recurrent and there is a large sizable pleural effusion on the right with a smaller pleural effusion on the left. I performed a thoracentesis and total of 1.3 L of fluid was aspirated this afternoon. The pleural fluid was not looking chylous as before and this will be sent for triglyceride analysis and evaluation. The procedure was done the bedside as the patient was getting quite short of breath. She was having difficulties with minimal amount of activity. She was also having increased edema in lower extremities bilaterally. A follow-up CAT scan of the chest abdomen and pelvis will be done in regards to her non-Hodgkin's lymphoma. The echocardiogram that was done on 04/07/2017 showed moderate to severe degree of tricuspid regurgitation, severe pulmonary hypertension, right-sided failure with right ventricular pressure of around 84 mmHg, Levaquin and ejection fraction was 55-60%. The patient remains in atrial fibrillation on long-term anticoagulation, on Eliquis On 2016 the patient is being seen in follow-up. The patient is doing well. The patient has no specific complaints pH is less short of breath compared to yesterday. The large volume thoracentesis of the right lung was done yesterday and a total of 1.3 L of fluid was aspirated. Fluid triglyceride is still pending for now. The patient is still on oxygen at 5 L/m nasal cannula. The patient is being diuresis with IV Lasix. Creatinine from yesterday was at 1.3 and repeat value is pending. The patient has a right- sided heart failure with severe pulmonary hypertension preserved LV function. The patient also has chronic atrial fibrillation. The patient is anticoagulated. No other new complaints for now. I was going to obtain a CAT scan of the chest abdomen and pelvis with contrast however I'm still awaiting the blood work prior to committing to this CAT scan. On 04/15/2017 the patient got moved to the intensive care unit. The patient's condition decompensated overnight and she was getting progressively more short of breath, hypoxic, and confused. Based on this, I move this patient to the intensive care unit. She was placed on OptiFlow oxygen at 40 L to maintain a saturation above 90%. I reviewed the chest x-ray from this morning and there is cardiomegaly and bilateral pleural effusion right more than left. At a time of my evaluation, the patient was still confused, restless, having difficulty in breathing, asynchronous breathing and using some accessory muscles of breathing in addition. She was still in atrial fibrillation with Cardizem drip at 5 mg an hour. The blood work showed an acute on top of the chronic renal failure, prerenal azotemia with a creatinine of 1.6. She was becoming alkalotic and the blood gas showed a component of metabolic alkalosis with some chronic hypercapnic respiratory failure. The pH however was at 7.53 with a pCO2 of 57 and pO2 of 58 and this was done on high flow oxygen. Based on this, I performed an emergency bilateral thoracentesis. I a and the right lung and a total of 800 mL was aspirated from the right hemithorax. Another 400 mL of fluid was aspirated from the left lung. Following the procedure the patient became less short of breath. Note that the patient has considerably low lung volumes on both of these chest x-rays Urine output is diminished. As mentioned earlier, the patient has severe pulmonary hypertension and history of right-sided heart failure. No cough. No sputum production. No focal neurological deficit this point. On 04/16/2017 I'm seeing this patient in follow-up in the intensive care unit. Unfortunately, the patient's condition is still unstable and neurologically she is doing worse and this morning she is or confused. Overnight she was quite agitated. She was given Haldol 1 mg without improvement. Throughout the night she continued to thrush and she remains agitated. At times she yells. She is able to speak of few sentences Sometimes she answers questions however answers are inappropriate. Her neurologic exam is nonfocal. She denies having any headache. No neck stiffness. At the same time, the patient remains on high flow oxygen at 40L/m nasal cannula. Without having difficulties in obtaining pulse ox. Her blood gases yesterday showed metabolic alkalosis and based on that she was given a dose of Diamox and her bicarb level is down to 41 and awaiting follow-up blood gases from today. She underwent bilateral thoracentesis yesterday without a total of 750 mL of fluid was aspirated from the right and 400 mL was aspirated from the left. Unable to obtain CAT scan of the chest abdomen pelvis and head because of an underlying agitation. The patient remains in atrial fibrillation. Rate is still somewhat tachycardic with heart rates in the 120s to 130s on Cardizem drip at 5 mg an hour. She has dropped her blood pressure and currently she is on 20 mics of levo fed. Again the blood pressure is a reliable knowing that she is a obese female patient and the cuff itself may not be given as accurate reading. Unable to insert an outlying yesterday. No aspiration. No major edema lower extremities. Embolism to 7.3. Creatinine is up to 1.92 and diuretics have been stopped. Objective - Vital Signs Vital signs: Vital Signs Temp 98 F 04/16/17 04:00 Pulse 120 H 04/16/17 06:30 Resp 67 H 04/16/17 06:30 BP 138/104 04/16/17 06:30 Pulse Ox 97 04/16/17 06:30 Intake & Output 04/15/17 04/16/17 04/16/17 18:59 06:59 18:59 Intake Total 1652.313 658.126 50 Output Total 1978 482 30 Balance -325.687 176.126 20 Weight 95.6 kg Intake: IV 35 550 50 0.9NaCl 35 Sodium Chloride 0.9% 1, 550 50 000 ml @ 50 mls/hr IV . Q20H RUFINO Rx#:[id number] Intake, IV Titration 1617.313 108.126 Amount Diltiazem 125 mg In 124.5 Sodium Chloride 0.9% 100 ml @ 5 MG/HR 5 mls/hr IV .Q24H RUFINO Rx#:[id number] Norepinephrin 16 mg-0.9% 58.126 Ns Pmx 16 mg In 250 ml @ Titrate IV .Q0M RUFINO Rx#: [id number] Norepinephrin 4 mg-0.9% 92.813 Ns Pmx 4 mg In 250 ml @ Titrate IV .Q0M RUFINO Rx#: [id number] Sodium Chloride 0.9% 1, 400 50 000 ml @ 50 mls/hr IV . Q20H RUFINO Rx#:[id number] Sodium Chloride 0.9% 500 500 ml @ 999 mls/hr IV .Q31M ONE Rx#:[id number] Sodium Chloride 0.9% 500 500 ml @ 999 mls/hr IV .Q31M ONE Rx#:[id number] Output: Urine 825 480 30 Stool 3 2 Other 1150 Other: Voiding Method Indwelling Catheter Indwelling Catheter # Bowel Movements 1 - Exam Obese, and significant degree of respiratory distress, restless in bed, at times yells, confused.. At times morning. Confused at baseline.. There was no scleral icterus or corneal arcus. Mucous membranes were moist.Neck was supple and with jugular venous distension, thyromegaly, or carotid bruits. Carotids were easily palpable bilaterally. There was no adenopathy. Lung sounds are diminished in lung bases bilaterally along with dullness to percussion.. Heart sounds are irregular, there is accentuation of second heart sound and there is a faint systolic ejection murmur grade 2/6 heard throughout the precordium.Abdominal exam revealed normal bowel sounds. The abdomen was soft, non-tender, and without masses, organomegaly, or appreciable enlargement of the abdominal aorta. Patient is obese and orders cannot be accurately palpated. Extremities no edema at this point. No cyanosis or clubbing. Neurologically him a the patient is able to handle a short conversation and she occasionally follow simple commands. For the most part she is confused. She is delirious. Yet she is alert and oriented 1-2. She is moving all 4 extremities. No seizure activity has been noted. - Labs CBC & Chem 7: 04/16/17 05:00 04/16/17 05:00 Labs: Abnormal Lab Results - Last 24 Hours (Table) 04/15/17 04/15/17 04/16/17 Range/Units 08:28 17:51 05:00 RBC 2.18 L (3.80-5.40) m/uL Hgb 7.3 L D (11.4-16.0) gm/dL Hct 23.0 L (34.0-46.0) % MCV 105.3 H D (80.0-100.0) fL RDW 17.6 H (11.5-15.5) % Plt Count 137 L (150-450) k/uL Sodium (137-145) mmol/L Potassium (3.5-5.1) mmol/L Chloride (98-107) mmol/L Carbon Dioxide (22-30) mmol/L BUN (7-17) mg/dL Creatinine (0.52-1.04) mg/dL Glucose (74-99) mg/dL POC Glucose (mg/dL) 155 H 153 H (75-99) mg/dL Calcium (8.4-10.2) mg/dL Magnesium (1.6-2.3) mg/dL 04/16/17 04/16/17 Range/Units 05:00 07:35 RBC (3.80-5.40) m/uL Hgb (11.4-16.0) gm/dL Hct (34.0-46.0) % MCV (80.0-100.0) fL RDW (11.5-15.5) % Plt Count (150-450) k/uL Sodium 147 H (137-145) mmol/L Potassium 3.3 L (3.5-5.1) mmol/L Chloride 97 L (98-107) mmol/L Carbon Dioxide 41 H* (22-30) mmol/L BUN 55 H (7-17) mg/dL Creatinine 1.92 H (0.52-1.04) mg/dL Glucose 174 H (74-99) mg/dL POC Glucose (mg/dL) 177 H (75-99) mg/dL Calcium 8.0 L (8.4-10.2) mg/dL Magnesium 1.3 L (1.6-2.3) mg/dL Microbiology - Last 24 Hours (Table) 04/12/17 23:40 Blood Culture - Preliminary Blood No Growth after 72 hours 04/13/17 16:30 Gram Stain - Preliminary Pleural Fluid Body Fluid Culture - Preliminary Assessment and Plan Plan: Assessment 1 acute hypoxic respiratory failure with CHF and development of large bilateral pleural effusions, right more than left. The right-sided pleural effusion is recurrent. The patient got drained recently a total of 1.3 L of fluid was aspirated. On the this emergency setting, I performed bilateral thoracentesis. I aspirated another 800 mL from the right lung and 400 mL from the left lung. There Is a concern of chylothorax. Still awaiting the fluid chemistry and triglyceride level. No postprocedure complications. The patient was getting diuretics aggressively and she developed a component of metabolic alkalosis up renal azotemia. Diuretics will be stopped. The patient remains on high flow oxygen at 40 L. Diamox was given to counteract and metabolic alkalosis. A follow-up blood gases pending for now. Chest x-ray postthoracentesis shows improvement in the volume status. There is still atelectatic changes and small residual effusion the lung bases bilaterally. 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 3 chronic atrial fibrillation, still on Cardizem drip for rate control. 4 right -sided heart failure with severe pulmonary hypertension and chronic lower some edema improved with diuretics and the patient is currently dry without any major edema in lower extremities. 5 diabetes mellitus type 2 6 hypotension, multifactorial currently on Cardizem drip in addition to norepinephrine drip for blood pressure control. She got probably over diuresis and she has developed a metabolic alkalosis. She is currently being given fluids and ulcerations fluids to half-normal saline at the rate of 100 mL an hour. 7 hyperlipidemia 8 rheumatoid arthritis 9 essential tremors 10 morbid obesity 11 chronic hypercapnic respiratory failure possibly related to chronic pleural effusion and her morbid obesity with a component of obesity hypoventilation syndrome 12 acute kidney injury suspect prerenal azotemia secondary to diuresis. The patient has developed some mild hyperchloremic hypernatremia and the creatinine is up to 1.9 with a BUN of 52. The patient will be given half-normal saline at the rate of 100 mL an hour. 13 metabolic alkalosis, given Diamox would drop in her bicarb level down to 41. Awaiting follow-up blood gases. 14 altered mental status. Rule out metabolic encephalopathy. Rule out delirium. Other [employer] causes of change in mental status cannot be ruled out including CVA, and even possibility of a [employer] lymphoma. Plan It's a prior to to control this patient's agitation first. I'm going to give her Ativan 1 mg every 2-3 hours in addition to Haldol 1 mg every 2-3 hours to control her agitation and restlessness. If able to do so, we'll proceed with a CAT scan of the head chest abdomen and pelvis. I will put her on IV fluids with half-normal saline at the rate of 100 mL an hour. Stop Lasix. Monitor renal function. Monitor sodium level. The follow-up blood gases is pending and based on the results we'll decide if she will be requiring more Diamox. Lasix is currently on hold. Meanwhile, the pleural fluid was sent for analysis. We'll send pleural fluid for flow cytometry and triglyceride levels to rule out chylothorax and even possibility of a lymphoma related effusion. Attempt to insert a Artline catheter. Increase the Cardizem drip up to 10 mg an hour. Wean off the Levophed as tolerated. Condition is critical. CODE STATUS is been changed to DNR/DNI. We'll continue to follow. This is a critically care evaluation that was done and 35 minutes. Time with Patient: Greater than 30
[2017-04-16] MEDS: LORazepam 2 MG/ML SYRINGE IV PRN ×3 (08:36→20:54)
[2017-04-16] MEDS: HALOPERIDOL LACTATE 5 MG/ML 1 ML VIAL IVP PRN ×3 (08:36→20:53)
--- NOTE | 2017-04-16 08:42 | XR ---
EXAMINATION TYPE: XR chest 1V DATE OF EXAM: 04/16/2017 CLINICAL HISTORY: Difficulty breathing progress study. TECHNIQUE: Single AP portable upright view of the chest is obtained. COMPARISON: Chest x-ray from one day earlier FINDINGS: There is redemonstration of surgical clips overlying left lung apex. There is persistent l ow lung volumes and cardiomegaly. There is persistent left sided lung opacity silhouetting left hemid iaphragm and heart border consistent with small left pleural effusion and associated left lung edema and/or infiltrate. There is more patchy right basilar atelectasis and/or infiltrate and small right p leural effusion redemonstrated. No sizable pneumothorax is evident bilaterally after second thoracent esis. Visualized osseous structures are intact. IMPRESSION: Overall stable findings, low lung volumes and cardiomegaly with small bilateral pleural effusions and associated bibasilar atelectasis and/or infiltrate as well as more prominent diffuse l eft lung edema and/or infiltrate all redemonstrated.
[2017-04-16 09:10] LABS: ABG Base Excess 12.9 mmol/L; ABG HCO3 38 mmol/L (21-25); ABG Oxygen Saturation 93.5 % (94-97); ABG PCO2 56 mmHg (35-45); ABG PH 7.45 (7.35-7.45); ABG PO2 68 mmHg (83-108); ABG TCO2 39 mmol/L (19-24)
[2017-04-16] MEDS: IPRATROPIUM-ALBUTEROL 3 ML NEB INHALATION SCH ×4 (09:11→19:54)
--- NOTE | 2017-04-16 10:37 | PCN ---
PROCEDURE NOTE PROCEDURE: Thoracentesis. A time-out was completed verifying correct patient, procedure, site, positioning , and implant (s) or special equipment if applicable. Ultrasound guidance was not used and appropriate fluid pocket was identified and marked. Patient was positioned, prepped and draped in usual sterile fashion. Lidocaine was used to anesthetize the area. A Thoracentesis catheter was introduced into the pleural space and fluid was removed. Blood loss was none. A chest x-ray was ordered to evaluate for pneumothorax. Total Fluid Removed: 800 mL Color of Fluid: Turbid, dark, red to yellowish in color. Patient tolerated the procedure well and there were no complications. MMODL / IJN: [id number] /
--- NOTE | 2017-04-16 10:39 | CT ---
EXAMINATION TYPE: CT brain wo con DATE OF EXAM: 04/16/2017 HISTORY: altered mental status CT DLP: 1060.1 mGycm. Automated Exposure Control for Dose Reduction was Utilized. TECHNIQUE: CT scan of the head is performed without contrast. COMPARISON: CT brain from April 07, 2017. FINDINGS: There is no acute intracranial hemorrhage or midline shift identified. There is diffuse v entricular and sulcal prominence consistent with diffuse age-related cerebral atrophy. There is low- attenuation in the periventricular white matter consistent with chronic small vessel ischemic change. There is oval mucous retention cyst or polyp in the right ethmoid sinus on axial image 17 redemonst rated. The globes are intact and the visualized sinuses are otherwise clear. Increased opacificatio n right mastoid air cells is more prominent versus prior. There is soft tissue density now seen surro unding the middle ear ossicles. IMPRESSION: 1. No acute intracranial hemorrhage or midline shift. There is mild to moderate diffuse age-related cerebral atrophy and moderate chronic small vessel ischemic change redemonstrated without significant change from prior study seen. 2. Probable right-sided mastoiditis with middle ear infection spread, clinical correlation advised.
--- NOTE | 2017-04-16 10:40 | PCN ---
PROCEDURE NOTE PROCEDURE: Thoracentesis This was done on the left side. A time-out was completed verifying correct patient, procedure, site, positioning , and implant (s) or special equipment if applicable. Ultrasound guidance was not used and appropriate fluid pocket was identified and marked. Patient was positioned, prepped and draped in usual sterile fashion. Lidocaine was used to anesthetize the area. A Thoracentesis catheter was introduced into the pleural space and fluid was removed. Blood loss was none. A chest x-ray was ordered to evaluate for pneumothorax. Total Fluid Removed: 400 mL Color of Fluid: Dark turbid, red to yellowish pleural effusion. Fluid was/was not sent for appropriate laboratory tests. Patient tolerated the procedure well and there were no complications. MMODL / IJN: [id number] /
--- NOTE | 2017-04-16 10:51 | CT ---
EXAMINATION TYPE: CT ChestAbdPelvis wo con DATE OF EXAM: 04/16/2017 COMPARISON: CT abdomen and pelvis January 29, 2017. CT chest January 11, 2017 HISTORY: lymphoma per order. CT DLP: 1228.8 mGycm. Automated Exposure Control for Dose Reduction was Utilized. TECHNIQUE: CT scan of the thorax, abdomen and pelvis is performed without oral or IV contrast. FINDINGS: Within the limitations of a noncontrast study, the following observations are made LUNGS: There is persistent moderate right-sided pleural effusion and small left-sided pleural effusio n, effusions or diminished in size from prior studies. There is associated compressive atelectasis in both lung bases. There is additional areas of groundglass opacity throughout the right lung with mor e prominent areas of groundglass opacity and jose consolidation scattered throughout the left lung. No pneumothorax is seen bilaterally MEDIASTINUM: There are no greater than 1 cm hilar or mediastinal lymph nodes. No pericardial effusi on is seen. Heterogeneous enlarged left thyroid lobe is redemonstrated. There is persistent mild car diomegaly. There is mild/moderate calcified plaque of the aortic arch and descending aorta. OTHER: No additional significant abnormality is seen. LIVER/GB: Gallbladder remains hyperdense suggestive of vicarious excretion of contrast versus sludge filled gallbladder. There is stable 1.5 cm rim calcified gallstone in the gallbladder neck on axial i mage 53. PANCREAS: No significant abnormality is seen. SPLEEN: No significant abnormality is seen. ADRENALS: No significant abnormality is seen. KIDNEYS: Mild cortical thinning in both kidneys is redemonstrated. Quiñones catheter is seen within deco mpressed bladder. BOWEL: Sigmoid colonic diverticulosis is redemonstrated. GENITAL ORGANS: No gross abnormality seen. LYMPH NODES: Confluent soft tissue adenopathy at level of kidneys encasing aorta is redemonstrated fe lt less prominent in size versus prior study measuring 7.5 cm transversely on image 59 versus 10.6 cm transversely on prior study image 55 series 3. Superior to this retrocrural adenopathy measures roug hly 5.0 cm on axial image 47 transversely versus 6.1 cm on prior study image 41. OSSEOUS STRUCTURES: Osseous structures are demineralized. There is prominent multilevel spurring in t he thoracic spine. There is multilevel vacuum disc phenomenon in the lumbar spine. There is multileve l facet arthropathy in the lower lumbar spine. There is moderate joint space loss and spurring in bot h hips. OTHER: There is ventral wall hernia and the lower abdomen on axial image 82 redemonstrated containing fat and small mesenteric vessels. There is moderate to severe calcified plaque in the abdominal aorta extending into common iliac branc h vessels. There is new right common femoral central venous catheter IMPRESSION: 1. Redemonstration of confluent retroperitoneal soft tissue or adenopathy in the upper to mid abdomen encasing aorta that appears diminished in size from prior study suggesting positive treatment respon se if the patient is actively undergoing treatment. No additional areas of abnormal adenopathy identi fied. No hepatosplenomegaly is seen. 2. Fairly moderate size right and small left pleural effusion redemonstrated diminished in size from prior exam. 3. New bilateral multifocal left greater than right infiltrates and/or edema are present.
[2017-04-16] MEDS: METOPROLOL TARTRATE 50 MG TAB PO SCH ×2 (11:10→20:00)
[2017-04-16] MEDS: APIXABAN 5 MG TAB PO SCH ×2 (11:10→20:00)
[2017-04-16] MEDS: ATORVASTATIN 10 MG TAB PO SCH (11:10)
[2017-04-16] MEDS: metFORMIN 500 MG TAB PO SCH (11:10)
[2017-04-16] MEDS: LEVOFLOXACIN 250 MG TAB PO SCH (11:10)
[2017-04-16] MEDS: SODIUM CHLORIDE 0.45% 1,000 ML IV SCH ×2 (11:13→18:23)
[2017-04-16] MEDS: FUROSEMIDE 10 MG/ML 4 ML VIAL IV SCH (11:14)
[2017-04-16 12:14] LABS: Glucose,Whole Blood 212 mg/dL (75-99)
[2017-04-16] MEDS: INSULIN LISPRO (humaLOG) 300 UNIT/3 ML VIAL SQ SCH ×2 (12:31→18:22)
[2017-04-16] MEDS ORDERED: INSULIN GLARGINE 100 UNIT/ML 10 ML VIAL SQ SCH (12:45)
--- NOTE | 2017-04-16 13:01 | PCN ---
PROCEDURE NOTE PROCEDURE: Insertion of triple-lumen catheter. PREOPERATIVE DIAGNOSES: Hypotension. POSTOPERATIVE DIAGNOSIS: Hypotension. INDICATION: Hemodynamic monitoring/Intravenous access. A time-out was completed verifying correct patient, procedure, site, positioning, and implant(s) or special equipment if applicable. The patient was placed in a dependent position appropriate for triple lumen catheter placement based on the vein to be cannulated. The patient's right groin was prepped and draped in sterile fashion. 1% Lidocaine was used to anesthetize the surrounding skin area. A triple lumen 9F Cordis catheter was introduced into the subclavian or internal jugular or common femoral vein using Seldinger technique. The catheter was threaded smoothly over the guide wire and appropriate blood return was obtained. Each lumen of the catheter was evacuated of air and flushed with sterile saline. The catheter was then sutured in place to the skin and a sterile dressing applied. Perfusion to the extremity distal to the point of catheter insertion was checked and found to be adequate. No bedside complication or bleeding. MMODL / IJN: [id number] /
[2017-04-16] MEDS ORDERED: POTASSIUM CHLORIDE 10 MEQ in WATER FOR INJECTION 1 100ML.BAG IVPB STA (13:20)
--- NOTE | 2017-04-16 16:18 | P.PN ---
Subjective PRIMARY CARE PHYSICIAN: Dr. Ferrer HISTORY OF PRESENTING ILLNESS: This is a 81-year-old female with history of diastolic heart failure, atrial fibrillation, lymphoma, and malignant pleural effusions who was recently discharged from the hospital. Patient was seen by another hospitalist group on the previous admission. Patient comes in the hospital with difficulty in breathing. Patient was initially seen in the emergency room. A chest x-ray was noted to have bilateral pleural effusions. The patient has had multiple thoracenteses in the past. 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 The patient was seen in the emergency room today. States that she continues to have difficulty breathing with minimal ambulation. However, the patient is not very active even at home. The patient underwent 3 cycles of chemotherapy with bendamustine and rituximab and sees Hematology Oncology group in [facility] [address]. She is currently on 4 L supplemental oxygen, which is chronic. Denies any headache, change in vision, chest pain, abdominal pain, nausea, vomiting. The patient does complain of some swelling in her legs, however, is not significantly worse. Patient was noted to have a BNP around 4000. Initially, the patient was noted to be in atrial fibrillation with rapid ventricular rate. The patient was on Inderal 120 mg CD and states to be compliant with the medication. No new overnight events. Patient appears to be slightly improved status post thoracentesis Denies having any fevers chills nausea vomiting abdominal pain. Back to baseline on her oxygen requirement. 92,017 Patient declines significantly overnight Underwent bilateral thoracentesis Repeat analysis is pending Patient is currently hypotensive also received 1 L of crystalloids. There is currently on 50 mL of normal saline Inpatient blood pressure did not improve may need vasopressor support as well as currently on OptiFlow it to 40 L flow rate and 40% FiO2 No other overnight events are reported is also on a Cardizem drip at 5 mg/h 04/16/17 was given anti psychotics this am, due to agitation. At this time patient is on a significant amount of vasopressor support. During the time my evaluation patient is slightly drowsy no abnormal rhythms were reported Continues to be on OptiFlow Cardizem is increased to 15 mg/h GENERAL APPEARANCE: Alert, does not appear to be in distress. HEENT: Atraumatic, normocephalic. Pupils equal, round, reactive to light and accommodation. RESPIRATORY EXAM: Dull breath sounds at the bases. No rhonchi or wheezing. CARDIOVASCULAR EXAM: Irregular. No significant murmurs are appreciated. LOWER EXTREMITIES: 1+ pitting edema noted. NEURO: No focal deficits noted. Moves all 4 extremities. ABDOMEN: Soft, nontender. No organomegaly. ASSESSMENT: 1. Acute exacerbation of HFPEF. 2. Malignant bilateral pleural effusion. 3. Non-Hodgkin's lymphoma. 4. Acute on chronic hypoxemic respiratory failure. 5. Anemia of chronic disease. 6. Acute on chronic hypercapnic respiratory failure. 7. Diabetes mellitus. 8. Chronic kidney disease stage 3. #9. Septic shock 10.Acute toxic encephalopathy PLAN: Patient's worsening of the apparently has stated that he would like her to be comfortable. Did discuss with the RN regards to given the patient another 24 hours with new findings of the computed tomography scan of the chest this morning if patient continues to worsen and requires increasing amounts of vasopressor support ensure for comfort measures at that time would likely be appropriate patient has had poor prognosis to start with them poor functional status Did discuss the case with the patient's son who also stated he understands that is that she is critically ill and to keep her comfortable however I did discuss that patient did have some chemotherapy recently will need a discussion with all subspecialists prior to given up on her care Objective - Vital Signs Vital signs: Vital Signs Temp 98.4 F 04/16/17 12:00 Pulse 82 04/16/17 16:06 Resp 24 04/16/17 14:00 BP 96/51 04/16/17 14:00 Pulse Ox 95 04/16/17 15:51 Intake & Output 04/15/17 04/16/17 04/16/17 18:59 06:59 18:59 Intake Total 1652.313 654.927 5690.072 Output Total 1978 482 260 Balance -325.687 889.884 4597.072 Weight 95.6 kg Intake: IV 35 550 100 0.9NaCl 35 Sodium Chloride 0.9% 1, 550 100 000 ml @ 50 mls/hr IV . Q20H [facility] Rx#:[id number] Intake, IV Titration 1617.313 552.605 1901.072 Amount Diltiazem 125 mg In 124.5 27.833 Sodium Chloride 0.9% 100 ml @ 10 MG/HR 10 mls/hr IV .[id number] [facility] Rx#: [id number] Magnesium Sulfate-D5w Pmx 300 1 gm In Dextrose/Water 1 100ml.bag @ 100 mls/hr IVPB Q1H [facility] Rx#: [id number] Norepinephrin 16 mg-0.9% 58.126 175.239 Ns Pmx 16 mg In 250 ml @ Titrate IV .Q0M [facility] Rx#: [id number] Norepinephrin 4 mg-0.9% 92.813 Ns Pmx 4 mg In 250 ml @ Titrate IV .Q0M [facility] Rx#: [id number] Potassium Chloride 10 meq 100 In Water For Injection 1 100ml.bag @ 100 mls/hr IVPB ONCE ONE Rx#: [id number] Potassium Chloride 10 meq 100 In Water For Injection 1 100ml.bag @ 100 mls/hr IVPB ONCE STA Rx#: [id number] Sodium Chloride 0.45% 1, 600 000 ml @ 100 mls/hr IV . Q10H [facility] Rx#:[id number] Sodium Chloride 0.9% 1, 400 50 000 ml @ 50 mls/hr IV . Q20H [facility] Rx#:[id number] Sodium Chloride 0.9% 500 500 ml @ 999 mls/hr IV .Q31M ONE Rx#:[id number] Sodium Chloride 0.9% 500 500 ml @ 999 mls/hr IV .Q31M ONE Rx#:[id number] Output: Urine 825 480 260 Stool 3 2 Other 1150 Other: Voiding Method Indwelling Catheter Indwelling Catheter Indwelling Catheter # Bowel Movements 1 ABP, PAP, CO, CI - Last Documented Arterial Blood Pressure 94/49 - Labs CBC & Chem 7: 04/16/17 05:00 04/16/17 12:50 Labs: Abnormal Lab Results - Last 24 Hours (Table) 04/15/17 04/16/17 04/16/17 Range/Units 17:51 05:00 05:00 RBC 2.18 L (3.80-5.40) m/uL Hgb 7.3 L D (11.4-16.0) gm/dL Hct 23.0 L (34.0-46.0) % MCV 105.3 H D (80.0-100.0) fL RDW 17.6 H (11.5-15.5) % Plt Count 137 L (150-450) k/uL ABG pCO2 (35-45) mmHg ABG pO2 (83-108) mmHg ABG HCO3 (21-25) mmol/L ABG Total CO2 (19-24) mmol/L ABG O2 Saturation (94-97) % Sodium 147 H (137-145) mmol/L Potassium 3.3 L (3.5-5.1) mmol/L Chloride 97 L (98-107) mmol/L Carbon Dioxide 41 H* (22-30) mmol/L BUN 55 H (7-17) mg/dL Creatinine 1.92 H (0.52-1.04) mg/dL Glucose 174 H (74-99) mg/dL POC Glucose (mg/dL) 153 H (75-99) mg/dL Calcium 8.0 L (8.4-10.2) mg/dL Magnesium 1.3 L (1.6-2.3) mg/dL 04/16/17 04/16/17 04/16/17 Range/Units 07:35 09:05 12:12 RBC (3.80-5.40) m/uL Hgb (11.4-16.0) gm/dL Hct (34.0-46.0) % MCV (80.0-100.0) fL RDW (11.5-15.5) % Plt Count (150-450) k/uL ABG pCO2 56 H (35-45) mmHg ABG pO2 68 L (83-108) mmHg ABG HCO3 38 H (21-25) mmol/L ABG Total CO2 39 H (19-24) mmol/L ABG O2 Saturation 93.5 L (94-97) % Sodium (137-145) mmol/L Potassium (3.5-5.1) mmol/L Chloride (98-107) mmol/L Carbon Dioxide (22-30) mmol/L BUN (7-17) mg/dL Creatinine (0.52-1.04) mg/dL Glucose (74-99) mg/dL POC Glucose (mg/dL) 177 H 212 H (75-99) mg/dL Calcium (8.4-10.2) mg/dL Magnesium (1.6-2.3) mg/dL 04/16/17 Range/Units 12:50 RBC (3.80-5.40) m/uL Hgb (11.4-16.0) gm/dL Hct (34.0-46.0) % MCV (80.0-100.0) fL RDW (11.5-15.5) % Plt Count (150-450) k/uL ABG pCO2 (35-45) mmHg ABG pO2 (83-108) mmHg ABG HCO3 (21-25) mmol/L ABG Total CO2 (19-24) mmol/L ABG O2 Saturation (94-97) % Sodium (137-145) mmol/L Potassium 3.2 L (3.5-5.1) mmol/L Chloride (98-107) mmol/L Carbon Dioxide (22-30) mmol/L BUN (7-17) mg/dL Creatinine (0.52-1.04) mg/dL Glucose (74-99) mg/dL POC Glucose (mg/dL) (75-99) mg/dL Calcium (8.4-10.2) mg/dL Magnesium (1.6-2.3) mg/dL Microbiology - Last 24 Hours (Table) 04/13/17 16:30 Gram Stain - Preliminary Pleural Fluid Body Fluid Culture - Preliminary 04/12/17 23:40 Blood Culture - Preliminary Blood No Growth after 72 hours
[2017-04-16 17:49] LABS: Hemoglobin A1C 6.3 % (4.2-6.1)
[2017-04-16 17:51] LABS: Glucose,Whole Blood 89 mg/dL (75-99)
[2017-04-16] MEDS: ASPIRIN 81 MG PO SCH (18:22)
[2017-04-16] MEDS: NOREPINEPHRIN 16 MG-0.9%NS PMX 16 MG/250 ML ML IV SCH (19:40)
[2017-04-16] MEDS ORDERED: POTASSIUM CHLORIDE ORAL LIQUID 40 MEQ/30 ML CUP NG-TUBE ONE (20:00)
[2017-04-16 20:21] VITALS: TEMP 98
--- NOTE | 2017-04-16 20:22 | PN ---
PROGRESS NOTE DATE OF SERVICE: April 16, 2017. CHIEF COMPLAINT: Tired. INTERVAL HISTORY: Sheila seen today as a followup. She remains in the Intensive care unit. She is tired. She was just given sedated some sedation earlier today. She did undergo a CT scan of the chest, abdomen and pelvis which revealed improvement in her bulky intraabdominal lymphadenopathy but also revealed evidence of left lower lobe pneumonia. MEDICATIONS: Her medications are reviewed in the electronic record. PHYSICAL EXAMINATION: She is lethargic at this time. She does not appear to be in distress. Her vital signs are temperature is 98.4, pulse is 81 regular, respirations 24, blood pressure is 96/51, pulse ox is 94% on high-flow cannula. HEENT: Normocephalic, atraumatic. NECK: Supple. Chest equal expansion bilaterally. Lungs revealed decreased breath sounds at both bases. Heart is regular rate and rhythm. ABDOMEN: Soft. No tenderness. Extremities reveal trace edema. LABORATORY DATA: WBC of 6.4, hemoglobin 7.3, hematocrit is 25.0, platelets 136. IMPRESSION: 1. Follicular lymphoma with bilateral bulky abdominal adenopathies and malignant right pleural effusion. The patient has received 3 cycles of bendamustine and Rituxan and recent CT scan, she just had yesterday revealed some improvement her disease. 2. Bilateral pleural effusion in part related to her lymphoma. She had recurrent fluid restrict which required bilateral thoracenteses in this admission. 3. Left lower lobe pneumonia. 4. Anemia, in part related to chemotherapy and in part related to anemia of chronic disease. RECOMMENDATION: 1. Continue current treatment per ICU team. 2. She is already on IV antibiotics. 3. Awaiting repeat cytology and flow cytometry on the recent thoracentesis. 4. Monitor CBC and supportive transfusion as needed. 5. The above was discussed with her at bedside. Thank you very much. MMODL / IJN: [id number] /
[2017-04-16 20:39] LABS: Glucose,Whole Blood 89 mg/dL (75-99)
[2017-04-16] MEDS ORDERED: MORPHINE SULFATE 2 MG/ML SYRINGE IV PRN (22:23)
[2017-04-16] MEDS ORDERED: ONDANSETRON 4 MG/2 ML VIAL IVP PRN (22:23)
[2017-04-16] MEDS ORDERED: ATROPINE OPHTH SOLN 1% 5ML BTL SUBLINGUAL PRN (22:23)
[2017-04-16] MEDS ORDERED: SCOPOLAMINE 1.5MG/72HR PATCH TRANSDERM PRN (22:23)
[2017-04-16] MEDS ORDERED: MORPHINE SULFATE (100 MG/2 ML) 100 MG in SODIUM CHLORIDE 0.9% 100 ML IV SCH (22:30)
[2017-04-16 23:37] VITALS: BP 102/49; PULSE 90; RESP 27
[2017-04-17] MEDS ORDERED: INSULIN LISPRO (humaLOG) 300 UNIT/3 ML VIAL SQ SCH
[2017-04-17] MEDS: LORazepam 2 MG/ML SYRINGE IV PRN (00:39)
--- NOTE | 2017-04-17 08:05 | OP ---
OPERATIVE REPORT ARTERIAL LINE PLACEMENT: INDICATION: Hemodynamic monitoring. A time-out was completed verifying correct patient, procedure, site, positioning, and implant(s) or special equipment if applicable. Fawad test was performed to ensure adequate perfusion. The patient right wrist was prepped and draped in sterile fashion. 1% Lidocaine was used to anesthetize the area. An 18G Arrow arterial line was introduced into the radial artery. The catheter was threaded over the guide wire and the needle was removed with appropriate pulsatile blood return. Blood loss was minimal. The catheter was then sutured in place to the skin and a sterile dressing applied. Perfusion to the extremity distal to the point of catheter insertion was checked and found to be adequate. The patient tolerated the procedure well and there were no complications. PREOP DIAGNOSIS: Respiratory distress/hypoxemia. POSTOP DIAGNOSIS: Respiratory distress/hypoxemia. No evidence of complications or bleeding. MMODL / IJN: [id number] /
[2017-04-17 12:58] LABS: LDH, Body Fluid Source Pleural Fluid; T. Protein, Body Fluid Source Pleural Fluid; Total Protein, Body Fluid 469.2 mg/dL
[2017-04-17 13:12] LABS: Glucose, BF Source Pleural Fluid; LDH, Body Fluid Source Pleural Fluid; T. Protein, Body Fluid Source Pleural Fluid; Total Protein, Body Fluid 468.3 mg/dL
--- NOTE | 2017-04-17 18:48 | P.DS ---
Providers Date of admission: 04/13/17 00:38 Attending physician: Jacquie Heaton Consults: 04/13/17 00:37 Consult Physician Stat Consulting Provider: Keesha Ferrer Consult Reason/Comments: Bilateral pleural effusion Do you want consulting provider notified?: Yes, Notify in am 04/14/17 17:41 Consult Physician Routine Consulting Provider: Eugene Shea Consult Reason/Comments: lymphoma Do you want consulting provider notified?: Yes Primary care physician: Keesha Ferrer [facility] Course: HISTORY OF PRESENTING ILLNESS: This is a 81-year-old female with history of diastolic heart failure, atrial fibrillation, lymphoma, and malignant pleural effusions who was recently discharged from the hospital. Patient was seen by another hospitalist group on the previous admission. Patient comes in the hospital with difficulty in breathing. Patient was initially seen in the emergency room. A chest x-ray was noted to have bilateral pleural effusions. The patient has had multiple thoracenteses in the past. 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 The patient was seen in the emergency room today. States that she continues to have difficulty breathing with minimal ambulation. However, the patient is not very active even at home. The patient underwent 3 cycles of chemotherapy with bendamustine and rituximab and sees Hematology Oncology group in [facility]. She is currently on 4 L supplemental oxygen, which is chronic. Denies any headache, change in vision, chest pain, abdominal pain, nausea, vomiting. The patient does complain of some swelling in her legs, however, is not significantly worse. Patient was noted to have a BNP around 4000. Initially, the patient was noted to be in atrial fibrillation with rapid ventricular rate. The patient was on Inderal 120 mg CD and states to be compliant with the medication. No new overnight events. Patient appears to be slightly improved status post thoracentesis Denies having any fevers chills nausea vomiting abdominal pain. Back to baseline on her oxygen requirement. 92,017 Patient declines significantly overnight Underwent bilateral thoracentesis Repeat analysis is pending Patient is currently hypotensive also received 1 L of crystalloids. There is currently on 50 mL of normal saline Inpatient blood pressure did not improve may need vasopressor support as well as currently on OptiFlow it to 40 L flow rate and 40% FiO2 No other overnight events are reported is also on a Cardizem drip at 5 mg/h 04/16/17 was given anti psychotics this am, due to agitation. At this time patient is on a significant amount of vasopressor support. During the time my evaluation patient is slightly drowsy no abnormal rhythms were reported Continues to be on OptiFlow Cardizem is increased to 15 mg/h GENERAL APPEARANCE: Alert, does not appear to be in distress. HEENT: Atraumatic, normocephalic. Pupils equal, round, reactive to light and accommodation. RESPIRATORY EXAM: Dull breath sounds at the bases. No rhonchi or wheezing. CARDIOVASCULAR EXAM: Irregular. No significant murmurs are appreciated. LOWER EXTREMITIES: 1+ pitting edema noted. NEURO: No focal deficits noted. Moves all 4 extremities. ABDOMEN: Soft, nontender. No organomegaly. ASSESSMENT: 1. Acute exacerbation of HFPEF. 2. Malignant bilateral pleural effusion. 3. Non-Hodgkin's lymphoma. 4. Acute on chronic hypoxemic respiratory failure. 5. Anemia of chronic disease. 6. Acute on chronic hypercapnic respiratory failure. 7. Diabetes mellitus. 8. Chronic kidney disease stage 3. #9. Septic shock 10.Acute toxic encephalopathy Patient progressively got worse required additional pressors family was in favor of keeping her comfortable Care was withdrawn patient cause of was septic shock and underlying lymphoma Patient Condition at Discharge: Serious Plan - Discharge Summary New Discharge Prescriptions: No Action metFORMIN HCL [Metformin HCl] 500 mg PO BID Propranolol HCl [Propranolol HCl ER] 120 mg PO DAILY Omeprazole 20 mg PO DAILY Latanoprost Ophth [Xalatan 0.005%] 1 drops BOTH EYES HS Atorvastatin [Lipitor] 10 mg PO DAILY Multivitamins, Thera [Multivitamin (formulary)] 1 tab PO DAILY Calcium Carbonate/Vitamin D3 [Calcium 600-Vit D3 400 Caplet] 1 tab PO DAILY Aspirin EC [Ecotrin Low Dose] 81 mg PO AC-SUPPER Furosemide [Lasix] 40 mg PO BID #60 tablet Apixaban [Eliquis] 5 mg PO BID #60 tab Discharge Medication List Atorvastatin [Lipitor] 10 mg PO DAILY 01/03/17 [History] Latanoprost Ophth [Xalatan 0.005%] 1 drops BOTH EYES HS 01/03/17 [History] Omeprazole 20 mg PO DAILY 01/03/17 [History] Propranolol HCl [Propranolol HCl ER] 120 mg PO DAILY 01/03/17 [History] metFORMIN HCL [Metformin HCl] 500 mg PO BID 01/03/17 [History] Aspirin EC [Ecotrin Low Dose] 81 mg PO AC-SUPPER 01/16/17 [History] Calcium Carbonate/Vitamin D3 [Calcium 600-Vit D3 400 Caplet] 1 tab PO DAILY 01/27 [History] Multivitamins, Thera [Multivitamin (formulary)] 1 tab PO DAILY 01/16/17 [History ] Furosemide [Lasix] 40 mg PO BID #60 tablet 02/06/17 [Rx] Apixaban [Eliquis] 5 mg PO BID #60 tab 04/08/17 [Rx] Follow up Appointment(s)/Referral(s): Keesha Ferrer MD [Primary Care Provider] - 1-2 days Discharge Disposition: - Preliminary Cause of Preliminary Cause of : septic shock
== END 2017-04-17 04:48 | disposition expired | DRG 291 ==
LOC: EC 23:21 → 6ICU 04-13 00:38 → 6SEL 04-13 14:47 → 6ICU 04-15 04:10 → 5ONC 04-16 23:01
PROVIDERS: ADMIT Hospitalist; ATTEND Hospitalist
PROC: 0W993ZZ Drainage of Right Pleural Cavity, Percutaneous Approach (ICD-10-PCS; principal; 2017-04-13)
PROC: 0W9B3ZZ Drainage of Left Pleural Cavity, Percutaneous Approach (ICD-10-PCS; 2017-04-15)
PROC: 0W993ZZ Drainage of Right Pleural Cavity, Percutaneous Approach (ICD-10-PCS; 2017-04-15)
PROC: 06HM33Z Insertion of Infusion Device into Right Femoral Vein, Percutaneous Approach (ICD-10-PCS; 2017-04-15)
PROC: 03HY32Z Insertion of Monitoring Device into Upper Artery, Percutaneous Approach (ICD-10-PCS; 2017-04-16)
DX: I13.0 Hypertensive heart and chronic kidney disease with heart failure and stage 1 through stage 4 chronic kidney disease, or unspecified chronic kidney disease (principal); A41.9 Sepsis, unspecified organism; J96.21 Acute and chronic respiratory failure with hypoxia; R65.21 Severe sepsis with septic shock; G92 Toxic encephalopathy; J18.9 Pneumonia, unspecified organism; I50.33 Acute on chronic diastolic (congestive) heart failure; J96.22 Acute and chronic respiratory failure with hypercapnia; N17.9 Acute kidney failure, unspecified; E87.0 Hyperosmolality and hypernatremia; E87.3 Alkalosis; J91.0 Malignant pleural effusion; C82.00 Follicular lymphoma grade I, unspecified site; E66.2 Morbid (severe) obesity with alveolar hypoventilation; N18.3 Chronic kidney disease, stage 3 (moderate); I27.2 Other secondary pulmonary hypertension; I48.2 Chronic atrial fibrillation; G25.0 Essential tremor; E11.22 Type 2 diabetes mellitus with diabetic chronic kidney disease; D63.8 Anemia in other chronic diseases classified elsewhere; E78.5 Hyperlipidemia, unspecified; E87.8 Other disorders of electrolyte and fluid balance, not elsewhere classified; H40.9 Unspecified glaucoma; I07.1 Rheumatic tricuspid insufficiency; K21.9 Gastro-esophageal reflux disease without esophagitis; M06.9 Rheumatoid arthritis, unspecified; T50.2X5A Adverse effect of carbonic-anhydrase inhibitors, benzothiadiazides and other diuretics, initial encounter; D64.81 Anemia due to antineoplastic chemotherapy; E83.42 Hypomagnesemia; Z79.01 Long term (current) use of anticoagulants; Z79.84 Long term (current) use of oral hypoglycemic drugs; Z79.899 Other long term (current) drug therapy; Z79.82 Long term (current) use of aspirin; Z96.653 Presence of artificial knee joint, bilateral; Z87.891 Personal history of nicotine dependence; Z99.81 Dependence on supplemental oxygen; Z80.7 Family history of other malignant neoplasms of lymphoid, hematopoietic and related tissues; Z82.49 Family history of ischemic heart disease and other diseases of the circulatory system
CPT/HCPCS: 36415; 36600; 51702; 70450; 71010; 71020; 71250; 74176; 80048; 80053; 80177; 82550; 82553; 82803; 82805; 82945; 83036; 83605; 83615; 83735; 83880; 84100; 84132; 84157; 84478; 84484; 85025; 85027; 85610; 85730; 87040; 87070; 87205; 87324; 89050; 93005; 94640; 94760; 96365; 96368; 96375; 96376; 99291